=== PATIENT | male | born 1955 | race Caucasian/White ===

== ENCOUNTER 2019-04-16 09:44 | Observation (INO) | payer OTHER ==
[~2019-04-16] VITALS: Ht 177.8 cm; Wt 84.0 kg
[~2019-04-16 09:44] MED LIST: ACET325 PO; ALPR.25 PO; ALPR.5 PO; ALUMAG30SU PO; AMIT10 PO; AMIT75 PO; ASCO500 PO; ASPI325 PO; DULO60 PO; GLIP5ER PO; INSUASPI; INSULANI SUBQ; INSULANPEN SC; LITH300C PO; LORA1 PO; METF500 PO; MULVITMIND PO; PERP4 PO; TAMS.4ER PO; ZINC220 PO; [UNRECOGNIZED DRUG - REMARK]
[2019-04-16 10:18] LABS: BASOPHILS ABSOLUTE AUTO 0.03 K/mm3 (0.00-0.23); BASOPHILS PERCENT AUTO 0 % (0-2); EOSINOPHILS ABSOLUTE AUTO 0.07 K/mm3 (0.00-0.68); EOSINOPHILS PERCENT AUTO 1 % (0-6); Hematocrit 25.5 % (37.0-53.0); Hemoglobin 8.1 g/dL (13.5-17.5); IMMATURE GRAN PERCENT AUTO 1 % (0-1); LYMPHOCYTES ABSOLUTE AUTO 1.14 K/mm3 (0.84-5.20); LYMPHOCYTES PERCENT AUTO 9 % (21-46); MONOCYTES ABSOLUTE AUTO 0.83 K/mm3 (0.16-1.47); MONOCYTES PERCENT AUTO 6 % (4-13); Mean Corpuscular HGB 30.1 pg (26.0-34.0); Mean Corpuscular HGB Conc 31.8 g/dL (31.5-36.5); Mean Corpuscular Volume 95 fL (80-100); Mean Platelet Volume 10.9 fL (9.1-12.4); NEUTROPHILS PERCENT AUTO 84 % (41-73); Platelet Count 264 K/mm3 (150-400); RDW Coefficient Variation 12.8 % (11.7-14.2); RDW Standard Deviation 44.3 fL (35.1-46.3); Red Blood Cell Count 2.69 M/mm3 (4.30-5.90); White Blood Cell Count 13.27 K/mm3 (4.00-11.30)
[2019-04-16 10:32] LABS: Albumin, Blood 2.3 g/dL (3.4-5.0); Albumin/Globulin Ratio 0.4 (0.8-1.8); Bilirubin, Total 1.8 mg/dL (0.1-1.0); Bun/Creatinine Ratio 34.9 (12.0-20.0); Calcium, Blood 9.6 mg/dL (8.5-10.1); Creatinine, Blood 3.58 mg/dL (0.60-1.20); Globulin, Blood 5.4 g/dL (2.2-4.0); Potassium, Blood 5.1 mmol/L (3.5-5.5); Total Protein, Blood 7.7 g/dL (6.4-8.2)
[2019-04-16 13:01] LABS: Percent Saturation 16.4 % (20.0-50.0)
--- NOTE | 2019-04-16 13:25 | NUR ---
RECEIEVED REPORT FROM WARREN SHEARER IN THE ER AT 1310. PATIENT TO BE TRANSFERED INTO ROOM 305 SHORTLY.
--- NOTE | 2019-04-16 15:53 | NUR ---
PATIENT ARRIVED TO ROOM 305 AT 1330. ASSESSMENT COMPLETED WITH THE ASSISTANCE OF THE PATIENT. PATIENT BROUGHT 3 BOXES OF LANTUS PENS WITH HIM TO THE HOSPITAL FROM HOME. ATTEMPTED TO SEND TO PHARMACY TO HOLD AND THE LADY I SPOKE WITH REFUSED TO TAKE THEM STATING SHE HAD NO ROOM TO STORE THEM. SHE INFORMED ME THEY COULD SAFELY BE STORED IN HIS MED BOX FOR UP TO 24 HOURS AT ROOM AIR AND TO SEND THEM HOME WHEN POSSIBLE. I EXPLAINED THAT THE PATIENT WAS ALONE AND DID NOT SEEM TO HAVE FAMILY OR ASSISTANCE TO DO SO; SHE CONTINUE TO REFUSE TO STORE INSULIN. PLACED IN PATIENT MED BOX OUTSIDE ROOM PER PHARMACY.
[2019-04-16 16:35] LABS: Hematocrit 24.3 % (37.0-53.0); Hemoglobin 7.9 g/dL (13.5-17.5)
--- NOTE | 2019-04-16 17:38 | NUR ---
SHIFT SUMMARY PATIENT HAS BEEN SLEEPING THE ENTIRE TIME SINCE THE COMPLETION OF HIS ASSESSMENT. AWAKES WHEN SPOKEN TO HOWEVER GOES BACK TO SLEEP. IV FLUIDS ARE BEING ADMINISTERED PER EMAR. WILL CONTINUE TO MONITOR AND PROVIDE CARE NEEDED.
--- NOTE | 2019-04-16 18:31 | NUR ---
PATIENT AWAKE NOW. BECOMING A BIT MORE AGGITATED AND DIFFICULT TO WORK WITH. INFORMED MONICA, PATTERN DUPLICATOR, THAT THE SCU MIGHT BE A GOOD OPTION FOR THE PATIENT. PATIENT ATTEMPTING TO URINATE IN URINAL STANDING NOW LAYING IN BED. HE IS STRUGGLING AND STATES HE SOMETIMES HAS TOUBLE VOIDING. WILL PASS ON INFORMATION TO ONCOMING RN.
--- NOTE | 2019-04-16 19:53 | NUR ---
TRANSFER TO SCU REPORT GIVEN TO LEAH MERIDA RN SHORTLY AFTER SHIFT CHANGE TO ASSUME CARE OF PT AT THIS TIME. PT TRANSFFERED FROM 305 [address].
--- NOTE | 2019-04-16 20:27 | NUR ---
SPOKE TO HOSPITALIST TAYLA ABOUT THE DIET ORDER FOR THIS PT AND WAS TOLD THAT IF GI STATES THAT A PROCEDURE IS NOT HAPPENING TONIGHT, THE PT CAN HAVE CLEAR LIQUIDS UNTIL MIDNIGHT. WILL CONITNUE TO MONITOR PT.
[2019-04-17 01:35] LABS: Hematocrit 21.7 % (37.0-53.0); Hemoglobin 7.1 g/dL (13.5-17.5); Mean Corpuscular HGB 31.1 pg (26.0-34.0); Mean Corpuscular HGB Conc 32.7 g/dL (31.5-36.5); Mean Corpuscular Volume 95 fL (80-100); Platelet Count 242 K/mm3 (150-400); RDW Coefficient Variation 12.8 % (11.7-14.2); RDW Standard Deviation 44.1 fL (35.1-46.3); Red Blood Cell Count 2.28 M/mm3 (4.30-5.90); White Blood Cell Count 11.26 K/mm3 (4.00-11.30)
[2019-04-17 01:50] LABS: Bun/Creatinine Ratio 31.5 (12.0-20.0); Calcium, Blood 9.5 mg/dL (8.5-10.1); Creatinine, Blood 3.4 mg/dL (0.60-1.20); Potassium, Blood 4.9 mmol/L (3.5-5.5)
[2019-04-17 02:04] LABS: Alpha Feto Protein, Tumor Mkr 2.3 ng/mL (0.0-8.0); Cancer Antigen 19-9 461.3 U/mL (2.0-37.0)
--- NOTE | 2019-04-17 03:48 | NUR ---
SHIFT SUMMARY PT ARRIVED AROUND 1999 FROM ROOM 305 WITHOUT INCIDENT. PT DIDN'T COMPLAIN OF SOB, DIZZINESS, OR CP. DR. PEREZ CAME TO SEE THE PT AND THE PT REFUSED ANY PROCEDURE TOMORROW. DR. PEREZ CHANGED PT'S DIET TO ADA. PT IS NONCOMPLIANT WITH DIET DESPITE RN EDUCATION STATING, "YOU WERE HERE WHEN THE DOCTOR SAID I COULD HAVE WHATEVER I WANT". THE PT RECIEVED ONE LAST GLASS OF ORANGE JUICE AFTER THAT RESPONSE. LATER IN THE SHIFT, THE PT'S H/H CAME BACK AT 7.1. THE HOSPITALIST WAS MADE AWARE AND 1 UNIT OF PRBC WAS ORDERED AND STARTED. SO FAR, PT STATES HE FEELS BETTER. PT IS ALERT AND ORIENTED, 2 ASSIST WITH THE WALKER. PT HAS THE BED ALARM ON AND HAS NO OTHER COMPLAINTS AT THIS TIME. WILL CONTINUE TO MONITOR.
[2019-04-17 06:01] LABS: Hematocrit 22.7 % (37.0-53.0); Hemoglobin 7.5 g/dL (13.5-17.5)
--- NOTE | 2019-04-17 17:50 | NUR ---
PT HAS BEEN RESTING IN BED THROUGHOUT THIS SHIFT. PT WITHDRAWN AND REFUSES PARTS OF CARE. PT USES URINAL AND CALLS APPROPRIATELY. 1 UNIT OF PRBC'S ADMINISTERED AROUND NOON, PT TOLERATED WELL. PT ORIENTED, BUT SLEPT MOST OF THIS SHIFT. PT WAKES TO EAT AND DRINK, NEEDING NO ASSISTANCE. PT STATES NO ADDITIONAL NEEDS AT THIS TIME.
--- NOTE | 2019-04-18 03:46 | NUR ---
SHIFT SUMMARY AOX3. DENIES SOB, PAIN, AND NAUSEA. LR @ 150 IN L WRIST 22G. TELE SHOWS SINUS TACH. WOUND ON BIG TOES AND UPPER BACK OPEN TO AIR. TYLENOL GIVEN @ 2100. REFUSED EGD AND COLONOSCOPY. PLAN IS TO DC TODAY.
[2019-04-18 05:09] LABS: Hematocrit 27.3 % (37.0-53.0); Mean Corpuscular HGB 30.1 pg (26.0-34.0); Mean Platelet Volume 10.3 fL (9.1-12.4); Platelet Count 259 K/mm3 (150-400); RDW Coefficient Variation 13.6 % (11.7-14.2); RDW Standard Deviation 45.5 fL (35.1-46.3); Red Blood Cell Count 2.99 M/mm3 (4.30-5.90); White Blood Cell Count 12.46 K/mm3 (4.00-11.30)
[2019-04-18 05:11] LABS: Mean Corpuscular Volume 91 fL (80-100)
[2019-04-18 05:26] LABS: Bun/Creatinine Ratio 26.3 (12.0-20.0); Calcium, Blood 9.9 mg/dL (8.5-10.1); Creatinine, Blood 2.97 mg/dL (0.60-1.20); Potassium, Blood 4.4 mmol/L (3.5-5.5)
[2019-04-18 08:43] LABS: Stool Occult Blood Guaiac 1 Neg (Neg)
[2019-04-18] MEDS ORDERED: AMIT75 PO (10:42)
[2019-04-18] MEDS ORDERED: TAMS.4ER PO (10:42)
--- NOTE | 2019-04-18 13:15 | NUR ---
DISCHARGE DISCHARGE INSTRUCTIONS, MEDICATION LIST AND FOLLOW UP APPOINTMENT REVIEWED WITH PT. QUESTIONS/CONCERNS ANSWERED. THREE BOXES LANTUS PENS RETRIEVED FROM PHARMACY AND RETURNED TO PT. NEW SCRIP FOR FLOMAX SENT TO [facility] PER PT PREFERENCE. PT IS ATTEMPTING TO CONTACT HIS FRIEND ALISHA FOR A RIDE HOME. WILL CONTINUE TO MONITOR.
--- NOTE | 2019-04-18 16:20 | NUR ---
PT UNABLE TO GET A HOLD OF HIS FRIEND FOR A RIDE HOME. KYLER CALLED BY PT FOR RIDE
== END 2019-04-18 15:50 | disposition home or self-care (01) ==
LOC: ER 09:44 → MEDS 09:45 → ENPENDDIS 04-18 11:30 → MEDS 04-18 15:50
PROVIDERS: Emergency Medicine; Internal Medicine; Internal Medicine Gastroenterology; ADMIT Internal Medicine
DX: D64.9 Anemia, unspecified (principal); N17.9 Acute kidney failure, unspecified; E11.22 Type 2 diabetes mellitus with diabetic chronic kidney disease; N18.3 Chronic kidney disease, stage 3 (moderate); K59.00 Constipation, unspecified; E87.1 Hypo-osmolality and hyponatremia; D72.829 Elevated white blood cell count, unspecified; R79.89 Other specified abnormal findings of blood chemistry; K80.20 Calculus of gallbladder without cholecystitis without obstruction; F20.9 Schizophrenia, unspecified; F31.9 Bipolar disorder, unspecified; Z87.891 Personal history of nicotine dependence; Z88.8 Allergy status to other drugs, medicaments and biological substances; Z79.4 Long term (current) use of insulin
CPT/HCPCS: 36415; 36430; 76770; 80048; 80053; 82105; 82272; 82728; 82947; 83540; 83550; 85014; 85018; 85025; 85027; 86301; 86850; 86900; 86901; 86923; 93005; 93010; 96361; 96374; 96376; 99285-25; A9270; C9113; G0378; J7030; J7120; P9016

== ENCOUNTER 2019-05-16 11:11 | Emergency (ER) | payer OTHER ==
[~2019-05-16] VITALS: Ht 177.8 cm; Wt 90.7 kg
[2019-05-16] MEDS ORDERED: LEVO750 PO (12:09)
== END 2019-05-16 12:34 | disposition home or self-care (01) ==
LOC: ER 11:11
DX: J18.9 Pneumonia, unspecified organism (principal); F17.290 Nicotine dependence, other tobacco product, uncomplicated; R60.0 Localized edema; E11.40 Type 2 diabetes mellitus with diabetic neuropathy, unspecified; E11.22 Type 2 diabetes mellitus with diabetic chronic kidney disease; I12.9 Hypertensive chronic kidney disease with stage 1 through stage 4 chronic kidney disease, or unspecified chronic kidney disease; N18.9 Chronic kidney disease, unspecified; Z88.8 Allergy status to other drugs, medicaments and biological substances; Z79.899 Other long term (current) drug therapy; Z79.4 Long term (current) use of insulin
CPT/HCPCS: 71046; 99283-25

== ENCOUNTER 2019-10-16 18:50 | Inpatient (IN) | payer OTHER ==
[~2019-10-16] VITALS: Ht 177.8 cm; Wt 78.2 kg
[~2019-10-16 18:50] MED LIST changes: +LEVO750 PO
[2019-10-16 20:14] LABS: BASOPHILS ABSOLUTE AUTO 0.02 K/mm3 (0.00-0.23); BASOPHILS PERCENT AUTO 0 % (0-2); EOSINOPHILS PERCENT AUTO 1 % (0-6); Hematocrit 25.2 % (37.0-53.0); Hemoglobin 7.7 g/dL (13.5-17.5); IMMATURE GRAN ABSOLUTE AUTO 0.05 K/mm3 (0.00-0.10); IMMATURE GRAN PERCENT AUTO 1 % (0-1); LYMPHOCYTES ABSOLUTE AUTO 0.98 K/mm3 (0.84-5.20); LYMPHOCYTES PERCENT AUTO 10 % (21-46); MONOCYTES ABSOLUTE AUTO 0.49 K/mm3 (0.16-1.47); MONOCYTES PERCENT AUTO 5 % (4-13); Mean Corpuscular HGB 28.8 pg (26.0-34.0); Mean Corpuscular HGB Conc 30.6 g/dL (31.5-36.5); Mean Corpuscular Volume 94 fL (80-100); NEUTROPHILS ABSOLUTE AUTO 7.91 K/mm3 (1.96-9.15); NEUTROPHILS PERCENT AUTO 83 % (41-73); Platelet Count 270 K/mm3 (150-400); RDW Coefficient Variation 15.7 % (11.7-14.2); RDW Standard Deviation 54.4 fL (35.1-46.3); Red Blood Cell Count 2.67 M/mm3 (4.30-5.90); White Blood Cell Count 9.55 K/mm3 (4.00-11.30)
[2019-10-16 20:30] LABS: Albumin, Blood 2.4 g/dL (3.4-5.0); Albumin/Globulin Ratio 0.4 (0.8-1.8); Bilirubin, Total 0.3 mg/dL (0.1-1.0); Bun/Creatinine Ratio 23.4 (12.0-20.0); Calcium, Blood 9.4 mg/dL (8.5-10.1); Creatinine, Blood 4.35 mg/dL (0.60-1.20); Globulin, Blood 5.8 g/dL (2.2-4.0); Potassium, Blood 5.5 mmol/L (3.5-5.5); Total Protein, Blood 8.2 g/dL (6.4-8.2); Troponin I 0.022 ng/mL (0.000-0.040)
[2019-10-16 23:05] LABS: IMMATURE RETIC FRACTION 23.1 % (2.3-16.0); RETIC HGB EQUIVALENT 27.2 pg (28.20-36.60); RETICULOCYTE ABSOLUTE 0.0801 M/mm3 (0.0200-0.1100)
[2019-10-16 23:12] LABS: Percent Saturation 15.5 % (20.0-50.0)
[2019-10-17 03:27] LABS: Source, Urine Clean Catch
[2019-10-17 03:34] LABS: Bilirubin, Urine Neg (Neg); Blood, Urine 1+ (Neg); Glucose Qualitative, Urine 3+ (Neg); Ketones, Urine Neg (Neg); Leukocyte Esterase, Urine Neg (Neg); Nitrite, Urine Neg (Neg); Protein, Urine 4+ (Neg); Specific Gravity, Urine 1.015 (1.003-1.022); Urobilinogen, Urine NORM (Normal)
[2019-10-17 03:49] LABS: Appearance, Urine Clear (Clear); Bacteria Not Seen /hpf; Color, Urine Yellow (P-Yellow); Red Blood Cells, Urine 0-2 /hpf (0-2); Squamous Epithelial Cells Rare /hpf (Few); White Blood Cells, Urine 0-2 /hpf (0-5)
[2019-10-17 04:31] LABS: Adenovirus Not Detected (NOT DETECT); Bordetella pertussis Not Detected (NOT DETECT); Chlamydophila pneumoniae Not Detected (NOT DETECT); Coronavirus 229E Not Detected (NOT DETECT); Coronavirus HKU1 Not Detected (NOT DETECT); Coronavirus NL63 Not Detected (NOT DETECT); Coronavirus OC43 Not Detected (NOT DETECT); Human Metapneumovirus Not Detected (NOT DETECT); Human Rhinovirus/Enterovirus Not Detected (NOT DETECT); Influenza A/2009-H1 Not Detected (NOT DETECT); Influenza A/H1 Not Detected (NOT DETECT); Influenza A/H3 Not Detected (NOT DETECT); Influenza B Not Detected (NOT DETECT); Mycoplasma pneumoniae Not Detected (NOT DETECT); Parainfluenza Virus 1 Not Detected (NOT DETECT); Parainfluenza Virus 2 Not Detected (NOT DETECT); Parainfluenza Virus 3 Not Detected (NOT DETECT); Parainfluenza Virus 4 Not Detected (NOT DETECT); Respiratory Syncytial Virus Not Detected (NOT DETECT)
--- NOTE | 2019-10-17 07:28 | NUR ---
END OF SHIFT PT TO UNIT FROM ED, AXO, COOPERATIVE BUT NOTABLY GRUMPY AT TIMES. PT IN AFLUTTER UPON ARRIVAL LOW 100'S HR, VSS STABLE OTHERWISE. ARRIVES ON CARDIZEM GTT 5, THIS HAS CONTINUED. HR NOW 70'S BP STABLE. PT ORIENTED TO ROOM/CARE. COVID SAMPLE AND PCR SAMPLE SENT TO LAB FOR TESTING. PT VERY DIFFICULT IV STICK, WHICH REQUIRED MULTIPLE SONOSITE UIDED ATTEMPTS, SHORTLY AFTERWARDS PT ACCIDENTALLY PULLED PREVIOUS IV, CARDIZEM SWITCHED TO THIS IV AND OTHER MEDICATIONS/FLUIDS STOPPED UNTIL DAY SHIFT ABLE TO PLACE NEW IV. PT ARRIVES WITH MULTIPLE ULCERS ON HIS FEET, PICS IN CHART. OTHERWISE, PT HAS SLEPT T/O THE NIGHT AND HAS BEEN COOPERATIVE AND AGREABLE TO CARE.
[2019-10-17 09:28] LABS: Hematocrit 23.7 % (37.0-53.0); Mean Corpuscular HGB 28.2 pg (26.0-34.0); Mean Corpuscular HGB Conc 29.5 g/dL (31.5-36.5); Mean Corpuscular Volume 96 fL (80-100); Mean Platelet Volume 9.9 fL (9.1-12.4); Platelet Count 235 K/mm3 (150-400); RDW Coefficient Variation 15.8 % (11.7-14.2); RDW Standard Deviation 54.4 fL (35.1-46.3); Red Blood Cell Count 2.48 M/mm3 (4.30-5.90); White Blood Cell Count 8.48 K/mm3 (4.00-11.30)
[2019-10-17 09:47] LABS: Albumin, Blood 2.1 g/dL (3.4-5.0); Albumin/Globulin Ratio 0.4 (0.8-1.8); Bilirubin, Total 0.2 mg/dL (0.1-1.0); Bun/Creatinine Ratio 22.4 (12.0-20.0); Calcium, Blood 8.9 mg/dL (8.5-10.1); Creatinine, Blood 4.37 mg/dL (0.60-1.20); Globulin, Blood 5.6 g/dL (2.2-4.0); Potassium, Blood 5.9 mmol/L (3.5-5.5); Total Protein, Blood 7.7 g/dL (6.4-8.2)
--- NOTE | 2019-10-17 10:35 | NUR ---
ATTEMPTED ECHOCARDIOGRAM 10/17/19 APTIENT REFUSED TEST
--- NOTE | 2019-10-17 12:00 | NUR ---
CARDIZEM DRIP IS STOPPED PT HAS CONSISTANT HR IN 70s. VSS. PT RESTING WELL INBED
--- NOTE | 2019-10-17 15:06 | NUR ---
PT WITH PROGRESSIVE UPWARD TITRATION OF O2 TO 6L NC TOFDAY. PT THEN AROUND 1400 WITH A SUDDEN INCREASE IN SOB, SPO2 DROPPED TO LOW TO MID 80s PT PLACED ON OXYMIZER AT 10L LITERS WHICH INITIALLY HELPED WITH LABOR OF BREATHING, PT DR DAVISON CALLED ORDER PLACED FOR BIPAP RT WAS CALLED TO NOTIFIY ORDER WAS BEINGPLACED FOR BIPAP. PT WAS TITRATED TO 12L O2 VIA OXYMIZER TO EVENTUALLY MAINTAIN SPO2 AT 92%. PT'S LAC IV INFILTRATED DURING PROCESS, IV WAS DC PRESSURE DFRESSINGH AND WARM COMPRESS APPLIED TO LAC. NEW IV WAS PLACED TO RFA, PT STS THAT HE FEELS THAT HIS BREATHING IS "BETTER" PT NOW WITH AFLUTTER IN 130s SHROUDMAN CALLING FOR NEW BAG OF CARDIZEM TO RESTART CARDIZEM. AWATING AZYHTROMYCIN FROM PHARMACY. PT RESTING WELL ON BED AT THIS TIME STS CONTINUED IMPROVEMENT FOR BREAHTING. LS ARE DIMENISHED T/O ALL LOBES. PT ALERT, AWAKES TO VERBAL COMMAND. RT IS ARRIVING TO PLACVE BIPAP
--- NOTE | 2019-10-17 18:38 | NUR ---
SHIFT NOTE SEE PREVIOUS NOTES. PT WAS TITRATED ON O2 FROM NASAL CANNULA TO OXYMIZER THEN FINALLY BIPAP. PT IS RESTING WELL ON BIPAP, NADN. PT STS THAT HIS BREATHING HAS GREATLY IMPROVIED WITH BIPAP IN PLACE, PT DOES APPEAR QUITE CALM WITH BIPAP IN PLAFCE. PT IS EDUCATED NUMEROUS TIMES WHICH HE DOES EXPRESS A GOOD UNDERSTANDING OF TEACHING R/T BIPAP. PT'S CODE STATUS WAS CALRIFIED WITH HIM AND HE STS THAT HE CONTINUES TO WISH TO BE A FULL CODE. PT REMAINS ON CARDIZEM DRIP AT 5MG/HR WITH A FLUTTER NOTED AT 90BPM.
--- NOTE | 2019-10-17 21:50 | NUR ---
UPDATE PATIENT WORE BIPAP FOR APPROX 15-20 MINUTES AT THE BEGINNING OF THE SHIFT. THEN CALLED RN INTO THE ROOM AND STATED THAT HE WILL NOT WEAR THE BIPAP ANY MORE. PATIENT ON 12-14L O2 VIA OXYMIZER. PATIENT USING ACCESSORY MUSCLES TO BREATH BUT DENIES FEELING SHORT OF BREATH. PATIENT CONTINUE TO REFUSES BIPAP AT THIS TIME.
--- NOTE | 2019-10-17 22:14 | NUR ---
UPDATE NURSE PRACTIONER ALFRED JONES NOTIFIED OF PATIENT'S ELEVATED HEART RATE AND BLOOD PRESSURE. WELL PATIENT'S INCREASED WORK OF BREATHING AND REFUSAL OF THE BIPAP EVEN IF MEDS WERE GIVEN TO HELP HIM RELAX. ALFRED ASSESSED PATIENT'S CHANGES, CHART, AND THE PATIENT. NO ORDERS GIVEN AT THIS TIME. WILL CONTINUE TO MONITOR. CHARGE NURSE AWARE AND SPOKE WITH ALFRED WELL.
[2019-10-17 22:27] LABS: Bun/Creatinine Ratio 22.6 (12.0-20.0); Calcium, Blood 9.4 mg/dL (8.5-10.1); Creatinine, Blood 4.42 mg/dL (0.60-1.20); Potassium, Blood 5.6 mmol/L (3.5-5.5)
--- NOTE | 2019-10-17 22:30 | NUR ---
UPDATE NURSE PRACTIONER ALFRED JONES IN ROOM TO SPEAK WITH PATIENT. PATIENT REQUESTING ADVIL FOR FOOT PAIN. ALFRED EXPLAINED TO PATIENT WHY SHE WAS UNABLE TO PERSCRIBE ADVIL. PATIENT REFUSING TYLENOL AT THIS TIME. PATIENT ALSO TOLD ALFRED THAT HE WANTS TO BE INTUBATED IF NEEDED BUT HE IS CONTINUING TO REFUSE BIPAP, EVEN AFTER ALFRED SPOKE WITH PATIENT.
--- NOTE | 2019-10-17 23:43 | NUR ---
UPDATE PATIENT'S CONTINUOUS BIOX ALARMING DUE TO O2 SATURATION IN THE 80'S. PATIENT CONTINUES TO REFUSE THE BIPAP. IT WAS EXPLAINED TO PATIENT THAT THE ALARMING NOISE INDICATED THAT HE WAS NOT GETTING ENOUGH OXYGEN, PATIENT STATED, "I'M GETTING ENOUGH OXYGEN FOR ME." AND CONTINUED TO REFUSE GOING ON THE BIPAP.
--- NOTE | 2019-10-18 04:34 | NUR ---
UPDATE PATIENT'S OXYGEN SATURATION NOTED TO BE 85-87% ON 15L VIA OXYMIZER. PATIENT STILL REFUSING BIPAP. RESPIRTORY THERAPY CALLED TO ASSESS PATIENT. DR STARKS NOTIFIED OF SITUATION, ORDERS RECEIVED. PATIENT NOW ON AIRVO AND OXYGEN SATURATIONS RANGING FROM 90-94% AT THIS TIME. WILL CONTINUE TO MONITOR.
[2019-10-18 06:20] LABS: BASOPHILS PERCENT AUTO 0 % (0-2); EOSINOPHILS PERCENT AUTO 0 % (0-6); Hemoglobin 7.4 g/dL (13.5-17.5); IMMATURE GRAN ABSOLUTE AUTO 0.03 K/mm3 (0.00-0.10); IMMATURE GRAN PERCENT AUTO 1 % (0-1); LYMPHOCYTES ABSOLUTE AUTO 0.22 K/mm3 (0.84-5.20); LYMPHOCYTES PERCENT AUTO 4 % (21-46); MONOCYTES ABSOLUTE AUTO 0.05 K/mm3 (0.16-1.47); MONOCYTES PERCENT AUTO 1 % (4-13); Mean Corpuscular HGB 28.1 pg (26.0-34.0); Mean Corpuscular HGB Conc 29.6 g/dL (31.5-36.5); Mean Corpuscular Volume 95 fL (80-100); Mean Platelet Volume 9.8 fL (9.1-12.4); NEUTROPHILS ABSOLUTE AUTO 5.93 K/mm3 (1.96-9.15); NEUTROPHILS PERCENT AUTO 95 % (41-73); Platelet Count 230 K/mm3 (150-400); RDW Coefficient Variation 15.6 % (11.7-14.2); RDW Standard Deviation 54.3 fL (35.1-46.3); Red Blood Cell Count 2.63 M/mm3 (4.30-5.90); White Blood Cell Count 6.23 K/mm3 (4.00-11.30)
[2019-10-18 06:37] LABS: Bun/Creatinine Ratio 22.9 (12.0-20.0); Calcium, Blood 9.7 mg/dL (8.5-10.1); Creatinine, Blood 4.32 mg/dL (0.60-1.20); Potassium, Blood 5.8 mmol/L (3.5-5.5)
--- NOTE | 2019-10-18 07:29 | NUR ---
SHIFT SUMMARY PATIENT HAS REMAINED ON THE AIRVO THROUGHOUT THE REST OF THE NIGHT. WITH 02 SATURATIONS MAINTAINING BETWEEN 90-94%. PATIENT CONTINUES TO BE IRRITABLE. PATIENT HAS APPEARED TO NAP ON AND OFF THROUGHOUT THE NIGHT. REPORT GIVEN TO ONCOMING RN.
--- NOTE | 2019-10-18 10:11 | NUR ---
LEFT UE DURING MORNING ASSESSMENT NOTED THAT PT LEFT FA AND UPPER ARM WERE LARGER THAN RIGHT. PT DENIED PAIN OR DISCOMFORT. HE RELATED THAT IT WAS FROM AN IV. 2+ LEFT RADIAL PULSE. BRISK CAP REFILL TO LEFT FINGERS. PT ABLE TO US ARM WITHOUT DISCOMFORT. NO REDNESS OR POINT SWELLING NOTED. PT REFUSED ELEVATION ON A PILLOW. HE SLEEPS ON HIS SIDE. CONTINUE POT.
--- NOTE | 2019-10-18 12:38 | NUR ---
[facility] CALLED TO ENQUIRE ABOUT PT STATUS. THEY HAVE 1 OTHER RESIDENT BEING SCREENED FOR COVID. CONTINUE POT.
[2019-10-18 13:49] LABS: Bun/Creatinine Ratio 23.6 (12.0-20.0); Calcium, Blood 9.6 mg/dL (8.5-10.1); Creatinine, Blood 4.28 mg/dL (0.60-1.20); Potassium, Blood 5.4 mmol/L (3.5-5.5)
--- NOTE | 2019-10-18 16:03 | NUR ---
ECHO PT REFUSED BEDSIDE ECHO TODAY. CONTINUE POT.
--- NOTE | 2019-10-18 17:58 | NUR ---
EVENING NOTE PT SITTING ON BEDSIDE EATING DINNER. TOLERATING AIRVO WELL. SPO2 90-97%. HE CAN LAY FLAT AND SLEEP WITHOUT DESATURATIONS. BP STAABLE. CARDIZEM GTT 5MG/HR. BP STABLE. HE HAD ABOUT AN HOUR WHERE HIS HR INCREASED. SELF LIMITED. PT COOPERATIVE WITH CARE. AGREEABLE TO LEE PLACMENT. 24 HOUR URINE JUG AND LEE BAG ON ICE. CORVID R/O PRECAUTIONS. DOOR IS BEING KEPT CLOSED. HE IS CALLING FOR ASSISTANCE. REALLY LIKES MILK. DRINKS 3-4 A MEAL. DENIED PAIN OR DISCOMFORT. BICARB GTT INFUSING IN SEPERATE IV SITE FROM CARDIZEM GTT. LEFT ARM 2+ EDEMA. DR DAVISON WAS SHOWN WHEN SHE WAS AT BEDSIDE DURING ROUNDING. CALL LIGHT WITH IN REACH. PT REFUSES TRACTION SOCKS. BED IN LOW POSITION. CONTINUE POT.
--- NOTE | 2019-10-19 03:32 | NUR ---
UPDATE DR PEREZ NOTIFIED OF PAITNET'S BLOOD PRESSURE WELL PATIENT'S HEART RATE SUSTAINING IN THE 130'S WITH CARDIZEM GTT AT 15 MG/HR. ORDERS RECEIVED.
[2019-10-19 04:30] LABS: BASOPHILS PERCENT AUTO 0 % (0-2); EOSINOPHILS PERCENT AUTO 0 % (0-6); IMMATURE GRAN ABSOLUTE AUTO 0.04 K/mm3 (0.00-0.10); IMMATURE GRAN PERCENT AUTO 0 % (0-1); LYMPHOCYTES ABSOLUTE AUTO 0.24 K/mm3 (0.84-5.20); LYMPHOCYTES PERCENT AUTO 3 % (21-46); MONOCYTES ABSOLUTE AUTO 0.07 K/mm3 (0.16-1.47); MONOCYTES PERCENT AUTO 1 % (4-13); Mean Corpuscular HGB 28.6 pg (26.0-34.0); Mean Corpuscular HGB Conc 30.4 g/dL (31.5-36.5); Mean Corpuscular Volume 94 fL (80-100); Mean Platelet Volume 9.5 fL (9.1-12.4); NEUTROPHILS ABSOLUTE AUTO 9.32 K/mm3 (1.96-9.15); NEUTROPHILS PERCENT AUTO 96 % (41-73); Platelet Count 257 K/mm3 (150-400); RDW Coefficient Variation 15.8 % (11.7-14.2); RDW Standard Deviation 53.8 fL (35.1-46.3); Red Blood Cell Count 2.45 M/mm3 (4.30-5.90); White Blood Cell Count 9.67 K/mm3 (4.00-11.30)
[2019-10-19 04:53] LABS: Albumin, Blood 2.2 g/dL (3.4-5.0); Anion Gap 14 mmol/L (6-16); Blood Urea Nitrogen 107 mg/dL (8-24); CO2, Blood 15 mmol/L (21-32); Calcium, Blood 8.9 mg/dL (8.5-10.1); Chloride, Blood 106 mmol/L (98-108); Creatinine, Blood 4.12 mg/dL (0.60-1.20); Glomerular Filtration Rate 15 (60-); Glucose, Blood 370 mg/dL (70-99); Potassium, Blood 5.3 mmol/L (3.5-5.5); Sodium, Blood 135 mmol/L (136-145); Uric Acid, Blood 5.8 mg/dL (3.5-7.2)
[2019-10-19 05:03] LABS: Phosphorus, Blood 8.2 mg/dL (2.5-4.9)
--- NOTE | 2019-10-19 05:42 | NUR ---
UPDATE DR PEREZ CALLED AND NOTIFIED OF PATIENT'S HGB LEVEL'S THIS AM, PATIENT HAS SIGNED THE BLOOD REFUSAL PAPER. DR PEREZ ALSO NOTIFIED OF PATIENT'S BLOOD SUGAR WITH AM LABS. AN ORDER FOR HUMALOG TO BE CHANGED TO MEDIEM SLIDING SCALE STARTING NOW AND THEN AC TODAY. DR PEREZ ALSO NOTIFIED OF PATIENT'S PHOSPHORUS LEVELS THIS AM.
--- NOTE | 2019-10-19 07:21 | NUR ---
SHIFT SUMMARY PATIENT SLIGHTLY IRRITABLE THROUGHOUT THE NIGHT. PATIENT APPEARED TO NAP ON AND OFF LAST NIGHT. PATIENT ALSO REQUESTED SNACKS FREQUENTLY EVEN AFTER EDUCATION ON FOOD AND BLOOD SUGAR WAS PROVIDED. PATIENT REMAINED ON THE AIRVO, CONTINUOUS BIOX IN PLACE. IV FLUIDS AND CARDIZEM GTT RUNNING PER ORDERS. 24 HOUR URINE IN PROGRESS. REPORT GIVEN TO ONCOMING RN.
--- NOTE | 2019-10-19 09:14 | NUR ---
Echocardiogram completed.
--- NOTE | 2019-10-19 14:35 | NUR ---
Echocardiogram completed.
--- NOTE | 2019-10-19 19:24 | NUR ---
PCU NOC SHIFT SUMMARY PATIENT ALERT AND ORIENTED TO SELF, LOCATIONS AND NEEDS. PATIENT BECOMES IRRATABLE WITH QUESTIONS. PATIENT ALLOWED THIS RN TO TAKE VSS AND ADMINISTER MEDICATIONS. PATIENT WEAK WITH STAND BUT ABLE TO TOLERATE FOR A FEW MINUTES AT A TIME. PATIENT REMAINED ON AIRVO T/O DAY - MANAGED PER RESPIRTORY THERAPY. PATIENT REMAINED IN AFIB T/O SHIFT. CARDIEZEM GTT TITRATED TO OFF THIS SHIFT - SEE EMAR. PATIENT LIVES AT [facility] - NO FAMILY NOTED PER CHART - NOR HAS PATIENT COMMUNICATED. PATIENT CONTINUES TO REFUSE DIALYSIS AND BLOOD PRODUCTS BUT WOULD LIKE TO REMAIN A FULL CODE - PATIENT EDUCATED. NO ACUTE CHANGES NOTED THIS SHIFT. BED ALARM ON AND CALL LIGHT W/I REACH. REPORT TO NOC SHIFT RN RENE.
--- NOTE | 2019-10-19 20:50 | NUR ---
Initial shift assessment: Pt resting in bed with Airvo in place. VSS. Pt HR elevated. Attempted new IV start in order to restart cardezem gtt while bicarb running. Pt very irritable and stated "I want a pill form, let me talk with the doctor." Assured pt I would speak with physicain about sarting PO instead of IV cardizem. At this time pt was switched to IV cardizem for HR control and bicarb drip was put on standby. Will switch back after HR better controlled. Pt continues to ask for snacks and NS was called to get sugar free snacks from kitchen. Downing cath draining clear, yellow urine. 24 hour urine restarted. Pt aware that sputum sample needs sent and speciman container at bedside. Call light in reach. Will continue to monitor and treat throughout the night.
--- NOTE | 2019-10-20 02:31 | NUR ---
Pt sitting up at edge of bed at this time. States that he is feeling ok. HR has decreased into the 90's after PO cardizem, cardizem push and IV cardizem gtt were given. Gtt turned off at this time and Bicarb restarted per orders. Pt denies other needs. Will continue to monitor tele. Airvo still in on and Biox in low 90's. RT to titrate, at this time airvo is at 55L and 70%fio2. Call light in reach and Pt calls appropriatly.
[2019-10-20 04:11] LABS: BASOPHILS PERCENT AUTO 0 % (0-2); EOSINOPHILS PERCENT AUTO 0 % (0-6); Hematocrit 22.8 % (37.0-53.0); Hemoglobin 6.9 g/dL (13.5-17.5); IMMATURE GRAN ABSOLUTE AUTO 0.04 K/mm3 (0.00-0.10); IMMATURE GRAN PERCENT AUTO 1 % (0-1); LYMPHOCYTES ABSOLUTE AUTO 0.16 K/mm3 (0.84-5.20); LYMPHOCYTES PERCENT AUTO 2 % (21-46); MONOCYTES ABSOLUTE AUTO 0.07 K/mm3 (0.16-1.47); MONOCYTES PERCENT AUTO 1 % (4-13); Mean Corpuscular HGB 28.4 pg (26.0-34.0); Mean Corpuscular HGB Conc 30.3 g/dL (31.5-36.5); Mean Corpuscular Volume 94 fL (80-100); Mean Platelet Volume 9.5 fL (9.1-12.4); NEUTROPHILS ABSOLUTE AUTO 7.88 K/mm3 (1.96-9.15); NEUTROPHILS PERCENT AUTO 97 % (41-73); Platelet Count 245 K/mm3 (150-400); RDW Coefficient Variation 15.9 % (11.7-14.2); RDW Standard Deviation 54.7 fL (35.1-46.3); Red Blood Cell Count 2.43 M/mm3 (4.30-5.90); White Blood Cell Count 8.15 K/mm3 (4.00-11.30)
--- NOTE | 2019-10-20 04:14 | NUR ---
PT UP TO BSC WITH 1 PERSON ASSIST, HAD MEDIUM FORMED BROWN STOOL.
[2019-10-20 04:35] LABS: Albumin, Blood 2.3 g/dL (3.4-5.0); Anion Gap 14 mmol/L (6-16); Blood Urea Nitrogen 124 mg/dL (8-24); Bun/Creatinine Ratio 29.8 (12.0-20.0); CO2, Blood 16 mmol/L (21-32); Chloride, Blood 105 mmol/L (98-108); Creatinine, Blood 4.16 mg/dL (0.60-1.20); Glomerular Filtration Rate 15 (60-); Glucose, Blood 249 mg/dL (70-99); Magnesium, Blood 2.5 mg/dL (1.6-2.4); Potassium, Blood 5.7 mmol/L (3.5-5.5); Sodium, Blood 135 mmol/L (136-145)
--- NOTE | 2019-10-20 05:09 | NUR ---
SHIFT SUMMARY: Pt dozing in bed at this time. He was awake for a good part of the night. Pt HR A-flutter in the 70-80's at this time. Rate has been controlled since about 0200. Pt was able to have a med brown stool tonight. Downing cath has been draining well. He has remained on airvo with biox 88-96. Tolerating well. No other needs this shift. Will report to day RN.
[2019-10-20 07:24] LABS: Percent Saturation 14.8 % (20.0-50.0)
--- NOTE | 2019-10-20 08:00 | NUR ---
ASSUMED CARE PATIENT ALERT AND ORIENTED TO SELF, LOCATION AND DATE OF . PATIENT DENIES ANY ACUTE PAIN. ABD SOFT AND NONTENDER. LEE CATH IN PLACE DRAINING CLEAR YELLOW URINE TO GRAVITY. RESP LABORED WITH ACCESSORY AND ABDOMINAL BREATHING NOTED - PATIENT ON AIRVO WITH 55LPM AND FIO2 AT 55%. HEART RATE IN THE 140'S AFLUTTER. PATIENT HYPERTENSIVE. CALLED MD COPPOLA TO NOTIFY OF RVR AND WOB WITH FIO2 RATE AND PT HYPERTENSION - TREATED PER MD ORDERS - SEE EMAR. DISCUSSED PLAN OF CARE WITH RT AND MD COPPOLA. CALL LIGHT W/I REACH.
--- NOTE | 2019-10-20 09:00 | NUR ---
ASSUMED CARE PATIENT ALERT AND ORIENTED TO SELF, LOCATION AND PARTIAL SITUATION. PATIENT REMAINS IN AFLUTTER W/ RVR RATE 140'S - HYPERTENSIVE 188-203 SBP; MD COPPOLA NOTIFIED - ORAL CARDIEZEM AND LOPRESSOR PUSH GIVEN PER EMAR. PATIENT PRESSURES DOWN AND AFLUTTER NOW 70-80'S. PATIENT REMAINS ON AIRVO. PATIENT UP IN TRIPOD POSITION; INCREASE WOB NOTED. PATIENT PLACE IN RECLINER. NOTIFIED PROVIDER ANAT OF CONCERNS. CALL LIGHT W/I REACH.
--- NOTE | 2019-10-20 10:09 | NUR ---
OXYGEN REQUIREMENTS INCREASE PATIENT TITRATED UP TO 55 LPM ON AIRVO WITH FIO2 AT 80% PER RESPIRATORY THERAPY.
--- NOTE | 2019-10-20 10:25 | NUR ---
CONSENT TO BLOOD AND DIALYSIS SEE PATIENT LABS - PATIENT CONSENT TO BLOOD AND DIALYSIS ADMINSTRATION AND INSERTION OF DIALYSIS PORT WITH MD CHAN ON SPEAKER PHONE. PATIENT REMAINS SOB WITH INCREASED WORK OF BREATHING. AIRVO IN PLACE WITH 55LPM AND FIO2 TITRATED UP TO 80%. DUSTIN GAVE ORDERS FOR EMERGENT DIALYSIS WITH TRANSFUSION OF 2 UNITS PRBC AND TRANSFER TO ICU WITH DAIRY CATTLE FARM WORKER TO PLACE DIALYSIS PORT. AT APPROX 1240 PATIENT TRANSFERED TO ICU 13 - REPORT TO SURFACE SUPPLY BREATHING APPARATUSJANKI PERKINS.
--- NOTE | 2019-10-20 13:00 | NUR ---
TRANSFER FROM PCU DUE TO FLUID OVERLOAD AND NEEDING A DIALYSIS CATHETER PLACED PER DR CHAN. DR SALCIDO AND DR SPEARS CONSULTED FOR MANAGEMENT. PT ARRIVES VIA BED BUT ABLE TO DANGLE AND TRANSFER TO ICU BED WITH TWO PERSON SBA. INCREASE SOB NOTED ON EXERTION AND VERY ANXIOUS, CONCENTRATING ON BREATHING. RESPIRATORY THERAPY AT BEDSIDE TO PLACE AIRVO TO KEEP SATS >90%. PT DENIES PAIN. LUNGS CLEAR WITH FINE CRACKLES TO BASES. TRACHYPNEIC, HEART RHYTHM A-FLUTTER 3:1 WITH CONTROL RATE IN 90'S. CARDIZEM GTT DC'D IN PCU. ABD DISTENDED WITH HYPO BT'S. LEE IN PLACE AND PATENT WITH CLEAR YELLOW URINE, 24 URINE BEING COLLECTED. BUMEX GTT AND SODIUM BICARB GTT INFUSING AT THIS TIME. BILTERAL LE'S TAUGHT AND MINIMAL PITTING EDEMA. BITALERAL FEET WITH DRY CONTACT DERMATITIS WITH THREADY PEDAL PULES. POWER GLIDE TO ELIAN. BP STABLE. CONTINUE TO MONITOR AND TX PER ORDERS.
--- NOTE | 2019-10-20 13:15 | NUR ---
DR SPEARS HERE TO CONSULT. DISCUSSED WITH PATIENT ABOUT PLACING A DIALYSIS CATHETER, PATIENT AGREES TO PROCEED WITH IT. DR SALCIDO HERE TO PLACE DIALYSIS CATHETER, CONSENT OBTAINED. 4420 DR SALCIDO PLACING DIALYSIS CATHETER; PATIENT TOLERATING WELL.
--- NOTE | 2019-10-20 13:24 | NUR ---
URGENT DIALYSIS ORDERED BY DR CHAN. TREATMENT WILL COMMENCE PAULINE FOLLOWIING CVC PLACEMENT AND XRAY POSITION CONFIRMATION.
--- NOTE | 2019-10-20 14:15 | NUR ---
DIALYSIS CATHETER PLACED WITH XRAY CONFIRMATION PER DR SALCIDO. SERVICE PROMOTER SALESPERSON, ELLIS HERE AT BEDSIDE SETTING UP. 1425 DIALYSIS STARTED AND WILL TRANSFUSE 2UNITS PRBC'S PER ORDERS.
[2019-10-20 14:26] LABS: PCO2 Arterial 42.2 mmHg (35-45)
[2019-10-20 14:27] LABS: pH Blood Arterial 7.25 (7.35-7.45)
--- NOTE | 2019-10-20 16:15 | NUR ---
HEART RHYTHM INCREASE TO 140'S WITH DIALYSIS. WILL HAVE CHIEF LIFESTYLE OFFICERELLIS GIVE METOPROLOL 5MG IVP PER ORDERS TO TX FOR RVR. CONTINUE TO MONITOR AND TX PRN.
--- NOTE | 2019-10-20 16:50 | NUR ---
NO CHANGES ON HR WITH METOPROLOL IVP. DR SPEARS HERE AT BEDSIDE WITH NEW ORDERS. CHANGE TO BIPAP INSTEAD OF AIRVO; PATIENT AGREES. EXTRA LARGE SOFT BOWEL MOVEMENT ON BEDPAN, TOLERATED WELL. CONTINUING RECEIVING DIALYSIS.
--- NOTE | 2019-10-20 17:09 | NUR ---
COMPLETE WITH DIALYSIS, TOLERATED WELL. BIPAP IN PLACE, HR DECREASED TO 100'S-TEENS. SLEEPING, RESTING COMFORTABLE. CONTINUE TO TX PRN.
--- NOTE | 2019-10-20 18:09 | NUR ---
SHIFT SUMMARY PT RECEIVED DIALYSIS TODAY AND TOLERATED WELL. BP REMAIN STABLE BUT HR INCREASE TO A-FULTTER WITH RVR 140'S. PT WAS RECEIVING AIRVO WITH 85% FIO2 BUT NEW ORDERS TO START BIPAP TO CONTROL HR. HR CONTROL IN THE 90-100'S, BP STABLE. PT SLEEPING/RESTING COMFORTABLE. WILL KEEP NPO STATUS FOR DINNER AND RESUME DIET WHEN HUNGRY. 24HR URINE BEING COLLECTED AND COMPLETE AT 1945. WILL REPORT OFF TO NOC SHIFT.
--- NOTE | 2019-10-20 19:28 | NUR ---
Met with staff today to review pt needs. Dr Bajwa had extensive conversation with patient regarding plan of care. Pt consented to dialysis plan. Review of chart and past psyciatric history and and previous admissions. REview of patient with morning caregiver to strategize care. Pt does not have next of kin noted. Called Ian Scott he has a friend listed. Called his friend and he was an old roomate who has not talked to him in a few months but stays in touch. He is supportive of pt but not appopriate to make decisons and does not want to. He stated that he does have sons and a family he has notseen in years. He called around to some of their old friends and accuintances and tried to find out more. He confirmed that he has long lost contact with any family. Review of Doctor Jarrett notes pt has been institutinalized and homelss and in fpc houses. He has had bouts of being very ill. At his time we are unable to find a decision maker if he is uanble to speak for himself. Ethic consult put in suggest in pt should decline surogate support given within the [facility] guideline of directive three. Suggest we offer physician support of two phsyician and and the ethic care team assistant plan of care if pt cannot speak or decines.
--- NOTE | 2019-10-20 19:30 | NUR ---
ASSUMED CARE REPORT RECIEVED. PT IS SITTING UP IN BED ON BIPAP INITIALLY. PT REQUESTING TO EAT. PT PLACED ON AIRVO AT 55L, FIO2 82%. PT TOLERATING AIRVO WELL. PT IS ALERT AND ORIENTED. PT NEEDS FREQUENT REASSURANCE OF PLAN OF CARE. PT DENIES SOB AT THIS TIME. PT WITH HR 140'S AT THIS TIME, BP STABLE. POWERGLIDE TO ELIAN IS C/D/I, SALINE LOCKED. DIALYSIS CATHETER TO [facility] C/D/I, CAPS IN PLACE. LEE IN PLACE WITH CLEAR YELLOW OUTPUT NOTED, ON ICE. 24HR URINE COLLECTION IN PROGRESS. WILL CONTINUE TO MONITOR.
[2019-10-20 21:19] LABS: Protein, Urine Quantitative 174.8 mg/dL (0.0-11.9)
[2019-10-21 03:23] LABS: Hematocrit 27.2 % (37.0-53.0); Hemoglobin 8.8 g/dL (13.5-17.5)
[2019-10-21 03:37] LABS: Magnesium, Blood 2.2 mg/dL (1.6-2.4)
[2019-10-21 03:38] LABS: Albumin, Blood 2.2 g/dL (3.4-5.0); Anion Gap 9 mmol/L (6-16); Blood Urea Nitrogen 93 mg/dL (8-24); Bun/Creatinine Ratio 29.6 (12.0-20.0); CO2, Blood 27 mmol/L (21-32); Calcium, Blood 8.5 mg/dL (8.5-10.1); Chloride, Blood 102 mmol/L (98-108); Creatinine, Blood 3.14 mg/dL (0.60-1.20); Glomerular Filtration Rate 21 (60-); Glucose, Blood 271 mg/dL (70-99); Phosphorus, Blood 7.2 mg/dL (2.5-4.9); Potassium, Blood 4.3 mmol/L (3.5-5.5); Sodium, Blood 138 mmol/L (136-145)
--- NOTE | 2019-10-21 05:46 | NUR ---
SHIFT SUMMARY PT HAS REMAINED AWAKE FOR MOST OF THE SHIFT. PT IS ALERT AND ORIENTED AND FOLLOWS SOME COMMANDS APPROPRIATELY. PT MOOD HAS BEEN LABILE AND PT IS IRRITABLE WITH CARE. PT DENIES PAIN OR DISCOMFORT AND DENIES SOB. PT DESATURATES QUICKLY WITH EXERTION. PT REMAINS ON AIRVO AT 55L, 82% FIO2. HR HAS VARIED BETWEEN AFLUTTER 100'S AND 140'S. BP STABLE. PG TO ELIAN IS C/D/I. LEE IN PLACE WITH GOOD CLEAR YELLOW OUTPUT NOTED. PT WITH GREAT APPETITE AND REQUESTING SNACKS FREQUENTLY THROUHGHOUT THE SHIFT. WILL CONTINUE TO MONITOR AND REPORT OFF TO ONCOMING RN.
[2019-10-21 08:09] LABS: ANTIGLOMERULAR BM AB 5 units (0-20)
--- NOTE | 2019-10-21 08:23 | NUR ---
0700- ASSUMED CARE OF PATIENT. PT IS SLEEPING AT THIS TIME WILL ALLOW PT TO REST A LITTLE LONGER. PER REPORT FROM NIGHT RN, PT WENT TO SLEEP AROUND 3 AM THIS MORNING. 07-PT WOKE UP CALLED THIS RN, STATING "WHERE'S MY BREAKFAST" INFORMED PT BREAKFAST WILL ARRIVE SOON. 08-PT UST FINISHED BREAKFAST. TOLERATED IT WELL. PT IS ALERT AND ORIENTED. PT IS EATING HASTILY. ENCOURAGED PT TO TAKE TIME TO EAT SO HE WILL NOT CHOKE AND ASPIRATE. PT SEEMED TO LISTEN SINCE HE TOOK HIS TIME TO EAT.
--- NOTE | 2019-10-21 09:26 | NUR ---
DR. COPPOLA CAME BY TO SEE PT. UPDATED HER OF PT'S STATUS.
--- NOTE | 2019-10-21 10:00 | NUR ---
DIALYSIS WAS STARTED AT THIS TIME PER ROE WORKFORCE ADVISOR.
--- NOTE | 2019-10-21 10:53 | NUR ---
DR. SPEARS WAS NOTIFIED RGARDING PT'S HR IN HE 150s. PT RECEIVED LOPRESSOR 5 MG IV @ 0833. SHE ORDERD TO GIVE ANOTHER DOSE OF LOPRESSOR 5MG IV ONE TIME DOSE ON OP OF THE PRN DOSES.
--- NOTE | 2019-10-21 12:37 | NUR ---
1145-PT SEEN BY DR. SPEARS. UPDATED HER OF PT'S STATUS.
[2019-10-21 13:09] LABS: ANA DIRECT Negative (Negative); ANTIMYELOPEROXIDASE (MPO) ABS <9.0 U/mL (0.0-9.0); ANTIPROTEINASE 3 (PR-3) ABS <3.5 U/mL (0.0-3.5); ATYPICAL PANCA <1:20 titer (Neg:<1:20); CYTOPLASMIC (C-ANCA) <1:20 titer (Neg:<1:20); PERINUCLEAR (P-ANCA) <1:20 titer (Neg:<1:20)
--- NOTE | 2019-10-21 13:16 | NUR ---
1250-DIALYSIS IS DONE AT THIS TIME. PLACED PT ON BIPAP SETTINGS 12/6 AT THIS TIME WITH FiO2 65%. 1316-DR. SPEARS IS TALKING TO DR. FREY REGARDING CARDIOLOGY CONSULT AT THIS TIME. CURRENT BIPAP SETTINGS 14/6 STILLL 65% FiO2. PT TOLERATING BIPAP
[2019-10-21 14:30] LABS: International Normalized Ratio 1.21; Prothrombin Time Results 12.8 Sec (9.7-11.5)
[2019-10-21 15:09] LABS: A/G RATIO 0.7 (0.7-1.7); ALBUMIN 2.7 g/dL (2.9-4.4); ALPHA-1-GLOBULIN 0.4 g/dL (0.0-0.4); ALPHA-2-GLOBULIN 0.9 g/dL (0.4-1.0); GAMMA GLOBULIN 1.9 g/dL (0.4-1.8); GLOBULIN, TOTAL 4.2 g/dL (2.2-3.9); IMMUNOFIXATION RESULT, SERUM Comment: (.); IMMUNOGLOBULIN A, QN, SERUM 564 mg/dL (61-437); IMMUNOGLOBULIN G, QN, SERUM 1865 mg/dL (700-1600); IMMUNOGLOBULIN M, QN, SERUM 47 mg/dL (20-172); M-SPIKE Not Observed g/dL (Not Observed); PROTEIN, TOTAL, SERUM 6.9 g/dL (6.0-8.5)
--- NOTE | 2019-10-21 15:12 | NUR ---
Initial spiritual care note: Mr. Murrieta was quite sleepy. He seemed irritable, but wanted prayer. He did not engage in conversation and fell back to sleep as I prayed for him. I will remain available.
--- NOTE | 2019-10-21 15:24 | NUR ---
PT'S O2 SATURATION HAS BEEN MAINTAINED ABOVE 90% MOST OF THE TIME WHILE ON AIRVO AND BIPAP. DESATS WITH ACTIVITY. WORK OF BREATHING MORE LABORED. PT WAS ABLE TO USE BIPAP FOR AN HOUR TODAY.
--- NOTE | 2019-10-21 18:42 | NUR ---
SHIFT SUMMARY: PT IS ALERT AND ORIENTED. PT HAS BEEN TOLERATING THE AIRVO BETTER THAN THE BIPAP. PT IS WAS ABLE TO USE BIPAP FOR AN HOUR. 02 SATURATION HAS BEEN MOSTLY ABOVE 90%. PT DESATS AT TIMES WITH ACTIVITY. DENIES PAIN. PT IS ON HEPARIN DRIP @ 13U/KG/HR AND AMIODARONE DRIP @ 1MG/MIN X 6 HOURS. PT'S HR NOW IN THE LOW 100s. AFEBRILE. PT HAD DIALYSIS TODAY- 2 L OF FLUID WAS REMOVED. 1 UNIT PRBC WAS GIVEN DURING DIALYSIS.
--- NOTE | 2019-10-21 19:05 | NUR ---
ASSUME CARE: REPORT RECIEVED FROM [facility] GOING RN. MONITOR INTACT SHOWING A FIB/A FLUTTER. HEART RATE 100'-110'S. LUNG SOUNDS CLEAR UPPER LOBES WITH DECREASED SOUNDS IN THE BASES AIRVO INTACT AT 55L AND 83% SPO2 89-95% RATE 18-36 MIN. ABDOMEN SOFT WITH BOWEL SOUNDS FOUR QUADS. LEE PATENT DRAINING RIDDHI URINE. REQUESTS LOTION FOR R FOOT. SORE NOTED BETWEEN AND ON THE OUTER ASPECT OF R GREAT TOE AND ALSO ON L GREAT TOE AND SIDE OF FOOT. STATES HAS HAD THEM "FOR A LONG TIME" REQUEST THAT DR BE INFORMED SO "THEY CAN SEE THEM TOMMORROW. " INFORMED THAT THIS RN WOULD LEAVE A NOTE IN AND ON THE CHART. GILLIAM IN BED AND REPOSITIONS SELF. ATTENDS IN PLACE PASSING FLATUS ATTEMPT UNSUCCESSFUL ON BEDPAN. CONTINUE TO MONITOR AND REPORT CHANGE IN PATIENT CONDITION.
[2019-10-21 23:09] LABS: HBSAG SCREEN Negative (Negative); HEP A AB, IGM Negative (Negative); HEP B CORE AB, IGM Negative (Negative); HEP C VIRUS AB <0.1 (0.0-0.9)
--- NOTE | 2019-10-22 02:54 | NUR ---
SHIFT SUMMARY: REPORT GIVEN TO TERRANCE SHEARER STARTED ON PERCEDEX FOR ANXIETY PLACED ON BIPAP SECONDARY TO INCREASED WORK OF BREATHING . DESATURATES WITH ANY ACTIVITY USING ACCESSORY MUSCLES RATE 20-36 SPO2 ON BIPAP 94% PREVIOUSLY ON AIRVO SPO2 90-95% WITH RATE 20-40. AND HEART RATE UP TO THE 140'S. ABODMEN SOFT WITH BOWEL SOUND FOUR QUADS. LEE PATENT DRAINING RIDDHI URINE. REPOSITIONS SELF IN BED. GILLIAM WELL, IN BED. CONTINUE TO MONITOR AND REPORT CHANGE IN PATIENT CONDITION. DR SPEARS ORDERS NOTED CALL PLACED AT 0230.
[2019-10-22 03:44] LABS: Base Excess Venous 3.8 mmol/L; Bicarbonate Venous 26.9 mmol/L (24.0-30.0); PCO2 Venous 54 mmHg (38-42); PO2 Venous 55.2 mmHg (38-42); pH Blood Venous 7.35 (7.34-7.37)
[2019-10-22 03:58] LABS: BASOPHILS ABSOLUTE AUTO 0.01 K/mm3 (0.00-0.23); BASOPHILS PERCENT AUTO 0 % (0-2); EOSINOPHILS ABSOLUTE AUTO 0.02 K/mm3 (0.00-0.68); EOSINOPHILS PERCENT AUTO 0 % (0-6); Hematocrit 31.5 % (37.0-53.0); Hemoglobin 9.8 g/dL (13.5-17.5); IMMATURE GRAN ABSOLUTE AUTO 0.07 K/mm3 (0.00-0.10); IMMATURE GRAN PERCENT AUTO 1 % (0-1); LYMPHOCYTES PERCENT AUTO 8 % (21-46); MONOCYTES ABSOLUTE AUTO 0.63 K/mm3 (0.16-1.47); MONOCYTES PERCENT AUTO 6 % (4-13); Mean Corpuscular HGB 28.4 pg (26.0-34.0); Mean Corpuscular HGB Conc 31.1 g/dL (31.5-36.5); Mean Corpuscular Volume 91 fL (80-100); Mean Platelet Volume 9.4 fL (9.1-12.4); NEUTROPHILS ABSOLUTE AUTO 8.67 K/mm3 (1.96-9.15); NEUTROPHILS PERCENT AUTO 85 % (41-73); Platelet Count 244 K/mm3 (150-400); RDW Coefficient Variation 16.2 % (11.7-14.2); RDW Standard Deviation 53.9 fL (35.1-46.3); Red Blood Cell Count 3.45 M/mm3 (4.30-5.90)
[2019-10-22 04:15] LABS: Albumin, Blood 2.2 g/dL (3.4-5.0); Anion Gap 7 mmol/L (6-16); Blood Urea Nitrogen 69 mg/dL (8-24); Bun/Creatinine Ratio 25.7 (12.0-20.0); CO2, Blood 29 mmol/L (21-32); Calcium, Blood 8.4 mg/dL (8.5-10.1); Chloride, Blood 99 mmol/L (98-108); Creatinine, Blood 2.68 mg/dL (0.60-1.20); Glomerular Filtration Rate 25 (60-); Glucose, Blood 249 mg/dL (70-99); Potassium, Blood 4.5 mmol/L (3.5-5.5); Sodium, Blood 135 mmol/L (136-145)
--- NOTE | 2019-10-22 04:40 | NUR ---
PT TOLERATING PRECEDEX WELL. PT AWAKENS EASILY TO RN AT BEDSIDE. VSS. PT TOLERATING BIPAP. PT FALLS ASLEEP EASILY WHEN NO ONE AT BEDSIDE.
--- NOTE | 2019-10-22 07:30 | NUR ---
PT A&O X3. PRECEDEX DRIP @ 0.4 MCG/KG/MIN. PT COOPERATIVE WITH CARE. GENERALIZED WEAKNESS NOTED. PT PLACED ON AIRVO FOR ORAL CARE. PT ABLE TO POSITION HIMSELF IN BED. ALLOWED FOR ORAL CARE. NOTED PT SOB WITH REMOVAL OF BIPAP AND INCREASED SOB WITH EXERTION. SATS DOWN TO 87% WITH EXERTION. PT PURSED LIP BREATHING TO RECOVER AND SATS>90%. SPEAKS IN BROKEN SENTENCES. USING ACCESSORY MUSCLES TO BREATH. LUNGS TIGHT THROUGH OUT AND DIMINISHED IN THE BASES. OCCASIONAL LOOSE, NON-PRODUCTIVE COUGH. BT'S HYPOACTIVE. APPETITE GOOD. PT ATE 100% OF BREAKFAST TRAY. HR 140'S WHEN BIPAP OFF AND WITH INCREASED WOB. AMIODARONE DRIP @ 0.5 MCG/MIN. MED WITH LOPRESSOR 5 MG IVP X1. GENERALIZED EDEMA NOTED-PARTICULARLY TO UPPER AND LOWER EXTREMITIES. LEE WITH SMALL AMOUNT OF CLEAR, YELLOW URINE TO BSD. PLAN FOR DIALYSIS TODAY.
--- NOTE | 2019-10-22 08:45 | NUR ---
PT REQUEST TO RETURN TO BIPAP. PT STATES THAT HE FEELS "ANXIOUS." PRECEDEX DRIP TITRATED UP TO 0.5 MCG/KG/MIN. PT TOLERATING BIPAP / WITH FIO2 @ 70% WELL. HR RETURNED TO 60-70'S WITH BIPAP IN PLACE FOR APROXIMATLEY 3 MINUTES. PT REFUSES TO BE POSITIONED ONTO HIS SIDE AND ALSO REFUSING BATH AND LINEN CHANGE UNTIL AFTER "DIALYSIS."
--- NOTE | 2019-10-22 10:44 | NUR ---
PT REQUESTED IBUPROFEN FOR HEADACHE. DR. SPEARS EXPLAINED THAT IBUPROFEN WAS "TOO HARD ON THE KIDNEY." PT OFFERED TYLENOL-PT REFUSES TYLENOL HE STATES " THAT IS WORSE ON THE KIDNEYS THAN IBUPROFEN." PT UNDERGOING HEMODIALYSIS-JANKI AU EXPLAINED TO PT THAT TYLENOL IS ACTUALLY PREFERED-PT STILL REFUSING TYLENOL.
--- NOTE | 2019-10-22 11:58 | NUR ---
HEMODIALYSIS CONTINUES. PRECEDEX DECREASED TO 0.2 MCG/KG/MIN AND PT PLACED ON AIRVO FOR LUNCH. DISCUSSED NEXT OF KIN WITH PT. HE REPORTS THAT HE DOESN'T HAVE ANY FAMILY THAT HE WISHES TO CONTACT. PT AWARE THAT HIS BREATHING MAY CONTINUE TO GET WORSE WITHOUT THORACENTESIS. HE STATES THAT IN THE EVENT THAT HE CAN'T MAKE DECISIONS FOR HIMSELF, HIS FRIEND SOULEYMANE IS HIS HEALTH CARE PROXY. THERE IS NOT A FORMAL ADVANCED DIRECTIVE AT THIS TIME, BUT PT DID SIGN RELEASE FOR MEDICAL INFO TO BE GIVEN TO SOULEYMANE. PT SEEMS TO BE TOLERATING BEING OFF BIPAP SOMEWHAT BETTER THAN HE DID AT BREAKFAST THIS AM. SATS>90% AT THIS TIME.
--- NOTE | 2019-10-22 12:45 | NUR ---
PT ATE ONLY 10% OF LUNCH TRAY. PT THRASHING HIS HEAD AROUND AND GRABBING AT THE BIPAP MASK WHEN RN ATTEMPTING TO REPLACE IT. PT SHOUTING "JUST DO IT ALREADY! GOD DAMN IT!" PRECEDEX DRIP TITRATED UP TO 0.6 MCG/KG/MIN.
--- NOTE | 2019-10-22 14:49 | NUR ---
Case Conference with Bedside RN Anca and Bib Muro. Anca reports Pt currently on BIPAP and is refusing thoracentesis. Anca reports Pt has been agitated but was able to appoint a healthcare decision maker in the event Pt is not able to make decisions for himself. Anca reports Pt's designated his friend Rubio to make decisions. Spoke with Bib Muro and discussed case. Jina provides this RN with Rubio's contact information. Rubio's number [phone]. Called and spoke with Rubio and Rubio is willing to make decisions for Pt in the event Pt can not make decisions for himself. Rubio would like to call Pt in his room to get an idea of what Pt's wishes are. Instructed Rubio that Pt is currently sleeping and is on BIPAP. Instaructed Rubio to call ICU nurses station periodically to determine when he should call the Pt. Palliative Care will remain available.
--- NOTE | 2019-10-22 16:55 | NUR ---
PT WAS GIVEN PO AMIODARONE AND ELIQUIS-SEE EMAR. SATS TO 80'S WITH BRIEF BREAK FROM BIPAP. HEPARIN AND AMIODARONE DRIP DISCONTINUED-SEE EMAR. COMPLETE BEDBATH AND LINEN CHANGE COMPLETED. POLYMEM DRESSING TO COCCYX PT REFUSES TO TURN FROM SIDE TO SIDE EVERY 2 HOURS.
--- NOTE | 2019-10-22 17:34 | NUR ---
PT OFF BIPAP X 5 MIN. HE SUMMONED RN TO ROOM. HE APPEARED VERY ANXIOUS. STATES "I CAN'T BREATH." PT ONLY TOOK A FEW BITS OF DINNER. BIPAP 07/03 PLACED-TITRATED FIO2 UP TO 100% BRIEFLY TO KEEP SATS>90% THEN RETURNED TO FIO2 70%
--- NOTE | 2019-10-22 18:32 | NUR ---
PT RESTING QUIETLY ON BIPAP 07/03-SATS>90% WITH FIO2 60%. PRECEDEX DRIP @ 0.6 MCG/KG/MIN. HR 70'S AFIB. AMIODARONE AND HEPARIN DRIP DISCONTINUED 2 HOURS AFTER PO AMIODARONE AND ELIQUIS GIVEN-SEE EMAR. INTAKE 1175 VS [id number] OUT 3500 CC FROM DIALYSIS TODAY.
--- NOTE | 2019-10-22 21:01 | NUR ---
ASSUMED CARE NOTE: ASUMED CARE OF PT @ 1900, RECEVIED REPORT FROM CRYSTAL SHEARER. PT IS ALERT AND ORIENTEDX3. PT IS ON BIPAP WITH SETTING @ 12/6, FiO2 ABOVE 90%. PT IS ANXIOUS AND IS YELLING " I NEED MY MEDS NOW" PT WAS ADVISED TO LOWER VOICE AND REMINDED THAT AGRESSIVE AND ABUSIVE BEHAVIOR IS NOT TOLERATED IN THIS HOSPITAL. PT AGREED AND APOLOGIZED. PT IS CURRENTLY ON 0.7MCG/KG/HR OF PRECEDEX. PT IN A-FIB WITH HR BETWEEN 90-110, PT DENIES CP AT THIS TIME. PT PLACED ON AIRVO FOR MEDICATION ADMINISTRATION WITH SETTINGS @ 60L/MIN AND FiO2 OF 60%, PT WAS ABLE TO MAINTAIN STATURATION ABOVE 90%. PT ALSO TOOK 2 GLUCERNA SUPPLEMENTS. LEE DRAINING CLEAR/URINE. WILL CONTINUE TO MONITOR PT T/O SHIFT.
--- NOTE | 2019-10-23 04:43 | NUR ---
UPDATE: PT TAKING A BREAK FROM BIPAP, PT CURRENTLY ON AIRVO 60L/MIN, 60% FIO2. PT IS ANXIOUS AND BELIEVES THAT HE WILL NOT GET ENOUGH OXYGEN WITH AIRVO. HOWEVER PT WAS EDUCATED ON AIRVO USE. PT IS STATING 94-95% WITH AIRVO.
[2019-10-23 04:50] LABS: BASOPHILS ABSOLUTE AUTO 0.01 K/mm3 (0.00-0.23); BASOPHILS PERCENT AUTO 0 % (0-2); EOSINOPHILS ABSOLUTE AUTO 0.08 K/mm3 (0.00-0.68); EOSINOPHILS PERCENT AUTO 1 % (0-6); Hematocrit 31.2 % (37.0-53.0); Hemoglobin 9.8 g/dL (13.5-17.5); IMMATURE GRAN ABSOLUTE AUTO 0.06 K/mm3 (0.00-0.10); IMMATURE GRAN PERCENT AUTO 1 % (0-1); LYMPHOCYTES ABSOLUTE AUTO 1.18 K/mm3 (0.84-5.20); LYMPHOCYTES PERCENT AUTO 11 % (21-46); MONOCYTES ABSOLUTE AUTO 0.53 K/mm3 (0.16-1.47); MONOCYTES PERCENT AUTO 5 % (4-13); Mean Corpuscular HGB 28.6 pg (26.0-34.0); Mean Corpuscular HGB Conc 31.4 g/dL (31.5-36.5); Mean Corpuscular Volume 91 fL (80-100); Mean Platelet Volume 9.5 fL (9.1-12.4); NEUTROPHILS ABSOLUTE AUTO 8.97 K/mm3 (1.96-9.15); NEUTROPHILS PERCENT AUTO 83 % (41-73); Platelet Count 245 K/mm3 (150-400); RDW Coefficient Variation 15.7 % (11.7-14.2); RDW Standard Deviation 51.7 fL (35.1-46.3); Red Blood Cell Count 3.43 M/mm3 (4.30-5.90); White Blood Cell Count 10.83 K/mm3 (4.00-11.30)
[2019-10-23 05:07] LABS: Bun/Creatinine Ratio 22.9 (12.0-20.0); Calcium, Blood 8.6 mg/dL (8.5-10.1); Creatinine, Blood 2.84 mg/dL (0.60-1.20); Magnesium, Blood 2.1 mg/dL (1.6-2.4); Phosphorus, Blood 6.3 mg/dL (2.5-4.9); Potassium, Blood 4.7 mmol/L (3.5-5.5)
--- NOTE | 2019-10-23 06:35 | NUR ---
PT BACK ON BIPAP, AFTER BEING ON AIRVO FOR 15 MINUTES. ORAL CARE PROVIDED. PT HAS BEEN DRINKING GLUCERNA T/O SHIFT.
--- NOTE | 2019-10-23 06:38 | NUR ---
SHIFT SUMMARY: NO SIGNIFICANT CHANGES SINCE LAST SHIFT. PT HAS BEEN ON BIPAP FOR THE MAJORITY OF THE SHIFT SETTINGS @ 10/, WITH Fi02 OF 60%. PT CONTINUES TO BE ON 0.7MCG/KG/HR OF PRECEDEX. PT HAS REQUESTED TO HAVE A GLUCERNA EVERY TWO HOURS WITH BIPAP BREAKS. PT HAS BEEN ABLE TO TOLERATE BIPAP BREAKS WITH AIRVO FOR 15 MINTUES, ORAL CARE IS PROVIDED AT THIS TIME. PT HAS BEEN REFUSING TO BE MOVED FROM SIDE TO SIDE, BED SET TO SELF ROTATE EVERY HOUR. NO BM THIS SHIFT. BED AT LOWEST LEVEL, CALL LIGHT WITHIN REACH.
--- NOTE | 2019-10-23 08:00 | NUR ---
PT REMAINS ON PRECEDEX DRIP @ 0.7 MCG/KG/MIN. HE IS ANXIOUS AND WITHDRAWN-DENIES PAIN. PT INSISTS ON BEING OFF OF BIPAP FOR BREAKFAST-DESPITE THE FACT THAT HE IS VERY SOB WHEN OFF OF BIPAP. HE SPEAKS IN BROKEN SENTENCES. HE TAKES A SINGLE BITE OF FOOD AND THEN IS MORE DYSPNEIC AND TACHYPNEIC. IT TAKES SEVERAL MINUTES BEFORE HE RECOVERS. HE IS UTILIZING ACCESSORY MUSCLES TO BREATH.ECG CONTINUES AFIB. HR 130-140'S OFF OF BIPAP AND WITH ASSOCIATED DYSPNEA.MED WITH METOPROLOL 5 MG IVP X 1.LUNGS DIMINISHED LEFT>RIGHT. SATS>90% WHEN ON BIPAP 12/6 WITH FIO2 60%. ABDOMEN DISTENDED WITH HYPOACTIVE BT'S. GENERALIZED EDEMA CONTINUES. DIALYSIS PLANNED FOR TODAY. LEE WITH SMALL AMOUNT OF CLEAR, YELLOW URINE TO BSD.
--- NOTE | 2019-10-23 10:21 | NUR ---
PT UNDERGOING HEMODIALYSIS AT THIS TIME-RESTING QUIETLY ON BIPAP AT THIS TIME.
--- NOTE | 2019-10-23 14:05 | NUR ---
Review of case with physician and nurse. suggest ethic consult to review prognosis and code status. Pt only contact to ep with decision is and old roomate and friend.
--- NOTE | 2019-10-23 14:49 | NUR ---
PT CALLED RN TO ROOM-REQUESTED A BREAK FROM BIPAP. REQUEST GRANTED. PT GIVEN A BREAK FOR APROX 10 MINUTES. HE TOLERATED THIS BREAK BETTER THAN HIS PREVIOUS BREAKS THIS SHIFT. PT CONTINUES TO REPORT ANXIETY DESPITE THE PRECEDEX DRIP @0.7 MCG. MED WITH XANAX PO-SEE EMAR. PT ATE 100% OF PEARS AND DRANK GLUCERNA WITHOUT DIFFICUTLY. HR REMAINED IN THE 60-70'S AFIB/FLUTTER AND MAINTAINED SATS>90%. PT REFUSED ORAL CARE AND POSITION CHANGE.
--- NOTE | 2019-10-23 17:45 | NUR ---
PT SUMMONED RN INTO ROOM REQUESTING MIRALAX AND WATER-REQUEST GRANTED. PT PLACED ON AIRVO X APROX. 5 MINUTES-TOLERATED WELL. HE DID HAVE ONE SMALL BOWEL MOVEMENT 1630- VERY HARD PELLETS. FOAM DRESSING INTACT TO COCCYX-PLACED ON 10/22/19. PT ALLOWED RN AND FRONT OFFICE SUPERVISOR TO CHANGE LINEN AND PROVIDE SAJI CARE, BUT REFUSES COMPLETE BED BATH AND ORAL CARE. PT REQUESTED TO BE SHAVED-DONE BY [employer] [place].
--- NOTE | 2019-10-23 18:17 | NUR ---
INTAKE [phone] VS. [phone] OUT THIS [phone]).
--- NOTE | 2019-10-23 19:30 | NUR ---
ASSUMED CARE OF PT, REPORT RECEIVED. PT IS RESTING QUIETLY RECLINING IN BED WITH BIPAP IN PLACE, SETTINGS /6, FIO2 65%, CURRENT RESP RATE HIGH TEENS LOW 20S, SATS MAINTAINING. PRESSURE MAINTAINING, RHYTHM CONTINUES A-FIB/FLUTTER, RATE CONTROLLED TO THE 70S AT THIS TIME. PT DENIES NEEDS AT THIS TIME. PRECEDEX INFUSING AT 0.7 MCG/KG/HR, PT TOLERATING WELL.
--- NOTE | 2019-10-23 21:00 | NUR ---
ASSESSMENT PT DENIES N/V, DENIES CP/PRESSURE, DENIES NUMBNESS/TINGLING, STATES THAT HIS BREATHING FEELS "OK RIGHT NOW" HE IS NOTED TO SPEAK IN FULL SENTENCES, SATS CONTINUE TO MAINTAIN WITH BIPAP, TOLERATES BREAK TO AIRVO AT 60 L/MIN WITH FIO2 86% AND MAINTAINS SATS MID TO UPPER 90S, INCREASED WORK OF BREATHING IS NOTED WITH INCREASES IN ACTIVITY, PT TOLERATES PO MEDS ADMIN 2 PILLS AT A TIME WITH MILD INCREASED WORK OF BREATHING NOTED, HE REQUESTS CHOCOLATE GLUCERNA AND STATES THAT HE WAS UNABLE TO EAT DINNER AND "I NEED THOSE" LUNGS ARE CLEAR BILAT UPPER LOBES, DIM BILAT MID TO BASES. AFIB/FLUTTER NOTED ON MONITOR, RATE CONTINUES CONTROLLED, DOES INCREASE TO 80S WITH BREAK FROM BIPAP, PRESSURE IS MAINTAINING, SKIN PWD, CAP REFILL BRISK, EDEMA NOTED, PT STATES THAT "THEY GOT 3600 CCS WITH DIALYSIS" PT DOES AGAIN EXPRESS RELUCTANCE REGARDING THORACENTESIS AND "I DON'T WANT TO TALK ABOUT IT" THIS RN INQUIRED REGARDING THE PT'S RESERVATIONS SURROUNDING PROCEDURE AND HE STATES "PAIN, IT'S A NEEDLE IN MY LUNGS FOR 20 MINUTES, IT'S GOING TO HURT." DID DISCUSS PAIN CONTROL MEASURES TYPICALLY INVOLVED IN PROCEDURES OF THIS NATURE AND PT IS ENCOURAGED TO DISCUSS WITH MD, HE STATES THAT HE WILL THINK ABOUT IT.
[2019-10-24 04:59] LABS: BASOPHILS ABSOLUTE AUTO 0.01 K/mm3 (0.00-0.23); BASOPHILS PERCENT AUTO 0 % (0-2); EOSINOPHILS ABSOLUTE AUTO 0.18 K/mm3 (0.00-0.68); EOSINOPHILS PERCENT AUTO 2 % (0-6); Hematocrit 33.6 % (37.0-53.0); Hemoglobin 10.1 g/dL (13.5-17.5); IMMATURE GRAN ABSOLUTE AUTO 0.06 K/mm3 (0.00-0.10); IMMATURE GRAN PERCENT AUTO 1 % (0-1); LYMPHOCYTES ABSOLUTE AUTO 1.16 K/mm3 (0.84-5.20); LYMPHOCYTES PERCENT AUTO 9 % (21-46); MONOCYTES ABSOLUTE AUTO 0.58 K/mm3 (0.16-1.47); MONOCYTES PERCENT AUTO 5 % (4-13); Mean Corpuscular HGB 28.4 pg (26.0-34.0); Mean Corpuscular HGB Conc 30.1 g/dL (31.5-36.5); Mean Platelet Volume 9.9 fL (9.1-12.4); NEUTROPHILS ABSOLUTE AUTO 10.35 K/mm3 (1.96-9.15); NEUTROPHILS PERCENT AUTO 84 % (41-73); Platelet Count 245 K/mm3 (150-400); RDW Coefficient Variation 15.6 % (11.7-14.2); RDW Standard Deviation 53.1 fL (35.1-46.3); Red Blood Cell Count 3.56 M/mm3 (4.30-5.90); White Blood Cell Count 12.34 K/mm3 (4.00-11.30)
[2019-10-24 05:00] LABS: Mean Corpuscular Volume 94 fL (80-100)
[2019-10-24 05:19] LABS: Albumin, Blood 2.2 g/dL (3.4-5.0); Anion Gap 8 mmol/L (6-16); Blood Urea Nitrogen 60 mg/dL (8-24); Bun/Creatinine Ratio 20.6 (12.0-20.0); CO2, Blood 30 mmol/L (21-32); Calcium, Blood 8.8 mg/dL (8.5-10.1); Chloride, Blood 96 mmol/L (98-108); Creatinine, Blood 2.91 mg/dL (0.60-1.20); Glomerular Filtration Rate 23 (60-); Glucose, Blood 281 mg/dL (70-99); Magnesium, Blood 2.5 mg/dL (1.6-2.4); Phosphorus, Blood 6.8 mg/dL (2.5-4.9); Potassium, Blood 5.1 mmol/L (3.5-5.5); Sodium, Blood 134 mmol/L (136-145)
--- NOTE | 2019-10-24 07:17 | NUR ---
PT TOLERATES BIPAP WELL THROUGHOUT SHIFT WITH SHORT BREAKS FOR CHOCOLATE GLUCERNA NEAR EVERY 2 HOURS THIS SHIFT, HE TOLERATES PO INTAKE DURING THESE BREAKS FROM BIPAP HOWEVER REPORTS THAT HE DOES NOT FEEL LIKE HE IS GETTING ENOUGH AIR AND REQUESTS BIPAP REPLACED WITHIN 5-10 MINUTES, WITH BIPAP IN PLACE, PT STATES THAT HIS BREATHING FEELS OK, LUNG REMAIN CLEAR WITH DIM BASES BILAT THROUGHOUT SHIFT. AFIB/FLUTTER CONTINUES THROUGHOUT SHIFT, RATE REMAINS CONTROLLED, PRESSURES CONTINUE TO MAINTAIN. PT DOES ACCEPT SOME INFORMATION REGARDING THORACENTESIS PROCEDURE THIS SHIFT AND DOES ASK QUESTIONS, SEE PREVIOUS NOTES, PT HAS BEEN ENCOURAGED TO DISCUSS HIS CONCERNS WITH PHYSICIAN ON ROUNDS TODAY.
--- NOTE | 2019-10-24 09:01 | NUR ---
CARE ASSUMED REPORT RECEIVED, CARE ASSUMED AT 0700 FROM JANKI SESAY. PT INITIALLY ON BIPAP, RESTING QUIETLY, VITALS STABLE. PT TAKEN OFF OF BIPAP FOR BREAKFAST AND PLACED ON AIRVO, PT REPORTING FEELING SHORT OF BREATH BUT 02 SAT'S MAINTAINING IN THE 90'S AND PT ABLE TO EAT BREAKFAST WITHOUT DESATURATIONS. HEART RATE DOES INCREASE WITH THIS ACTIVITY. CONTINUES IN AFIB/AFLUTTER. BLOOD PRESSURE STABLE. PT AFEBRILE. PT ORIENTED, BUT SOMEWHAT DROWSY. PRECEDEX TITRATED FROM 0.7 MCG/KG/MIN TO 0.4 MCG/KG/MIN FOR SAFETY DURING BREAKFAST. PT REPORTS ANXIETY IS PRETTY MUCH RESOLVED, BUT THAT HE IS STILL FEELING SHORT OF BREATH WHICH WORRIES HIM. REQUESTING INFORMATION ABOUT, "A NEEDLE IN HIS LUNG." ENCOURAGED HIM TO DISCUSS CONCERNS WITH CASTING AGENT ON ROUNDS. PT AGREEABLE. PT GIVEN MEDICATIONS, ABLE TO TOLERATE TWO AT A TIME. TOLERATING BREAKFAST WELL, TAKING SUFFICIENT BREAKS BETWEEN BITES TO BREATH. PT WITHDRAWN AND SOMEWHAT AGITATED WHEN ASKED MULTIPLE QUESTIONS, BUT COOPERATIVE. AGREEABLE FOR MIRALAX FOR BOWEL CARE. LEE SECURED AND DRAINING CLEAR, YELLOW URINE. PT DECLINES MORNING ADL'S, BUT AGREEABLE FOR A BEDBATH. ALSO USING BED CONTROLS TO CHANGE POSITION IN BED. PT PLACED BACK ON BIPAP AT THIS TIME, AND REQUESTING TO TAKE A NAP. WHEN ASKED ABOUT ANXIETY, PT STATES, "I'M GOOD." PRECEDEX LEFT AT 0.4 MCG/KG/MIN. PLAN MADE WITH PATIENT TO BUNDLE CARES INCLUDING BATH AND MEDICATION ADMINISTRATION AT 1100. PT DECLINES FURTHER NEEDS AT THIS TIME. PT LEFT WITH CALL LIGHT IN REACH.
--- NOTE | 2019-10-24 14:00 | NUR ---
UPDATE PT HAS DONE WELL ON AND OFF BIPAP THIS MORNING. WORE BIPAP FOR A FEW HOURS AFTER BREAKFAST, THEN AROUND 1030 REQUESTED IT TO BE TAKEN OFF. BEDBATH PROVIDED, LUNCH GIVEN AND PT TOLERATING WELL. PT VERY CALM, COOPERATIVE AND REPORTS, "I FEEL GOOD, BUT I MIGHT NEED ONE OF THOSE ANXIETY PILLS JUST IN CASE." THIS WAS GIVEN. SINCE THEN, PRECEDEX HAS BEEN TITRATED DOWN AND IS TURNED OFF AT THIS TIME. PT HAD BOWEL MOVEMENT, REPORTS "I FEEL MUCH BETTER."
--- NOTE | 2019-10-24 15:28 | NUR ---
ANXIETY - UPDATE PT PULLS BIPAP OFF, SAYS, "YOU GOT IT OFF JUST IN TIME IT WAS GOING TO KILL ME." 02 SAT 90'S. HR/BP STABLE. PT PLACED ON AIRVO, 02 SATURATIONS DROPPED TO MID 80'S. REFUSES BIPAP AGAIN "IT WILL KILL ME." PT YELLING, TEARFUL "YOU'RE NOT LISTENING TO ME." PT PROVIDED WITH SUPPORT, KEPT ON AIRVO. PRECEDEX RESTARTED AT 0.2 MCG/KG/HR.
--- NOTE | 2019-10-24 19:09 | NUR ---
REPORT TO JANKI SESAY TO ASSUME CARE
--- NOTE | 2019-10-24 19:10 | NUR ---
SUMMARY SINCE PREVIOUS NOTE, PT HAS ABSOLUTELY REFUSED TO WEAR BIPAP REGARDLESS OF INCREASED RR AND WORK OF BREATHING, AND DESATURATIONS INTO THE MID 80'S. HE SAYS, "DO YOU WANT TO KILL ME? THAT MASK WILL KILL ME!" ATTEMPTED TO EDUCATE REPEATEDLY. EVERY TIME THIS RN ATTEMPTS TO TALK ABOUT BIPAP PT BEGINS YELLING AND IS INCONSOLABLE UNLESS THE SUBJECT IS CHANGED. PT NOT ABLE TO EAT MUCH OF DINNER DUE TO INCREASED RESPIRATIONS, BUT DID DRINK HIS GLUCERNAS. TITRATED PRECEDEX BACK UP, BUT CONSERVATIVELY PT'S HEART RATE THIS AFTERNOON IN THE 60'S AFTER BEING 100'S+ ALL MORNING. BP REMAINS STABLE. PT AFEBRILE. GOOD OUTPUT FROM LEE CATHETER. PT CALLING APPROPRIATELY FOR NEEDS.
--- NOTE | 2019-10-24 19:15 | NUR ---
ASSUMED CARE PT RESTING QUIETLY DENIES NEEDS AT THIS TIME, DENIES N/V, DENIES CP/PRESSURE, DENIES NUMBNESS/TINGLING, DENIES PAIN, STATES THAT HIS BREATHING FEELS "OK" RESP RATE IS NOTED NEAR 30/MIN AT REST, SATS ARE LOW 90S HIGH 80S, LUNGS ARE CLEAR WITH DIM BASES BILAT, INCREASED DYSPNEA WITH ACCESSORY USAGE IS NOTED WITH INCREASED ACTIVITY, PT CONT TO REFUSE BIPAP AT THIS TIME AND STATES THAT HE WILL CALL IF HE CHANGES HIS MIND, CALL LIGHT WITHIN REACH. AFIB/AFLUTTER CONTINUES, RATE 70S AT THIS TIME, PRESSURES ARE MAINTAINING, EDEMA TO BILAT UPPER AND LOWER EXTREMITIES CONTINUES TRACE TO +1. HYPOACTIVE BOWEL TONES ARE NOTED, ABD SOFT, PT REPORTS DISTENTION IS NORMAL FOR HIM. LEE REMAINS IN PLACE DRAINING SMALL AMOUNTS OF CLEAR YELLOW URINE TO GRAVITY. PRECEDEX INFUSING AT 0.4 MCG/KG/HR WILL MONITOR.
--- NOTE | 2019-10-24 22:08 | NUR ---
BIPAP PT CALLED TO REQUEST BIPAP "BUT I DON'T WANT ANY HOT AIR BLOWING ON MY FACE" BIPAP HEATER TURNED TO OFF, RT NOTIFIED, WILL MONITOR PT FOR INCREASING ANXIETY RELATED TO BIPAP USE.
--- NOTE | 2019-10-24 22:31 | NUR ---
PT C/O HIGH ANXIETY, "TAKE IT OFF! I CAN'T STAND IT!" BIPAP TO STANDBY, AIRVO REPLACED AT 60 L FIO2 87%, PRECEDEX TITRATED UP TO 0.7 MCG/KG/MIN
--- NOTE | 2019-10-25 03:45 | NUR ---
PT REQUESTS BIPAP, ASSISTED WITH MASK APPLICATION, 05/03, FIO2 65%, WILL MONITOR
[2019-10-25 04:32] LABS: BASOPHILS ABSOLUTE AUTO 0.02 K/mm3 (0.00-0.23); BASOPHILS PERCENT AUTO 0 % (0-2); EOSINOPHILS PERCENT AUTO 1 % (0-6); Hematocrit 33.4 % (37.0-53.0); Hemoglobin 10.1 g/dL (13.5-17.5); IMMATURE GRAN ABSOLUTE AUTO 0.08 K/mm3 (0.00-0.10); IMMATURE GRAN PERCENT AUTO 1 % (0-1); LYMPHOCYTES ABSOLUTE AUTO 0.75 K/mm3 (0.84-5.20); LYMPHOCYTES PERCENT AUTO 5 % (21-46); MONOCYTES ABSOLUTE AUTO 0.69 K/mm3 (0.16-1.47); MONOCYTES PERCENT AUTO 5 % (4-13); Mean Corpuscular HGB 28.9 pg (26.0-34.0); Mean Corpuscular HGB Conc 30.2 g/dL (31.5-36.5); Mean Corpuscular Volume 95 fL (80-100); Mean Platelet Volume 10.1 fL (9.1-12.4); NEUTROPHILS ABSOLUTE AUTO 12.86 K/mm3 (1.96-9.15); NEUTROPHILS PERCENT AUTO 89 % (41-73); Platelet Count 240 K/mm3 (150-400); RDW Coefficient Variation 15.1 % (11.7-14.2)
[2019-10-25 04:51] LABS: Albumin, Blood 2.3 g/dL (3.4-5.0); Anion Gap 6 mmol/L (6-16); Blood Urea Nitrogen 76 mg/dL (8-24); Bun/Creatinine Ratio 21.9 (12.0-20.0); CO2, Blood 30 mmol/L (21-32); Calcium, Blood 9.2 mg/dL (8.5-10.1); Chloride, Blood 99 mmol/L (98-108); Creatinine, Blood 3.47 mg/dL (0.60-1.20); Glomerular Filtration Rate 19 (60-); Glucose, Blood 202 mg/dL (70-99); Magnesium, Blood 2.7 mg/dL (1.6-2.4); Phosphorus, Blood 7.3 mg/dL (2.5-4.9); Potassium, Blood 5.5 mmol/L (3.5-5.5); Sodium, Blood 135 mmol/L (136-145)
--- NOTE | 2019-10-25 06:06 | NUR ---
PT RESTS QUIETLY THROUGHOUT SHIFT, INITIALLY WAS REFUSING TO WEAR BIPAP IN FAVOR OF USING THE AIRVO EVEN WITH HIS SATS HIGH 80S AND INCREASED WORK OF BREATHING. HE STATED THAT "THAT WILL KILL ME" DISCUSSED THE PURPOSE OF THE BIPAP AND PT STATED THAT IT WOULD FEEL LIKE HE WAS SUFFOCATING. PRECEDEX WAS GRADUALLY TITRATED UP TO 0.7 MCG/KG/HR AND PT CONTINUED UNABLE TO TOLERATE BIPAP MASK, PRECEDEX WAS TITRATED DOWN TO 0.6 MCG/KG/HR FOLLOWING WHICH TIME PT USED CALL LIGHT TO REQUEST BIPAP ATTEMPT AGAIN AT 0345, HE HAS BEEN ABLE TO TOLERATE BIPAP SINCE THAT TIME, PRESSURES ARE 10/6, FIO2 65%, RESPIRATIONS ARE NEAR 20/MIN WITH BIPAP USE AND SATS HAVE IMPROVED TO LOW TO MID 90S. AFIB/FLUTTER CONTINUES THROUGHOUT SHIFT, RATE REMAINS CONTROLLED TO 70-80S, PRESSURES HAVE MAINTAINED. LOW PO INTAKE SECONDARY TO INCREASED WORK OF BREATHING, URINE OUTPUT OF 500 ML. WILL CONTINUE TO MONITOR AND REPORT TO ONCOMING RN.
--- NOTE | 2019-10-25 08:00 | NUR ---
DR. CHAN COMMUNICATION DR. CHAN TO BEDSIDE FOR ASSESSMENT. PLAN FOR DIALYSIS TODAY.
--- NOTE | 2019-10-25 09:10 | NUR ---
DR. BELL COMMUNICATION DR. BELL TO BEDSIDE FOR ASSESSMENT. REQUESTING THAT ELIQUIS BE HELD PT'S URINE IS BLOOD TINGED. ELIQUIS HELD. ALSO DISCUSSED WITH DR. BELL PT'S REQUIREMENT FOR PRECEDEX TO TOLERATE BIPAP AND THE EVENTS OF THE NIGHT PER MANAGER IMPLEMENTATION RN. POSSIBLE PSYCH CONSULT TOMORROW, DEPENDING ON HOW PATIENT DOES OVERNIGHT. SEE MD PROGRESS NOTE.
--- NOTE | 2019-10-25 10:00 | NUR ---
CARE ASSUMED REPORT RECEIVED, CARE ASSUMED AT 0700 FROM JANKI SESAY. PT RESTING QUIETLY ON BIPAP AT CHANGE OF SHIFT. PT GIVEN TIME TO REST DUE TO BEING AWAKE, REFUSING BIPAP MOST OF THE NIGHT PER PLUGGER RN. PT EVENTUALLY CALLS, REQUESTING BREAKFAST. PT PLACED ON AIRVO, TAKES PILLS AND DRINKS SOME OF THE FLUIDS ON HIS BREAKFAST TRAY, AND THEN REQUESTS TO GO BACK ON BIPAP BECAUSE HE FEELS LIKE HE CAN'T BREATH. SPO2 MID-UPPER 80'S ON AIRVO. PT ALLOWS STAFF TO PROVIDE CHAP STICK BUT REFUSES TO BRUSH TEETH OR TURN. WHEN ASKED, PT ABRUPTLY YELLS "NO" AND IS UNINTERESTED IN EDUCATION. PT PLACED BACK ON BIPAP. BP/HR STABLE. PT AFEBRILE. CALL LIGHT IN REACH.
--- NOTE | 2019-10-25 14:00 | NUR ---
UPDATE PT HAS WORN BIPAP MAJORY OF MORNING/AFTERNOON, AND REFUSED LUNCH. PT CALLED REQUESTED GLUCERNA AND MILK OFF OF TRAY, BUT OTHER THAN BREAKS FOR THAT HAS WANTED TO BE ON THE BIPAP. EDUCATED REPEATEDLY ON THE IMPORTANCE OF ADL'S AND TURNS. PT REFUSES TO DO ORAL CARE OTHER THAN CHAP STICK, AND LIPS EXTREMELY DRY AND CRUSTED. REFUSES ALL TURNS. DID ALLOW STAFF TO COMPLETE BEDBATH. WHEN APPROACHED, PT YELLS "NO" AND ESCALATES ON ATTEMPTS TO EDUCATE.
--- NOTE | 2019-10-25 19:00 | NUR ---
ASSUMED CARE OF PT, REPORT RECEIVED. PT IS RESTING QUIETLY RECLINING IN BED WITH BIPAP IN PLACE, 10/6 FIO2 65%, CURRENT RESP RATE NEAR 20, SATS MID 90S, LUNGS ARE CLEAR WITH DIM BASES BILAT, LEFT DIM MORE THAN RIGHT, INTERMITTENT COARSE COUGH PT DENIES BEING PRODUCTIVE AT THIS TIME, INCREASED DYSPNEA IS NOTED WITH INCREASE IN ACTIVITY, PT STATES THAT HIS BREATHING "FEELS PRETTY GOOD" AT REST WITH THE BIPAP IN PLACE. AFIB/FLUTTER CONTINUES, RATE CONTROLLED TO 90-100S, PRESSURES MAINTAINING, PULSES FULL X 4 EXTREMITIES, SKIN PWD. PT DENIES PAIN, DENIES NUMBNESS/TINGLING, DENIES CP/PRESSURE, STATES THAT HE FEELS TIRED AND WANTS TO SLEEP. ABD SOFT, HYPOACTIVE BOWEL TONES ARE NOTED, NO TENDERNESS REPORTED WITH LIGHT PALPATION, ABD SOFT. LEE REMAINS IN PLACE DRAINING BLOOD TINGED RIDDHI URINE AT THIS TIME. WILL MONITOR.
--- NOTE | 2019-10-25 19:34 | NUR ---
SUMMARY SINCE PREVIOUS NOTE, PT TAKES BREAKS FROM BIPAP ONLY FOR SMALL PERIODS FOR LIQUIDS. PT DID NOT WANT ANY OF HIS SOLID FOODS ON HIS DINNER TRAY. PT CONTINUES TO BE EXTREMELY TACHYPNEIC OFF OF BIPAP. DIALYSIS COMPLETED. PT CALLING APPROPRIATELY FOR NEEDS. CONTINUES ON PRECEDEX AT 0.6 MCG/KG/HR TO MANAGE ANXIETY. BP STABLE THROUGHOUT SHIFT. HR ELEVATED INTO 130'S-140'S DURING DIALYSIS BUT IS BACK DOWN TO 90'S-100'S ONCE COMPLETE. AFEBRILE. REPORT GIVEN TO JANKI SESAY TO ASSUME CARE.
[2019-10-26 05:04] LABS: BASOPHILS ABSOLUTE AUTO 0.01 K/mm3 (0.00-0.23); BASOPHILS PERCENT AUTO 0 % (0-2); EOSINOPHILS ABSOLUTE AUTO 0.09 K/mm3 (0.00-0.68); EOSINOPHILS PERCENT AUTO 1 % (0-6); Hematocrit 32.8 % (37.0-53.0); Hemoglobin 9.8 g/dL (13.5-17.5); IMMATURE GRAN ABSOLUTE AUTO 0.08 K/mm3 (0.00-0.10); IMMATURE GRAN PERCENT AUTO 1 % (0-1); LYMPHOCYTES ABSOLUTE AUTO 0.86 K/mm3 (0.84-5.20); LYMPHOCYTES PERCENT AUTO 5 % (21-46); MONOCYTES ABSOLUTE AUTO 1.09 K/mm3 (0.16-1.47); MONOCYTES PERCENT AUTO 7 % (4-13); Mean Corpuscular HGB 28.4 pg (26.0-34.0); Mean Corpuscular HGB Conc 29.9 g/dL (31.5-36.5); Mean Corpuscular Volume 95 fL (80-100); Mean Platelet Volume 10.7 fL (9.1-12.4); NEUTROPHILS PERCENT AUTO 87 % (41-73); Platelet Count 224 K/mm3 (150-400); RDW Coefficient Variation 15.7 % (11.7-14.2); RDW Standard Deviation 54.3 fL (35.1-46.3); Red Blood Cell Count 3.45 M/mm3 (4.30-5.90); White Blood Cell Count 15.93 K/mm3 (4.00-11.30)
[2019-10-26 05:21] LABS: PCO2 Arterial 50.6 mmHg (35-45); PO2 Arterial 51.8 mmHg (80-100); pH Blood Arterial 7.42 (7.35-7.45)
[2019-10-26 05:22] LABS: Albumin, Blood 2.2 g/dL (3.4-5.0); Anion Gap 4 mmol/L (6-16); Blood Urea Nitrogen 61 mg/dL (8-24); CO2, Blood 34 mmol/L (21-32); Calcium, Blood 9.1 mg/dL (8.5-10.1); Chloride, Blood 98 mmol/L (98-108); Glomerular Filtration Rate 23 (60-); Glucose, Blood 137 mg/dL (70-99); Magnesium, Blood 2.6 mg/dL (1.6-2.4); Phosphorus, Blood 5.2 mg/dL (2.5-4.9); Potassium, Blood 5.3 mmol/L (3.5-5.5); Sodium, Blood 136 mmol/L (136-145)
--- NOTE | 2019-10-26 07:32 | NUR ---
PT AWAKE MOST OF THIS SHIFT, USES CALL LIGHT TO MAKE NEEDS KNOWN, HAS TOLERATED BIPAP THROUGHOUT NOC WITH VERY SHORT BREAKS FOR PO INTAKE USING AIRVO AT 60 L/MIN BETWEEN 87 AND 93% FIO2, HIS LUNGS REMAIN CLEAR HOWEVER HIS COUGH HAS BECOME PRODUCTIVE THIS SHIFT, SPUTUM SENT TO LAB PER ORDERS, SATS CONTINUE LOW TO MID 90S WITH BIPAP AT 10/6 FIO2 65%, RESP RATE HIGH TEENS TO 30S, HE DOES HAVE MARKED INCREASE IN WORK OF BREATHING WITH INCREASE IN ACTIVITY HOWEVER HE REQUESTS TO GET UP TO BSC FOR BM, HE IS AGREEABLE TO REMAINING IN BED AFTER DISCUSSION REGARDING CONCERN FOR INCREASED WORK OF BREATHING WITH POSITION CHANGES IN BED VS INCREASED OXYGEN REQUIREMENTS WITH GETTING UP OOB, PT WAS AGREEABLE TO REMAINING IN BED AND ATTEMPTING TO USE BEDPAN, ONE SMALL HARD PELLET BM THIS SHIFT. SLIGHT BLOOD TINGE TO URINE DOES CONTINUE THIS AM, JUAQUIN WAS HELD YESTERDAY FOR HEMATURIA, REPORTED TO DAY SHIFT REGARDING THIS AM'S DOSE.
--- NOTE | 2019-10-26 11:29 | NUR ---
pt refusing tap at this time. will get update from [facility] on prognosis and review with ethics team.
--- NOTE | 2019-10-26 12:56 | NUR ---
CARE ASSUMED 0830: BIPAP AT 10/6, FIO2 60%, SPO2 MID 90'S, RR 19. PT WOKEN FOR ASSESSMENT, DENIES PAIN OR SOB, LS COARSE AT THIS TIME. HR 90-100 AFLUTTER, PT DENIES CHEST DISCOMFORT. ABD SOFT, DISTENDED, BT PRESENT, PT DENIES ABD PAIN. CATH CARE COMPLETED, NYSTATIN POWDER TO GROIN. WOUNDS TO BILAT FEET SCABBED, DRY, NO FOUL ODOR NOTED. PT ALERT AND ORIENTED X4, IRRITABLE AT TIMES, COOPERATIVE WITH CARE. PT ASSISTED TO REPOSITION IN BED, AIRVO APPLIED AT 60L, SPO2 UNCHANGED. PT EATING BREAKFAST AT THIS TIME.
--- NOTE | 2019-10-26 13:03 | NUR ---
UPDATE PT BACK ON BIPAP AFTER BREAKFAST PER HIS REQUEST, SETTINGS UNCHANGED. PT NAPPED UNTIL LUNCH, SPO2 >95% T/O, VSS. PT WOKEN FOR NOON ASSESSMENT AND LUNCH, AIRVO BACK ON AT 60L, PT SITTING UP IN BED EATING, DENIES NEEDS OR C/O. LS CLEAR BUT DIM AT THIS TIME.
--- NOTE | 2019-10-26 18:37 | NUR ---
END OF SHIFT PT REMAINED ON BIPAP T/O MOST OF SHIFT PER HIS REQUEST, SPO2 REMAINED MID TO HIGH 90'S ON BIPAP WITH SETTINGS UNCHANGED, WELL AIRVO 60L DURING MEALS. PT CALM AND COOPERATIVE THIS SHIFT, HAD ONE INAPPROPRIATE/BIZZARE CONVERSATION WITH THIS RN THIS EVENING, REQUESTED THAT THIS RN WRITE AND SEND A LETTER TO THE PRESIDENT REGARDING CURING PEOPLE FROM CORONAVIRUS USING A FICTITOUS MACHINE. PER REPORT, PT REQUESTED THIS OF LAST NOC RN WELL. PT OTHEWISE APPROPRIATE T/O SHIFT. WAS DIALYZED, 1.5L REMOVED, TOLERATED WELL. PT'S HR AFTER DIALYSIS 100-120, ADDITIONAL CARDIZEM ER ADMINISTERED PER ORDERS. HR AT THIS TIME 110, OTHER VSS. PT SLEEPING, SLEPT MOST OF DAY WITH NO C/O SOB OR PAIN. DR. LEDESMA IN TO SEE PT THIS EVENING, NO NEW ORDERS AT THIS TIME, NO PLAN FOR PARACENTESIS UNTIL COVID RULED OUT/RESOLVED, PT STILL STATES HE DOES NOT WANT PARACENTESIS D/T PAIN, DESPITE BEING EDUCATED RE: PAIN MEDICATIONS. REPORT TO ONCOMING SHIFT.
--- NOTE | 2019-10-26 19:00 | NUR ---
ASSUMED CARE OF PT, REPORT RECEIVED. PT IS RESTING QUIETLY RECLINING IN BED WITH BIPAP IN PLACE SETTINGS 10/6 FIO2 55%, SATS ARE NOTED LOW TO MID 90S, RESP RATE 20S, NO VISIBLE INCREASED WORK OF BREATHING WHILE AT REST, MODERATE ACCESSORY USAGE AND INCREASED WORK OF BREATHING WITH POSITION CHANGES AND INCREASES IN ACTIVITY ARE NOTED. PT CONTINUES IN AFIB/AFLUTTER, RATE 110-120 AT THIS TIME, PER OFFGOING RN, PO MEDS RECENTLY ADMINISTERED FOR RATE CONTROL, WILL MONITOR, PRESSURES CONTINUE TO MAINTAIN. PRECEDEX GTT CONTINUES AT 0.6 MCG/KG/HR AT THIS TIME. PT DENIES NEEDS.
--- NOTE | 2019-10-26 20:11 | NUR ---
Review of pt with nursing and intesivist. Pt refusing some care per staff. will need further ethical review of pt abilities to make decisions.
--- NOTE | 2019-10-26 20:15 | NUR ---
HS ASSESSMENT PT IS ALERT AND ORIENTED X4, DENIES N/V, DENIES CP/PRESSURE, DENIES NUMBNESS/TINGLING, DENIES PAIN, STATES THAT HE DOES FEEL SHORT OF BREATH AND HAS BEEN TOLERATING BIPAP WELL, STATES THAT HE IS FEELING TIRED AND HOPES TO CONTINUE TO SLEEP TONIGHT. TEMP IS NOTED ELEVATED, SEVERAL BLANKETS ARE REMOVED AND ROOM THERMOSTAT SETTING DECREASED FROM 80 DEGREES TO 65, PT STATES "I HAVE PNUEMONIA, I NEED MORE BLANKETS" DISCUSSED ELEVATED TEMP AND PLAN FOR TYLENOL FOR TEMP CONTROL, PT IS AGREEABLE AT THIS TIME. HE TOLERATES BREAK FROM THE BIPAP FOR MED ADMINISTRATION WITH AIRVO AT 60 L/MIN AND FIO2 OF 93% AT THIS TIME, LUNGS ARE COARSE UPPER AND MID RIGHT DIM BILAT BASES, LEFT UPPER IS CLEAR AT THIS TIME, SENTENCES ARE NOTED SHORT. PT DECLINES ORAL CARE AT THIS TIME, CONTINUES TO REFUSE TO BE TURNED, HE DOES MANAGE SLIGHT POSITION CHANGES WITHOUT ASSIST AND STATES THAT HE IS COMFORTABLE AT THIS TIME. AFIB/FLUTTER CONTINUES, HEART SOUNDS ARE DISTANT, IRREGULAR, PULSES ARE FULL, EDEMA TO LOWER EXTREMITIES IS IMPROVED, CAP REFILL BRISK. ABD DISTENDED, HYPOACTIVE BOWEL TONES ARE NOTED, DENIES TENDERNESS WITH PALPATION, ABD SOFT. LEE REMAINS IN PLACE, DRAINING DARK YELLOW URINE, SMALL AMOUNT OF BLOOD CONTINUES TO BE VISIBLE IN DRAINAGE TUBING, IMPROVED FROM THIS AM, WILL CONT TO MONITOR.
[2019-10-27 05:40] LABS: Hematocrit 32.5 % (37.0-53.0); Hemoglobin 9.8 g/dL (13.5-17.5)
--- NOTE | 2019-10-27 05:52 | NUR ---
PT AWAKE MOST OF THIS SHIFT, TOLERATES BIPAP MOST OF THE NOC, DID USE AIRVO FOR BREAKS WITH OXYGEN AT 60 L/MIN AND FIO2 BETWEEN 87 AND 93%, DID HAVE DIFFICULTY RECOVERING SATS FOLLOWING BIPAP BREAK AT 2350, FIO2 OF BIPAP WAS TITRATED UP TO 75% OVER 10 MINUTES AND PT SATS INCREASED FROM 87% TO 90-91%, RESP RATE WAS NEAR 30, RIGHT LUNG CONTINUES COARSE WITH DIM BASE, LEFT WITH DIM BASE, SATS 87-95% THROUGHOUT NOC. INCREASED TEMP NOTED WITH HS ASSESSMENT AND TYLENOL ADMIN, TEMP DECREASED TO 99.2. AFIB/FLUTTER CONTINUES, RATE IMPROVED TO 70-80S THIS AM, PRESSURES MAINTAIN THROUGHOUT NOC. ABD DISTENTION CONTINUES, PT CONTINUES TO DENY PAIN AND NAUSEA AND IS TOLERATING PO LIQUIDS WELL, NO BOWEL MOVEMENT THIS SHIFT. LEE REMAINS IN PLACE DRAINING CLEAR DARK RIDDHI URINE, SMALL AMOUNT OF PINK IN DRAINAGE TUBING REMAINED THROUGHOUT NOC, URINE OUTPUT 225 ML. HE CONTINUES TO REFUSE REPOSITIONING.
[2019-10-27 06:13] LABS: Albumin, Blood 2.1 g/dL (3.4-5.0); Anion Gap 7 mmol/L (6-16); Blood Urea Nitrogen 61 mg/dL (8-24); CO2, Blood 31 mmol/L (21-32); Calcium, Blood 9.1 mg/dL (8.5-10.1); Chloride, Blood 95 mmol/L (98-108); Creatinine, Blood 2.91 mg/dL (0.60-1.20); Glomerular Filtration Rate 23 (60-); Glucose, Blood 176 mg/dL (70-99); Magnesium, Blood 2.4 mg/dL (1.6-2.4); Phosphorus, Blood 5.5 mg/dL (2.5-4.9); Potassium, Blood 5.1 mmol/L (3.5-5.5); Sodium, Blood 133 mmol/L (136-145); Vancomycin, Random 13.8 ug/mL
--- NOTE | 2019-10-27 07:51 | NUR ---
ASSUMED CARE RECIEVED REPORT FROM JANKI SESAY. PT IS ASLEEP ON BIPAP 10/6, WITH 75% FIO2. PT HAS A LEE PATENT, AND DRAINING RIDDHI URINE. PT IS IN AFLUTTR, RATE 70'S, LAST BP 111/61, 62 AND SAT'ING 93%. BED LOW AND LOCKED. CALL LIGHT WITHIN REACHG.
--- NOTE | 2019-10-27 17:01 | NUR ---
RSI/UPDATE/SHIFT SUMMARY PT HAD BEEN SAT'ING MID 80'S ON 75% FIO2 ON BIPAP AND HAD TO BE TURNED UP TO 100%. DISCUSSED WITH DR. LEDESMA POTENTIAL FOR INTUBATION. CALLIE AND I TALKED TO PT AND HE TOLD US HE WANTS TO BE A FULL CODE, AND IS WILLING TO BE INTUBATED AND GIVEN A THOROCENTESIS. PROCEDURE BEGAN AT 1434 WITH VERSED (5MG) AND PROPOFOL BOLUS (70MG). INTUBATION WAS VERY EFFICIENT, 8.0 ETT IN AT 1435, 25 @ LIP. PT WAS FIGHTING VENT AND MOVING, @ 1436 ANOTHER 5MG OF VERSED AND 30MG OF PROPOFOL WAS GIVEN (NOTE: DR LEDESMA PUSHED THE PROPOFOL). AT 1440 I STARTED A LITER OF NS BOLUS (999ML/HR) AND STARTED LEVO AT 5MCG/MIN (PER DR LEDESMA ORDERS, D/T TO SIGNIFICANT LOW BP). AT 1446 A BOLUS OF 10MG ROWDY WAS GIVEN IN AN EFFORT TO HAVE SYNCHRONY WITH THE PATIENT AND THE VENT. HE WAS STARTED ON A NIMBEX GTTP AT 1605 AT 2MCG/KG/MIN. VENT SETTINGS ARE CURRENTLY AC 16/450/12/90%. PEEP IS 12 D/T PT REMAINING IN THE MID 80'S (SATS) EVEN AT 100% FIO2. PT LEFT FOR CT ONCE STABLE ONCE HE HAD BEEN STABLE FOR ABOUT AN HOUR AND A HALF, LEFT AROUND 1715 AND WAS BACK AROUND 1740 - AND HE TOLERATED IT WELL, WITH NO COMPLICATIONS. CURRENT GTTPS: NIMBEX 3.0MCG/KG/MIN, PROPOFOL 35MCG/KG/MIN AND LEVO 6MCG/MIN BIS IS CURRENTLY 42 (GOAL IS 40) AND ToF IS 4/4 OF 1755 (SO I TITRATED FROM 2.5 TO 3.0MCG/KG/MIN ON NIMBEX) WE ARE HOLDING ELIQUIS FOR THE TIME BEING. NOT JUST BECAUSE SOME BLOOD BEEN SEEN IN THE LEE, BUT ALSO BECAUSE OF THE PLAN TO DO A THOROCENTESIS TOMORROW IN THE AM. PER DR. LEDESMA. HE TOLD ME IF HE DECOMPENSATED OVERNIGHT THAT HE WOULD COME IN, BUT IF HE IS STABLE WE WILL WAIT. BED IS LOW AND LOCKED.
[2019-10-27 17:03] LABS: PCO2 Arterial 59.1 mmHg (35-45); PO2 Arterial 66.6 mmHg (80-100); pH Blood Arterial 7.32 (7.35-7.45)
--- NOTE | 2019-10-27 19:30 | NUR ---
ASSUMED CARE OF PT, REPORT RECEIVED AT ROOM DOORWAY FOR PRESERVATION OF PPE. PT IS NOTED TO NOW BE SEDATED AND INTUBATED, SATS ARE HIGH 90S WITH VENT SETTINGS AC 18, TV 430, FIO2 90, AND PEEP 12, ETT 8.0, 25 CM AT LIP, LUNGS ARE CLEAR TO BILATERAL UPPER LOBES, DIM MID RIGHT, DIM BILAT BASES, ETT SUCTIONED FOR MODERATE AMOUNT OF THICK WHITE/YELLOW SECRETIONS. AFLUTTER CONTINUES, RATE CONTROLLED TO 70-80S AT THIS TIME, LEVOPHED IS NOW NOTED TO BE INFUSING AT 6 MCG/MIN AT THIS TIME, MAP IS GREATER THAN 80 AND LEVOPHED IS TITRATED DOWN THROUGHOUT ASSESSMENT AND HS CARE TO 4 MCG/MIN, WILL CONT TO MONITOR PRESSURES AND TITRATE LEVOPHED DOWN ABLE, EDEMA TO UPPER EXTREMITIES IS MILD AND DEPENDENT, BILAT LOWER EXTREMITIES HAVE 2+ BILAT, SKIN HAS SLIGHT JAUNDICED APPEARANCE THIS EVENING, SCLERA ARE ALSO NOTED SLIGHTLY JAUNDICED. ABD REMAINS DISTENDED, OG IS NOW IN PLACE TO LOW INTERMITTENT SUCTION, PRODUCTIVE OF SMALL AMOUNTS OF BROWN FLUID, PT REPORTED TO HAVE CONSUMED CHOCOLATE GLUCERNA ON DAY SHIFT, BOWEL TONES REMAIN HYPOACTIVE, ABD SOFT, DISTENDED. LEE REMAINS IN PLACE DRAINING SMALL AMOUNTS OF DARK RIDDHI/BROWN URINE, NO EVIDENCE OF BLEEDING IN DRAINAGE TUBING AT THIS TIME. RIGHT IJ DIALYSIS ACCESS DRESSING IS CDI, SITE WNL. EXTENDED DWELL ACCESS TO LEFT UPPER ARM CONTINUES, SITE WNL, DRESSING CDI, DRAWS AND FLUSHES WELL. PERIPHERAL ACCESS IS NOW NOTED TO RIGHT AC, SITE WNL, DRESSING CDI, INFUSING PROPOFOL AT 35 MCG/KG/MIN.
[2019-10-28 04:00] LABS: BASOPHILS ABSOLUTE AUTO 0.01 K/mm3 (0.00-0.23); BASOPHILS PERCENT AUTO 0 % (0-2); EOSINOPHILS ABSOLUTE AUTO 0.04 K/mm3 (0.00-0.68); EOSINOPHILS PERCENT AUTO 0 % (0-6); Hematocrit 32.1 % (37.0-53.0); Hemoglobin 9.5 g/dL (13.5-17.5); IMMATURE GRAN ABSOLUTE AUTO 0.08 K/mm3 (0.00-0.10); IMMATURE GRAN PERCENT AUTO 1 % (0-1); LYMPHOCYTES ABSOLUTE AUTO 0.58 K/mm3 (0.84-5.20); LYMPHOCYTES PERCENT AUTO 4 % (21-46); MONOCYTES ABSOLUTE AUTO 0.77 K/mm3 (0.16-1.47); MONOCYTES PERCENT AUTO 5 % (4-13); Mean Corpuscular HGB 28.4 pg (26.0-34.0); Mean Corpuscular HGB Conc 29.6 g/dL (31.5-36.5); Mean Corpuscular Volume 96 fL (80-100); NEUTROPHILS ABSOLUTE AUTO 13.57 K/mm3 (1.96-9.15); NEUTROPHILS PERCENT AUTO 90 % (41-73); Platelet Count 188 K/mm3 (150-400); RDW Coefficient Variation 15.2 % (11.7-14.2); RDW Standard Deviation 53.4 fL (35.1-46.3); Red Blood Cell Count 3.34 M/mm3 (4.30-5.90); White Blood Cell Count 15.05 K/mm3 (4.00-11.30)
[2019-10-28 04:21] LABS: Magnesium, Blood 2.5 mg/dL (1.6-2.4)
[2019-10-28 05:02] LABS: Albumin, Blood 1.9 g/dL (3.4-5.0); Anion Gap 8 mmol/L (6-16); Blood Urea Nitrogen 72 mg/dL (8-24); Bun/Creatinine Ratio 19.8 (12.0-20.0); CO2, Blood 29 mmol/L (21-32); Chloride, Blood 96 mmol/L (98-108); Creatinine, Blood 3.64 mg/dL (0.60-1.20); Glomerular Filtration Rate 18 (60-); Potassium, Blood 5.6 mmol/L (3.5-5.5); Sodium, Blood 133 mmol/L (136-145)
[2019-10-28 05:18] LABS: Glucose, Blood 130 mg/dL (70-99)
--- NOTE | 2019-10-28 06:11 | NUR ---
PT REMAINS INTUBATED AND SEDATED, NIMBEX GTT TITRATED DOWN TO 2.5 MCG/KG/MIN, PROPOFOL REMAINS AT 35 MCG/KG/MIN, BIS MONITOR CURRENTLY MID 40S, TRAIN OF 4 GIVES 4 TWITCHES FOR 4 IMPULSES HOWEVER PT IS TOLERATING VENT WELL, VENT SETTINGS ARE CURRENTLY AC 18, TV 430, FIO2 80%, PEEP 12, SATS ARE 96-97%, LUNGS ARE CLEAR WITH DIM MID TO BASES BILAT, ETT SUCTIONS FOR MODERATE AMOUNTS OF THICK WHITE SPUTUM. AFLUTTER CONTINUES THROUGHOUT NOC, LEVOPHED WAS TITRATED DOWN TO 2 MCG/MIN, SKIN REMAINS WARM AND DRY, EDEMA CONTINUES. ABD CONTINUES DISTENDED, SOFT, OG OUTPUT TO LOW INTERMITTENT SUCTION HAS CHANGED IN COLOR FROM BROWN TO YELLOW/GREEN. ROSA IN PLACE, DR CHAN IN TO ROUND ON PT THIS AM, STATES PLAN FOR DIALYSIS TODAY, DISCUSSED URINE OUTPUT THIS SHIFT.
--- NOTE | 2019-10-28 09:25 | NUR ---
[place] of Care: Care assumed at 0700hr. Patient intubated, sedated, and on Nimbex gtt. Vent to AC 18/450/12/75%, spO2-100%, FiO2 then decreased to 70%. T/F 4/, BIS monitor in the 50's, and patient tolerating vent without difficulty. Propofol gtt at 35mcg/kg/min, Nimbex gtt at 2.5 mcg/kg/min, then decreased to 2mcg/kg/min. Levophed gtt at 4mcg/min, BP stable. Power-glide to ELIAN patent and intact, infusing without difficulty. Dialysis cath to rt IJ patent and intact, central line port to catheter infusing without difficulty. Downing cath patent and intact, draining minimal amount of dark yellow urine. Plan for dialysis today at 1200hr. Spoke with Dr. Brandon this morning, he stated plan for thoracentesis this morning. Bilateral soft wrist restraints in place to protect line, tubes, cords. Will continue to monitor.
[2019-10-28 15:30] LABS: Albumin, Body Fluid 1.2 g/dL; Glucose, Body Fluid 148 mg/dL; Lactate Dehydrogenase, Body Fl 77 U/L; Protein, Body Fluid 2.7 g/dL
[2019-10-28 15:52] LABS: Automated BF RBC Count 0.003 M/mm3 (0-0); Body Fluid WBC Count 380 /mm3 (0-999); RBC Count, Body Fluid 3000 /mm3 (0-0)
[2019-10-28 16:48] LABS: Appearance, Body Fluid Hazy (Clear); Color, Body Fluid Yellow (None-Yellow); Total Cell Count, Body Fluid 100
[2019-10-28 18:03] LABS: Vancomycin, Random 17.2 ug/mL
--- NOTE | 2019-10-28 18:46 | NUR ---
Shift Summary: Patient remained intubated/sedated throughout shift. Nimbex gtt titrated down from 2.5 mcg/kg/hr, then placed on stand-by at approx 1700hr. Patient able to open eyes to verbal cues, and follow simple commands. No s/s of pain or discomfort, only facial grimace with oral care. Levophed gtt titrated between 2-5mcg/min throughout shift, only increased to 5mcg/min during dialysis as BP decreased to systolic 70's, MAP's 50's. BP now back to WNL, with MAP's in te 70's. Vent settings now to AC-18/430/10/55%, spO2-96-97%, tolerating vent without difficulty. Dialysis cath to rt IJ with central line port remains C/D/I, and patent. Downing cath patent and intact, 250ml output this shift. Dr. Brandon to room at approx 1400hr, performed thoracentesis to rt lateral chest wall, effective to drain 800ml of cloudy yellow fluid, sent to lab for analysis. technical internship to room at approx 1600hr, able to run for 2hr, and remove 1L of fluid.
--- NOTE | 2019-10-28 22:00 | NUR ---
[place] OF CARE ASSUMED CARE OF PT @ 1900, PT INTUBATED AND SEDATED, VENT SET TO AC 18/430/10/55%, PT WITH GROSS MOVEMENT OF ALL EXTREMETIES, NOT FOLLOWING DIRECTIONS. MONITOR SHOWS AFIB/AFLUTTER WITH HR 100-120'S, BP MAPS>65 WITH LEVO @ 4. EXTREMETIES COOL, UREMIC CRYSTALS NOTED TO BUE AND HEAD. OGT IN PLACE INF TF @ 25ml/hr. LEE IN PLACE DRAINING YELLOW URINE. PROPOFOL INF @ 50, NIMBEX ON SB.
[2019-10-29 04:32] LABS: BASOPHILS ABSOLUTE AUTO 0.01 K/mm3 (0.00-0.23); BASOPHILS PERCENT AUTO 0 % (0-2); EOSINOPHILS ABSOLUTE AUTO 0.09 K/mm3 (0.00-0.68); EOSINOPHILS PERCENT AUTO 1 % (0-6); Hemoglobin 8.8 g/dL (13.5-17.5); IMMATURE GRAN ABSOLUTE AUTO 0.06 K/mm3 (0.00-0.10); IMMATURE GRAN PERCENT AUTO 1 % (0-1); LYMPHOCYTES ABSOLUTE AUTO 0.63 K/mm3 (0.84-5.20); LYMPHOCYTES PERCENT AUTO 6 % (21-46); MONOCYTES ABSOLUTE AUTO 0.75 K/mm3 (0.16-1.47); MONOCYTES PERCENT AUTO 7 % (4-13); Mean Corpuscular HGB 28.3 pg (26.0-34.0); Mean Corpuscular HGB Conc 30.3 g/dL (31.5-36.5); Mean Platelet Volume 11.1 fL (9.1-12.4); NEUTROPHILS ABSOLUTE AUTO 9.69 K/mm3 (1.96-9.15); NEUTROPHILS PERCENT AUTO 86 % (41-73); Platelet Count 174 K/mm3 (150-400); RDW Coefficient Variation 15.3 % (11.7-14.2); RDW Standard Deviation 51.9 fL (35.1-46.3); Red Blood Cell Count 3.11 M/mm3 (4.30-5.90); White Blood Cell Count 11.23 K/mm3 (4.00-11.30)
[2019-10-29 04:35] LABS: Mean Corpuscular Volume 93 fL (80-100)
[2019-10-29 04:52] LABS: Albumin, Blood 2.4 g/dL (3.4-5.0); Anion Gap 8 mmol/L (6-16); Blood Urea Nitrogen 60 mg/dL (8-24); Bun/Creatinine Ratio 18.2 (12.0-20.0); CO2, Blood 30 mmol/L (21-32); Chloride, Blood 95 mmol/L (98-108); Creatinine, Blood 3.29 mg/dL (0.60-1.20); Glomerular Filtration Rate 20 (60-); Glucose, Blood 118 mg/dL (70-99); Magnesium, Blood 2.5 mg/dL (1.6-2.4); Phosphorus, Blood 7.2 mg/dL (2.5-4.9); Potassium, Blood 4.2 mmol/L (3.5-5.5); Sodium, Blood 133 mmol/L (136-145)
--- NOTE | 2019-10-29 07:21 | NUR ---
SHIFT SUMMARY NO ACUTE CHANGES THIS SHIFT, PT REMAINS INTUBATED AND SEDATED, VENT SET TO AC 18/430/10/55%, SEDATION VACATION THIS SHIFT, PT AROUSABLE ANSWERING YES/NO QUESTIONS AND FOLLOWING DIRECTIONS, COMMUNICATES DESIRE TO BE EXTUBATED, EXPLAINED CURRENT NEED FOR VENTILATOR AND THAT AGRICULTURE MECHANIC WOULD EVALUATE DAILY FOR CONTINUED NEED. PT WITH INCREASED SECRETIONS FROM ETT T/O SHIFT, REQUIRING MORE FREQUENT SUCTIONING. MONITOR SHOWS AFIB/AFLUTTER T/O SHIFT, HR 120'S, LEVO PLACED ON SB FOR BREIF PERIOD CURRENTLY INFUSING AT 2 (SEE FLOWSHEET). NO BM THIS SHIFT, TF INF @ 30ml/hr, LOW RESIDUALS. LEE IN PLACE WITH GOOD URINE OUTPUT. REPORT GIVEN TO CRYSTAL SHEARER.
--- NOTE | 2019-10-29 08:00 | NUR ---
PT REMAINS INTUBATED, SEDATED, AND RESTRAINED. PT EYES ARE OPEN. HE APPEARS ANXIOUS-PULLING ON WRIST RESTRAINTS. PROPOFOL DRIP TITRATED UP TO 40 MCG/KG/MIN AND PT MED WITH VERSED 2 MG IVP X 1-SEE EMAR. ECG SHOWS AFLUTTER WITH HR 120'S. MAP>60-65 WITH LEVOPHED DRIP @ 2MCG/MIN. LUNGS DIMINISHED IN THE BASES. SUCTION PRODUCTIVE OF MODERATED AMOUNT OF THIN, CLEAR SECRETIONS. ETT TO VENT: AC 18, TV 430, FIO2 60%, AND PEEP 10. MAINTAINS SATS>90%. OGTF @ GOAL-50 CC RESIDUAL REFED. LEE WITH 100 CC CLEAR, YELLOW URINE TO UROMETER. ANTICIPATE HEMODIALYSIS LATER THIS AM. LEFT ARM SWOLLEN AND SLIGHTLY WARM TO TOUCH. EXTENDED DWELL CATHETER SITE RED. IVF SWITCHED OVER TO #20 PIV TO RIGHT WRIST. WILL DC EXTENDED DWELL CATHETER AND CONTINUE TO MONITOR LEFT ARM.
--- NOTE | 2019-10-29 10:16 | NUR ---
SPOKE WITH ELLIS FROM DIALYSIS-NO DIALYSIS TODAY PER DR. LEDESMA.
--- NOTE | 2019-10-29 12:14 | NUR ---
PT AGITATED, PULLING ON WRIST RESTRAINTS. PROPOFOLD DRIP TITRATED UP TO 50 MCG/KG/MIN. PT MED WITH VERSED 2 MG IVP X 1. HR 130'S A FLUTTER-DR. LEDESMA AWARE. ORDER GIVEN FOR CARDIZEM DRIP-NO BOLUS. TITRATE CARDIZEM TO HR<120. CONTINUE TO TITRATE LEVOPHED TO KEEP MAP 60-65. LUNGS COARSE THROUGH OUT. SUCTION PRODUCTIVE OF LARGE AMOUNT OF THICK, YELLOW SECRETIONS. SATS>90% ON FIO2 55%.
[2019-10-29 15:34] LABS: Vancomycin, Random 31.7 ug/mL
[2019-10-29 17:36] LABS: Automated BF RBC Count 0.003 M/mm3 (0-0); Automated BF WBC Count 3.306 K/mm3 (0-999); Body Fluid WBC Count 3306 /mm3 (0-999); RBC Count, Body Fluid 3000 /mm3 (0-0)
[2019-10-29 17:50] LABS: Albumin, Body Fluid 1.3 g/dL; Glucose, Body Fluid 143 mg/dL; Lactate Dehydrogenase, Body Fl 101 U/L; Protein, Body Fluid 3.3 g/dL
--- NOTE | 2019-10-29 18:08 | NUR ---
PT REMAINS INTUBATED, SEDATED, AND RESTRAINED. RESTING QUIETLY ON VENT WITH PROPOFOL AT 55 MCG/KG/MIN. ECG SHOWS AFLUTTER WITH RATE 90-110'S WITH CARDIZEM @ 15 MG/HR. MAP>60-65 WITH LEVOPHED @ 5 MCG/MIN. THORACENTESIS DONE BY -1600 CC REMOVED AND SPECIMENS HAND DELIVERED TO LAB. SATS>90% WITH FIO2@ 55% TOLERATING OGTF WELL AT GOAL RATE OF 55. INTAKE 1238 VS 2250 (-1012) THIS SHIFT.
[2019-10-29 18:34] LABS: Total Cell Count, Body Fluid 100
[2019-10-29 18:35] LABS: Appearance, Body Fluid Cloudy (Clear); Color, Body Fluid Yellow (None-Yellow)
--- NOTE | 2019-10-29 21:00 | NUR ---
ASSUMPTION OF CARE ASSUMED CARE OF PT @ 1900, PT INTUBATED AND SEDATED, WITHDRAWS FROM PAINFUL STIMULI. VENT SET TO AC 18/430/10/55%. MONITOR SHOWS AFIB/AFLUTTER, HR 80'S-90'S, CARDIZEM AND LEVOPHED INF FOR HR AND BP CONTROL. OGT IN PLACE INF TF @ 55ml/hr, LEE IN PLACE DRAINING YELLOW URINE. SEE FLOWSHEET FOR PROPOFOL, CARDIZEM, LEVOPHED, AND FIO2 TITRATIONS.
[2019-10-30 04:46] LABS: BASOPHILS ABSOLUTE AUTO 0.01 K/mm3 (0.00-0.23); BASOPHILS PERCENT AUTO 0 % (0-2); EOSINOPHILS ABSOLUTE AUTO 0.08 K/mm3 (0.00-0.68); EOSINOPHILS PERCENT AUTO 1 % (0-6); Hematocrit 27.4 % (37.0-53.0); Hemoglobin 8.7 g/dL (13.5-17.5); IMMATURE GRAN ABSOLUTE AUTO 0.04 K/mm3 (0.00-0.10); IMMATURE GRAN PERCENT AUTO 0 % (0-1); LYMPHOCYTES ABSOLUTE AUTO 0.59 K/mm3 (0.84-5.20); LYMPHOCYTES PERCENT AUTO 6 % (21-46); MONOCYTES ABSOLUTE AUTO 0.58 K/mm3 (0.16-1.47); MONOCYTES PERCENT AUTO 6 % (4-13); Mean Corpuscular HGB 29.2 pg (26.0-34.0); Mean Corpuscular HGB Conc 31.8 g/dL (31.5-36.5); Mean Corpuscular Volume 92 fL (80-100); Mean Platelet Volume 10.9 fL (9.1-12.4); NEUTROPHILS ABSOLUTE AUTO 8.62 K/mm3 (1.96-9.15); NEUTROPHILS PERCENT AUTO 87 % (41-73); Platelet Count 154 K/mm3 (150-400); RDW Coefficient Variation 15.3 % (11.7-14.2); RDW Standard Deviation 52.1 fL (35.1-46.3); Red Blood Cell Count 2.98 M/mm3 (4.30-5.90); White Blood Cell Count 9.92 K/mm3 (4.00-11.30)
[2019-10-30 05:02] LABS: Anion Gap 9 mmol/L (6-16); Blood Urea Nitrogen 69 mg/dL (8-24); Bun/Creatinine Ratio 18.1 (12.0-20.0); CO2, Blood 29 mmol/L (21-32); Calcium, Blood 8.8 mg/dL (8.5-10.1); Chloride, Blood 94 mmol/L (98-108); Creatinine, Blood 3.82 mg/dL (0.60-1.20); Glomerular Filtration Rate 17 (60-); Glucose, Blood 199 mg/dL (70-99); Magnesium, Blood 2.5 mg/dL (1.6-2.4); Phosphorus, Blood 7.4 mg/dL (2.5-4.9); Potassium, Blood 4.1 mmol/L (3.5-5.5); Sodium, Blood 132 mmol/L (136-145)
--- NOTE | 2019-10-30 07:43 | NUR ---
SHIFT SUMMARY NO ACUTE CHANGES THIS SHIFT, PT REMAINS INTUBATED AND SEDATED, FIO2 TITRATED TO 40% THIS SHIFT (SEE FLOWSHEET), SEDATION VACATION FOR APPROX 1 HR THIS MORNING, PT AROUSES TO VERBAL STIMULI, FOLLOWS DIRECTIONS, MOVES ALL EXTREMETIES, CALM AND COOPERATIVE. PT COMMUNICATES THROAT DISCOMFORT AND REPORTS DIFF BREATHING. CARDIZEM AND LEVOPHED GTT INF FOR HR AND BP CONTROL, SEE FLOWSHEET FOR TITRATIONS. OGT IN PLACE, HIGH RESIDUALS NOTED, NO BM THIS SHIFT. LEE IN PLACE DRAINING YELLOW URINE. DR CHAN IN TO SEE PT THIS MORNING, PLAN FOR DIALYSIS TODAY. REPORT GIVEN TO SHAMA SHEARER.
--- NOTE | 2019-10-30 08:30 | NUR ---
ASSESSMENT- PT SEDATED WITH PROPOFOL AT 40 MCG/KG/MIN. OPENS EYES TO VERBAL STIMULUS. ABLE TO FOLLOW SOME DIRECTIONS TO MOVE. DENIES PAIN. TOLERATING VENT SETTINGS, SUCTIONED SCANT SECRETIONS. ORAL CARE DONE-BLOODY SECRETIONS. POOR DENTITION. LUNGS CLEAR. ATRIAL FLUTTER, SBP STABLE, LEVOPHED DECREASED TO OFF. RIJ DIALYSIS CATH WITH INFUSION PORT INTACT, PIV X 2 INTACT. ABDOMEN ROUND WITH HYPOACTIVE BOWEL SOUNDS. TUBE FEED RESIDUALS 250-REPLACED. UO VIA LEE. BILATERAL WRIST RESTRAINTS TO PREVENT SELF EXTUBATION. REPOSITIONED. CARDIZEM GTT AT 10 MG/HR, NS TKO.
--- NOTE | 2019-10-30 09:10 | NUR ---
HYPOTENSIVE-LEVOPHED RESTARTED. AFLUTTER RATE 60-70'S
--- NOTE | 2019-10-30 13:14 | NUR ---
NOTE- DR. SPEARS HERE-PTS FIO2 INCREASED TO 50% TO IMPROVE SATURATIONS, PEEP AT 8. LEVOPHED OFF, SBP 90. CARDIZEM DECREASED TO 5 MG/HR, HEARTRATE 60'S.
--- NOTE | 2019-10-30 16:00 | NUR ---
TOLERATED DIALYSIS. MORE AWAKE, REPOSITIONED, REACHES FOR ETT, EXPLAINED PLAN OF CARE, ABLE TO REASSURE PT. SEE ASSESSMENT. SATURATIONS STABLE WITH PEEP 8 AND 50%
[2019-10-30 16:26] LABS: Vancomycin, Random 18.1 ug/mL
--- NOTE | 2019-10-30 18:22 | NUR ---
HYPOTENSIVE, NEED TO INCREASE LEVOPHED TO 4 MCG/MIN FOR BP SUPPORT, ATRIAL FLUTTER 90-100'S. CARDIZEM GTT OFF, PO GIVEN PER TUBE EARLIER. GILLIAM SPONTANEOUSLY. CONTINUE TO MONITOR.
--- NOTE | 2019-10-30 20:02 | NUR ---
following from afar pt tolerated dislysis review ith staff and charge nurse prognsosi and plan of care.
--- NOTE | 2019-10-30 21:47 | NUR ---
10/29 @ 21:[address] SPEARS ABOUT TURNING CARDIZEM GTT. BACK ON, HR WAS MAINTAINING 135, NOW ~ 120-130. OK TO LEAVE ON CARDIZEM GTT TONIGHT, NO NEED TO GIVE LOPRESSOR IVP IF HAVING TO INCREASE LEVOPHED GTT. CURRENTLY, CARDIZEM @ 10 MG/HR, LEVOPHED @ 6 MCG/MIN, PROPOFOL @ 50 MCG/KG/MIN. VSS. WILL CONTINUE TO MONITOR.
[2019-10-31 03:57] LABS: Base Excess Venous 7.8 mmol/L; Bicarbonate Venous 30.8 mmol/L (24.0-30.0); PCO2 Venous 49.1 mmHg (38-42); PO2 Venous 93.1 mmHg (38-42); pH Blood Venous 7.43 (7.34-7.37)
[2019-10-31 03:58] LABS: BASOPHILS ABSOLUTE AUTO 0.01 K/mm3 (0.00-0.23); BASOPHILS PERCENT AUTO 0 % (0-2); EOSINOPHILS ABSOLUTE AUTO 0.09 K/mm3 (0.00-0.68); EOSINOPHILS PERCENT AUTO 1 % (0-6); Hematocrit 27.8 % (37.0-53.0); Hemoglobin 8.7 g/dL (13.5-17.5); IMMATURE GRAN ABSOLUTE AUTO 0.05 K/mm3 (0.00-0.10); IMMATURE GRAN PERCENT AUTO 1 % (0-1); LYMPHOCYTES ABSOLUTE AUTO 0.74 K/mm3 (0.84-5.20); LYMPHOCYTES PERCENT AUTO 7 % (21-46); MONOCYTES PERCENT AUTO 6 % (4-13); Mean Corpuscular HGB 28.7 pg (26.0-34.0); Mean Corpuscular HGB Conc 31.3 g/dL (31.5-36.5); Mean Corpuscular Volume 92 fL (80-100); NEUTROPHILS ABSOLUTE AUTO 9.37 K/mm3 (1.96-9.15); NEUTROPHILS PERCENT AUTO 86 % (41-73); Platelet Count 178 K/mm3 (150-400); RDW Coefficient Variation 15.6 % (11.7-14.2); RDW Standard Deviation 51.3 fL (35.1-46.3); Red Blood Cell Count 3.03 M/mm3 (4.30-5.90); White Blood Cell Count 10.86 K/mm3 (4.00-11.30)
[2019-10-31 04:19] LABS: Albumin, Blood 1.9 g/dL (3.4-5.0); Albumin/Globulin Ratio 0.4 (0.8-1.8); Bilirubin, Total 0.5 mg/dL (0.1-1.0); Bun/Creatinine Ratio 16.8 (12.0-20.0); Calcium, Blood 9.1 mg/dL (8.5-10.1); Creatinine, Blood 2.86 mg/dL (0.60-1.20); Globulin, Blood 4.7 g/dL (2.2-4.0); Magnesium, Blood 2.5 mg/dL (1.6-2.4); Phosphorus, Blood 4.8 mg/dL (2.5-4.9); Potassium, Blood 3.9 mmol/L (3.5-5.5); Total Protein, Blood 6.6 g/dL (6.4-8.2)
--- NOTE | 2019-10-31 06:19 | NUR ---
SHIFT SUMMARY PATIENT SLEPT OFF AND ON THROUGH NIGHT. WOULD OCCASIONALLY AWAKEN, COUGH, WOULD SUCTION COPIOUS AMOUNTS OF THICH RAY SPUTUM, WENT BACK TO REST PRETTY SOON AFTER. TURNED CARDIZEM GTT. BACK ON EARLIER, UP TO 15 MG/HR CURRENTLY. PROPOFOL UP TO 60 MCG/KG/MIN NOW FOR SEDATION. DECIDED WITH RT SINCE WE HAD TO INCREASE FIO2, SPUTUM PRODUCTION, WOULD NOT PERFORM BREATHING TRIAL THIS AM. OTHERWISE ASSESSMENT IS CHARTED, GROSSLY UNCHANGED. VSS. WILL CONTINUE TO MONITOR.
--- NOTE | 2019-10-31 08:11 | NUR ---
ASSESSMENT- PT SEDATED WITH PROPOFOL AT 60 MCG/KG/MIN, DECREASE TO 55 MCG/KG/MIN. EYES CLOSED, NO RESPONSE TO COMMANDS. AFLUTTER, CARDIZEM GTT AT 15 MG/HR. LEVOPHED FOR BP SUPPORT AT 6 MCG/MIN-DECREASE TO 5 MCG/MIN. RIJ DIALYSIS CATH WITH INFUSION PORT. LUNGS COARSE T/O DECREASED LEFT BASE. TOLERATING VENT SETTINGS. ABDOMEN LARGE, SOFT WITH HYPOACTIVE BOWEL SOUNDS. TF VITAL HIGH PROTEIN AT GOAL 55CC/HR. RESIDUAL 150 CC REPLACED. UO VIA LEE ADEQUATE. BILATERAL WRIST RESTRAINTS FOR SAFETY. MOVES EXTREMITIES SPONTANEOUSLY.
--- NOTE | 2019-10-31 12:58 | NUR ---
DR. SPEARS HERE. PT CHANGED TO SPOTANEOUS SETTINGS. PROPOFOL DECREASED TO 30 AND THEN 20 MCG/KG/MIN. PT OPENS EYES, FOLLOWS SOME COMMANDS. TOLERATING VENT SETTINGS WITHOUT DISTRESS. OXYGEN SATURATIONS STABLE. CONTINUE TO MONITOR. DR. SPEARS CANCELLED BLOOD TRANSFUSION ORDER
[2019-10-31 14:39] LABS: Vancomycin, Random 20.5 ug/mL
--- NOTE | 2019-10-31 16:12 | NUR ---
TOLERATING CPAP TRIAL WITH TIDAL VOLUMES 400'S. AWAKENS EASILY, COOPERATIVE, CALM. EXPLAINED PLAN OF CARE. DOES REACH FOR TUBE, EXTUBATION RISK. RESIDUALS IMPROVING. STILL NO BM. DR. SPEARS HERE-UPDATED.
--- NOTE | 2019-10-31 17:50 | NUR ---
PT ANXIOUS, RESTLESS, C/O SOB. BACK TO VENT SETTINGS AND PROPOFOL INCREASED FOR VENT TOLERANCE WITH RELIEF. VSS. LEVOPHED TITRATED OFF. AFLUTTER RAT 60'S. ABDOMEN REMAINS SOFT, LARGE. LINEN CHANGE, ABLE TO FOLLOW BRIEF DIRECTIONS. CONTINUE TO MONITOR
[2019-11-01 03:50] LABS: BASOPHILS ABSOLUTE AUTO 0.02 K/mm3 (0.00-0.23); BASOPHILS PERCENT AUTO 0 % (0-2); EOSINOPHILS ABSOLUTE AUTO 0.16 K/mm3 (0.00-0.68); EOSINOPHILS PERCENT AUTO 1 % (0-6); Hematocrit 27.6 % (37.0-53.0); Hemoglobin 8.5 g/dL (13.5-17.5); IMMATURE GRAN ABSOLUTE AUTO 0.05 K/mm3 (0.00-0.10); IMMATURE GRAN PERCENT AUTO 0 % (0-1); LYMPHOCYTES ABSOLUTE AUTO 0.73 K/mm3 (0.84-5.20); LYMPHOCYTES PERCENT AUTO 6 % (21-46); MONOCYTES ABSOLUTE AUTO 0.52 K/mm3 (0.16-1.47); MONOCYTES PERCENT AUTO 4 % (4-13); Mean Corpuscular HGB 28.4 pg (26.0-34.0); Mean Corpuscular HGB Conc 30.8 g/dL (31.5-36.5); Mean Corpuscular Volume 92 fL (80-100); Mean Platelet Volume 10.4 fL (9.1-12.4); NEUTROPHILS ABSOLUTE AUTO 11.88 K/mm3 (1.96-9.15); NEUTROPHILS PERCENT AUTO 89 % (41-73); Platelet Count 184 K/mm3 (150-400); RDW Coefficient Variation 15.7 % (11.7-14.2); RDW Standard Deviation 52.6 fL (35.1-46.3); Red Blood Cell Count 2.99 M/mm3 (4.30-5.90); White Blood Cell Count 13.36 K/mm3 (4.00-11.30)
[2019-11-01 04:10] LABS: Albumin, Blood 1.8 g/dL (3.4-5.0); Anion Gap 8 mmol/L (6-16); Blood Urea Nitrogen 63 mg/dL (8-24); Bun/Creatinine Ratio 18.3 (12.0-20.0); CO2, Blood 30 mmol/L (21-32); Calcium, Blood 9.3 mg/dL (8.5-10.1); Chloride, Blood 97 mmol/L (98-108); Creatinine, Blood 3.45 mg/dL (0.60-1.20); Glomerular Filtration Rate 19 (60-); Glucose, Blood 145 mg/dL (70-99); Magnesium, Blood 2.5 mg/dL (1.6-2.4); Potassium, Blood 4.4 mmol/L (3.5-5.5); Sodium, Blood 135 mmol/L (136-145)
--- NOTE | 2019-11-01 05:53 | NUR ---
SHIFT SUMMARY PATIENT SLEPT WELL THROUGH NIGHT. PERFORMED 2 SHORTER (~30 MINUTE) SEDATION VACATIONS, PATIENT ALERT, ORIENTED, FOLLOWS COMMANDS, NO C/O PAIN, GILLIAM. HAD TO TURN SEDATION BACK UP BOTH TIMES DUE TO AGGITATION, FIGHTING VENTIALTOR. FIO2 WAS DECREASED TO 55%, SPO2 HANGING AROUND 92%. DID RESTART CARDIZEM GTT., NOW DOWN TO 10 MG/HR. LEVOPHED NOW ON STANDBY. PROPOFOL AT 50 MCG/KG/MIN. HR IMPROVED TO MID-70S. VSS. ASSESSMENT IS CHARTED. WILL CONTINUE TO MONITOR.
--- NOTE | 2019-11-01 08:30 | NUR ---
ASSUMED CARE OF PT AT 0700. REPORT FROM DEMIAN SHEARER. PT INTUBATED AND SEDATED. VENT SETTINGS AC 18/430/7/55%. PROPOFOL INFUSING AT 50 MCG/KG/MIN. PT OPENS EYES TO VERBAL STIMULI. DOES NOT FOLLOW DIRECTIONS. WILL REASSESS DURING SEDATION VACATION. LUNGS DIMINISHED IN BASES. PT P/W/D. TUBE FEEDINGS INFUSING AT GOAL OF 55 ML/HR c 30 ML q4 HR FLUSHES. RESIDUALS 70 ML THIS AM. ABD ROUND, SOFT, NON TENDER. BT X 4. MERHERKER TO RIJ, INFUSING PROPOFOL. LEE PATENT AND DRAINING TO GRAVITY. EVENT DECORATOR AND DESIGNER AT BEDSIDE. LEVOPHED STARTED TO MAINTAIN MAP > 65 DURING DIALYSIS. PRBCS HELD PER DR SPEARS. WILL CONTINUE TO MONITOR.
--- NOTE | 2019-11-01 11:19 | NUR ---
DIALYSIS CONTINUES. PROPOFOL DECREASED TO 30 MCG/KG/MIN, CARDIZEM PLACED ON STANDBY. SPONT BREATHING TRIAL.
[2019-11-01 11:58] LABS: Vancomycin, Random 11.3 ug/mL
--- NOTE | 2019-11-01 12:29 | NUR ---
PT CONTINUES ON SPONTANEOUS PEEP 5/PS 5/40%. PT FOLLOWS COMMANDS. NODS HEAD TO YES/NO QUESTIONS. PLAN FOR POSSIBLE EXTUBATION AT APPROX 1300.
--- NOTE | 2019-11-01 13:35 | NUR ---
pt tolerating dialysis plan is to attempt extubation. will follow up with [facility] plan of care. will review with chronic care nurse pt may need placement in [facility] care facility.
--- NOTE | 2019-11-01 13:42 | NUR ---
DR SPEARS AND RT AT BEDSIDE AT 1300. PROPOFOL PLACED ON STANDBY. PT FOLLOWING COMMANDS, STRONG COUGH. THICK WHITE/YELLOW SECRETIONS. ETT SUCTIONED. PT REMAINS CALM AND COOPERATIVE. HR 130'S, AFIB, DILTIZEM RATE INCREASED TO 15 MG/HR. PT EXTUBATED AT 1320. RESTRAINTS REMOVED. PLACED PT ON 4L VIA OXYMIZER. FOLLOWS DIRECTIONS. WEAK VOICE, TACHYPNIEC. ENCOURAGED SLOW RESP. PT MOUTH BREATHING, PLACED NC IN MOUTH AT 4L. CARDIZEM BOLUS OF 5 MG IVP GIVEN, HEART RATE CONTINUES IN 130'S, CONVERTS TO ST. PT C/O SOB, INCREASED WOB. PLACED ON BIPAP. PT TOLERATING WELL.
--- NOTE | 2019-11-01 17:47 | NUR ---
SHIFT SUMMARY PT EXTUBATED THIS SHIFT. PT c INCREASED WOB AND C/O SOB WHEN PLACED ON 4L NC. PLACED ON BIPAP 10/5 50%. PT TOLERATING BIPAP FOR SHORT PERIODS OF TIME, REQUESTS BREAKS. DURING BREAKS PLACE PT ON 4L VIA NC. O2 SATS >92% BUT HAS INCREASED WOB. STARTED PRECEDEX ORDERED FOR AGITATION. PT c WET COUGH, THICK MODERATE SECRETIONS, PT SWALLOWS MOST, OCCASIONALLY ALLOWS RN TO SUCTION. HOARSE VOICE. PT A&OX 2. FOLLOWS COMMANDS. LUNGS COARSE, WORSE ON RIGHT. DOBHOFF PLACED TO RIGHT NARE, AWAITING XRAY CONFIRMATION. CARDIZEM GTT INFUSING AT 15 MG/HR, REMAINS IN AFLUTTER, RATE 100-120'S. DR SPEARS AWARE. DIALYSIS COMPLETED TODAY. LEE REMAINS IN PLACE, PATENT, DRAINING TO GRAVITY. WILL CONTINUE TO MONITOR UNTIL REPORT TO ONCOMING NURSE.
--- NOTE | 2019-11-01 18:47 | NUR ---
review of pt with nursing pt aggitated needing bipap. will review prognosis with structural draftsman.
[2019-11-02 04:47] LABS: BASOPHILS ABSOLUTE AUTO 0.02 K/mm3 (0.00-0.23); BASOPHILS PERCENT AUTO 0 % (0-2); EOSINOPHILS ABSOLUTE AUTO 0.14 K/mm3 (0.00-0.68); EOSINOPHILS PERCENT AUTO 2 % (0-6); Hematocrit 28.8 % (37.0-53.0); Hemoglobin 8.7 g/dL (13.5-17.5); IMMATURE GRAN ABSOLUTE AUTO 0.06 K/mm3 (0.00-0.10); IMMATURE GRAN PERCENT AUTO 1 % (0-1); LYMPHOCYTES ABSOLUTE AUTO 0.99 K/mm3 (0.84-5.20); LYMPHOCYTES PERCENT AUTO 10 % (21-46); MONOCYTES ABSOLUTE AUTO 0.46 K/mm3 (0.16-1.47); MONOCYTES PERCENT AUTO 5 % (4-13); Mean Corpuscular HGB 28.2 pg (26.0-34.0); Mean Corpuscular HGB Conc 30.2 g/dL (31.5-36.5); Mean Corpuscular Volume 93 fL (80-100); Mean Platelet Volume 10.3 fL (9.1-12.4); NEUTROPHILS ABSOLUTE AUTO 7.86 K/mm3 (1.96-9.15); NEUTROPHILS PERCENT AUTO 83 % (41-73); Platelet Count 180 K/mm3 (150-400); RDW Coefficient Variation 15.9 % (11.7-14.2); RDW Standard Deviation 53.3 fL (35.1-46.3); Red Blood Cell Count 3.09 M/mm3 (4.30-5.90); White Blood Cell Count 9.53 K/mm3 (4.00-11.30)
[2019-11-02 05:04] LABS: Albumin, Blood 1.8 g/dL (3.4-5.0); Anion Gap 7 mmol/L (6-16); Blood Urea Nitrogen 48 mg/dL (8-24); Bun/Creatinine Ratio 16.8 (12.0-20.0); CO2, Blood 31 mmol/L (21-32); Calcium, Blood 9.6 mg/dL (8.5-10.1); Chloride, Blood 100 mmol/L (98-108); Creatinine, Blood 2.85 mg/dL (0.60-1.20); Glomerular Filtration Rate 24 (60-); Glucose, Blood 120 mg/dL (70-99); Magnesium, Blood 2.5 mg/dL (1.6-2.4); Phosphorus, Blood 6.1 mg/dL (2.5-4.9); Potassium, Blood 4.4 mmol/L (3.5-5.5); Sodium, Blood 138 mmol/L (136-145)
--- NOTE | 2019-11-02 07:36 | NUR ---
[place] of Care: Patient alert and oriented to self, place, reason for admission, and year. Sitting upright in bed with high-flow NC at 15L at shift change. Patient then asked for BiPAP mask as he felt SOB. BiPAP mask placed at 10/5/70%, spO2-92-93%, patient states SOB is improving, appears comfortable. Heart rate/rhythm shows A-flutter in the 120's-130's, BP stable. Cardizem gtt at 15mg/hr, and precedex gtt at 0.7mcg/kg/hr. Downing cath patent and intact, draining clear yellow urine. Peripheral IV's x2 to rt arm patent and intact. Dialysis cath to rt IJ with central line port patent and intact. Patient's medications were being administered through Dobhoff tube, which patient pulled out last NOC shift. NOC shift RN informed that patient did pass bed-side swallow eval. Will consult with Dr. Arellano about placing another Dobhoff tube or attempting to advance patients diet and allow PO medication administration.
--- NOTE | 2019-11-02 07:44 | NUR ---
SHIFT SUMMARY PATIENT SLEPT OFF AND ON THROUGH NIGHT. CHIEF COMPLAINT OF NOT TOLERATING BIPAP, COULD NOT CONVINCE PATIENT TO LEAVE BIPAP AT TOP OF NOSE, WOULD PULL IT DOWN TO THE MIDDLE, WOULD GET UNCOMFORTABLE AFTER A COUPLE OF HOURS. ATTEMPTED AIRVO FOR A BRIEF PERIOD, COULD NOT MAINTAIN SPO2, C/O DYSPNEA, SWITCHED BACK TO BIPAP. PATIENT REMOVED DOBHOFF IN HIS SLEEP, DID NOT REPLACE PER COMFORT. ATTEMPTED BEDSIDE SWALLOW EVAL, PATIENT ABLE TO SWALLOW WATER FINE, COUGH ON DEMAND. HAD TO TITRATE CARDIZEM UP, WOULD GET TACHYCARDIC WITH ANY S.O.B. DECENT URINE OUTPUT, NO BOWEL MOVEMENT NOTED. ASSESSMENT IS CHARTED. VSS. WILL CONTINUE TO MONITOR.
--- NOTE | 2019-11-02 10:48 | NUR ---
Dobhoff Insertion: Repeat bedside swallow eval performed by this RN at approx 0800hr. Patient failed swallow eval, coughing with PO water intake. Spoke with Dr. Arellano upon her arrival to the unit at apporx 0900hr. Received orders to place Dobhoff tube per NG. Dobhoff placed to rt nare at 62cm inserted, patient tolerated without difficulty. Chest x-ray obtained and placement confirmed by Dr. Arellano. Routine scheduled medications then administered without difficulty. Also spoke with Dr. Arellano r/t patient continued increased HR (120's-130's). Received orders for IV Digoxin x2 doses. Will continue to monitor.
[2019-11-02 15:56] LABS: Vancomycin, Random 13.1 ug/mL
--- NOTE | 2019-11-02 18:40 | NUR ---
Shift Summary: Patient slept on/off throughout shift. On BiPAP at 10/5/65% throughout most of shift, but able to tolerate several breaks from mask (30min). On high-flow NC at 15L when off mask, [id number]% on NC, [id number]% on BiPAP. Cardizem gtt titrated down to 10mg/hr throughout shift, HR decreased to 80's-90's, following Digoxin dose ordered by Dr. Arellano. BP remains stable, slight hypotension during dialysis, but able to tolerate full length of dialysis, 2.2L removed. Peripheral IV's x2 and dialysis cath to rt IJ remains patent and intact. Downing cath remains patent and intact, draining dark yellow/green urine. TF started today via Dobhoff tube. Nepro 1.8cal started at 25ml/hr, goal of 45ml/hr, with 30ml H2O flush q4hr. Precedex gtt decreased to 0.2mcg/kg/hr throughout shift, patient remains slightly anxious at times, but no change r/t start of shift. Cooperative with staff. Appears calm and comfortable at this time. Will continue to monitor until report to NOC shift RN.
[2019-11-03 04:39] LABS: BASOPHILS ABSOLUTE AUTO 0.02 K/mm3 (0.00-0.23); BASOPHILS PERCENT AUTO 0 % (0-2); EOSINOPHILS PERCENT AUTO 1 % (0-6); Hematocrit 29.1 % (37.0-53.0); Hemoglobin 8.8 g/dL (13.5-17.5); IMMATURE GRAN ABSOLUTE AUTO 0.07 K/mm3 (0.00-0.10); IMMATURE GRAN PERCENT AUTO 1 % (0-1); LYMPHOCYTES ABSOLUTE AUTO 0.79 K/mm3 (0.84-5.20); LYMPHOCYTES PERCENT AUTO 7 % (21-46); MONOCYTES ABSOLUTE AUTO 0.49 K/mm3 (0.16-1.47); MONOCYTES PERCENT AUTO 5 % (4-13); Mean Corpuscular HGB 28.4 pg (26.0-34.0); Mean Corpuscular HGB Conc 30.2 g/dL (31.5-36.5); Mean Corpuscular Volume 94 fL (80-100); Mean Platelet Volume 10.2 fL (9.1-12.4); NEUTROPHILS ABSOLUTE AUTO 9.29 K/mm3 (1.96-9.15); NEUTROPHILS PERCENT AUTO 86 % (41-73); Platelet Count 200 K/mm3 (150-400); RDW Coefficient Variation 15.4 % (11.7-14.2); RDW Standard Deviation 52.7 fL (35.1-46.3); White Blood Cell Count 10.76 K/mm3 (4.00-11.30)
[2019-11-03 05:01] LABS: Albumin, Blood 1.7 g/dL (3.4-5.0); Anion Gap 6 mmol/L (6-16); Blood Urea Nitrogen 45 mg/dL (8-24); Bun/Creatinine Ratio 16.1 (12.0-20.0); CO2, Blood 32 mmol/L (21-32); Calcium, Blood 9.3 mg/dL (8.5-10.1); Chloride, Blood 99 mmol/L (98-108); Creatinine, Blood 2.79 mg/dL (0.60-1.20); Glomerular Filtration Rate 24 (60-); Glucose, Blood 184 mg/dL (70-99); Magnesium, Blood 2.4 mg/dL (1.6-2.4); Phosphorus, Blood 5.5 mg/dL (2.5-4.9); Sodium, Blood 137 mmol/L (136-145)
[2019-11-03 05:08] LABS: Digoxin (Lanoxin) 0.91 ug/mL (0.80-2.00)
--- NOTE | 2019-11-03 06:33 | NUR ---
SHIFT SUMMARY PATIENT SLEPT WELL THROUGH NIGHT. WAS ABLE TO TURN OFF CARDIZEM AROUND 05:30. DID HAVE TO INCREASE PRECEDEX TO 0.5 MCG/KG/MIN FOR BIPAP TOLERANCE, PULLED MASK APART, ALMOST PULLED OUT DOBHOFF. FIO2 DECREASED TO 50%, MAINTAINING SPO2 AROUND 93%. ASSESSMENT IS CHARTED. VSS. NO C/O PAIN. WILL CONTINUE TO MONITOR.
--- NOTE | 2019-11-03 08:00 | NUR ---
AWAKE, A&O x LAYING IN BED WITH BIPAP IN PLACE WITH SETTINGS 10/5, FIO2 50% WITH SATS >90%. DENIES NO PAIN OR SOB. BIPAP REMOVED FOR A BREAK, PLACED 11L DEMETRIO FLOW NC. TUBE FEEDING INFUSING, MEDS TO BE GIVEN VIA DOBHOFF. SCANT AMOUNT OF INCONTINENCE OF STOOL. GENERALIZED WEAKNESS NOTED. RAC IV SITE DRESSING COMING OFF, DC'D IV SITE. PRECEDEX GTT INFUSING AND NS TKO INFUSING. CONTINUE TO MONITOR AND TX PER NEW ORDERS.
--- NOTE | 2019-11-03 09:15 | NUR ---
UP TO CHAIR WITH LIFT, TOLERATED WELL. DECREASE SATS NOTED WITH 02 NC, REPLACED BIPAP BACK ON, ADJUSTING FIO2 TO KEEP SATS >88%. CONTINUE TO MONITOR AND TX PRN.
--- NOTE | 2019-11-03 14:28 | NUR ---
TOLERATED BEING OFF BIPAP WITH SATS >90%, BUT HR INCREASE AND INCREASE RESPIRATORY RATE 28. PUT BIPAP BACK ON WITH SETTINGS 10/5, FIO2 45%. CONTINUE TO MONITOR AND TX PRN.
--- NOTE | 2019-11-03 14:41 | NUR ---
HR 120-144'S. RESTARTED CARDIZEM GTT AT 10MG/HR. CONTINUE TO MONITOR AND TITRATE TO EFFECT.
--- NOTE | 2019-11-03 15:03 | NUR ---
STOPPED CARDIZEM GTT PER ORDERS. METOPROLOL 5MG IVP GIVEN TO CONTROL HR >120. GOOD RESULTS WITH MED. HR 70-80'S, BP STABLE.
--- NOTE | 2019-11-03 18:30 | NUR ---
SHIFT SUMMARY PT A&O X4 WITH OCCASIONAL IRRITABILITY NOTED WITH STAFF. UP TO CHAIR WITH LIFT AND TOLERATED WELL. HAD A FEW BREAKS WITH BIPAP OFF AND O2 13L HIGH FLOW NC IN PLACE; TOLERATED WELL. FREQUENT ORAL CARE DONE, VERY DRY MOUTH/LIPS NOTED. CONTINUE WITH TUBE FEEDING, AT GOAL RATE 45ML/HR. INCONTINENT OF STOOL X2 WITH ONE SMALL FORM SOFT BROWN. LEE CATH PATENT BUT NOTED INCREASE OF COLORING CHANGING TO CRANBERRY RED. X2 PERIPHERAL IV SITES DC'D AND NEW FLOYD POWER GLIDE PLACED. INCREASE HR 140'S THIS AFTERNOON, METOPROLOL 5MG IV X1 GIVEN FOR RATE CONTROL. HR 90'S AND BP STABLE. NO OTHER CHANGES NOTED, WILL REPORT OFF TO NOC SHIFT.
[2019-11-04 03:38] LABS: Base Excess Venous 6.2 mmol/L; Bicarbonate Venous 28.9 mmol/L (24.0-30.0); PCO2 Venous 48.8 mmHg (38-42); PO2 Venous 40.9 mmHg (38-42); pH Blood Venous 7.41 (7.34-7.37)
[2019-11-04 03:39] LABS: BASOPHILS ABSOLUTE AUTO 0.05 K/mm3 (0.00-0.23); BASOPHILS PERCENT AUTO 1 % (0-2); EOSINOPHILS ABSOLUTE AUTO 0.14 K/mm3 (0.00-0.68); EOSINOPHILS PERCENT AUTO 1 % (0-6); Hematocrit 30.4 % (37.0-53.0); Hemoglobin 9.2 g/dL (13.5-17.5); IMMATURE GRAN ABSOLUTE AUTO 0.07 K/mm3 (0.00-0.10); IMMATURE GRAN PERCENT AUTO 1 % (0-1); LYMPHOCYTES PERCENT AUTO 10 % (21-46); MONOCYTES ABSOLUTE AUTO 0.49 K/mm3 (0.16-1.47); MONOCYTES PERCENT AUTO 4 % (4-13); Mean Corpuscular HGB 28.1 pg (26.0-34.0); Mean Corpuscular HGB Conc 30.3 g/dL (31.5-36.5); Mean Corpuscular Volume 93 fL (80-100); Mean Platelet Volume 10.1 fL (9.1-12.4); NEUTROPHILS ABSOLUTE AUTO 9.23 K/mm3 (1.96-9.15); NEUTROPHILS PERCENT AUTO 83 % (41-73); Platelet Count 207 K/mm3 (150-400); RDW Coefficient Variation 15.1 % (11.7-14.2); RDW Standard Deviation 51.3 fL (35.1-46.3); Red Blood Cell Count 3.27 M/mm3 (4.30-5.90); White Blood Cell Count 11.08 K/mm3 (4.00-11.30)
[2019-11-04 03:56] LABS: Albumin, Blood 1.7 g/dL (3.4-5.0); Anion Gap 6 mmol/L (6-16); Blood Urea Nitrogen 63 mg/dL (8-24); Bun/Creatinine Ratio 17.4 (12.0-20.0); CO2, Blood 30 mmol/L (21-32); Calcium, Blood 9.4 mg/dL (8.5-10.1); Chloride, Blood 102 mmol/L (98-108); Creatinine, Blood 3.62 mg/dL (0.60-1.20); Glomerular Filtration Rate 18 (60-); Glucose, Blood 119 mg/dL (70-99); Magnesium, Blood 2.6 mg/dL (1.6-2.4); Phosphorus, Blood 5.8 mg/dL (2.5-4.9); Potassium, Blood 3.8 mmol/L (3.5-5.5); Sodium, Blood 138 mmol/L (136-145)
--- NOTE | 2019-11-04 04:58 | NUR ---
SHIFT SUMMARY PATIENT SLEPT OFF AND ON THROUGH NIGHT. PATIENT MOOD VERY DIVERSE. AT ONE POINT PATIENT WAS YELLING AT ME, ANGRY OVER HOW LONG IT TOOK ME TO GET INTO ROOM WHEN HE HAD CALLED (PATIENT IS IN COVID RULE-OUT ISOLATION, SO REQUIRES FULL GEAR,) LATER ON WAS VERY PLEASANT, ASKING HOW MY NIGHT WAS GOING. HAD A COUPLE OF BREAKS FROM BIPAP, DID NOT DESATURATE, BUT STATED HE FELT SHORT OF BREATH AFTER ABOUT 30 MINUTES. HEART RATE MUCH BETTER THIS NIGHT THAN LAST SEVERAL NIGHTS, ONLY HAD ONE EPISODE DURING A BREAK FROM THE BIPAP WHERE HEART RATE GOT INTO THE 130s, NEAR MIDNIGHT, WAS ABLE TO GIVE SCHEDULED CARDIZEM AND HR CAME DOWN INTO 90s. TOLERATING TUBE FEED. URINE HAD GOTTEN PROGRESSIVELY MORE RED NIGHT HAS GONE ON, DR. BELL WAS UNCONCERNED. ASSESSMENT IS CHARTED. VSS. WILL CONTINUE TO MONITOR.
[2019-11-04 06:01] LABS: Prostate Specific Antigen 0.915 ng/mL (0.000-4.000)
[2019-11-04 07:00] LABS: Source, Urine Catheter
[2019-11-04 07:20] LABS: Bilirubin, Urine Neg (Neg); Blood, Urine 5+ (Neg); Glucose Qualitative, Urine 1+ (Neg); Ketones, Urine Neg (Neg); Leukocyte Esterase, Urine 1+ (Neg); Nitrite, Urine Neg (Neg); Protein, Urine 4+ (Neg); Urobilinogen, Urine NORM (Normal)
[2019-11-04 07:27] LABS: Appearance, Urine Bloody (Clear); Color, Urine Red (P-Yellow); Red Blood Cells, Urine TNTC /hpf (0-2); White Blood Cells, Urine 25-50 /hpf (0-5)
[2019-11-04 07:28] LABS: Bacteria Mod /hpf; Squamous Epithelial Cells Not Seen /hpf (Few)
--- NOTE | 2019-11-04 07:51 | NUR ---
ASSUMED CARE RECEIVED REPORT FROM JANKI ARCINIEGA. PT IS SITTING IN CHAIR ON BIPAP 10/5, 55%. HE IS ON PRECEDEX AT 0.7 MCG/KG/HOUR. HE IS IN AFLUTTER RATE IN THE 140'S, DENIES CHEST PAIN. HE IS SATING 95%, LAST BP IS 135/60, 75. PT HAS A PATENT LEE DRAINING DARK RED URINE. CALL LIGHT WITHIN REACH.
[2019-11-04 13:04] LABS: Vancomycin, Random 14.3 ug/mL
--- NOTE | 2019-11-04 14:59 | NUR ---
UPDATE/DOBHOF PATIENT ACCIDENTALLY (?) PULLED OUT DOBHOF @ 1150. TUBE FEEDING ON PAUSE FOR THE TIME BEING. WE ARE ON A SHORTAGE OF DOBHOFS. PT WORKED WELL WITH PT, HAD A FORMED/SOFT BM, AND WAS TRANSPORTED BACK TO BED VIA LIFT.
--- NOTE | 2019-11-04 17:52 | NUR ---
DOBHOF PLACEMENT DOBHOF PLACED, CHEST XRAY CONFIRMATION FROM DR. BELL. TUBE FEEDING (NEPRO) RESUMES AT 45ML/HR. CARDIZEM GIVEN PT.
--- NOTE | 2019-11-04 18:41 | NUR ---
SHIFT SUMMARY PT SPENT MOST OF THE FIRST HALF OF THE DAY ON BIPAP 10/5, 50-55% FIO2. HE ALTERNATED THAT WITH A HIGH FLOW NASAL CANULA AT 15LPM W/ HUMIDITY AND DID WELL, UNTIL HE GOT TOO ANXIOUS AND DEMANDED HIS MASK BACK ON. FOR THE SECOND HALF OF THE DAY HE WAS MAINLY ON THE HFNC AND GOT LOW 8LPM WHILE MAINTAINING SATS AT 94%+. HE ENDS THE SHIFT BACK ON BIPAP 10/5, 50% DUE TO ANXIETY. HE HAD HIS DOBHOF PULLED OUT, BUT HE GOT THE UNIT'S LAST ONE SO HE COULD GET HIS CARDIZEM. TUBE FEEDING IS GOING AT 45ML/HR OF NEPRO, W/ Q4H 30ML WATER FLUSHES. HE HAS PRECEDEX INFUSING AT 0.7MCG/KG/HR. HE HAD A BM TODAY AND HAD DARK RED URINE FROM LEE. JUAQUIN WAS DC'D TODAY FOR THE TIME BEING. HE IS VERY IRRITABLE, LABILE AND IMPATIENT WITH CARE. HE IS VERY VERBAL ABOUT HIS DISSATISFACTION. HE GETS FIXATED ON CERTAIN THINGS TOO. SEE MY NEURO NOTE IN MY SHIFT ASSESSMENT FOR DETAILS REGARDING THAT. HE WENT OFF ON ME AND USED WORDS LIKE "SATANIC, GARGOYLE, NAURUAN, HOMOSEXUAL, PUSSY" BED LOW AND LOCKED. CALL LIGHT WITHIN REACH.
--- NOTE | 2019-11-04 20:10 | NUR ---
ASSUMED PT CARE FROM JANKI LOZANO AT 1915 PT RESTING IN BED WITH IV PUMP ALARMING. UPON ENTERING ROOM WITH SUPPLIES AND HANGING NEW IV MEDICATIONS I ATTEMPTED TO MAKE SMALL CONVERSATION WITH PT IT WAS REPORTED OFF THAT PT WASN'T VERY PLEASANT TO DAY SHIFT RN. I NOTICED PT WAS WATCHING TELEVISION WITH THE VOLUME OFF. I ASKED PT IF HE LIKED TO WATCH T.V. WITH THE VOLUME OFF WITH THE INTENT TO SEE IF PT WOULD PREFER THE VOLUME ON AND IF HE NEEDED ASSIST WITH THAT. PT TOOK OFFENSE AND ASKED IF I THOUGHT HE WAS WEIRD OR DIFFERENT BECAUSE HE PREFERRED TO WATCH THE T.V. WITH THE VOLUME OFF. I APOLOGIZED IF THAT WAS HOW HE INTERPRETED THE QUESTION, BUT THAT WAS NOT THE INTENT BEHIND THE QUESTION. PT THEN STARTED TO TALK ABOUT THE FIRING PITS AND THAT THE RED EYED FIRE WOULD TAKE ME WITH IT. PT CONTINUED TO SAY INAPPROPRIATE COMMENTS IN REGARDS TO ME BEING AN AIRHEAD AN DUMB. I FIRMLY TOLD THE PT I WOULD NOT TOLERATE BEING TREATED OR TALKED TO IN THIS MANNER. HE THEN STATED, "WHAT ARE YOU GOING TO DO ABOUT IT?" ASKED IF HE TREATED ALL WOMEN IN THIS MANNER AND HE STATED, "WOMEN AND HOMOSEXUALS." AT THAT MOMENT I CALLED MY CHARGE NURSE, MARY, AND INFORMED HER I WOULD NO LONGER BE CARING FOR THIS PATIENT. REPORT GIVEN TO JANKI ROBLERO.
--- NOTE | 2019-11-04 21:00 | NUR ---
ASSUMED CARE OF PT. REPORT RECEIVED. PT PRESNTS IN BED ON 11 LITERS HI-FLOW OXYGEN. PT DEMONSTRATES A STRONG COUGH WITH SOME ABILITY TO EXPECTORATE SMALL AMOUNTS OF SPUTUM. PROVIDED PT WITH YAUNKEUR TO SELF SUCTION. PT VERBALIZES MANY COMPLAINTS. PT HAS AGREED TO WEAR BIPAP SOME THIS NIGHT. PT STATES THAT MASKS HAVE NOT BEEN FITTING TO HIS LIKING, AND THAT THEY ARE LEAKING. DISCUSSED THAT PT HAS FACIAL HAIR THAT MAKES BREAKS IN THE SEAL. PT REQUESTS TO HAVE HIS LIGHT DILLON SHAVED. PT SOON BECOMES ANGRY STATING THAT HE HAS BEEN ASKING FOR SOMEONE TO SHAVE HIM FOR "FIVE HOURS" REMINDED PT THAT THIS CONVERSATION HAD JUST TAKEN PLACE. PT'S CONVERSATIONAL PATTERNS HAVE NOT MAINTAINED CONSISTENCY. PT HAS TANGENCIES TO TOPIC. WILL REVIEW CHART AND PLAN OF CARE FOR THIS PT.
--- NOTE | 2019-11-05 01:00 | NUR ---
PT CONTINUES TO WEAR HIS BIPAP MASK. MAINTAINS SATURATIONS > 90 PERCENT. DID HAVE AT ONE TIME HE PULLED OFF HIS BIPAP MASK. DURING THIS TIME, PT WAS FOUND TO BE PULLING AT HIS DOBHOFF. STOPPED PT FROM PULLING DOBHOFF. RESECURED TUBE. PT CONTINUES ON TUBE FEEDING AT GOAL. WILL CONTINUE TO MONITOR PT.
[2019-11-05 04:00] LABS: BASOPHILS ABSOLUTE AUTO 0.06 K/mm3 (0.00-0.23); BASOPHILS PERCENT AUTO 1 % (0-2); EOSINOPHILS ABSOLUTE AUTO 0.14 K/mm3 (0.00-0.68); EOSINOPHILS PERCENT AUTO 2 % (0-6); Hematocrit 31.5 % (37.0-53.0); Hemoglobin 9.5 g/dL (13.5-17.5); IMMATURE GRAN ABSOLUTE AUTO 0.07 K/mm3 (0.00-0.10); IMMATURE GRAN PERCENT AUTO 1 % (0-1); LYMPHOCYTES PERCENT AUTO 15 % (21-46); MONOCYTES PERCENT AUTO 4 % (4-13); Mean Corpuscular HGB Conc 30.2 g/dL (31.5-36.5); Mean Corpuscular Volume 93 fL (80-100); Mean Platelet Volume 10.2 fL (9.1-12.4); NEUTROPHILS ABSOLUTE AUTO 7.24 K/mm3 (1.96-9.15); NEUTROPHILS PERCENT AUTO 78 % (41-73); Platelet Count 237 K/mm3 (150-400); RDW Coefficient Variation 15.1 % (11.7-14.2); RDW Standard Deviation 50.6 fL (35.1-46.3); Red Blood Cell Count 3.39 M/mm3 (4.30-5.90); White Blood Cell Count 9.31 K/mm3 (4.00-11.30)
[2019-11-05 04:26] LABS: Albumin, Blood 1.8 g/dL (3.4-5.0); Anion Gap 6 mmol/L (6-16); Blood Urea Nitrogen 48 mg/dL (8-24); Bun/Creatinine Ratio 14.9 (12.0-20.0); CO2, Blood 30 mmol/L (21-32); Calcium, Blood 9.1 mg/dL (8.5-10.1); Chloride, Blood 98 mmol/L (98-108); Creatinine, Blood 3.22 mg/dL (0.60-1.20); Glomerular Filtration Rate 21 (60-); Glucose, Blood 143 mg/dL (70-99); Magnesium, Blood 2.4 mg/dL (1.6-2.4); Phosphorus, Blood 5.1 mg/dL (2.5-4.9); Sodium, Blood 134 mmol/L (136-145)
[2019-11-05 04:35] LABS: Digoxin (Lanoxin) 1.07 ug/mL (0.80-2.00)
--- NOTE | 2019-11-05 06:30 | NUR ---
PT AWAKENS THIS AM AFTER DR CHAN VISITED PT. PT ASKS IF HE CAN HAVE HIS BIPAP MASK REMOVED, AND THE HIGH FLOW NASAL CANNULA PLACE. DID THIS FOR PT. HE BEGINS TO RETAIL THE SAME STORY HE TOLD TWICE BEFORE DURING THE NIGHT. WHEN REMINDED PT THAT THIS RN AND HIM HAD THIS CONVERSATION HE BEGAN TO YELL LOUDLY AND INSULT THIS RN. INSTRUCTED PT THAT THIS WAS UNACCEPTABLE TO YELL. PT ESCALATED. PT CURRENTLY IN ROOM MOVING HIS ARMS ABOUT AND TALKING TO HIMSELF. HE WAS OVERHEARD SPEAKING TO HIMSELF SAYING, "JUAN AMWEG, YOU ARE AN ASSHOLE".WILL CONTINUE TO MONITOR PT, AND WILL REPORT OFF TO ONCOMING RN.
--- NOTE | 2019-11-05 08:00 | NUR ---
PT A&0 TO PERSON AND PLACE. MOOD IS LABILE. PT IS PARANOID, BUT CURRENTLY COOPERATING WITH CARE. PRECEDEX CONTINUES @ 0.7 MCG/MIN. REQUESTS SUPPLIES TO "BRUSH MY TEETH." REQUEST GRANTED. ECG SHOWS AFIB WITH RATE 140'S. MED WITH METOPROLOL 5 MG IVP X 1 AND GIVEN ROUTINE AM ANTI-ARRHYTHMIA MEDS-SEE EMAR. BP WNL. EDEMA TO UPPER EXTREMITIES IMPROVING-ELEVATED ON PILLOWS. LUNGS DIMINISHED IN THE BASES. SATS>90% ON 13 LITERS HIGH FLOW O2. TOLERATING DOBHOFF TF WELL. ANTICIPATE SWALLOW EVAL THIS AM. INCONTINENT OF SMALL, SOFT, BROWN STOOL. SAJI AREA AND GROIN WITH YEAST LIKE RASH. SAJI CARE DONE AND NYSTATIN APPLIED. NO DIALYSIS TODAY. LEE WITH SMALL AMOUNT OF RED TINGED URINE.
--- NOTE | 2019-11-05 10:30 | NUR ---
PT RESTING INTERMITTENTLY WHEN NOT DISTURBED.
--- NOTE | 2019-11-05 12:54 | NUR ---
PT SAT UP IN THE CHAIR FOR LUNCH. RN ASSISTED WITH FEEDING HIM PUREE DIET-TOLERATED DIET WELL. NO DIFFICULTY SWALLOWING. PT APPEARS VERY IRRITABLE. HE IS QUITE ARGUMENTATIVE AND ATTEMPTS TO INSULT STAFF IN ORDER FOR THEM TO ENGAGE IN AN ARGUMENT. THIS RN STATED THAT I AM JUST HERE TO HELP HIM AND THAT I REFUSE TO ARGUE WITH HIM. PT DEMANDED TO GET BACK TO BED RIGHT AFTER LUNCH AND IS REFUSING HIS BATH AT THIS TIME. PT STATES "NO, THE STAFF IS GOING TO SERVE ME, NOT THE OTHER WAY AROUND." PT IS A TWO PERSON ASSIST WITH THE WALKER, HE IS VERY IMPULSIVE AND DOES NOT FOLLOW DIRECTIONS WITH TRANSFER. HE THREW HIM SELF ONTO THE BED IN A PRONE POSITION AND WAS VERY HARD TO GET REPOSITIONED AND CENTERED IN THE BED.
--- NOTE | 2019-11-05 14:00 | NUR ---
PRECEDEX DRIP OFF. DR. RODRIGUEZ TO SEE PT.
--- NOTE | 2019-11-05 14:20 | NUR ---
DR. RODRIGUEZ IN TO SEE PT. ORDER PLACED IN PK.
--- NOTE | 2019-11-05 15:21 | NUR ---
IN TO ASSIST PT WITH TUCK'S APPLICATION D/T RECTAL PAIN AND LINEN CHANGE. CLEANED UP HARD BALL OF STOOL AND DURING ATTEMPT TO CHANGE LINENS, PT BECOMES ANGRY AND STATES "JUST DO IT LATER AND TAKE CARE OF MY EXCRUTIATING PAIN". INFORMED PT OF IMPORTANCE OF CLEANING STOOL FROM SKIN AND CHANGING SOILED LINENS. PT CONTINUES TO BE UPSET AND STATES "JUST DO IT LATER". TUCKS APPLIED TO RECTAL AREA. LINENS CHANGED AND PT REPOSITIONED, STATES RELIEF FROM RECTAL PAIN AT THIS TIME. THIS RN ABOUT TO LEAVE ROOM, PT STATES "HAD IT BEEN UP TO YOU MA'AM, YOU WOULD HAVE WORRIED ABOUT THE DIRTY LINENS AND IGNORED THE EXCRUTIATING PAIN, JUST LIKE THE [facility] [address]".
--- NOTE | 2019-11-05 17:30 | NUR ---
ATTEMPTED TO ASSIST PT WITH DINNER TRAY. PT STATES, "I DON'T LIKE YOU STARING AT ME!" PT REQUESTS TO FEED HIMSELF. REQUEST GRANTED. PT AWARE OF THE RISKS.
--- NOTE | 2019-11-05 17:30 | NUR ---
PT REQUESTS IBUPROFEN FOR GENERALIZED PAIN. PT HAS TYLENOL ON HIS MEDICATION PROFILE, BUT HE STATES THAT HE WOULD RATHER HAVE IBUPROFEN. ALSO, PT REPORTS PAIN IN HIS "RECTUM." REQUESTS THAT TOPICAL LIDOCAINE BE APPLIED "AFTER DINNER." DR. DUMONT CONTACTED REQUESTING IBUPROFEN FOR PAIN. ALSO, NOTIFIED THAT PT HAS BEEN OFF OF PRECEDEX SINCE 1400-REQUESTED STATUS CHANGE.
--- NOTE | 2019-11-05 19:22 | NUR ---
HR 110-120'S AFIB-AMIODARONE DRIP CONTINUES @ 1MG/MIN. MAP >60 WITH LEVOPHED DRIP @ 15 MCG/MIN AND VASOPRESSIN @ 0.04 UNITS/MIN. REPORT GIVEN TO JANKI BENAVIDEZ.
--- NOTE | 2019-11-05 19:30 | NUR ---
PT APPEARS TO BE RESTING QUIETLY AT THIS TIME. CALL LIGHT WITHIN PT REACH. REPORT GIVEN TO JAKNI ROBLERO.
--- NOTE | 2019-11-05 20:00 | NUR ---
ASSUMED CARE OF PT AT 1915. REPORT RECEIVED. PT PRESENTS IN BED WATCHING TELEVISION. SPOKE PT DOES NOT SPEAK TO THIS RN DURING ASSESSMENT EXCEPT FOR ANSWER MEDICAL BASED QUESTIONS. MINIMIZING CONVERSATION TENDED TO KEEP PT FROM BECOMING AGITATED. WILL CONTINUE THIS APPROACH OF MINIMAL CONVERSATION WITH PT. WILL REVIEW CHART AND PLAN OF CARE FOR THIS PT.
--- NOTE | 2019-11-05 23:00 | NUR ---
PT WEARING BIPAP AT THIS TIME. MAINTAINS > 90 PERCENT SATURATIONS. HAS BEEN ABLE TO TURN HIMSELF IN BED. WILL CONTINUE TO MONITOR.
--- NOTE | 2019-11-06 01:00 | NUR ---
PT HAS ASKED TO HAVE BIPAP OFF FOR AWHILE. PT PLACED TO 12 LITERS OXYGEN PER HIGH FLOW CANNULA. MAINTAINING SATURATIONS IN MID 90 %. PT HAS RECEIVED A DOSE OF ZYPREXA FOR AGITATION. PT HAS BEEN RESTING SOME.
--- NOTE | 2019-11-06 02:30 | NUR ---
PT HAS REMOVED HIS OXYGEN, AND THEN PULLED OUT HIS DOBHOFF. WHILE BEING ADDRESSED, PT PULLS OFF HIS SENIOR OFFICE ASSISTANT LEADS. WILL NOT ATTEMPT REINCERTION OF FEEDING TUBE AT THIS TIME. WILL HAVE MD ADDRESS IN AM. OXYGEN PLACED BACK ON PT. ADVISED NOT TO PULL AT LINES OR TUBES.
[2019-11-06 03:38] LABS: Base Excess Venous 5.2 mmol/L; Bicarbonate Venous 28.4 mmol/L (24.0-30.0); PCO2 Venous 46.8 mmHg (38-42); PO2 Venous 69.2 mmHg (38-42); pH Blood Venous 7.41 (7.34-7.37)
[2019-11-06 04:12] LABS: BASOPHILS ABSOLUTE AUTO 0.03 K/mm3 (0.00-0.23); BASOPHILS PERCENT AUTO 0 % (0-2); EOSINOPHILS PERCENT AUTO 1 % (0-6); Hematocrit 32.4 % (37.0-53.0); Hemoglobin 9.8 g/dL (13.5-17.5); IMMATURE GRAN ABSOLUTE AUTO 0.08 K/mm3 (0.00-0.10); IMMATURE GRAN PERCENT AUTO 1 % (0-1); LYMPHOCYTES ABSOLUTE AUTO 1.34 K/mm3 (0.84-5.20); LYMPHOCYTES PERCENT AUTO 12 % (21-46); MONOCYTES ABSOLUTE AUTO 0.46 K/mm3 (0.16-1.47); MONOCYTES PERCENT AUTO 4 % (4-13); Mean Corpuscular HGB 27.8 pg (26.0-34.0); Mean Corpuscular HGB Conc 30.2 g/dL (31.5-36.5); Mean Corpuscular Volume 92 fL (80-100); Mean Platelet Volume 9.9 fL (9.1-12.4); NEUTROPHILS ABSOLUTE AUTO 9.31 K/mm3 (1.96-9.15); NEUTROPHILS PERCENT AUTO 82 % (41-73); Platelet Count 302 K/mm3 (150-400); RDW Standard Deviation 50.3 fL (35.1-46.3); Red Blood Cell Count 3.52 M/mm3 (4.30-5.90); White Blood Cell Count 11.32 K/mm3 (4.00-11.30)
[2019-11-06 04:35] LABS: Albumin, Blood 1.9 g/dL (3.4-5.0); Anion Gap 7 mmol/L (6-16); Blood Urea Nitrogen 73 mg/dL (8-24); Bun/Creatinine Ratio 19.4 (12.0-20.0); CO2, Blood 30 mmol/L (21-32); Calcium, Blood 9.3 mg/dL (8.5-10.1); Chloride, Blood 97 mmol/L (98-108); Creatinine, Blood 3.76 mg/dL (0.60-1.20); Glomerular Filtration Rate 17 (60-); Glucose, Blood 154 mg/dL (70-99); Phosphorus, Blood 5.5 mg/dL (2.5-4.9); Potassium, Blood 4.1 mmol/L (3.5-5.5); Sodium, Blood 134 mmol/L (136-145)
[2019-11-06 04:45] LABS: Digoxin (Lanoxin) 1.09 ug/mL (0.80-2.00); Magnesium, Blood 2.6 mg/dL (1.6-2.4)
--- NOTE | 2019-11-06 05:22 | NUR ---
PT PULLS OFF HIS OXYGEN AGAIN THIS AM. DESATURATIONS TO 73 PERCENT NOTED. PT AGREES TO HAVE HIS BIPAP BACK ON. PT'S SATURATIONS IMPROVE TO > 90 %. SHIFT SUMMARY SHOWS THAT PT HAS PULLED OFF HIS OXYGEN SEVRAL TIMES THIS NIGHT, AND ALSO PULLED OUT HIS DOBHOFF FEEDING TUBE. PT HAS NOT MADE ANY ATTEMPTS TO PULL POWERGLIDE OR HIS DIALYSIS CATHETER. PT HAS RECEIVED DOSE OF DIFLUCAN WITHOUT S/S ADVERSE REACTIONS. WILL CONTINUE TO MONITOR PT, AND WILL REPORT OFF TO ONCOMING RN.
--- NOTE | 2019-11-06 08:53 | NUR ---
[place] of Care: Care assumed at 0700hr. Patient alert and oriented x4, sitting upright in bed watching TV. Patient appears withdrawn and irritable, inpatient with staff r/t simple task, but remains cooperative with cares, medications at this time. Only refused oral care this morning. Denies pain except for pain/irritation to rectum r/t fungal rash. Denies dyspnea/SOB, spO2-96-97% on 12L per high-flow NC. VSS, but HR/rhythm shows A-flutter in the 140's. Routine Cardizem PO given this morning, will continue to monitor and give prn Lopressor as indicated, or consult with Dr. Brandon. Patient tolerated PO pills this morning without difficulty. Pills given whole, one at time, with thin liquids. Power glide to FLOYD patent and intact. Downing cath patent and intact, draining clear yellow urine. Call light in reach, makes needs known. Will continue to monitor.
--- NOTE | 2019-11-06 18:12 | NUR ---
Shift Summary/Transfer to PCU: Patient awake throughout shift. Continues to be irritable and angry at times, but remains mostly calm and cooperative with staff. Worked with PT and OT today but refused to get out of bed. Accepted bed-bath by this RN and OT with patient's assistance. VSS throughout shift, DR. Man added PO Lopressor to routine medications, this appeared effective as patient's HR decreased to 70's-80's, BP remains stable. Continues to deny dyspnea/SOB, SpO2-92-97% on 12L/high-flow NC. Room assignment received (PCU-4). Call placed to [facility] and report given. emission technician Isaac transferred patient via bed to PCU 4 at 1800hr without difficulty. Belongings and medications sent with patient.
--- NOTE | 2019-11-06 18:47 | NUR ---
SHIFT SUMMARY. 1752 PT TRANSFERED FROM ICU TO PCU. PT TRANSFERED TO BED VIA SLIDER SHEET AND FOUR STAFF. PT ON 12L O2 HIGH FLOW NC. PT INCONTINENT OF STOOL, INCONTINENCE CARE COMPLETED. LUNGS CLEAR. TELE AFLUTTER 77 BPM. PT MOSTLY PLEASANT AND COOPERATIVE WITH CARE.
[2019-11-07 04:07] LABS: Anion Gap 4 mmol/L (6-16); Blood Urea Nitrogen 54 mg/dL (8-24); Bun/Creatinine Ratio 16.8 (12.0-20.0); CO2, Blood 34 mmol/L (21-32); Calcium, Blood 9.5 mg/dL (8.5-10.1); Chloride, Blood 99 mmol/L (98-108); Creatinine, Blood 3.22 mg/dL (0.60-1.20); Glomerular Filtration Rate 21 (60-); Glucose, Blood 135 mg/dL (70-99); Magnesium, Blood 2.5 mg/dL (1.6-2.4); Phosphorus, Blood 4.9 mg/dL (2.5-4.9); Potassium, Blood 4.2 mmol/L (3.5-5.5); Sodium, Blood 137 mmol/L (136-145)
--- NOTE | 2019-11-07 06:00 | NUR ---
SHIFT SUMMARY PT REMAINS ALERT & COOPERATIVE WITH CARE. PT WAS PLACED ON BIPAP @ HS DUE TO DECREASED O2 SATS & INCREASED WORK OF BREATHING ON 12 L VIA HIGH FLOW NC. BIPAP FIO2 65%. PT WILL ATTEMPT TO PULL MASK OFF OCCASIONALLY, HIGH FLOW WAS ATTEMPTED, PT ENC TO LEAVE MASK ON WHILE SLEEPING. BED ALARM IS ON FOR SAFETY. PT WAS ABLE TO TRANSFER TO THE BS FOR A LG BM, 650 ML RIDDHI URINE NOTED IN LEE CATHETER. CALL LIGHT IN REACH, WCFAZAL AND REPORT TO DAY RN.
--- NOTE | 2019-11-07 17:46 | NUR ---
SHIFT SUMMARY NO ACUTE CHANGES THROUGHOUT SHIFT. VSS. PT REMAINED ALERT & ORIENTED, SOMEWHAT IRRITABLE/DEMANDING AT TIMES, BUT OVERALL COOPERATIVE W/ CARE. PT REMAINS ON HI FLOW NC @ 12 LPM, PULSE OX >90% AT REST. HOWEVER, PT DOES DESAT VERY QUICKLY W/ MINIMAL EXERTION & WHEN EATING. ENCOURAGED PT TO TAKE FREQ REST PERIODS DURING MEALS, SUPERVISION W/ ALL MEALS REQUIRED PER ST. PT WORKED W/ PHYSICAL THERAPY TODAY, ABLE TO GET OOB TO CHAIR W/ 2 PERSON ASSIST & GAIT BELT; TOLERATED FAIRLY. PT DENIED ANY C/O CHEST PAIN/PRESSURE. LEE CATHETER REMAINS IN PLACE, DRAINING W/ OUT DIFFICULTY. FLOYD POWERGLIDE IN PLACE, DRESSING C/D/I. ISOLATION PRECAUTIONS IN PLACE FOR MRSA SPUTUM. PT CURRENTLY RESTING COMFORTABLY IN BED IN NO DISTRESS. BED LOCKED & IN LOWEST POSITION, BED ALARM ON FOR PT SAFETY. CALL NICHOLS W/ IN REACH, PT ABLE TO MAKE NEEDS KNOWN. WILL CONTINUE TO MONITOR UNTIL END OF SHIFT.
[2019-11-08 04:11] LABS: Hematocrit 28.8 % (37.0-53.0); Hemoglobin 8.6 g/dL (13.5-17.5)
[2019-11-08 04:36] LABS: Anion Gap 6 mmol/L (6-16); Blood Urea Nitrogen 69 mg/dL (8-24); Bun/Creatinine Ratio 17.6 (12.0-20.0); CO2, Blood 32 mmol/L (21-32); Calcium, Blood 9.5 mg/dL (8.5-10.1); Chloride, Blood 100 mmol/L (98-108); Creatinine, Blood 3.91 mg/dL (0.60-1.20); Glomerular Filtration Rate 16 (60-); Glucose, Blood 113 mg/dL (70-99); Magnesium, Blood 2.6 mg/dL (1.6-2.4); Phosphorus, Blood 4.7 mg/dL (2.5-4.9); Potassium, Blood 4.4 mmol/L (3.5-5.5); Sodium, Blood 138 mmol/L (136-145)
--- NOTE | 2019-11-08 06:07 | NUR ---
SHIFT SUMMARY NO ACUTE CHANGES NOTED THROUGH THE NIGHT. PT CONTINUES TO ALTERNATE BETWEEN HIGH FLOW NASAL CANNULA & BIPAP. O2 SATS WILL DROP WHEN PT GETS TIRED OR WITH EXERTION, FREQUENT REMINDERS TO BREATHE THROUGH HIS NOSE TO RECOVER, PT IS A MOUTH BREATHER. HE RECOGNIZES WHEN HE IS TIRED AND WILL ASK TO BE PLACED ON BIPAP. PT HAS BEEN COOPERATIVE WITH CARE AFTER SETTING BOUNDARIES WITH EXPECTED BEHAVIOUR AT THE START OF THE SHIFT, HE WILL USE HIS CALL LIGHT AND VOICE NEEDS APPROPRIATLY. PT DENIES PAIN, TOLERATING PO INTAKE. BED ALARM FOR SAFETY, CALL LIGHT IN REACH, WCTM.
--- NOTE | 2019-11-08 18:14 | NUR ---
SHIFT SUMMARY NO ACUTE CHANGES THROUGHOUT SHIFT. PT REMAINS ALERT & ORIENTED; DID BECOME SOMEWHAT AGITATED/IRRITABLE AT TIMES, MEDICATED FOR AGITATION PER EMAR. PT ALTERNATED BETWEEN HIGH FLOW NC @ 12 LPM & BIPAP ON/OFF DURING THE DAY. DID ATTEMPT TO TITRATE HIGH FLOW DOWN, BUT PT DESATURED TO MID 80'S; PT STILL DOES DESAT W/ EXERTION. HR WAS CONTROLLED FOR MOST OF SHIFT, BUT DID SUSTAIN IN THE 130-140'S FOR A FEW MINUTES; 5MG IV LOPRESSOR WAS ADMINISTERED X1 DOSE W/ POSITIVE IMPROVEMENT, HR AVERAGING 70-90'S NOW. PT RECEIVED DIALYSIS TREATMENT TODAY IN ROOM, 1 UNIT PRBCS ADMINISTERED DURING THIS TIME FOR HGB DROP. PLAN IS FOR PT TO HAVE PERMACATH INSERTED; DR. SALCIDO CONSULTED BY DR. CHAN, CONSULT TO BE CALLED IN TOMORROW. PT CURRENTLY RESTING IN BED IN NO DISTRESS. BED ALARM ON FOR PT SAFETY. CALL NICHOLS W/ IN REACH, PT ABLE TO MAKE NEEDS KNOWN. WILL CONTINUE TO MONITOR UNTIL END OF SHIFT.
[2019-11-09 03:43] LABS: Hematocrit 32.2 % (37.0-53.0); Hemoglobin 9.6 g/dL (13.5-17.5)
[2019-11-09 04:03] LABS: Albumin, Blood 2.2 g/dL (3.4-5.0); Anion Gap 4 mmol/L (6-16); Blood Urea Nitrogen 48 mg/dL (8-24); Bun/Creatinine Ratio 15.1 (12.0-20.0); CO2, Blood 34 mmol/L (21-32); Calcium, Blood 9.4 mg/dL (8.5-10.1); Chloride, Blood 103 mmol/L (98-108); Creatinine, Blood 3.17 mg/dL (0.60-1.20); Glomerular Filtration Rate 21 (60-); Glucose, Blood 56 mg/dL (70-99); Magnesium, Blood 2.6 mg/dL (1.6-2.4); Phosphorus, Blood 3.9 mg/dL (2.5-4.9); Sodium, Blood 141 mmol/L (136-145)
--- NOTE | 2019-11-09 05:40 | NUR ---
Shift Summary Pt is alert and oriented, expressing needs with call light. Pt has been pleasant this shift, cooperative. pt turning self and does not require assistance with turns in bed, pt requires assistance with boosts. Up with 2 and gaitbelt to bsc or bedpan depending on pt oxygen toleratance. BIPAP with sleep, 12L HiFlow NC for when awake, oxygen saturation 90% or above. pt denies SOB, endorses [place]. Downing Cath in place, patent and draining pink tinged urine. Pt has been S/L this shift to Powerglide in FLOYD. JUSTINE ruby wnl. See shift assessment for detailed systems assessment. At approx 0400, pt states "my blood sugar is low." CBG shows 62. Apple sauce, jello, pudding given to pt. Pt states "I feel better." Dr. Atkinson in to see pt this AM. Plan for [facility] to place permicath today with consult pending. Per Dr. Atkinson; pt will have dialysis today after Will continue to monitor and update as needed with changes. permicath placement.
--- NOTE | 2019-11-09 18:06 | NUR ---
SHIFT SUMMARY PT ALERT AND ORIENTED TO SELF, PLACE, AND FOLLOWING DIRECTIONS. VS STABLE. O2 SATS HAVE REMAINED ABOVE 90% ON 11L HIGH FLOW CANNULA OR BIPAP WITH 10L BLEED IN. PT HAD PERMACATH PLACED THIS AFTERNOOON AND SITE REMAINS WNL. PT DENIES ANY PAIN. PT UPSET THIS AFTERNOON ABOUT SWALLOW PRECAUTIONS AND DEMANDING THIN LIQUIDS. PT ENCOURAGED TO FOLLOW ST RECOMMENDATIONS. PT REPOSITIONING HIMSELF IN BED INDEPENDENTLY. PT 2 ASSIST TO COMMODE. PLAN FOR DIALYSIS TOMORROW IN AM. WILL CONTINUE TO MONITOR AND REPORT TO ONCOMING RN. CALL LIGHT IN REACH.
[2019-11-10 03:58] LABS: Hematocrit 31.2 % (37.0-53.0); Hemoglobin 9.4 g/dL (13.5-17.5)
--- NOTE | 2019-11-10 04:08 | NUR ---
SHIFT SUMMARY PT A/O WITH VSS. PERM CATH DRESSING C/D/I WITH NO DRAINAGE NOTED. BIPAP USED FOR MAJORITY OF SHIFT WITH SPO2 ABOVE 90%, OFTEN REQUIRES ENCOURAGEMENT FOR HOB ELEVATION. IVF D5 D/C PER ORDERS R/T CBG OF 242. PT ABLE TO REPOSITION SELF, 2 PERSON ASSIST WITH BOOSTING IN BED. LEE CATH PATENT AND IN PLACE, DRAINING PINK TINGED URINE. PT IS IMPULSIVE AT TIMES, BUT GENERALLY COOPERATIVE. IS ABLE TO EXPRESS NEEDS AND USES CALL LIGHT APPROPRIATELY. PLAN FOR DIALYSIS TODAY. PT CURRENTLY RESTING IN BED WITH CALL LIGHT IN REACH AND BED ALARM ON FOR SAFETY. WILL CONT TO MONITOR AND GIVE REPORT TO ONCOMING RN.
[2019-11-10 04:14] LABS: Albumin, Blood 2.1 g/dL (3.4-5.0); Anion Gap 4 mmol/L (6-16); Blood Urea Nitrogen 55 mg/dL (8-24); Bun/Creatinine Ratio 14.4 (12.0-20.0); CO2, Blood 32 mmol/L (21-32); Calcium, Blood 9.6 mg/dL (8.5-10.1); Chloride, Blood 104 mmol/L (98-108); Creatinine, Blood 3.83 mg/dL (0.60-1.20); Glomerular Filtration Rate 17 (60-); Glucose, Blood 90 mg/dL (70-99); Magnesium, Blood 2.7 mg/dL (1.6-2.4); Phosphorus, Blood 4.5 mg/dL (2.5-4.9); Potassium, Blood 4.3 mmol/L (3.5-5.5); Sodium, Blood 140 mmol/L (136-145)
--- NOTE | 2019-11-10 06:00 | NUR ---
DR. CHAN ROUNDING ON PATIENT AT THIS TIME.
--- NOTE | 2019-11-10 07:05 | NUR ---
CBG/SHIFT CHANGE DR CHAN NOTIFIED CBG IS 53. NEW ORDERS FOR D5O AND TO RESTART D5NS IVF OBTAINED A THIS TIME. ONCOMING NURSE, DADA NOTIFIED OF THIS CHANGE ALONG WITH HAND-OFF REPORTING AT THIS TIME.
--- NOTE | 2019-11-10 14:31 | NUR ---
Spiritual care visit attempted. Upon being asked if patient would like a visit from spiritual care, patient declined. I will continue to remain available to patient and family.
--- NOTE | 2019-11-10 18:16 | NUR ---
PCU DAYSHIFT SUMMARY PATIENT ALERT AND ORIENTED TO SELF, LOCATION AND PARTIAL SITUATION T/O SHIFT. RESP LABORED AND UNEVEN T/O SHIFT - CONTINUOUS BIOX IN PLACE T/O SHIFT. PATIENT REMAINS ON 10 LPM HIGH FLOW CANNULA OR BIPAP AT BEDSIDE. PATIENT REMOVES OXYGEN AT TIMES AND FOUND TO DESATURATE WITH SPO2 IN THE 70'S - RECOVERED WHEN OXYGEN PLACE BACK OR BIPAP - NOTIFIED RESPIRATORY THERAPY AND PROVIDERS. PATIENT MAX ASSIST TO COMMODE - PATIENT ENCOURAGED TO PROVIDE SELF CARE. PATIENT REMAINS IN AFLUTTER WITH RATE 80-110'S. VSS. NO ACUTE CHANGES. PATIENT TO DISCHARGE BACK TO [facility] ONCE OXYGEN REQUIREMENTS OF BELOW 8 LPM AND PT/OT HAS CLEARED PER BRIGHT CUTTER. WILL CONTINUE TO MONITOR AND GIVE REPORT TO NOC SHIFT RN. BED ALARM ON.
--- NOTE | 2019-11-11 02:43 | NUR ---
UPDATE PROVIDER NOTIFIED OF SOFT BP; BP 83/38; NEW ORDER FOR MIDODRINE GIVEN AND NEW PARAMETERS FOR ANTIHYPERTENSIVES NOT TO BE GIVEN IF SYSTOLIC BP IS <100 MMHG
[2019-11-11 04:09] LABS: Hemoglobin 8.7 g/dL (13.5-17.5)
[2019-11-11 04:34] LABS: Albumin, Blood 2.1 g/dL (3.4-5.0); Anion Gap 4 mmol/L (6-16); Blood Urea Nitrogen 39 mg/dL (8-24); Bun/Creatinine Ratio 13.3 (12.0-20.0); CO2, Blood 33 mmol/L (21-32); Calcium, Blood 9.3 mg/dL (8.5-10.1); Chloride, Blood 101 mmol/L (98-108); Creatinine, Blood 2.94 mg/dL (0.60-1.20); Glomerular Filtration Rate 23 (60-); Glucose, Blood 94 mg/dL (70-99); Magnesium, Blood 2.5 mg/dL (1.6-2.4); Phosphorus, Blood 4.5 mg/dL (2.5-4.9); Potassium, Blood 4.2 mmol/L (3.5-5.5); Sodium, Blood 138 mmol/L (136-145)
--- NOTE | 2019-11-11 05:39 | NUR ---
SHIFT SUMMARY PT A&O; USES CALL LIGHT APPROPRIATELY; PT ADJUSTED TO VISION BIPAP PER RT; 1610 75% FIO2; O2 SATS >95; BP IMPROVED W/ PO MIDODRINE; DENIES CHEST PAIN; AFLUTTER NOTED ON TELE; HR 69; PT CURRENTLY SLEEPING; CALL LIGHT IN REACH; BED IN LOWEST POSITION; WILL CONTINUE TO MONITOR CLOSELY UNTIL HAND OFF TO DAY SHIFT RN.
--- NOTE | 2019-11-11 16:55 | NUR ---
PT SUMMARY: PT ALERT ABLE TO STATE NAME AND DATE OF , ABLE TO MAKE NEEDS KNOWN, COOPERATIVE WITH CARES. PT HRR AFLUTTER ON THE 80'S-90'S DENIES CHEST PAIN. PT ALTERNATELY USING BIPAP AND O2 HIGH FLOW AT 10L, SATS HAS BEEN ABOVE 90%, DYSPNEA ON EXERTION. LUNGS CLEAR AND DIMINISHED ON THE BASES. PT UPGRADED TO MECH SOFT WITH ASPIRATION PRECAUTION STILL NECTAR THICK FOR FLUID WHICH PT ABLE TO TOLERATE. PT PARTICIPATED WITH PT/OT AND ST IN BED, PT RECEIVED A BED BATH FROM OT. PT ABLE TO MOVE AND TURN IN BED WITH ASSISTS. PT BLOOD PRESSURE SYSTOLIC HAS BEEN RANGING ON THE 100'S-120'S, PT WITH NO C/O DIZZINESS/NVM. PT CURRENTLY IN BED RESTING WITH BIPAP ON, CALL LIGHTS WITHIN REACH, WILL GIVE REPORT TO ONCOMING SHIFT.
--- NOTE | 2019-11-11 23:38 | NUR ---
ASSUMED CARE OF PATIENT AT [facility] FROM CHRISTOS Quiroga RN. PATIENT ORIENTED TO SELF AND ; USES CALL LIGHT. PATIENT DENIES PAIN, NUMBNESS, TINGLING, DIZZINESS OR NAUSEA. AFLUTTER ON TELE; OXYGEN SATURATION ABOVE 90% ON BIPAP 16/10 65% FIO2 OR 10LPM VIA HF NC. PATIENT PULLS OXYGEN TUBING OFF AND BIPAP AT TIMES. IN DROPLET ISOLATION; MAX ASSIST OUT OF BED WITH GAIT BELT; URINARY CATH DRAINING CLEAR YELLOW URINE. ST PRECAUTIONS IN PLACE. PG TO ELIAN. PATIENT CURRENTLY RESTING IN BED; CALL LIGHT IN REACH; BED IN LOWEST POSISTION; BED ALARM ON; WILL CONTINUE TO MONITOR AND ASSESS UNTIL END OF SHIFT.
[2019-11-12 03:45] LABS: Hematocrit 29.2 % (37.0-53.0); Hemoglobin 8.6 g/dL (13.5-17.5)
[2019-11-12 04:02] LABS: Magnesium, Blood 2.7 mg/dL (1.6-2.4)
[2019-11-12 04:03] LABS: Albumin, Blood 2.1 g/dL (3.4-5.0); Anion Gap 5 mmol/L (6-16); Blood Urea Nitrogen 57 mg/dL (8-24); Bun/Creatinine Ratio 14.4 (12.0-20.0); CO2, Blood 33 mmol/L (21-32); Calcium, Blood 9.7 mg/dL (8.5-10.1); Chloride, Blood 97 mmol/L (98-108); Creatinine, Blood 3.97 mg/dL (0.60-1.20); Glomerular Filtration Rate 16 (60-); Glucose, Blood 182 mg/dL (70-99); Phosphorus, Blood 4.3 mg/dL (2.5-4.9); Potassium, Blood 4.5 mmol/L (3.5-5.5); Sodium, Blood 135 mmol/L (136-145)
--- NOTE | 2019-11-12 06:06 | NUR ---
DR. CHAN BEDSIDE; DIALYSIS TO BE DONE EVERY OTHER DAY; NO NEW ORDERS. PATIENT SLEPT ABOUT SEVEN HOURS. PATIENT WOULD PULL BIPAP OFF EVERY FEW MINUTES. VSS. WILL CONTINUE TO MONITOR AND ASSESS UNTIL END OF SHIFT.
--- NOTE | 2019-11-12 14:00 | NUR ---
DIALYSIS IN PROGRESS
--- NOTE | 2019-11-12 16:42 | NUR ---
PT CONTINUES TO REFUSE FOR LEE TO BE D/C SAMAN PCT AT BEDSIDE PT REFUSED AT THIS TIME
--- NOTE | 2019-11-12 17:48 | NUR ---
SHIFT NOTE PT ASKED TO BE REMOVED FROM BIPAP THIS AM AND PLACED ON NASAL CANNULA, PT HAD SPO2 OF 93%. PT PLACED ON 10L O2 VIA NASAL CANNULA WHICH HIS SPO2 REMAINED AT 93% ON NC. ATTEMPTED TO TITRATE O2 DOWN WITHOUT SUCCESS. PT TOLERATED 10L WELL. PT WAS UP TO BEDSIDE COMMODE THIS EVENING W/O DIFF, 1 PERSON ASSIST WITH GAIT BELT AND FWW. PT DENIES CP AND SOB. VSS. PT SLIGHTLY IRRITABLE IN THE MORNING WHICH FADED BY THE END OF THE SHIFT. LS CLEAR IN UPPER LOBES AND DIMENSIHED IN THE BASES.
--- NOTE | 2019-11-12 20:48 | NUR ---
ASSUMED CARE OF PATIENT AT [facility] 1900 FROM LISA Joya RN. PATIENT ORIENTED TO SELF AND ; CONFUSED AT TIMES. USES CALL LIGHT. PATIENT KATHRYN PAIN, NUMBNESS, TINGLING, DIZZINESS OR NAUSEA. AFLUTTER ON TELE; OXYGEN SATURATION ABOVE 90% ON BIPAP 16/10 65% FIO2 OR 10LPM VIA HF NC. PATIENT PULLS OXYGEN TUBING OFF AND BIPAP AT TIMES; SOMETIMES EVERY FEW MINUTES. IN DROPLET ISOLATION; MAX ASSIST OUT OF BED WITH GAIT BELT; URINARY CATH DRAINING CLEAR YELLOW URINE. ST PRECAUTIONS IN PLACE. PG TO FLOYD S/L. PATIENT CURRENTLY RESTING IN BED; CALL LIGHT IN REACH; BED IN LOWEST POSISTION; BED ALARM ON; WILL CONTINUE TO MONITOR AND ASSESS UNTIL END OF SHIFT.
[2019-11-13 04:14] LABS: Hematocrit 28.5 % (37.0-53.0); Hemoglobin 8.7 g/dL (13.5-17.5)
[2019-11-13 04:32] LABS: Anion Gap 5 mmol/L (6-16); Blood Urea Nitrogen 42 mg/dL (8-24); Bun/Creatinine Ratio 13.2 (12.0-20.0); CO2, Blood 33 mmol/L (21-32); Calcium, Blood 9.3 mg/dL (8.5-10.1); Chloride, Blood 101 mmol/L (98-108); Creatinine, Blood 3.17 mg/dL (0.60-1.20); Glomerular Filtration Rate 21 (60-); Glucose, Blood 185 mg/dL (70-99); Magnesium, Blood 2.6 mg/dL (1.6-2.4); Phosphorus, Blood 3.8 mg/dL (2.5-4.9); Potassium, Blood 4.1 mmol/L (3.5-5.5); Sodium, Blood 139 mmol/L (136-145)
--- NOTE | 2019-11-13 06:12 | NUR ---
PATIENT SLEPT ABOUT SEVEN HOURS. VSS. PULLED OFF BIPAP MULTIPLES TIMES. ATTEMPTED TO CLIMB OUT OF BED A FEW TIMES. TITRATED DOWN TO 8LPM VIA HF NC. WILL CONTINUE TO MONITOR AND ASSESS UNTIL OF SHIFT. DR. CHAN WAS BEDSDIE.
--- NOTE | 2019-11-13 17:22 | NUR ---
SHIFT NOTE PT HAS BEEN INTERMITTENTLY ON BIPAP AND HIGH FLOW NASAL CANNULA T/O THE DAY. SPEECH THERAPY DID CHANGE PT TO MECHANICAL SOFT WITH THIN LIQUIDS WITH SUPERVISION WHILE DRINKING FLUIDS. PT IS IRRITABLE T/O THE DAY, BUT IS COOPERATIVE AND FOLLOWS DIRECTIONS. PT DOES NEED CONSTANT COACHING WHILE EATING AND DRINKING TO SLOW DOWN. VSS. PT WITH NO ACUTE CHANGES TODAY. HAVE BEEN UNABLE TO TITIRATE O2 DOWN TODAY
[2019-11-14 05:22] LABS: Hematocrit 30.2 % (37.0-53.0); Hemoglobin 9.2 g/dL (13.5-17.5)
[2019-11-14 05:36] LABS: Albumin, Blood 2.1 g/dL (3.4-5.0); Anion Gap 5 mmol/L (6-16); Blood Urea Nitrogen 61 mg/dL (8-24); Bun/Creatinine Ratio 14.8 (12.0-20.0); CO2, Blood 32 mmol/L (21-32); Calcium, Blood 9.6 mg/dL (8.5-10.1); Chloride, Blood 98 mmol/L (98-108); Creatinine, Blood 4.11 mg/dL (0.60-1.20); Glomerular Filtration Rate 16 (60-); Glucose, Blood 149 mg/dL (70-99); Magnesium, Blood 2.8 mg/dL (1.6-2.4); Phosphorus, Blood 4.7 mg/dL (2.5-4.9); Potassium, Blood 4.6 mmol/L (3.5-5.5); Sodium, Blood 135 mmol/L (136-145)
--- NOTE | 2019-11-14 05:37 | NUR ---
SHIFT SUMMARY PT SLEEPING IN ROOM COMFORTABLY AT THIS TIME. NO ACUTE CHANGES IN STATUS T/O NIGHT. PT DID NOT SLEEP WELL. WOKE MULTIPLE TIMES T/O PULLING OFF BIPAP MASK, PT DESATED SEVERAL TIMES INTO 80'S WHEN MASK WAS PULLED OFF. PT TOOK SEVERAL BREAKS OFF BIPAP MASK, W/ HIFLO NC AT 15L. SATS 88-93%. DENIED CP. DENIED OTHER NEEDS. CALL LIGHT IN REACH. PT DOES NOT CALL APPROPRIATELY, OCCASIONALLY CALLS OUT IN ROOM.
--- NOTE | 2019-11-14 13:03 | NUR ---
PT CONTINUES TO REFUSE REMOVAL OF LEE CATHETER. PT WAS AGREEABLE TO GET P TO BEDSIDE CHAIR, WHERE HE REMAINED FOR ABOUT 2 HOURS BEFORE RETURNING TO BED. PT IS NOW RESTING WELL IN BED ON BIPAP.
--- NOTE | 2019-11-14 14:03 | NUR ---
DIALYSIS IN PROGRESS
--- NOTE | 2019-11-14 17:04 | NUR ---
SHIFT NOTE PT HAS BEEN TITRATED TO 12L O2 VIA NASAL CANNULA AND 55% O2 VIA BIPAP TODAY, HIS SPO2 REMAINS AROUND 93%. PT HAS BEEN UP TO BEDSIDE CHAIR TODAY WHERE HE REMAINED FOR APPROX 2 HOURS. HE TOLERATED AMBULATION FROM BED TO TIM AND CHAIR TO BED WELL. PT DID PARTICIPATE IN PHYSCIAL THERAPY TODAY AFTER ENCOURAGEMENT. PT IS MORE ALERT TODAY, REMAINS IRRITABLE BUT REDIRECTABLE AND COOPERATIVE. VSS. PT TAKES MEDS WELL IN APPLESAUCE. PT DOES NEED CONSTANT REMINDING WHEN DRINKING TO SLOW DOWN AND BREATHE HE WILL DRINK CONTINUOUSLY WITHOUT A BREAK. PT TOLEARATES EATING WELL
--- NOTE | 2019-11-15 02:15 | NUR ---
PT DESAT PT WAS SLEEPING W/ NC IN PLACE ON 14L HI FLOW. SPO2 ALARM GOING OFF, THIS RN TO ROOM, SATS NOTED TO BE 70% PT IN SOME DISTRESS. PT PLACEDD IMMEDICATELY ON BIPAP AND Fi02 TURNED UP TO 85%. PT SATS SLOWLY STARTING TO RISE. RT CALLED TO ROOM. PT SATS BACK UP TO 90% ON 85% Fi02. AFTER SEVERAL MORE MINUTES Fi02 LOWERED TO 75% PT NOW SLEEPING RR 30. RT NOTED NEW Fi02 SETTINGS. WILL MONITOR AND REDUCE Fi02 PT SATS IMPROVE.
[2019-11-15 05:08] LABS: Hemoglobin 8.6 g/dL (13.5-17.5)
[2019-11-15 05:25] LABS: Anion Gap 5 mmol/L (6-16); Blood Urea Nitrogen 46 mg/dL (8-24); Bun/Creatinine Ratio 13.6 (12.0-20.0); CO2, Blood 33 mmol/L (21-32); Calcium, Blood 9.1 mg/dL (8.5-10.1); Chloride, Blood 98 mmol/L (98-108); Creatinine, Blood 3.38 mg/dL (0.60-1.20); Glomerular Filtration Rate 19 (60-); Glucose, Blood 211 mg/dL (70-99); Magnesium, Blood 2.7 mg/dL (1.6-2.4); Phosphorus, Blood 4.1 mg/dL (2.5-4.9); Potassium, Blood 4.4 mmol/L (3.5-5.5); Sodium, Blood 136 mmol/L (136-145)
--- NOTE | 2019-11-15 05:25 | NUR ---
SHIFT SUMMARY PT SLEEPING IN ROOM COMFORTABLY AT THIS TIME. PT HAD ONE EPISDOE OF DESATTING DURING NIGHT, SEE PREVIOUS NOTE. OTHERWISE NO ACUTE CHANGES IN STATUS. PT SLEPT VERY WELL T/O NIGHT. WORE BIPAP FOR SEVERAL HOURS W/O WAKING AND ASKING FOR BREAK. RESP EVEN UNLABORED ON BIPAP W/ SATS >92%. LEE CATH IN PLACE DRAINING RIDDHI URINE. PT DENIED ANY CP OR SOB. CALL LIGHT IN REACH BED ALARM ON.
--- NOTE | 2019-11-15 17:11 | NUR ---
SHIFT SUMMARY PT LERT FOR MAJORITY OF DAY AND ORIENTED TO SELF AND SURROUNDING. PT UP TO RECLINER THIS AFTERNOON WTIH 2 PERSON ASSIST WITH WALKER; 2ND PERSON FOR CORD CONTROL. PT CALM AND COOPERATIVE WITH CARE. PT DENIES PAIN; CHEST PAIN/PRESSURE; NAUSEA AND DIZZINESS. PT SOB AT REST WHILE ON 15L OXYMIZER FOR BREAKS FOR MEALS AND DRINKING APPROX 10-15 MINUTES AT A TIMES; OTHERWISE BIPAP IN PLACE; MOST RECENT SETTING 16/8 AT 65% AND RR SET AT 14. RECEIVED DIALYSIS THIS AFTERNOON WITH 1 UNIT PRBC. VSS. NO OTHER ACUTE CHANGES NOTED DURING SHIFT. WILL CONTINUE TO MONITOR UNITL REPORT GIVEN TO ONCOMING RN.
[2019-11-16 03:45] LABS: Hematocrit 32.2 % (37.0-53.0); Hemoglobin 9.9 g/dL (13.5-17.5)
[2019-11-16 04:01] LABS: Anion Gap 7 mmol/L (6-16); Blood Urea Nitrogen 49 mg/dL (8-24); CO2, Blood 32 mmol/L (21-32); Calcium, Blood 9.3 mg/dL (8.5-10.1); Chloride, Blood 96 mmol/L (98-108); Creatinine, Blood 3.27 mg/dL (0.60-1.20); Glomerular Filtration Rate 20 (60-); Glucose, Blood 265 mg/dL (70-99); Magnesium, Blood 2.6 mg/dL (1.6-2.4); Phosphorus, Blood 3.9 mg/dL (2.5-4.9); Potassium, Blood 4.8 mmol/L (3.5-5.5); Sodium, Blood 135 mmol/L (136-145)
--- NOTE | 2019-11-16 05:57 | NUR ---
SHIFT SUMMARY NO ACUTE CHANGES NOTED. PT CONTINUES TO USE THE BIPAP. CURRENT SETTINGS ARE 18/10, FIO2 OF 40%. O2 SATS REMAIN >93%. VSS. PT DENIES SOB AND CALLS FOR OCCASIONAL BREAKS AND FLUID INTAKE. PT HAS BEEN REQUESTING MILK. HE HAS BEEN SUPERVISED AND ENC TO TAKE SMALL SIPS TO AVOID ASPIRATION/CHOKING. BED ALARM ON FOR SAFETY, CALL LIGHT IN REACH, [facility].
--- NOTE | 2019-11-16 17:29 | NUR ---
SHIFT SUMMARY PT ALERT AND ORIENTED. VS STABLE. PT HAS REMAINED ON BIPAP MOST OF SHIFT WITH O2 SATS ABOVE 90%. PT TAKES SHORT BREAKS ON 15L OXYMIZER, BUT GETS SOB AND DESATURATED AFTER APPROXIMATELY 30 MIN AND REQUIRES BIPAP. HR HAS BEEN AFIB WITH A CONTROLLED RATE. BP STABLE. PT UP TO CHAIR FOR ALL MEALS WITH A 2 PERSON ASSIST. LEE CATHETER REMOVED THIS SHIFT AND ATTENDS IN PLACE. PT ABLE TO REPOSITION HIMSELF IN BED. WILL CONTINUE TO MONITOR AND REPORT TO ONCOMING RN. CALL LIGHT IN REACH.
[2019-11-17 05:12] LABS: Hemoglobin 10.2 g/dL (13.5-17.5)
[2019-11-17 05:42] LABS: Albumin, Blood 2.3 g/dL (3.4-5.0); Anion Gap 5 mmol/L (6-16); Blood Urea Nitrogen 68 mg/dL (8-24); Bun/Creatinine Ratio 16.2 (12.0-20.0); CO2, Blood 32 mmol/L (21-32); Calcium, Blood 9.8 mg/dL (8.5-10.1); Chloride, Blood 97 mmol/L (98-108); Creatinine, Blood 4.19 mg/dL (0.60-1.20); Glomerular Filtration Rate 15 (60-); Glucose, Blood 196 mg/dL (70-99); Magnesium, Blood 2.8 mg/dL (1.6-2.4); Phosphorus, Blood 4.8 mg/dL (2.5-4.9); Potassium, Blood 4.7 mmol/L (3.5-5.5); Sodium, Blood 134 mmol/L (136-145)
--- NOTE | 2019-11-17 06:52 | NUR ---
SHIFT SUMMARY PT HAS BEEN STABLE THROUGH THE NIGHT. NO ACUTE CHANGES OTHER THAN URINE RETENTION, STRAIGHT CATH WAS DONE, 800 ML'S OF URINE WAS OBTAINED. PT WAS GIVEN PO ATIVAN X1 FOR AGITATION. BM X2. TOLERATING PO INTAKE. VSS. CONTINUES TO ALTERNATE BETWEEN BIPAP & OXYMIZER. PT CONTINUES TO TAKE BIPAP MASK OFF BEFORE CALLING FOR HELP THEN YELLS INTO THE HALLS & O2 SATS WILL DROP. PT WAS ENC & EDUCATED ON THE RISKS OF DOING THIS. HE STATES UNDERSTANDING BUT CONTINUED THROUGH THE NIGHT. CALL LIGHT IN REACH, BED ALARM FOR SAFETY.
--- NOTE | 2019-11-17 17:43 | NUR ---
PT SUMMARY: PT ALERT TO SELF GETS CHEEK AT TIMES. PT STILL ON BIPAP FIO2 AT 40% ALTERNATING WITH 15L OF OXYMIZER. PT PARTICIPATED WITH THERAPY WITH BIPAP ON TRANSFERRED TO CHAIR FROM BED AND FROM CHAIR BACK TO BED. PT STILL GETS SHORT OF BREATH WHEN USING OXYMIZER NOTICE THAT PATIENTS GETS ANXIOUS WITHOUT THE BIPAP ON, PT WAS INSTRUCTED TO BREATHE ON HIS NOSE WITH THE OXYMIZER ON, PT HAS SATS BEEN ABOVE 95% WITH BOTH BIPAP AND OXYMIZER. PT WAS ALSO BLADDER SCANNED SINCE PT HASN'T HAD ANY URINE OUT FOR THE SHIFT, BLADDER SCAN OBTAINED 564 URINE RETAINED PT WAS STRAIGHT CATH GOT 400 MLS OUT. PT HAD DIALYSIS TODAY GOT 1400L OUT PER DIALYSIS NURSE. PT CURRENTLY RESTING IN BED, XANAX GIVEN FOR ANXIETY, CALL LIGHTS WITHIN REACH, ABLE TO MAKE NEEDS KNOWN. TO REPORT TO ONCOMING SHIFT
[2019-11-18 03:39] LABS: Hematocrit 33.2 % (37.0-53.0); Hemoglobin 9.8 g/dL (13.5-17.5)
[2019-11-18 04:08] LABS: Magnesium, Blood 2.9 mg/dL (1.6-2.4)
[2019-11-18 04:09] LABS: Albumin, Blood 2.2 g/dL (3.4-5.0); Anion Gap 3 mmol/L (6-16); Blood Urea Nitrogen 50 mg/dL (8-24); Bun/Creatinine Ratio 14.3 (12.0-20.0); CO2, Blood 34 mmol/L (21-32); Calcium, Blood 9.7 mg/dL (8.5-10.1); Chloride, Blood 99 mmol/L (98-108); Creatinine, Blood 3.49 mg/dL (0.60-1.20); Glomerular Filtration Rate 19 (60-); Glucose, Blood 202 mg/dL (70-99); Phosphorus, Blood 4.5 mg/dL (2.5-4.9); Potassium, Blood 5.1 mmol/L (3.5-5.5); Sodium, Blood 136 mmol/L (136-145)
--- NOTE | 2019-11-18 06:40 | NUR ---
SHIFT SUMMARY PT IS CURRENTLY ON THE BIPAP @ 15/10 & 50% FIO2. HE HAS FLUCTUATED ON HIS SETTINGS THROUGH THE NIGHT AND HAS CONTINUED TO TRY SELF ADJUST HIS MASK OR REMOVE IT WHEN HIS CALL LIGHT IS NOT ANSWERED IMMEDIATLEY. EDUCATION AND REASSURANCE PROVIDED, PT IS NOT RECEPTIVE. HE HAS AKED FOR SNACKS THROUGH THE NIGHT. ENSURE AND SOUP WERE GIVEN ALTERNATES TO ONLY MILK AND HE COMPLIED. PT IS STILL UNABLE TO VOID ON HIS OWN, HOSPITALIST WAS NOTIFIED, STRAIGHT CATH WAS DONE, 225 ML'S OF TEA COLORED URINE WAS NOTED. IN TO ASSESS PT THIS AM. [facility], CALL LIGHT IN REACH.
--- NOTE | 2019-11-18 17:00 | NUR ---
Spiritual care note: Mr. Murrieta appeared frail and suspicious. He was irritable and emotionally withdrawn. I was tasked by palliative care RN to ask Mr. Murrieta about family. He admitted he has a son, Jag, who he thinks lives in [place]. He also has a dtr, Ilsa, but does not know where she lives. He has not had contact with his children for many years and knows next to nothing about them. Soon after I gained this information, he dismissed me from room. I will remain available.
--- NOTE | 2019-11-18 18:35 | NUR ---
SHIFT SUMMARY: PT ALERT STILL IRRITABLE AT TIMES, CONTINUES ON BIPAP SETTINGS AT 50%FIO2 ALTERNATING OXYMIZER ON 15L, PT STILL SHORT OF BREATH WITH EXERTION BUT SATS REMAINED ABOVE 90%, PT WORKED WITH THERAPY GOT UP IN THE CHAIR FOR LUNCH WITH OXYMIZER ON. ZYPREXA NOW ORDERED SCHEDULED TID FOR MOOD/ANXIETY, PT MORE COOPERATIVE TODAY. PT STILL RETAINING URINE BLADDER SCAN SHOWS 468MLS OF URINE RETAINED GOT 420MLS VIA STRAIGHT CATH, NEW ORDER TO STRAIGHT CATH IF URINE VIA BLADDER SCAN IS ABOVE 400MLS, NEW ORDER FOR FLOMAX FOR BLADDER RETENTION. NO OTHER ISSUES ENCOUNTERED FOR THE SHIFT. TO REPORT TO ONCOMING SHIFT.
--- NOTE | 2019-11-18 20:00 | NUR ---
ASSUMED CARE OF PT AT 1915. REPORT RECEIVED AT BEDSIDE. PT PRESENTS IN BED. WEARING HIS BIPAP. COOPERATIVE AT THIS TIME. IN NO APPARENT DISTRESS. WILL REVIEW CHART AND PLAN OF CARE FOR THIS PT.
--- NOTE | 2019-11-19 00:28 | NUR ---
BLADDER SCAN OF PT AFTER HE COMPLAINS THAT HE IS UNABLE TO VOID. SCAN REVEALS >580 ML. STRAIGHT CATH DONE WITH 14 SOMALI COUDE WHICH PT TOLERATES WELL. RETURN OF 600 ML YELLOW URINE. PT ACKNOWLEDGES HE FEELS IF HE HAS EMPTIED. HAS STARTED FLOMAX MED WHICH TEACHING DONE. WILL CONTINUE TO MONITOR.
--- NOTE | 2019-11-19 03:42 | NUR ---
PT HAS DEMONSTRATED THAT HE HAS BEEN QUITE ANXIOUS THIS SHIFT. HAS BECOME INCREASINGLY RESTLESS AND HAS BEEN VERBALLY AGGRESSIVE TO BOTH FEMALE STORE MERCHANDISER'S. HAVE SET LIMITS WITH PT AND HAVE REDIRECTED PT. HE HAS ALSO BEEN REMOVING HIS BIPAP MASK FREQUENTLY AND PUTTING OXIMIZER ON. THEN CALLING FOR HIS BIPAP TO BE PLACED BACK ON. ADDRESSED PT TO INQUIRE IF HE WAS FEELING OVERLY ANXIOUS AND WOULD ACCEPT A PRN XANAX TO HELP HIM REST. PT AGGREES TO THIS. PT MEDICATED. AND IS CURRENTLY RESTING WITH HIS BIPAP ON. WILL CONTINUE TO MONITOR.
[2019-11-19 07:14] LABS: Hematocrit 31.9 % (37.0-53.0); Hemoglobin 9.6 g/dL (13.5-17.5)
[2019-11-19 07:22] LABS: Albumin, Blood 2.3 g/dL (3.4-5.0); Anion Gap 6 mmol/L (6-16); Blood Urea Nitrogen 71 mg/dL (8-24); Bun/Creatinine Ratio 16.7 (12.0-20.0); CO2, Blood 31 mmol/L (21-32); Calcium, Blood 9.8 mg/dL (8.5-10.1); Chloride, Blood 98 mmol/L (98-108); Creatinine, Blood 4.24 mg/dL (0.60-1.20); Glomerular Filtration Rate 15 (60-); Glucose, Blood 222 mg/dL (70-99); Magnesium, Blood 2.9 mg/dL (1.6-2.4); Phosphorus, Blood 4.5 mg/dL (2.5-4.9); Potassium, Blood 5.5 mmol/L (3.5-5.5); Sodium, Blood 135 mmol/L (136-145)
--- NOTE | 2019-11-19 18:25 | NUR ---
SHIFT SUMMARY- PT ON BIPAP WITH THE EXCEPTION OF WHEN HE IS EATING THEN HE IS SWITCHED TO 15L VIA OXIMIZER. PT CURRENTLY ON OXIMIZER SITTING UP IN BED WITH THE CALL LIGHT IN REACH. PT REQUESTED A "COUPLE OF IBUPROFEN" PT JUST COMPLETED DIALYSIS MEDICATED WITH TYLENOL PER EMAR. WHEN PT WAS ASKED WHERE HIS PAIN WAS HE STATED 10/10 IN MY "HEAD AND IN MY SOUL". PT DID NOT WISH TO ELABORATE FURTHER. SBP WAS IN THE 80'S DURING DIALYSIS AND HR STABLE 58-68. PT CARDIZEM HELD, AFTER SPEAKING WITH KENNEL WORKERJANKI ELLIS IT APPEARS ON PREVIOUS SHIFTS CARDIZEM WAS HELD DURING DIALYSIS. NEXT DOSE IS DUE IN 6 HOURS. PT REQUIRES SUPERVIOSION WITH ALL MEALS. PER REPORT HE WAS NON-COMPLIANT WITH THESE SAFETY MEASURES. PT HAS BEEN WILLING TO HAVE STAFF IN THE ROOM WHILE HE EATS HOWEVER THEY HAVE TO BE BUSY. HE DOES NOT LIKE TO HAVE PEOPLE WATCH HIM WHILE HE IS EATING.
--- NOTE | 2019-11-19 19:53 | NUR ---
CARE ASSUMPTION PT A&O X4. VSS. MONITOR SHOWS AFLUTTER, HR 70's. LUNG SOUNDS COARSE, DIM IN BASES. SPO2 > 92% ON BIPAP: 15/10, FIO2 45% UPON CARE ASSUMPTION. PT REQUESTING BREAK FROM BIPAP, PLACED ON 15L OXYMIZER W/ SPO2 > 92%. PT REPORTS RA AT BASELINE, STATES "I'M HERE BECAUSE I SMOKED FOR 40 SOMETHING YEARS, BUT I QUIT A MONTH AND A HALF AGO." PT REPORTS BREATHING IS IMPROVED THIS EVENING. PT ABD DISTENDED, SOFT AND NONTENDER. PT DENIES BM TODAY, MEDICATION PER EMAR. WILL CONTINUE TO MONITOR AND PROVIDE CARE.
--- NOTE | 2019-11-20 01:20 | NUR ---
BLADDER SCAN DONE SHOWING 98 MLS. NO STRAIGHT CATH NEEDED AT THIS TIME.
[2019-11-20 05:54] LABS: Hematocrit 32.4 % (37.0-53.0); Hemoglobin 9.8 g/dL (13.5-17.5)
[2019-11-20 06:10] LABS: Albumin, Blood 2.3 g/dL (3.4-5.0); Anion Gap 4 mmol/L (6-16); Blood Urea Nitrogen 51 mg/dL (8-24); Bun/Creatinine Ratio 15.1 (12.0-20.0); CO2, Blood 33 mmol/L (21-32); Calcium, Blood 9.6 mg/dL (8.5-10.1); Chloride, Blood 98 mmol/L (98-108); Creatinine, Blood 3.38 mg/dL (0.60-1.20); Glomerular Filtration Rate 19 (60-); Glucose, Blood 176 mg/dL (70-99); Magnesium, Blood 2.4 mg/dL (1.6-2.4); Phosphorus, Blood 4.7 mg/dL (2.5-4.9); Potassium, Blood 5.2 mmol/L (3.5-5.5); Sodium, Blood 135 mmol/L (136-145)
--- NOTE | 2019-11-20 06:22 | NUR ---
SHIFT SUMMARY PT CONINUES TO BE A&O X4. VSS. MONITOR SHOWS AFLUTTER, HR 50's-80's. LUNG SOUNDS COARSE, DIM IN BASES. SPO2 > 92% ON BIPAP: 15/10, FIO2 45% OR 13L OXYMIZER. PT WEARING BIPAP MAJORITY OF SHIFT PER PT PREFERENCE. NO EVENTS OVERNIGHT. WILL CONTINUE TO MONITOR AND PROVIDE CARE UNTIL REPORT OFF TO DAY SHIFT RN.
--- NOTE | 2019-11-20 07:05 | NUR ---
ASSUMED CARE REPORT FROM JANKI PHILLIPS. PATIENT SLEEPING WITH BIPAP IN PLACE. 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
--- NOTE | 2019-11-20 07:46 | NUR ---
PATIENT USED CALL LIGHT APPROPRIATELY TO ASK FOR BSC. WAITED FOR PCT TO ASSIST BEFORE GETTING UP, HE KNEW HE WAS A 2 PERSON ASSIST. HE REQUESTED BIPAP BE LEFT ON FOR TRANSFER AND WHILE USING BSC. BIPAP 15/10 FIO2 45. BACK UP RR 14. AUSCULTATED WHEEZES ON RIGHT. NO URINE PRODUCED. 2 HARD LUMPS OF STOOL
--- NOTE | 2019-11-20 12:34 | NUR ---
BLADDER SCAN SHOWED 808 CC. STRAIGHT CATH PER ORDER WITH 14 FR COUDE. PATIENT ASKED THAT IT REMAIN IN D/T CONTINUED RETENTION. BAG PLACED. PATIENT WANTS PHONE # OF [facility] BECAUSE HE TALKED TO HIS HOME IN [place] AND HE SAYS THEY WILL ACCEPT HIM BACK. 500 CC URINE DRAINED FROM CATHETER
--- NOTE | 2019-11-20 13:23 | NUR ---
AM MIDODRINE GIVEN BECAUSE OF HR MEDS GIVEN.
--- NOTE | 2019-11-20 13:34 | NUR ---
REPORT TO JANKI BLANKENSHIP
--- NOTE | 2019-11-20 13:50 | NUR ---
ASSUMED CARE... ASSUMED CARE OF PT AT THIS TIME, REPORT WAS OBTAINED FROM AZALEA SHEARER. PT IS GETTING SET UP FOR DIALYSIS IN THE ROOM AT THIS TIME, VSS. WILL CONTINUE TO MONITOR.
--- NOTE | 2019-11-20 17:20 | NUR ---
DIALYSIS-PD WENT TO PT'S ROOM TO DC TX THIS AM. SHE WAS ALREADY DC'ED FROM [place]. HER UF WAS 1602ML, HER ID WAS 1. PT HAD BEEN DRAINED AND CAPPED DURING HEMODIALYSIS YESTERDAY. FLUID CLEAR.
--- NOTE | 2019-11-20 17:27 | NUR ---
SHIFT SUMMARY.... NO ACUTE NEGATIVE CHANGES NOTED SINCE ASSUMING CARE AT APROX 1400. PT HAD DIALYSIS, 1800 CARDIZEM WAS HELD D/T LOW BPS FROM DIALYSIS. PT'S BP IS STABLE AT THIS TIME, OTHER VS STABLE. PT DENIES CHEST PAIN/PRESSURE N/V OR INCREASED SOB. PT IS USING BIPAP AT 45% FIO2 AND OXYMIZER AT 15L WHEN NOT ON THE BIPAP. CALL LIGHT IN REACH WILL CONTINUE TO MONITOR UNTIL REPORT IS GIVEN TO ONCOMING RN.
--- NOTE | 2019-11-21 04:15 | NUR ---
SHIFT SUMMARY: 64 Y/O MALE RESTED COMFORTABLY ALL SHIFT; DENIES PAIN OR NAUSEA; LEE DRAINING CLEAR YELLOW FLUID; TELEMETRY REFLECTS NSR PER ELIU--HOT DOG VENDOR; PT WORE BIPAP ALL SHIFT WITH PATIENT BECOMING INCREASED SOB WITH SLIGHT ACTIVITY (OXIMIZER PLACED WHEN TAKING ORAL MEDS VIA APPLESAUCE) NOTED; BED LOW POSITION WITH CALL LIGHT AT SIDE.
[2019-11-21 04:21] LABS: Hematocrit 31.7 % (37.0-53.0); Hemoglobin 9.7 g/dL (13.5-17.5)
[2019-11-21 04:41] LABS: Albumin, Blood 2.3 g/dL (3.4-5.0); Anion Gap 6 mmol/L (6-16); Blood Urea Nitrogen 45 mg/dL (8-24); Bun/Creatinine Ratio 15.4 (12.0-20.0); CO2, Blood 33 mmol/L (21-32); Calcium, Blood 9.5 mg/dL (8.5-10.1); Chloride, Blood 98 mmol/L (98-108); Creatinine, Blood 2.92 mg/dL (0.60-1.20); Glomerular Filtration Rate 23 (60-); Glucose, Blood 187 mg/dL (70-99); Magnesium, Blood 2.6 mg/dL (1.6-2.4); Phosphorus, Blood 4.5 mg/dL (2.5-4.9); Sodium, Blood 137 mmol/L (136-145)
--- NOTE | 2019-11-21 16:28 | NUR ---
SHIFT SUMMARY NO ACUTE CHANGES THIS SHIFT. PT REMAINS ALERT AND ORIENTED, BUT IRRITABLE WITH CARE. DIALYSIS SCHEDULED FOR TOMORROW. PT UNABLE TO VOID SINCE LEE CATH REMOVAL THIS AM. BLADDER SCAN OF 359 AND ORDER STATES TO STRAIGHT CATH IF GREATER THAN 400. PT REFUSES TO ATTEMPT TO VOID IN URINAL. PT DID GET UP TO CHAIR X1 WITH PHYSICAL THERAPY TODAY. 1-2 MOD ASSIST WITH TRANSFERS. TELE IN AFLUTTER. PT HAS BEEN USING BIPAP MOST OF SHIFT AND OXYMIZER 15L IN PLACE ONLY DURING MEALS AND WHILE TAKING PO. LUNGS DIMINISHED T/O. USES CALL LIGHT APPROPRIATELY. PLAN IS FOR REPEAT CHEST XRAY + LABS TOMORROW.
--- NOTE | 2019-11-21 21:50 | NUR ---
ASSUMED CARE OF PATIENT AT [facility] 191 FROM ESTEPHANIA Joya RN. PATIENT ORIENTED TO SELF AND ; CONFUSED AT TIMES; IRRITABLE; YELLING AND POINTING AT STAFF. USES CALL LIGHT. PATIENT DENIES PAIN, NUMBNESS, TINGLING, DIZZINESS OR NAUSEA. AFLUTTER ON TELE; OXYGEN SATURATION ABOVE 90% ON BIPAP 45% FIO2 OR 15LPM VIA OXYMIZER. PATIENT PULLS OXYGEN TUBING OFF AND BIPAP AT TIMES; SOMETIMES EVERY FEW MINUTES. IN DROPLET ISOLATION; MAX ASSIST OUT OF BED WITH GAIT BELT. ST PRECAUTIONS IN PLACE. PG TO FLOYD S/L. PATIENT CURRENTLY RESTING IN BED; CALL LIGHT IN REACH; BED IN LOWEST POSISTION; BED ALARM ON; WILL CONTINUE TO MONITOR AND ASSESS UNTIL END OF SHIFT.
[2019-11-22 03:53] LABS: Hematocrit 29.9 % (37.0-53.0); Hemoglobin 9.3 g/dL (13.5-17.5)
[2019-11-22 04:09] LABS: Albumin, Blood 2.3 g/dL (3.4-5.0); Anion Gap 4 mmol/L (6-16); Blood Urea Nitrogen 61 mg/dL (8-24); Bun/Creatinine Ratio 15.6 (12.0-20.0); CO2, Blood 31 mmol/L (21-32); Calcium, Blood 9.6 mg/dL (8.5-10.1); Chloride, Blood 99 mmol/L (98-108); Creatinine, Blood 3.92 mg/dL (0.60-1.20); Glomerular Filtration Rate 16 (60-); Glucose, Blood 205 mg/dL (70-99); Magnesium, Blood 2.8 mg/dL (1.6-2.4); Phosphorus, Blood 5.2 mg/dL (2.5-4.9); Potassium, Blood 5.2 mmol/L (3.5-5.5); Sodium, Blood 134 mmol/L (136-145)
[2019-11-22 05:26] LABS: PCO2 Arterial 41.6 mmHg (35-45); PO2 Arterial 58.5 mmHg (80-100); pH Blood Arterial 7.46 (7.35-7.45)
--- NOTE | 2019-11-22 06:26 | NUR ---
PATIENT SLEPT ABOUT SEVEN HOURS LAST NIGHT. VSS. NO ACUTE CHANGES TO REPORT. WILL CONTINUE TO MONITOR AND ASSESS UNTIL END OF SHIFT.
--- NOTE | 2019-11-22 07:18 | NUR ---
ASSUMED PATIENT CARE. PATIENT RESTING COMFORTABLY IN BED, BIPAP APPLIED. NO SIGNS OF ACUTE DISTRESS, WCTM.
--- NOTE | 2019-11-22 17:59 | NUR ---
NO ACUTE EVENTS THIS SHIFT. PATIENT HAD DIALYSIS TODAY, UNEVENTFUL. PATIENT RETURNED AND COMPLAINED OF FATIGUE. PATIENT'S O2 REMAINED IN MID TO LOW 90S THROUGHOUT SHIFT. PATIENT ON HIGH-FLOW 15 L NASAL CANNULA THROUGH MOST OF SHIFT, SWITCHED BACK TO BIPAP THIS AFTERNOON. PATIENT WORKED WITH PT/OT THIS SHIFT.
--- NOTE | 2019-11-22 20:46 | NUR ---
ASSUMED CARE OF PATIENT AT [facility] 190 FROM SUMAN Bruce RN. PATIENT ORIENTED TO SELF AND ; CONFUSED AT TIMES; IRRITABLE AT TIMES. USES CALL LIGHT. PATIENT DENIES PAIN, NUMBNESS, TINGLING, DIZZINESS OR NAUSEA. AFLUTTER ON TELE; OXYGEN SATURATION ABOVE 90% ON BIPAP 45% FIO2 OR 15LPM VIA OXYMIZER. PATIENT PULLS OXYGEN TUBING OFF AND BIPAP AT TIMES; SOMETIMES EVERY FEW MINUTES. IN DROPLET ISOLATION; MAX ASSIST OUT OF BED WITH GAIT BELT. ST PRECAUTIONS IN PLACE. PG TO FLOYD S/L. HAD DIALYSIS TODAY AND PER DAYSHIFT RN SLEEPY AFTWARDS. PATIENT CURRENTLY RESTING IN BED; CALL LIGHT IN REACH; BED IN LOWEST POSISTION; BED ALARM ON; WILL CONTINUE TO MONITOR AND ASSESS UNTIL END OF SHIFT.
[2019-11-23 05:02] LABS: Hematocrit 29.1 % (37.0-53.0); Hemoglobin 8.9 g/dL (13.5-17.5)
[2019-11-23 05:24] LABS: Albumin, Blood 2.2 g/dL (3.4-5.0); Anion Gap 6 mmol/L (6-16); Blood Urea Nitrogen 48 mg/dL (8-24); Bun/Creatinine Ratio 14.7 (12.0-20.0); CO2, Blood 31 mmol/L (21-32); Calcium, Blood 9.5 mg/dL (8.5-10.1); Chloride, Blood 101 mmol/L (98-108); Creatinine, Blood 3.26 mg/dL (0.60-1.20); Glomerular Filtration Rate 20 (60-); Glucose, Blood 164 mg/dL (70-99); Magnesium, Blood 2.7 mg/dL (1.6-2.4); Phosphorus, Blood 5.3 mg/dL (2.5-4.9); Potassium, Blood 5.1 mmol/L (3.5-5.5); Sodium, Blood 138 mmol/L (136-145)
--- NOTE | 2019-11-23 06:00 | NUR ---
STRAIGHT CATH DUE TO BLADDER SCAN OF OVER 400. VSS. PATIENT SLEPT ABOUT EIGHT HOURS. PATIENT HAS BEEN PULLING BIPAP OFF OR PULSE OXIMETRY ALMOST EVERY HOUR. NO OTHER ACUTE CHANGES TO REPORT. WILL CONTINUE TO MONITOR AND ASSESS UNTIL END OF SHIFT.
--- NOTE | 2019-11-23 07:20 | NUR ---
ASSUMED PATIENT CARE. PATIENT SLEEPING COMFORTABLY IN BED, BIPAP APPLIED. NO SIGNS OF ACUTE DISTRESS, WCTM.
--- NOTE | 2019-11-23 18:25 | NUR ---
PATIENT WORKED WITH PT/OT. RT WORKED WITH PATIENT TODAY AND CHANGED FROM THE HIGH FLOW NASAL CANNULA AT 15L TO A HIGH FLOW HEATED WITH HUMIDIFICATION. CASE MANAGEMENT MET WITH PATIENT AND DISCUSSED DISCHARGE OPTIONS WITH PATIENT. PATIENT RECEIVED ZYPREXA FOR AGITATION THIS AFTERNOON. PATIENT RECEIVED 1 UNIT RBCS THIS SHIFT. WILL CONTINUE TO MONITOR H&H.
--- NOTE | 2019-11-23 19:11 | NUR ---
RELINQUISHED PATIENT CARE.
--- NOTE | 2019-11-23 20:17 | NUR ---
LOW CBG. PT ALERT ABLE TO TOLERATE PO INTAKE. MILK AND PUDDING PROVIDED.
--- NOTE | 2019-11-24 | NUR ---
BLADDER SCAN >900. STRAIGHT CATH DONE PER ORDERS. 900ML URINE OUT.
--- NOTE | 2019-11-24 03:32 | NUR ---
This RN covering primary RN for lunch break. Pt taking BIPAP mask of multiple times and yelling at LINOLEUM LAYER HELPER and this RN. Pt using call light multiple times for non essential needs such at "take off my blankets, now!" and then within moments of leaving room after fulfilling pt's request, yelling "get the blankets back on me, now!". Pt capable of taking off and on blankets as desired and encouraged to do so. Pt educated extensively on proper patient to nurse relationship and etiquette. VSS at this time.
--- NOTE | 2019-11-24 05:27 | NUR ---
SHIFT SUMMARY PT SLEEPING IN ROOM AT THIS TIME. NO ACUTE CHANGES IN STATUS T/O NIGHT. PT HAD EPISODES OF AGGITATION AND IRRITABILITY W/ STAFF. PT YELLED AT SPOKE INNAPROPRIATELY TO STAFF SEVERAL TIMES, AND WAS REMINDED ABOUT EXPECTATIONS OF NURSE PATIENT RELATIONSHIP AND RESPECT. PT WORE BIPAP T/O NIGHT. AND TOOK AURELIO OFF MULTIPLE TIMES W/O CALLING SETTING O2 ALARMS OFF AND DESATTING. PT WAS REMINDED MULTIPLE TIMES ABOUT THE NEED TO CALL STAFF TO REMOVE MASK D/T PT REQUIRING NEW MASK AFTER BREAKING OLD ONE. RESP EVEN AND TACHY ON BIPAP W/ SATS >92%. PT WAS STRAIGHT CATHED PER ORDERS FOR URINE RETENTION ONCE DURING NIGHT, >900 ML RETURN. NO OTHER NEEDS. CALL LIGHT IN REACH.
[2019-11-24 05:49] LABS: Hematocrit 30.3 % (37.0-53.0); Hemoglobin 9.3 g/dL (13.5-17.5)
[2019-11-24 06:02] LABS: Albumin, Blood 2.3 g/dL (3.4-5.0); Anion Gap 7 mmol/L (6-16); Blood Urea Nitrogen 68 mg/dL (8-24); Bun/Creatinine Ratio 16.8 (12.0-20.0); CO2, Blood 29 mmol/L (21-32); Calcium, Blood 9.6 mg/dL (8.5-10.1); Chloride, Blood 99 mmol/L (98-108); Creatinine, Blood 4.04 mg/dL (0.60-1.20); Glomerular Filtration Rate 16 (60-); Glucose, Blood 239 mg/dL (70-99); Magnesium, Blood 2.8 mg/dL (1.6-2.4); Phosphorus, Blood 6.1 mg/dL (2.5-4.9); Potassium, Blood 5.7 mmol/L (3.5-5.5); Sodium, Blood 135 mmol/L (136-145)
--- NOTE | 2019-11-24 17:50 | NUR ---
SHFIT SUMMARY PT A&Ox3; FORGETFUL; CONFUSED AT TIMES. PT RESTING IN BED DURING SHIFT. 2 PERSON ASSIST TO CHAIR WITH GAITBELT AND WALKER. PT SOB AT REST AT TIMES; PT ON BIPAP WITH CURRENT SETTING AT 16/8 AT 45% FIO2 AND ON AIRVO AT 55L WITH FIO2 67%. THIS AM PT FOUND ON AIRVO AT 79-83 %, PLACED ON BIPAP AND RECEOVERED QUICKYLY; SPO2 >90% FOR MAJORITY OF SHIFT. PT HEART RATE 120'S AFTER DIALYSIS, MEDICATED WITH AM MEDICATIONS; PT HR CONTINUED IN 120-130'S NOTIFEID DR DAVISON NEW ORDERS FOR LOPRESSOR 25 MG PO ONCE; BP DECREASED; MEDICATED WITH MIDODRINE. OTHER VSS. NO OTHER ACUTE CHANGES NOTED DURING SHIFT. WILL CONTINUE TO MONITOR UNTIL REPORT GIVEN TO ONCOMING RN.
[2019-11-25 03:51] LABS: Hematocrit 32.6 % (37.0-53.0); Hemoglobin 10.1 g/dL (13.5-17.5)
[2019-11-25 04:12] LABS: Albumin, Blood 2.4 g/dL (3.4-5.0); Anion Gap 5 mmol/L (6-16); Blood Urea Nitrogen 56 mg/dL (8-24); CO2, Blood 29 mmol/L (21-32); Calcium, Blood 9.5 mg/dL (8.5-10.1); Chloride, Blood 102 mmol/L (98-108); Glomerular Filtration Rate 19 (60-); Glucose, Blood 126 mg/dL (70-99); Magnesium, Blood 2.6 mg/dL (1.6-2.4); Phosphorus, Blood 5.6 mg/dL (2.5-4.9); Potassium, Blood 5.1 mmol/L (3.5-5.5); Sodium, Blood 136 mmol/L (136-145)
--- NOTE | 2019-11-25 05:36 | NUR ---
SHIFT SUMMARY PT A&O X3; PT AGITATED AND YELLS AT STAFF AT TIMES; CALLS OUT; PT EDUCATED TO USE CALL LIGHT AND NOT TO DISRUPT OTHER PATIENTS OR BE RUDE TO STAFF; VSS; DENIES CHEST PAIN; AFLUTTER NOTED ON TELE; PT PULLS OFF BIPAP FREQUENTLY, PULLS IT APART AND THROWS IT ON THE FLOOR; PT USES AIRVO OR BIPAP; BIPAP NEEDED FOR RECOVERY WHEN DESATS; RT CALLED A FEW TIMES THIS SHIFT FOR ASSISTANCE AND TO ENCOURAGE PT TO KEEP BIPAP ON; BEDBATH GIVEN BY AID THIS SHIFT; PT DANGLE AND REPOSITIONED FREQUENTLY; CALL LIGHT IN PLACE; BED IN LOWEST POSITION; BED ALARM ON; WILL CONTINUE TO MONITOR CLOSELY UNTIL HAND OFF TO DAY SHIFT RN.
--- NOTE | 2019-11-25 07:00 | NUR ---
ASSUMED CARE AT 0700. RESTING IN HIGH FOWLERS WITH BIPAP IN PLACE. A/A/OX4. COOPERATIVE AT THIS TIME.
--- NOTE | 2019-11-25 11:37 | NUR ---
[facility] CALLED AND SET UP A PHONE INTERVIEW WITH PT ON 11/27/19 AT 10:30, THEY WILL CALL.
--- NOTE | 2019-11-25 14:03 | NUR ---
SITTING IN BED IN HIGH FOWLERS WEARING BIPAP. REFUSES BLADDER SCAN AT THIS TIME. WILL CONTINUE TO MONITOR. A/A/OX4. ARGUMENTATIVE AND DEMANDING.
--- NOTE | 2019-11-25 17:03 | NUR ---
SHIFT SUMMARY; BIPAP WORN DURING SHIFT WITH SHORT BREAKS ON 15L HIGH FLOW. SATS DOWN TO 88% WITH HIGH FLOOR. DEMANDING INTERMITANTLY DURING SHIFT. BLADDER SCAN IN AM PER ORDERS WITH 650 URINE OUT WITH STRAIGHT CATH. REFUSED AFTERNOON BLADDER SCAN MULTIPLE TIMES. A/A/O4. REPORT TO KALIA SHEARER TO ASSUME CARE.
--- NOTE | 2019-11-25 17:41 | NUR ---
CONTINUES TO REFUSE BLADDER SCANS. "THERES NOT POINT". STATES DOES NOT HAVE TO URINATE.
--- NOTE | 2019-11-25 17:42 | NUR ---
REFUSED DINNER TRAY, JADEALOG HELD.
--- NOTE | 2019-11-25 19:42 | NUR ---
ASSUMED CARE OF PT AT 1745; PT TOOK OFF BIPAP AND PLACE AIRVO ON SELF; PT DESATURATED TO 84-86% AND AIRVO ALARMING MAX O2; PLACED PT BACK ON BIPAP AND 100% FIO2 TO RECOVER PT WITH RT AT BEDSIDE; TITRATED FIO2 TO 80%. PT REMAINED ON BIPAP FOR APPROX AN HOUR; PLACED BACK ON AIRVO AND REQUESTING DINNER TRAY; SPO2 90-95%. NO OTHER CHANGES NOTED; REPORT GIVEN TO ONCOMING RN.
[2019-11-26 03:25] LABS: Hematocrit 31.3 % (37.0-53.0); Hemoglobin 9.4 g/dL (13.5-17.5)
[2019-11-26 03:46] LABS: Albumin, Blood 2.3 g/dL (3.4-5.0); Anion Gap 6 mmol/L (6-16); Blood Urea Nitrogen 75 mg/dL (8-24); Bun/Creatinine Ratio 17.4 (12.0-20.0); CO2, Blood 29 mmol/L (21-32); Calcium, Blood 9.4 mg/dL (8.5-10.1); Chloride, Blood 100 mmol/L (98-108); Glomerular Filtration Rate 15 (60-); Glucose, Blood 126 mg/dL (70-99); Magnesium, Blood 2.8 mg/dL (1.6-2.4); Phosphorus, Blood 6.6 mg/dL (2.5-4.9); Potassium, Blood 5.6 mmol/L (3.5-5.5); Sodium, Blood 135 mmol/L (136-145)
--- NOTE | 2019-11-26 04:54 | NUR ---
SHIFT SUMMARY NO ACUTE CHANGES NOTED THROUGH THE NIGHT. PT HAS SLEPT THROUGH MOST OF THE NIGHT WITH NO PROBLEMS. PT WAS STRAIGHT CATHED DUE TO RETENTION, A TOTAL OF 800 ML'S OF URINE OBTAINED. PT IS CURRENTLY ON BIPAP @ 16/8, FIO2 80%. CHEST XRAY WAS COMPLETED THIS AM. PT REPOSITIONED PRN. TOLERATING PO INTAKE. BED ALARM FOR SAFETY. CALL LIGHT IN [place], [facility]
--- NOTE | 2019-11-26 10:40 | NUR ---
BLADDER SCAN NOTED 400ML URINE IN BLADDER, STRIAGHT CATH PERFORMED WITH 450ML URINE RETURNED
--- NOTE | 2019-11-26 17:59 | NUR ---
SHIFT NOTE PT WITH NO ACUTE CHANGES DURING THIS SHIFT. PT HAS REMAINED ALERT, ARGUMNETIVE T/O THE SHIFT. AT 1300 PT ASKED TO BE PLACED ON BIPAP FROM AIRVO. PT REFUSED EVENING BLADDER SCAN STS "THERE'S NOTHING IN THERE" REFUSED STRAIGHT CATH. PT DID AGREE TO MORNING BLADDER SCAN THIS AM WITH 400 ML URINE, STRAIGHT CATH PERFORMED WITH 450ML URINE OUT
--- NOTE | 2019-11-26 20:00 | NUR ---
INITAL ASSESSMENT PT IS ALERT IN ROOM WITH BIPAP IN PLACE. HIS VITALS ARE STABLE. OXYGEN SATS ARE WNL WITH NO SOB NOTED AT REST. THIS RN WAS ABLE TO ASSESS HIM WITHOUT CAUSING ANY IRRITATION. HE TOOK NIGHT MEDS WITH APPLESAUCE AND WATER WITH NO ISSUES. HE ALSO RECIEVED HIS INSULIN SC WITH NO COMPLAINTS. OVERALL COOPERTIVE WITH CARE AT THIS TIME. HE HAS AN IV TO RIGHT ARM SO S/S OF INFECTION. DRESSING CDI. THIS RN HELPED PT REPLACE HIS BIPAP MASK UPON LEAVING ROOM. PT STATES HE WILL NOT BE BLADDER SCANNED UNTIL HE WANTS TO BE. HE STATES HE WILL TELL THIS RN WHEN HE IS READY. WILL APPROACH HIM WITH BEING BLADDER SCANNED AGAIN LATER THIS EVENING. PT HAS CALL LIGHT IN [place]. HE INFORMED THIS RN THAT HE WOULD BE ABLE TO CALL WITH ANY REQUESTS AND WILL NOT GET OOB WITH OUT CALLING FIRST. WILL CON'T TO MONITOR AND KEEP PT SAFE T/O REMAINDER OF SHIFT.
--- NOTE | 2019-11-26 22:02 | NUR ---
BLADDER SCAN PT WAS BLADDER SCANNED AT THIS TIME SHOWING OVER 500CC OF URINE IN BLADDER. STRAIGHT CATH DONE WITH 425CC OF RETURN. PT TOLERATED THIS WELL.
--- NOTE | 2019-11-26 23:00 | NUR ---
SHIFT UPDATE PT CON'T TO BE FAIRLY PARTICULAR ABOUT HIS CARE. HE IS CUSSED AT THIS RN AT TIMES. HE IS USING HIS CALL LIGHT FOR ALL ASSISTANCE. VITALS CON'T TO BE STABLE. PT IS USING HIS BIPAP MOSTLY AND WILL HELP RE-POSISTION. VITALS ARE STABLE AT THIS TIME.
--- NOTE | 2019-11-26 23:58 | NUR ---
PT TRANSFERED TO U REPORT GIVEN TO STANTON SHEARER. PT TRANSFERED ON BIPAP TO U WITH RT PARRA. PT STABLE UPON LEAVING.
--- NOTE | 2019-11-27 00:50 | NUR ---
ASSUMED CARE PT TRANSFERRED INTO PCU 8. PT IS RESTING QUIETLY AT THIS TIME ON BIPAP. CURRENT SETTINGS ARE 16/8, FIO2 80%, RESP 26, O2 SATS 93%, CONT BIOX IN PLACE. BED IN LOWEST POSITION, BED ALARM IS ON, CALL LIGHT IN REACH.
[2019-11-27 04:07] LABS: Hematocrit 30.1 % (37.0-53.0); Hemoglobin 9.2 g/dL (13.5-17.5)
[2019-11-27 04:34] LABS: Magnesium, Blood 2.7 mg/dL (1.6-2.4)
[2019-11-27 04:35] LABS: Albumin, Blood 2.3 g/dL (3.4-5.0); Anion Gap 6 mmol/L (6-16); Blood Urea Nitrogen 64 mg/dL (8-24); Bun/Creatinine Ratio 16.8 (12.0-20.0); CO2, Blood 28 mmol/L (21-32); Calcium, Blood 9.2 mg/dL (8.5-10.1); Chloride, Blood 102 mmol/L (98-108); Glomerular Filtration Rate 17 (60-); Glucose, Blood 138 mg/dL (70-99); Phosphorus, Blood 5.4 mg/dL (2.5-4.9); Potassium, Blood 5.5 mmol/L (3.5-5.5); Sodium, Blood 136 mmol/L (136-145)
--- NOTE | 2019-11-27 05:06 | NUR ---
SHIFT SUMMARY NO ACUTE CHANGES NOTED. PT HAS SLEPT THROUGH THE MOST OF THE NIGHT. HE HAS REFUSED TO HAVE A BALADDER SCAN AND STRAIGHT CATH DONE THIS AM. HE DENIES ANY PAIN OR PRESSURE IN HIS BLADDER. PT REMAINS ON BIPAP. BED ALARM IS ON FOR SAFETY. WCTM. CALL LIGHT IN REACH
--- NOTE | 2019-11-27 08:32 | NUR ---
pt laying in bed on bipap, wakes easily, states he is doing ok, no coplaints, or needs, breathing is ok, lungs are clear in upper robert, course in mid robert and bases, a bit dim in bases, resp even and unlabored, is currently on bipap, reports occ nonproductive cough, sats 97%, hrirr, tele in place running aflutter per monitor, see strip, no edema noted, ppp+1, cap refill <3sec, vs stable, afebrile, no iv as he pulled out his power glide this am, btx4, dialysis port to rcw, bladder scanned and in and out cath prn, skin c/w/d, with some rash to rita area, katya, 1 - 2 person to bsc, is pretty bipap dependent, anshul, call light in reach.
--- NOTE | 2019-11-27 15:00 | NUR ---
pt allowed the bladder scan to be done, found him with 800mls, did an in and out, very slowly drained 600mls, spoke with Dr. Bajwa, she ok for placement of wynn as he is refusing scan and cath at times. call light in reach.
--- NOTE | 2019-11-27 17:42 | NUR ---
pt was put on bsc by PT, he did have a bm. he yells as soon as he thinks things arent going how he wants. has been asked multiple times to not yell at staff. no further changes, has been on bipap most of the day. call light in reach.
--- NOTE | 2019-11-27 18:36 | NUR ---
pt kps score is 20% need to revisit code status and ethic sof his care and ability to particiapte in plan of care.
[2019-11-28 04:09] LABS: Hematocrit 29.9 % (37.0-53.0); Hemoglobin 9.2 g/dL (13.5-17.5)
[2019-11-28 04:30] LABS: Albumin, Blood 2.3 g/dL (3.4-5.0); Anion Gap 8 mmol/L (6-16); Blood Urea Nitrogen 81 mg/dL (8-24); Bun/Creatinine Ratio 18.1 (12.0-20.0); CO2, Blood 27 mmol/L (21-32); Calcium, Blood 9.5 mg/dL (8.5-10.1); Chloride, Blood 97 mmol/L (98-108); Creatinine, Blood 4.47 mg/dL (0.60-1.20); Glomerular Filtration Rate 14 (60-); Glucose, Blood 194 mg/dL (70-99); Magnesium, Blood 2.8 mg/dL (1.6-2.4); Phosphorus, Blood 6.4 mg/dL (2.5-4.9); Potassium, Blood 5.8 mmol/L (3.5-5.5); Sodium, Blood 132 mmol/L (136-145)
--- NOTE | 2019-11-28 05:56 | NUR ---
SHIFT SUMMARY PT A&O X3; VSS; DENIES CHEST PAIN; ALTERNATES BETWEEN AIRVO AND BIPAP; DID NOT TOLERATE BREAK FROM BIPAP FOR ANY LENGTH OF TIME; DISGRUNTLED W/ STAFF; REMINDED NOT TO YELL AT THIS RN; LEE CATHETER STARTED; DRAINING DK RIDDHI URINE; FOWL ODOR NOTED; PT TOLERATED WELL AFTER SIGNIFICANT EDUCATION; RT AT BEDSIDE SEVERAL TIMES T/O SHIFT; PT PULLED BIPAP APART AND DEMANDED ADJUSTMENT; NEW MASK WAS BROUGHT TO PT THIS SHIFT; PULLS TELE OFF AT WILL; CALL LIGHT IN REACH; BED IN LOWEST POSITION; WILL CONTINUE TO MONITOR UNTIL HAND OFF TO DAY SHIFT RN.
--- NOTE | 2019-11-28 18:35 | NUR ---
PCU DAYSHIFT SUMMARY PATIENT REMAINS ALERT AND ORIENTED TO SELF, LOCATION AND EVENTS. PATIENT DENIES ANY PAIN T/O SHIFT. PATIENT SLEPT T/O SHIFT - LETHARGIC AND EASILY TIRES WITH ANY EXCERTION. PATIENTS OXYGEN REQUIREMENTS REMAIN HIGH WITH BIPAP 80% FIO2 AND AIRVO 83% FIO2. PATIENT REMAINED ON BIPAP T/O SHIFT WITH MINIMAL TO LITTLE BREAKS - DESATURATING WITH ANY BREAKS. DISCUSSED FINDINGS WITH MD COPPOLA. PATIENT REMAINS IN AFLUTTER T/O SHIFT WITH RATE 80-100. NO ACUTE CHANGES. DIALYSIS TODAY. WILL CONTINUE TO MONITOR AND REPORT TO NOC SHIFT RN.
[2019-11-29 04:10] LABS: Hematocrit 29.1 % (37.0-53.0)
[2019-11-29 04:26] LABS: Albumin, Blood 2.2 g/dL (3.4-5.0); Anion Gap 6 mmol/L (6-16); Blood Urea Nitrogen 51 mg/dL (8-24); Bun/Creatinine Ratio 15.6 (12.0-20.0); CO2, Blood 31 mmol/L (21-32); Calcium, Blood 9.5 mg/dL (8.5-10.1); Chloride, Blood 99 mmol/L (98-108); Creatinine, Blood 3.26 mg/dL (0.60-1.20); Glomerular Filtration Rate 20 (60-); Glucose, Blood 180 mg/dL (70-99); Magnesium, Blood 2.7 mg/dL (1.6-2.4); Phosphorus, Blood 5.2 mg/dL (2.5-4.9); Potassium, Blood 4.5 mmol/L (3.5-5.5); Sodium, Blood 136 mmol/L (136-145)
--- NOTE | 2019-11-29 06:14 | NUR ---
SHIFT SUMMARY PT ALERT; VSS; DENIES CHEST PAIN; AFLUTTER NOTED ON TELE W/ HR 98-130; PULLED ON BIPAP AND CONTINUED BREAKING BIOX PROBES AND MASK STRAPS T/O SHIFT; PT WAS EDUCATED ON NOT BREAKING EQUIPMENT; RT AT BEDSIDE SEVERAL TIMES T/O SHIFT; NO ACUTE CHANGES; CALL LIGHT IN REACH; BED IN LOWEST POSITION; WILL CONTINUE TO MONITOR CLOSELY UNTIL HAND OFF TO DAY SHIFT RN.
--- NOTE | 2019-11-29 09:55 | NUR ---
ASSUMED CARE OF PT AT 0700. REPORT FROM TERRANCE SHEARER. PT UP TO CHAIR c STAFF ASSIST. EATING BREAKFAST GOOD APPETITE. PT ON AIRVO FOR MEALS, 85% 60L, CHANGES TO BIPAP WHILE IN BED, 07/03 70%. LUNGS c CLEAR IN UPPER LOBES, EXPIRATORY WHEEZES IN BASES. PT P/W/D. A&OX 3. ANSWERS QUESTIONS APPROPRIATELY, COOPERATIVE c CARE AT THIS TIME. ABD ROUND, SOFT, NON TENDER. BT X4. PT REQUESTING THORACENTESIS. DR COPPOLA AT BEDSIDE. STATES SHE WILL ORDER. AFLUTTER ON MONITOR, RATE 100-120'S. BP STABLE. AFEBRILE. LEE PATENT AND DRAINING RIDDHI URINE TO GRAVITY. PT REPORTS POOR SLEEP LAST NOC. WILL CONTINUE TO MONITOR.
[2019-11-29 10:29] LABS: Mean Platelet Volume 10.1 fL (9.1-12.4); Platelet Count 189 K/mm3 (150-400)
[2019-11-29 10:46] LABS: International Normalized Ratio 1.16; Prothrombin Time Results 12.3 Sec (9.7-11.5)
--- NOTE | 2019-11-29 17:33 | NUR ---
SHIFT SUMMARY NO ACUTE CHANGES THIS SHIFT. PT ALTERNATED BETWEEN AIRVO AT 60L 85% AND BIPAP /6 80-90%. LUNGS COARSE THROUGHOUT. NON PRODUCTIVE COUGH. PT COOPERATIVE c CARE THIS SHIFT. NO VERBAL OUTBURSTS. PT UP TO CHAIR FOR ALL MEALS. ENCOURAGED PT TO STAY IN CHAIR DURING DAY TO IMPROVE SLEEP AT NIGHT. POWERGLIDE TO RUE. LEE PATENT AND DRAINING RIDDHI URINE. VSS. WILL CONTINUE TO MONITOR UNTIL REPORT TO ONCOMING NURSE.
--- NOTE | 2019-11-30 02:18 | NUR ---
WANTED TO TAKE A BREAK FROM BIPAP. PLACED ON AIRVO BUT WAS UNABLE TO MAINTAIN SAT. PLACED BACK ON BIPAP. SAFETY MEASURES IN PLACE. WILL CONTINUE TO MONITOR.
--- NOTE | 2019-11-30 06:13 | NUR ---
SHIFT SUMMARY LYING IN SEMI FOWLERS WITH EYES CLOSED. ISSUES WITH CONFUSION AND PULLING OFF LEADS/BIPAP/LEE, REORIENTED EACH TIME AND REPLACED. DESATTING ON BIPAP, NO LEAKS DETECTED, 100% FIO2. PT REPOSITIONED SELF IN BED WITH ASSISTANCE, SAT ABLE TO COME BACK UP TO 90%. UNABLE TO TOLERATE BEING OFF BIPAP FOR ANY TIME. DENEIS FURTHER NEEDS OR WANTS AT THIS TIME. SFETY MEASURES IN PLACE. WILL GIVE HAND OFF TO ONCOMING SHIFT USING SBAR DURING BEDSIDE REPORT.
[2019-11-30 11:00] LABS: Automated BF WBC Count 0.397 K/mm3 (0-999); Body Fluid WBC Count 397 /mm3 (0-999)
[2019-11-30 11:09] LABS: Glucose, Body Fluid 180 mg/dL; Lactate Dehydrogenase, Body Fl 87 U/L; Protein, Body Fluid 4.6 g/dL
--- NOTE | 2019-11-30 11:35 | NUR ---
ASSUMED CARE AT 0700. SITTING IN BED IN HIGH FOWLERS WEARING BIPAP. CURRENT SETTINGS 07/03 100% FIO2. A/A/OX3. LEE IN PLACE DRAINING CLEAR YELLOW URINE. POWER PICC TO RIGHT UPPER ARM SALINE LOCKED. VSS, WILL CONTINUE TO MONITOR.
[2019-11-30 11:45] LABS: Color, Body Fluid L Yellow (None-Yellow); Total Cell Count, Body Fluid 100
[2019-11-30 11:46] LABS: Appearance, Body Fluid Hazy (Clear)
[2019-11-30 11:54] LABS: RBC Count, Body Fluid 697 /mm3 (0-0)
--- NOTE | 2019-11-30 17:27 | NUR ---
INSULIN DOSE VERIFIED BY ELLIS BERGER DURING DIAYLISIS.
--- NOTE | 2019-11-30 17:43 | NUR ---
SHIFT SUMMARY; STARTED SHIFT ON BIPAP 100% FIO2 07/03. A/A/OX4. THORENCENTESIS ON RIGHT WITH 1500ML DRAINED. DIAYLISIS COMPLETED THIS AFTERNOON. PLACED ON AIRVO AT 60L 85% FOR AFTERNOON MEALS, TOLERATED WELL. 02 SATS REMAINED AT 94%, WORK OF BREATHING DECREASED. LEE REMAINS IN PLACED DRAINING CLEAR YELLOW URINE. WILL CONTINUE TO MONITOR UNTIL SHIFT CHANGE.
--- NOTE | 2019-12-01 03:25 | NUR ---
SHIFT SUMMARY: PATIENT EDUCATED SEVERAL TIMES ON THE NECESSITY OF LEAVING HIS O2 ON. PATIENT STATES UNDERSTANDING BUT DOES NOT COMPLY. VSS THIS SHIFT, PATIENT TURNS SELF IN BED FREQUENTLY, HE HAS EATEN SEVERAL SNACKS. PATIENT BIPAP SETTINGS STILL AT 12/6 100%FIO2 WITH 02 SATURATION AT 94%. MONITORING CLOSELY.
[2019-12-01 03:54] LABS: Hematocrit 28.1 % (37.0-53.0); Hemoglobin 8.6 g/dL (13.5-17.5)
[2019-12-01 04:09] LABS: Albumin, Blood 2.1 g/dL (3.4-5.0); Anion Gap 7 mmol/L (6-16); Blood Urea Nitrogen 48 mg/dL (8-24); Bun/Creatinine Ratio 15.3 (12.0-20.0); CO2, Blood 30 mmol/L (21-32); Calcium, Blood 8.9 mg/dL (8.5-10.1); Chloride, Blood 99 mmol/L (98-108); Creatinine, Blood 3.13 mg/dL (0.60-1.20); Glomerular Filtration Rate 21 (60-); Glucose, Blood 273 mg/dL (70-99); Magnesium, Blood 2.3 mg/dL (1.6-2.4); Phosphorus, Blood 4.5 mg/dL (2.5-4.9); Sodium, Blood 136 mmol/L (136-145)
--- NOTE | 2019-12-01 18:17 | NUR ---
PCU DAYSHIFT SUMMARY PATIENT ALERT AND ORIENTED TO SELF LOCATION AND SITUATION. PATIENT RESTFUL T/O SHIFT. AWAKES FOR MEALS. ON BIPAP T/O SHIFT EXCEPT FOR MEALS ON AIRVO. PATIENTS RESPIRTORY STATUS REMAINS UNIMPROVED - BUT PATIENT TOLERATED PT/OT WELL TODAY AND WAS ABLE TO WALK AROUND IN ROOM WITH PT. DENIES PAIN. AFLUTTER 60'S T/O SHIFT. NO ACUTE CHANGES NOTED. WILL CONTINUE TO MONITOR AND GIVE REPORT TO NOC SHIFT RN.
[2019-12-02 03:55] LABS: Hematocrit 28.6 % (37.0-53.0); Hemoglobin 8.6 g/dL (13.5-17.5)
[2019-12-02 04:11] LABS: Anion Gap 7 mmol/L (6-16); Blood Urea Nitrogen 69 mg/dL (8-24); Bun/Creatinine Ratio 17.7 (12.0-20.0); CO2, Blood 29 mmol/L (21-32); Calcium, Blood 9.5 mg/dL (8.5-10.1); Chloride, Blood 100 mmol/L (98-108); Creatinine, Blood 3.89 mg/dL (0.60-1.20); Glomerular Filtration Rate 17 (60-); Glucose, Blood 164 mg/dL (70-99); Magnesium, Blood 2.6 mg/dL (1.6-2.4); Phosphorus, Blood 5.7 mg/dL (2.5-4.9); Potassium, Blood 5.1 mmol/L (3.5-5.5); Sodium, Blood 136 mmol/L (136-145)
--- NOTE | 2019-12-02 05:40 | NUR ---
SHIFT SUMMARY: PATIENT SLEPT ALL SHIFT ON BIPAP, DID NOT REMOVE IT. POATIENBT TURNING SELF IN BED AND HAD NO ANGRY OUTBURSTS THIS SHIFT. VSS, CALL LIGHT WITHIN REACH, BED LOW AND LOCKED.
--- NOTE | 2019-12-02 07:20 | NUR ---
ASSUMED CARE: PT RESTING QUIETLY IN BED. BIPAP IN PLACE AT 16/8 WITH 100% FIO2. NO ACUTE NEEDS OR CONCERNS AT THIS TIME.
--- NOTE | 2019-12-02 08:10 | NUR ---
PT TAKEN TO DIALYSIS VIA BED BY RN. 25L NONREBREATHER IN PLACE. RT AWARE AND TAKING AIRVO TO DIALYSIS FOR PT AT THIS TIME.
--- NOTE | 2019-12-02 10:50 | NUR ---
PT BACK TO ROOM FROM DIALYSIS. DIRECTOR OF SERVICES AT BEDSIDE.
--- NOTE | 2019-12-02 11:58 | NUR ---
Spiritual care visit conducted. Patient is lying in bed and alert. Patient immediately tells me his frustration about "little girls running ICU" and about the "chaos and insanity" happening in the hospital. As I got patient talking about himself, his family history and his liz, he began to change his mood and attitude. He became softer and speaking with more gratitude. Patient shares personal stories and his mental illness. I listen empathically, establish therapeutic alliance reinforce helpful attitudes and practices, and provide companionship and prayer. Patient responds well and shows signs of reduced stress and improved peace. I will continue to remain available to patient and family.
--- NOTE | 2019-12-02 20:01 | NUR ---
SHIFT SUMMARY: PT HAS BEEN ON BIPAP ABOUT 50% OF SHIFT, 100% FIO2, SATTING LOW 90S. AIRVO WHEN EATING. HAS BEEN RESISTANT TO INSTRUCTION OR ENCOURAGEMENT TO STAY ON AIRVO AND ATTEMPT TO WEAN OFF BIPAP. DIALYSIS RECIEVED TODAY. PLAN IS FOR [facility] TRANSFER WHEN PT WITHIN ACCEPTING PARAMETERS. NO FURTHER NEEDS OR CONCERNS AT THIS TIME.
[2019-12-03 04:46] LABS: Hematocrit 29.6 % (37.0-53.0); Hemoglobin 9.4 g/dL (13.5-17.5)
[2019-12-03 05:01] LABS: Albumin, Blood 1.9 g/dL (3.4-5.0); Anion Gap 9 mmol/L (6-16); Blood Urea Nitrogen 68 mg/dL (8-24); Bun/Creatinine Ratio 17.4 (12.0-20.0); CO2, Blood 29 mmol/L (21-32); Calcium, Blood 9.2 mg/dL (8.5-10.1); Chloride, Blood 97 mmol/L (98-108); Creatinine, Blood 3.91 mg/dL (0.60-1.20); Glomerular Filtration Rate 16 (60-); Glucose, Blood 122 mg/dL (70-99); Magnesium, Blood 2.3 mg/dL (1.6-2.4); Phosphorus, Blood 5.6 mg/dL (2.5-4.9); Potassium, Blood 4.9 mmol/L (3.5-5.5); Sodium, Blood 135 mmol/L (136-145)
--- NOTE | 2019-12-03 07:40 | NUR ---
SHIFT SUMMARY PATIENT APPEARED TO SLEEP WELL THROUGHOUT MOST OF THE NIGHT. PATIENT WAS AWAKE ON AND OFF LAST NIGHT. PATIENT TOOK SEVERAL VERY SHORT BREAKS FROM THE BIPAP ON THE AIRVO THAT WERE APPROX 5 MINUTES OR LESS. PATIENT O2 DROPS QUICKY INTO THE 80'S WHEN OFF BIPAP AND ON AIRVO AND DOES NOT TOLERATE BEING OFF BIPAP FOR LONG. PATIENT WOULD OFTEN PULL APART HIS BIPAP OR TAKE IT OFF CAUSING HIS O2 TO DROP. MASK REPLACED EACH TIME. CONTINUOUS BIOX IN PLACE. REPORT GIVEN TO ONCENRIQUE SHEARER.
--- NOTE | 2019-12-03 07:50 | NUR ---
Rl was on the AirVo at max settings per RT Davion, this morning. UPon my entry to the room, Rl requested back on the Bipap. spo2 noted to be 84-85% and RR 28/minute. He did not appear distressed, and was communicating verbally with me. Bipap settings were 16/8 with 100 FiO2. Rl was assisted to sit upright in the bed and take his oral tablet before he was then placed on the bipap at the above mentioned settings. Spo2 on the bipap increased right away to 97% and the bipap settings were titrated down, in cooperation with RT Everett, to 60%fio2. Currently Rl is resting, appears comfortable, and RR is 17-20/minute, Spo2 ranging 90-92%.
--- NOTE | 2019-12-03 10:40 | NUR ---
Thoracentesis completed in the room with the radiologist and certified appliance service technician Haim. Rl is appearing to be sleeping at this time, on bipap, spo2 96%, heart rate 126, RR 14 and setting on bipap 16/8 and fio2 60%.
--- NOTE | 2019-12-03 11:49 | NUR ---
Rl is off of the bipap, for an hour now, following the thoracentesis of the left side. He is wearing the AirVo, and spo2 holding well into the mid to high 90s range. Vital signs are stable. He appeared sleepy after the thoracentesis, but was able to awaken to take oral medications and drink some Nepro while sitting up right in bed. He tends to drink a little too quickly and some coughing was observed following the oral Nepro, but not following the administration of oral medications with applesauce before that.
--- NOTE | 2019-12-03 13:35 | NUR ---
Spoke with Sky De Los Santos regarding pt's dialysis, which could possibly take place today or tomorrow.
--- NOTE | 2019-12-03 13:40 | NUR ---
Rl refused to take his midodrine at this time. He says he doesn't want to take it because "my blood pressure is fine. I don't want it to go too low." I explained that midodrine is taken to bring the blood pressure up, not down, and informed him of the results of his vital signs at this time. He is agreeable to recheck the blood pressure in a couple of hours, but doesn't want to take the midodrine at this time.
--- NOTE | 2019-12-03 17:43 | NUR ---
Rl was able to be off of the bipap continuously after the thoracentesis was completed this morning around 1030. He had dialysis this afternoon. In between procedures, he has been lying in bed, without much interest in activity. He did not eat much of his meals, but did drink some milk and Nepro, with supervision by the ALLEY CLEANER to ensure safety while eating/drinking. He has had no complaints today, and only declined treatment/medication/intervention once with his early afternoon midodrine. The evening dose was accepted as he had low blood pressure during and following dialysis.
[2019-12-04 05:52] LABS: Hematocrit 32.2 % (37.0-53.0); Hemoglobin 10.3 g/dL (13.5-17.5)
[2019-12-04 06:11] LABS: Anion Gap 8 mmol/L (6-16); Blood Urea Nitrogen 62 mg/dL (8-24); Bun/Creatinine Ratio 17.9 (12.0-20.0); CO2, Blood 30 mmol/L (21-32); Calcium, Blood 9.6 mg/dL (8.5-10.1); Chloride, Blood 96 mmol/L (98-108); Creatinine, Blood 3.46 mg/dL (0.60-1.20); Glomerular Filtration Rate 19 (60-); Glucose, Blood 214 mg/dL (70-99); Magnesium, Blood 2.6 mg/dL (1.6-2.4); Phosphorus, Blood 5.3 mg/dL (2.5-4.9); Potassium, Blood 4.3 mmol/L (3.5-5.5); Sodium, Blood 134 mmol/L (136-145)
[2019-12-04 06:22] LABS: Digoxin (Lanoxin) 0.97 ug/mL (0.80-2.00)
--- NOTE | 2019-12-04 07:26 | NUR ---
SHIFT SUMMARY PATIENT PLEASENT THROUGHOUT THE NIGHT. PATIENT REMAINED ON THE BIPAP THROUGHOUT MOST OF THE NIGHT BUT DID TAKE SEVERAL BREAKS ON THE AIRVO LAST NIGHT FOR APPROX 5-15 MINUTES EACH. CONTINUOUS BIOX IN PLACE. VITAL SIGNS CHARTED. PATIENT APPEARED TO SLEEP WELL LAST NIGHT. REPORT GIVEN TO ONCOMING RN.
--- NOTE | 2019-12-04 08:26 | NUR ---
Rl has been on the AirVo since about 0600 am, per report. AT this time, he is wearing AiRVo during breakfast, which he tolerated well, and also while lying/sitting up in bed. He refuses to get OOB to the chair today, but also tells me that he would like to eventually be better enough to go home. Asked for Ibuprofen for his left jaw pain this morning; he was given Tylenol. No dialysis today, per Dr. Atkinson, the pt states.
--- NOTE | 2019-12-04 10:17 | NUR ---
Pt was on bipap when I enter the room; he was put back on the Airvo, and is working with Barbra Sanford at this time.
--- NOTE | 2019-12-04 11:52 | NUR ---
Taken off the bipap at this time, assisted to high fowlers position for eating lunch. Wearing the AirVo at prior adjusted settings No changes made to AirVo settings at this time.
--- NOTE | 2019-12-04 12:32 | NUR ---
the pt remains on the AirVo after eating lunch; he requested the bipap, but given the fact that his respirations were even, unlabored and spo2 within normal limits, he was encouraged to stay on the AirVo, to which he agreed. He is encouraged to use the AirVo as much as possible when the bipap is not needed, in order to move towards a safe, efficient disharge.
--- NOTE | 2019-12-04 16:31 | NUR ---
Rl is on the AirVo, respirations even and unlabored, with excellent spo2 at rest. He is requesting the "mask" and points to the bipap; states it is because he doesn't have much change in his life and just wants the mask for a change. Explained that the goal is to wean him off of the bipap, to increase his capacity for breathing on his own, and for help when he is having difficulty breathing. He states that his breathing is fine. Agrees with me to find other ways to change his current activity besides recreational use of the bipap.
--- NOTE | 2019-12-04 17:19 | NUR ---
SUMMARY Rl has been off of the bipap for nearly all of the day, and tolerating the AirVo very well. Appetite has improved, and he worked with therapy today. He has c/o pain in his left jaw, points this evening to an area just inferior to the earlobe, which is slightly pink and a little swollen and very tender to the touch. He has been given Tylenol for this today, twice.
--- NOTE | 2019-12-05 03:44 | NUR ---
AIRVO REMOVAL PT CRIED OUT "HELP! EMERGENCY!" THIS RN IN TO PT RM TO FIND PT W/ AIRVO CANNULA ON HIS FOREHEAD & SPO2 ALARMING 84%. AIRVO REAPPLIED & PT COACHED THROUGH DEEP BREATHING. SPO2 RETURN TO 88-90%. PT ANXIOUS, STATING "I COULD HAVE ." PT ASSURED OF STAFF PRESENCE, ALARM NOTIFICATIONS, AND OXYGEN USAGE. PT NOW CALM IN ROOM, RESPIRATIONS EVEN AND UNLABORED. PT NOW ASKING FOR ICE CREAM.
[2019-12-05 04:14] LABS: Hematocrit 31.6 % (37.0-53.0); Hemoglobin 9.9 g/dL (13.5-17.5)
[2019-12-05 04:35] LABS: Albumin, Blood 1.9 g/dL (3.4-5.0); Anion Gap 10 mmol/L (6-16); Blood Urea Nitrogen 85 mg/dL (8-24); Bun/Creatinine Ratio 20.7 (12.0-20.0); CO2, Blood 27 mmol/L (21-32); Calcium, Blood 9.9 mg/dL (8.5-10.1); Chloride, Blood 96 mmol/L (98-108); Glomerular Filtration Rate 16 (60-); Glucose, Blood 173 mg/dL (70-99); Magnesium, Blood 2.8 mg/dL (1.6-2.4); Phosphorus, Blood 6.3 mg/dL (2.5-4.9); Potassium, Blood 4.6 mmol/L (3.5-5.5); Sodium, Blood 133 mmol/L (136-145)
--- NOTE | 2019-12-05 05:22 | NUR ---
SHIFT SUMMARY PT A&O X4. VSS. MONITOR SHOWS AFIB, AFLUTTER, HR 50's-100. LUNG SOUNDS DIM T/O. PT WEARING AIRVO MAJORITY OF SHIFT W/ SPO2 > 90% ON AIRVO @ 60L, FIO2 65%. PT WEARING BIPAP X2 THIS SHIFT, FOR ONLY A FEW MINUTES EACH TIME W/ PT QUICKLY REQUESTING BIPAP REMOVAL AFTER APPLICATION. DIALYSIS CATH TO R UPPER CHEST. LEE CATH PATENT AND DRAINING YELLOW URINE. WILL CONTINUE TO MONITOR AND PROVIDE CARE UNTIL REPORT OFF TO DAY SHIFT RN.
--- NOTE | 2019-12-05 07:30 | NUR ---
AM ASSESSMENT: Pt resting in bed, on airvo at 64% fio2. Biox 88%. Pt denies pain. Plan for dialysis today around 12. Pt seems drowsy at this time. Denies other needs. Call light in reach. Will monitor.
--- NOTE | 2019-12-05 14:42 | NUR ---
Report given to brian Phelps and care transfered.
--- NOTE | 2019-12-05 15:12 | NUR ---
ASSUMED CARE AT THIS TIME, REPORT FROM RENE. DIALYSIS CURRENTLY IN ROOM. RESTING IN BED SLEEPING WITH AIRVO ON. NO ACUTE DISTRESS. WILL CONTINUE TO MONITOR.
--- NOTE | 2019-12-05 17:34 | NUR ---
SHIFT SUMMARY: REMAINED ON AIRVO THROUGHOUT AFTER NOON WITH 60L AND 63%. ALERT AND ORIENTED. DIAYLISIS TODAY. VSS, NO ACUTE CHANGES. WILL CONTINUE TO MONITOR UNTIL SHIFT CHANGE.
--- NOTE | 2019-12-05 20:37 | NUR ---
ASSUMED CARE OF PATIENT AT APPROXIMATELY 1905 FROM KEON Quiroga RN. PATIENT ALERT AND ORIENTED TO SELF, AND LOCATION. PATIENT FLAT; SPEAKS SOFTELY. PATIENT DENIES PAIN, NUMBNESS, TINGLING, DIZZINESS AND NAUSEA. PATIENT REPORTS THE HOSPITAL NEEDS SOME FRESH AIR COMING THROUGH FROM OUTSIDE. BEDREST; TURNS SELF IN BED. MEDS 1 AT A TIME IN [facility]; ST PRECAUTIONS. AFLUTTER ON TELE; OXYGEN SATURATION ABOVE 90% ON 60LPM VIA AIRVO 68% FIO2. PIV S/L. PATIENT CURRENTLY RESTING IN BED; CALL LIGHT IN REACH; BED IN LOWEST POSISTION; BED ALARM ON; WILL CONTINUE TO MONITOR AND ASSESS UNTIL END OF SHIFT.
--- NOTE | 2019-12-06 05:17 | NUR ---
DR. CHAN BEDSIDE; STAT POTASSIUM AND H/H ORDERED.
[2019-12-06 05:38] LABS: Hematocrit 35.1 % (37.0-53.0); Hemoglobin 10.7 g/dL (13.5-17.5)
--- NOTE | 2019-12-06 06:01 | NUR ---
NO ACUTE CHANGES TO REPORT. PATIENT DID NOT WEAR BIPAP ALL NIGHT; WORE AIRVO; NEEDED TO BE ENCOURAGED TO BREATH THROUGH MOUTH AT TIMES. VSS. WILL CONTINUE TO MONITOR AND ASESS UNTIL END OF SHIFT.
--- NOTE | 2019-12-06 07:48 | NUR ---
[facility], REPORT FROM JANKI HERNANDEZ. RESTING SUPINE IN BED AT 30 DEGREE INCLINE. AIRVO IN PLACE AT 60L 68% FIO2. AWAKE AND ALERT. DENIES NEEDS AT THIS TIME.
--- NOTE | 2019-12-06 14:49 | NUR ---
O2 SATS DECREASING. PT STATES FEELS LIKE CANNOT CATCH BREATH. RT NOTIFIED. RT TO ROOM AND RESTARTED ON BIPAP. 50% O2, 13/03, RATE OF 10.
--- NOTE | 2019-12-06 15:26 | NUR ---
REQUESTS TO REMOVE BIPAP. PLACED ON AIRVO AT 60L 81% FIO2.
--- NOTE | 2019-12-06 17:40 | NUR ---
SHIFT SUMMARY: REMAINS ON AIRVO THROUGHOUT DAY. FIO2 INCREASED TO 81% BY RT. REMAINS ON 60L. AWAKE AND COOPERATIVE MOST OF DAY. EPISODE OF SOB IN MID AFTERNOON WITH SAT OF 85%, REQUESTED BIPAP. PLACED ON BIPAP FOR APPROX 30MINS. SAT INCREASED TO 96% WITH WORK OF BREATHING DECREASED. DR. PIEDRA EVALUATED AND CHEST XRAY ORDERED. WILL CONTINUE TO MONITOR. DECLINES BED BATH TODAY OR LINEN CHANGE. MEALS SUPERVISED WITH NO SWALLOWING PROBLEMS.
--- NOTE | 2019-12-06 20:47 | NUR ---
ASSUMED CARE OF PATIENT AT APPROXIMATELY 1905 FROM KEON Quiroga RN. PATIENT ALERT AND ORIENTED TO SELF, AND LOCATION. PATIENT FLAT; SPEAKS SOFTELY; ABLE TO RECALL EVENTS FROM TODAY. PATIENT DENIES PAIN, NUMBNESS, TINGLING, DIZZINESS AND NAUSEA. BEDREST; TURNS SELF IN BED. MEDS 1 AT A TIME IN [facility]; ST PRECAUTIONS. AFLUTTER ON TELE; OXYGEN SATURATION ABOVE 90% ON 55LPM VIA AIRVO 70% FIO2. PIV S/L. PATIENT CURRENTLY RESTING IN BED; CALL LIGHT IN REACH; BED IN LOWEST POSISTION; BED ALARM ON; WILL CONTINUE TO MONITOR AND ASSESS UNTIL END OF SHIFT.
--- NOTE | 2019-12-06 21:37 | NUR ---
UPDATED PHOTOGRAPHER PORTRAIT ALFRED ABOUT HR BEING 120'S AFLUTTER SINCE 8 AM; NO NEW ORDERS
--- NOTE | 2019-12-06 21:40 | NUR ---
NO INTERVENTIONS; PATIENT HEART RATE AVERAGING AFLUTTER IN THE 70'S.
[2019-12-07 04:07] LABS: Hematocrit 35.3 % (37.0-53.0); Hemoglobin 10.8 g/dL (13.5-17.5)
[2019-12-07 04:24] LABS: Anion Gap 10 mmol/L (6-16); Blood Urea Nitrogen 72 mg/dL (8-24); Bun/Creatinine Ratio 19.5 (12.0-20.0); CO2, Blood 27 mmol/L (21-32); Calcium, Blood 9.5 mg/dL (8.5-10.1); Chloride, Blood 97 mmol/L (98-108); Creatinine, Blood 3.69 mg/dL (0.60-1.20); Glomerular Filtration Rate 18 (60-); Glucose, Blood 217 mg/dL (70-99); Magnesium, Blood 2.4 mg/dL (1.6-2.4); Phosphorus, Blood 5.8 mg/dL (2.5-4.9); Potassium, Blood 5.5 mmol/L (3.5-5.5); Sodium, Blood 134 mmol/L (136-145)
--- NOTE | 2019-12-07 05:50 | NUR ---
PATIENT SLEPT ABOUT EIGHT HOURS LAST NIGHT. PATIENT WORE AIRVO FOR THE ENTIRE NIGHT; TITRATED DOWN TO 50LPM W/ 65% FIO2; DID NOT USE BIPAP LAST NIGHT. WILL CONTINUE TO MONITOR AND ASSESS UNTIL END OF SHIFT.
--- NOTE | 2019-12-07 07:19 | NUR ---
ASSUMED PATIENT CARE. PATIENT RESTING COMFORTABLY IN BED, NO SIGNS OF ACUTE DISTRESS. WCTM.
--- NOTE | 2019-12-07 09:10 | NUR ---
PATIENT TRANSFERRED TO DIALYSIS.
--- NOTE | 2019-12-07 18:18 | NUR ---
NO ACUTE EVENTS THIS SHIFT. PATIENT SPENT MINIMAL TIME ON BIPAP TODAY, ABOUT 1 HOUR AND WAS ABLE TO TOLERATE THIS WELL. HIGH FLOW HUMIDIFIED NASAL CANNULA ON REST OF SHIFT. VSS. PATIENT HAD DIALYSIS TODAY. CONTINUE TO ENCOURAGE TIME OFF BIPAP, CONTINUE TO MEET GOAL OF <10 HRS ON BIPAP AND AT 50% O2.
--- NOTE | 2019-12-07 19:16 | NUR ---
RELINQUISHED PATIENT CARE.
[2019-12-08 04:07] LABS: Hematocrit 34.4 % (37.0-53.0); Hemoglobin 10.6 g/dL (13.5-17.5)
[2019-12-08 04:31] LABS: Anion Gap 10 mmol/L (6-16); Blood Urea Nitrogen 56 mg/dL (8-24); Bun/Creatinine Ratio 18.4 (12.0-20.0); CO2, Blood 27 mmol/L (21-32); Calcium, Blood 9.4 mg/dL (8.5-10.1); Chloride, Blood 98 mmol/L (98-108); Creatinine, Blood 3.05 mg/dL (0.60-1.20); Glomerular Filtration Rate 22 (60-); Glucose, Blood 201 mg/dL (70-99); Magnesium, Blood 2.4 mg/dL (1.6-2.4); Phosphorus, Blood 6.2 mg/dL (2.5-4.9); Potassium, Blood 4.9 mmol/L (3.5-5.5); Sodium, Blood 135 mmol/L (136-145)
--- NOTE | 2019-12-08 05:28 | NUR ---
SHIFT SUMMARY PATIENT PLEASENT AND COOPERATIVE THROUGHOUT THE SHIFT. PATIENT HAS BEEN ON THE AIRVO THROUGHOUT THE WHOLE NIGHT AND HAS NOT REQUESTED THE BIPAP AT ALL TONIGHT. AIRVO SETTINGS AT 50 LPM AND 65% FIO2. CONTINUOUS BIOX IN PLACE. PATIENT HAS BEEN AWAKE MOST OF THE NIGHT BUT HAS APPEARED TO NAP ON AND OFF OCCATIONALLY. PATIENT CURRENTLY RESTING IN BED ATTEMPTING TO SLEEP. PATIENT DENIES ANY NEEDS AT THIS TIME. WILL CONTINUE TO MONITOR PATIENT AND REPORT TO LIZ SHEARER.
--- NOTE | 2019-12-08 18:57 | NUR ---
SHIFT SUMMARY PT A&Ox3; ANXIOUS BUT COOPERATIVE WITH CARE. PT RESTING IN BED DURING SHIFT. SPO2 DIPPING INTO 84-88 WHEN HIGH FLOW CANULA OUT OF NOSE; OTHERWISE >90% ON AIRVO 50L 62-65% FIO2 DURING SHIFT. PT LS DIMINISHED. PT REUSING TO COMPLETE ORAL CARE DURING SHIFT. PT REPORTS LEFT JAW PAIN; MEDICATED WITH TYLENOL x1 WITH POSITIBVE RESULTS. VSS. NO OTHER ACUTE CHANGES NOTED DURING SHIFT. REPORT GIVEN TO ONCOMING RN.
[2019-12-09 03:50] LABS: Hematocrit 34.2 % (37.0-53.0); Hemoglobin 10.6 g/dL (13.5-17.5)
[2019-12-09 04:05] LABS: Albumin, Blood 2.2 g/dL (3.4-5.0); Anion Gap 9 mmol/L (6-16); Blood Urea Nitrogen 81 mg/dL (8-24); Bun/Creatinine Ratio 22.3 (12.0-20.0); CO2, Blood 27 mmol/L (21-32); Calcium, Blood 9.8 mg/dL (8.5-10.1); Chloride, Blood 96 mmol/L (98-108); Creatinine, Blood 3.64 mg/dL (0.60-1.20); Glomerular Filtration Rate 18 (60-); Glucose, Blood 241 mg/dL (70-99); Magnesium, Blood 2.4 mg/dL (1.6-2.4); Phosphorus, Blood 6.2 mg/dL (2.5-4.9); Potassium, Blood 5.6 mmol/L (3.5-5.5); Sodium, Blood 132 mmol/L (136-145)
--- NOTE | 2019-12-09 04:57 | NUR ---
SHIFT SUMMARY NO ACUTE CHANGES NOTED THROUGH THE NIGHT. PT CONTINUES TO C/O LEFT JAW PAIN & STATES THAT IT "GET'S WORSE WHILE SWALLOWING". LEFT SIDE OF THE FACE APPEARS TO BE SWOLLEN, ICE PACK & NORCO GIVEN FOR PAIN. PT HAS BEEN ON HIGHFLO O2 @ 65% FIO2 MAJORITY OF THE NIGHT. PO INTAKE SUPERVISED. NO OTHER CHANGES NOTED. CALL LIGHT IN REACH.
--- NOTE | 2019-12-09 11:37 | NUR ---
PT CURRENTLY RECEIVING DIALYSIS TREATMENT
--- NOTE | 2019-12-09 14:42 | NUR ---
PT C/O PAIN ON LEFT LOWER JAW FACE SCALE 8/10, PT OFFERED NORCO AND TYLENOL AND WAS REFUSED PT STATED "I DONT WANT NORCO AND TYLENOL DOESN'T DO ANYTHING!" PT REQUESTED TO SEE THE DR, DR. DUMONT CALLED AND MADE AWARE, PROVIDER TO SEE PT SOON. PT HAS BEEN USING THE ICE PACK ON THE BEDSIDE TABLE, CURRENTLY RESTING IN BED CALL LIGHTS WITHIN REACH WILL MONITOR
[2019-12-09 15:32] LABS: BASOPHILS ABSOLUTE AUTO 0.05 K/mm3 (0.00-0.23); BASOPHILS PERCENT AUTO 0 % (0-2); EOSINOPHILS ABSOLUTE AUTO 0.23 K/mm3 (0.00-0.68); EOSINOPHILS PERCENT AUTO 2 % (0-6); Hematocrit 36.1 % (37.0-53.0); Hemoglobin 11.4 g/dL (13.5-17.5); IMMATURE GRAN ABSOLUTE AUTO 0.06 K/mm3 (0.00-0.10); IMMATURE GRAN PERCENT AUTO 1 % (0-1); LYMPHOCYTES ABSOLUTE AUTO 1.14 K/mm3 (0.84-5.20); LYMPHOCYTES PERCENT AUTO 10 % (21-46); MONOCYTES ABSOLUTE AUTO 0.56 K/mm3 (0.16-1.47); MONOCYTES PERCENT AUTO 5 % (4-13); Mean Corpuscular HGB 28.8 pg (26.0-34.0); Mean Corpuscular HGB Conc 31.6 g/dL (31.5-36.5); Mean Corpuscular Volume 91 fL (80-100); Mean Platelet Volume 9.5 fL (9.1-12.4); NEUTROPHILS ABSOLUTE AUTO 9.11 K/mm3 (1.96-9.15); NEUTROPHILS PERCENT AUTO 82 % (41-73); Platelet Count 291 K/mm3 (150-400); RDW Coefficient Variation 14.5 % (11.7-14.2); RDW Standard Deviation 48.6 fL (35.1-46.3); Red Blood Cell Count 3.96 M/mm3 (4.30-5.90); White Blood Cell Count 11.15 K/mm3 (4.00-11.30)
--- NOTE | 2019-12-09 15:37 | NUR ---
Spiritual care visit conducted. Patient immediately tells me that his jaw and neck hurt so he can not do much talking. He briefly speaks about his frustration about having medical issue, one after the other. I recite inspirational Bible verses according to patient's belief system and provide prayer. Patient responds well and shows signs of improved peace. Patient voices appreciation for the visit.
--- NOTE | 2019-12-09 16:43 | NUR ---
pt seen in dialysis. respirations labored but tolerating treatment. Review of care with dialysis staff. will again suggest team meeting for review of care.
--- NOTE | 2019-12-09 18:18 | NUR ---
SHIFT SUMMARY: PT HAD DIALYSIS TODAY, PT WAS ON AIRVO ALL DAY 65% FIO2, 25L OF O2, SATS ABOVE 94%. SOB WITH EXERTION, PT AMBULATED WITH THERAPY TODAY VIA WALKER, ABLE TO WALK FORM BED TO THE BATHROOM. PT C/O 8/10 PAIN ON THE LEFT JAW NEW ORDER FOR FENTANYL Q 4HRS RECEIVED, 25 MCG GIVEN AND WAS EFFECTIVE. ALSO PT TRIED WARM PAD AND SOME LEMON SWAB TO STIMULATE SALIVARY GLAND DUE TO BLOCKAGE. PT SITS UP ON THE SIDE OF THE BED FOR MEALS, STILL ON ASPIRATION PRECAUTION. PT CURRENTLY NOW RESTING IN BED CALL LIGHTS WITHIN REACH WILL MONITOR
--- NOTE | 2019-12-09 21:55 | NUR ---
ASSUMED CARE OF PATIENT AT APPROXIMATELY 1905 FROM CHRISTOS Quiroga RN. PATIENT ALERT AND ORIENTED TO SELF, AND LOCATION. PATIENT FLAT; SPEAKS SOFTELY; ABLE TO RECALL EVENTS FROM TODAY. PATIENT REPORTS PAIN IN HIS LEFT JAW "I AM SUPPOSE TO GET IV PAIN MEDICATION AT 2030"; PATIENT REPORTS JAW PAIN AT AN 8; REFUSES WARM COMPRESS. PATIENT DENIES NUMBNESS, TINGLING, DIZZINESS AND NAUSEA. BEDREST; TURNS SELF IN BED. MEDS [facility]. AFLUTTER ON TELE; OXYGEN SATURATION ABOVE 90% ON 50LPM VIA AIRVO 65% FIO2. PIV S/L. PATIENT CURRENTLY RESTING IN BED; CALL LIGHT IN REACH; BED IN LOWEST POSISTION; BED ALARM ON; WILL CONTINUE TO MONITOR AND ASSESS UNTIL END OF SHIFT.
--- NOTE | 2019-12-10 00:30 | NUR ---
PATIENT AGITATED AND CONFUSED; PULLING ON LEE CATHETER; PULLING AIRVO MASK OFF, PULSE OXIMETRY AND TELE MONITOR; BIPAP PLACED; PATIENT TRIED TO AMBULATE INDEPENDENTLY. MEDICATED PER EMAR FOR AGITATION. PATIENT AGREED THAT HE IS MORE AGITATED TONIGHT.
[2019-12-10 04:06] LABS: Hematocrit 33.9 % (37.0-53.0); Hemoglobin 10.8 g/dL (13.5-17.5)
[2019-12-10 04:21] LABS: Albumin, Blood 2.4 g/dL (3.4-5.0); Anion Gap 10 mmol/L (6-16); Blood Urea Nitrogen 63 mg/dL (8-24); Bun/Creatinine Ratio 20.2 (12.0-20.0); CO2, Blood 25 mmol/L (21-32); Calcium, Blood 9.8 mg/dL (8.5-10.1); Chloride, Blood 99 mmol/L (98-108); Creatinine, Blood 3.12 mg/dL (0.60-1.20); Glomerular Filtration Rate 21 (60-); Glucose, Blood 177 mg/dL (70-99); Magnesium, Blood 2.3 mg/dL (1.6-2.4); Phosphorus, Blood 4.3 mg/dL (2.5-4.9); Potassium, Blood 5.1 mmol/L (3.5-5.5); Sodium, Blood 134 mmol/L (136-145)
--- NOTE | 2019-12-10 06:08 | NUR ---
PATIENT SLEPT ABOUT FIVE HOURS; FOUR HOURS WITH BIPAP; PATIENT OXYGEN SATURATION WAS ABOVE 90% ON AIRVO ALL NIGHT BUT PATIENT WOULD ATTEMPT TO GRAB THE BIPAP MASK HIMSELF; FALL RISK; EDUCATED ON CALLING BEFORE ATTEMPTING TO GET OUT OF BED. DR. CHAN BEDSIDE; UPDATED ON PATIENT'S CONFUSION THROUGH THE NIGHT AND HEART RATE IN THE 120'S AT TIME AFLUTTER. NO DIALYSIS TODAY. WILL CONTINUE TO MONITOR AND ASSESS UNTIL END OF SHIFT.
[2019-12-10 15:08] LABS: BASOPHILS ABSOLUTE AUTO 0.05 K/mm3 (0.00-0.23); BASOPHILS PERCENT AUTO 0 % (0-2); EOSINOPHILS ABSOLUTE AUTO 0.15 K/mm3 (0.00-0.68); EOSINOPHILS PERCENT AUTO 1 % (0-6); Hematocrit 33.7 % (37.0-53.0); Hemoglobin 10.4 g/dL (13.5-17.5); IMMATURE GRAN ABSOLUTE AUTO 0.08 K/mm3 (0.00-0.10); IMMATURE GRAN PERCENT AUTO 1 % (0-1); LYMPHOCYTES PERCENT AUTO 10 % (21-46); MONOCYTES ABSOLUTE AUTO 0.75 K/mm3 (0.16-1.47); MONOCYTES PERCENT AUTO 5 % (4-13); Mean Corpuscular HGB 28.4 pg (26.0-34.0); Mean Corpuscular HGB Conc 30.9 g/dL (31.5-36.5); Mean Corpuscular Volume 92 fL (80-100); Mean Platelet Volume 9.6 fL (9.1-12.4); NEUTROPHILS PERCENT AUTO 83 % (41-73); Platelet Count 260 K/mm3 (150-400); RDW Coefficient Variation 14.7 % (11.7-14.2); RDW Standard Deviation 49.5 fL (35.1-46.3); Red Blood Cell Count 3.66 M/mm3 (4.30-5.90); White Blood Cell Count 14.73 K/mm3 (4.00-11.30)
--- NOTE | 2019-12-10 19:25 | NUR ---
SHIFT NOTE PT HAS REMAINED ON AIRVO T/O THE ENTIRE SHIFT. PT [facility]. PT ALERT, ANSWERS MOST QUESTIONS APPROPRIATELY. PT IRRITABLE WITH STAFF T/O THE DAY. VSS. RT HAS BEEN IN WITH PT NUMEROUS TIMES TODAY.
[2019-12-11 03:41] LABS: Hematocrit 32.9 % (37.0-53.0); Hemoglobin 10.3 g/dL (13.5-17.5)
[2019-12-11 04:02] LABS: Albumin, Blood 2.3 g/dL (3.4-5.0); Anion Gap 11 mmol/L (6-16); Blood Urea Nitrogen 73 mg/dL (8-24); Bun/Creatinine Ratio 20.1 (12.0-20.0); CO2, Blood 24 mmol/L (21-32); Calcium, Blood 9.8 mg/dL (8.5-10.1); Chloride, Blood 97 mmol/L (98-108); Creatinine, Blood 3.64 mg/dL (0.60-1.20); Glomerular Filtration Rate 18 (60-); Glucose, Blood 168 mg/dL (70-99); Magnesium, Blood 2.3 mg/dL (1.6-2.4); Phosphorus, Blood 5.1 mg/dL (2.5-4.9); Potassium, Blood 5.6 mmol/L (3.5-5.5); Sodium, Blood 132 mmol/L (136-145)
--- NOTE | 2019-12-11 05:51 | NUR ---
SHIFT SUMMARY PATIENT SLEPT OFF AND ON THROUGH NIGHT. VERY RESTLESS, HAD TO CONTINUOUSLY REMIND TO NOT TAKE OFF AIRVO, MONITORING EQUIPMENT. DID NOT PLACE ON BIPAP ALL NIGHT. NO OTHER CHANGES. ASSESSMENT IS CHARTED. VSS. NO C/O PAIN. WILL CONTINUE TO MONITOR.
[2019-12-11 06:32] LABS: BASOPHILS ABSOLUTE AUTO 0.05 K/mm3 (0.00-0.23); BASOPHILS PERCENT AUTO 0 % (0-2); EOSINOPHILS ABSOLUTE AUTO 0.03 K/mm3 (0.00-0.68); EOSINOPHILS PERCENT AUTO 0 % (0-6); Hematocrit 33.3 % (37.0-53.0); Hemoglobin 10.4 g/dL (13.5-17.5); IMMATURE GRAN ABSOLUTE AUTO 0.14 K/mm3 (0.00-0.10); IMMATURE GRAN PERCENT AUTO 1 % (0-1); LYMPHOCYTES ABSOLUTE AUTO 1.42 K/mm3 (0.84-5.20); LYMPHOCYTES PERCENT AUTO 7 % (21-46); MONOCYTES ABSOLUTE AUTO 0.87 K/mm3 (0.16-1.47); MONOCYTES PERCENT AUTO 5 % (4-13); Mean Corpuscular HGB 28.5 pg (26.0-34.0); Mean Corpuscular HGB Conc 31.2 g/dL (31.5-36.5); Mean Corpuscular Volume 91 fL (80-100); NEUTROPHILS ABSOLUTE AUTO 16.59 K/mm3 (1.96-9.15); NEUTROPHILS PERCENT AUTO 87 % (41-73); Platelet Count 278 K/mm3 (150-400); RDW Coefficient Variation 14.6 % (11.7-14.2); RDW Standard Deviation 48.9 fL (35.1-46.3); Red Blood Cell Count 3.65 M/mm3 (4.30-5.90)
--- NOTE | 2019-12-11 14:55 | NUR ---
review of pt changes with staff. pt pps score is 30%.
--- NOTE | 2019-12-11 18:00 | NUR ---
PCU DAYSHIFT SUMMARY PATIENT REMAINS ALERT AND ORIENTED TO SELF - VERY SELF FOCUSED IN MENTATION AND CARE. REMINDED PATIENT TO USE CALL LIGHT DUE TO INCREASED WEAKNESS AND DECONDITIONING NOTED. PATIENT HAS PERMA CATH IN RIGHT UPPER CHEST FOR DIALYSIS. DIALYSIS COMPLETED TODAY. PATIENT REMAINED IN AFLUTTER T/O SHIFT WITH RATE 90-120'S. VSS. PATIENT REMAINED ON AIRVO T/O SHIFT WITH FIO2 AT 65%; LARGE AMOUNT OF THRUSH NOTED IN PATIENTS MOUTH - NEW ORDERS GIVEN FOR ORAL NYSTATIN. PATIENTS LEFT CHECK/FACE REMAINS SWOLLEN AND RED - MD VERDUZCO CONSULTED - SUGGESTED WARM COMPRESSES AND MASSAGING OF AREA. PATIENT ASSISTED TO BEDSIDE COMMODE WITH 1 ASSIST X2 THIS SHIFT - NO BOWEL MOVEMENT NOTED. PATIENT DROWSY T/O SHIFT - SLEEPING MAJORITY OF SHIFT AND REFUSED TO EAT LUNCH AND DINNER. PATIENT ENCOURAGED TO EAT, PROVIDE SELFCARE AND EXERCISE IN BED. NO ACUTE CHANGES NOTED T/O SHIFT. WILL CONTINUE TO MONITOR AND REPORT TO NOC SHIFT RN.
[2019-12-12 04:39] LABS: Hematocrit 33.3 % (37.0-53.0); Hemoglobin 10.4 g/dL (13.5-17.5)
[2019-12-12 04:58] LABS: Albumin, Blood 2.2 g/dL (3.4-5.0); Anion Gap 9 mmol/L (6-16); Blood Urea Nitrogen 51 mg/dL (8-24); Bun/Creatinine Ratio 16.5 (12.0-20.0); CO2, Blood 29 mmol/L (21-32); Calcium, Blood 9.7 mg/dL (8.5-10.1); Chloride, Blood 99 mmol/L (98-108); Creatinine, Blood 3.09 mg/dL (0.60-1.20); Glomerular Filtration Rate 22 (60-); Glucose, Blood 204 mg/dL (70-99); Magnesium, Blood 2.3 mg/dL (1.6-2.4); Phosphorus, Blood 5.2 mg/dL (2.5-4.9); Potassium, Blood 4.4 mmol/L (3.5-5.5); Sodium, Blood 137 mmol/L (136-145)
--- NOTE | 2019-12-12 06:12 | NUR ---
SHIFT SUMMARY PT ALERT & ORIENTED TO SELF; VSS; DENIES CHEST PAIN; O2 SATS >92 ON AIRVO; AIRVO TITRATED TO 50% PER RT; PT REMAINED ON AIRVO ENTIRE SHIFT; PT ENCOURAGED TO SNACK AND DRINK; PT GIVEN APPLESAUCE, JELLO & ENSURE CLEAR; PO MEDS GIVEN IN APPLESAUCE W/ NO DIFFICULTY; PT SLEPT SEVERAL HOURS; CALL LIGHT IN REACH; BED IN LOWEST POSITION; WILL CONTINUE TO MONITOR CLOSELY UNTIL HAND OFF TO DAY SHIFT RN.
--- NOTE | 2019-12-12 08:04 | NUR ---
DAYSHIFT - AM ASSESSMENT PATIENT ALERT AND ORIENTED TO SELF AND LOCATION. EDUCATED ON RESPIRTORY STATUS AND DECONDITIONING - PATIENT REFUSED TO STAND AND TRANSFER TO CHAIR FOR BREAKFAST - ENCOURAGED PATIENT - PATIENT BECAME ANGRY. PATIENT NOW SITTING UP AT 90 DEGREES WITH SUPERVISION FOR BREAKFAST. BEDALARM ON AND CALL LIGHT W/I REACH. WILL CONTINUE TO MONITOR, EDUCATE AND ENCOURAGE MOBILITY.
[2019-12-12 08:10] LABS: HBSAG SCREEN Negative (Negative); HEP A AB, IGM Negative (Negative); HEP B CORE AB, IGM Negative (Negative); HEP C VIRUS AB <0.1 (0.0-0.9)
--- NOTE | 2019-12-12 17:25 | NUR ---
PCU DAYSHIFT SUMMARY PATIENT ALERT AND ORIENTED TO SELF, LOCATION, TIME/DATE AND SITUATION. PATIENT REPORTS ONGOING PAIN TO LEFT CHEEK AND NECK DUE TO 'CLOGGED' SALVITORY GLAND - RELIEVED WITH TYLENOL. PATIENT IS RESTFUL WHEN THEIR IS NO STIMULATION AND SLEPT MAJORITY OF DAY. PATIENT REFUSED ADL'S MAJORITY OF DAY - WHEN ENCOURAGED THERIPUTICALLY PATIENT CALLED THIS RN AND OTHER STAFF MEMBERS 'SATIN' AND STATED WE WOULD ALL 'BURN FOR ETERNITY'. PATIENT EDUCATED NOT TO SPEAK TO STAFF IN THAT MANOR BUT WAS NOT DIRECTABLE. PATIENT REMAINED IN A FLUTTER T/O SHIFT WITH RATE DOWN IN THE 70'S FROM THE 130'S THIS SHIFT WITH CHANGE OF HOLDING PERAMETERS IN EMAR ON METOPROLOL. PATIENT IS SLEEPING NOW WITH AIRVO IN PLACE - AIRVO TITRATED DOWN TO 60 LPM WITH FIO2 OF 50%. PATIENT DID NOT USE BIPAP T/O SHIFT. WILL CONTINUE TO MONITOR AND REPORT TO NOC SHIFT RN. CALL LIGHT W/I REACH AND BED ALARM ON.
--- NOTE | 2019-12-13 02:40 | NUR ---
SHIFT SUMMARY PT ALERT & ORIENTED TO SELF; PT WAS PARANOID AND AGITATED FIRST HALF OF SHIFT; CALLING OUT; CALLED STAFF "SATAN"; VSS; DENIES CHEST PAIN; O2 SATS >92 ON AIRVO; RT AT BEDSIDE FOR TITRATION; FIO2 CURRENTLY @ 45; PO MEDS GIVEN IN APPLESAUCE W/OUT DIFFICULTY; FENTANYL GIVEN 1X FOR PAIN; PT C/O OF JAW PAIN 8 OF 10; HOT COMPRESS BROUGHT TO PT; PT ENCOURAGED TO MASSAGE L JAW; PO FLUIDS ENCOURAGED; LEE DRAINING DK RIDDHI; PT EDUCATED TO USE CALL LIGHT FOR NEEDS; CALL LIGHT IN REACH; BED IN LOWEST POSITION; BED ALARM ON; HAND OFF GIVEN TO NOC RN.
--- NOTE | 2019-12-13 03:19 | NUR ---
ASSUMPTION OF CARE CARE ASSUMED OF PATIENT AT THIS TIME. WILL CONTINUE TO MONTIOR.
[2019-12-13 05:39] LABS: Hematocrit 30.1 % (37.0-53.0); Hemoglobin 9.3 g/dL (13.5-17.5); Mean Corpuscular HGB 28.6 pg (26.0-34.0); Mean Corpuscular HGB Conc 30.9 g/dL (31.5-36.5); Mean Corpuscular Volume 93 fL (80-100); Mean Platelet Volume 9.8 fL (9.1-12.4); Platelet Count 248 K/mm3 (150-400); RDW Coefficient Variation 14.9 % (11.7-14.2); RDW Standard Deviation 50.8 fL (35.1-46.3); Red Blood Cell Count 3.25 M/mm3 (4.30-5.90)
--- NOTE | 2019-12-13 05:42 | NUR ---
UPDATE PATIENT RESTING IN BED AT THIS TIME. HOWEVER, PATIENT CURRENTLY AGITATED AND YELLING OUT ABOUT THE RAPTURE AND ABOUT READING THE SYBIL BONNIE VERSION OF THE BIBLE. PATIENT HAS REMAINED ON THE AIRVO, WHICH NEEDED TO BE TITRATED UP TO 50% FIO2 AT THIS TIME TO MAINTAIN O2 SATURATION. CALL LIGHT WITHIN REACH, WILL CONTINUE TO MONITOR PATIENT AND REPORT TO ONCOMING RN.
[2019-12-13 05:51] LABS: Anion Gap 10 mmol/L (6-16); Blood Urea Nitrogen 79 mg/dL (8-24); Bun/Creatinine Ratio 19.8 (12.0-20.0); CO2, Blood 27 mmol/L (21-32); Calcium, Blood 9.5 mg/dL (8.5-10.1); Chloride, Blood 98 mmol/L (98-108); Glomerular Filtration Rate 16 (60-); Glucose, Blood 203 mg/dL (70-99); Magnesium, Blood 2.6 mg/dL (1.6-2.4); Sodium, Blood 135 mmol/L (136-145)
--- NOTE | 2019-12-13 10:58 | NUR ---
OXYGEN REQUIREMENTS GREATLY DECREASE PATIENT NOW TOLERATING OXYMIZER AT 8 LPM - NOTIFIED RESPIRTORY THERAPIST SAULO Quiroga SPO2 98%.
--- NOTE | 2019-12-13 17:26 | NUR ---
PCU DAYSHIFT SUMMARY PATIENT REMAINS ALERT AND ORIENTED TO SELF, LOCATION AND TIME/DATE. PATIENT MORE COOPERATIVE WITH CARE THIS SHIFT THAN NOTED YESTERDAY. RESPIRTORY STATUS IMPROVED WITH OXYGEN NEEDS DECREASED TO OXYMIZER 7 LPM. PATIENT REMAINS IN A FLUTTER IN THE 70'S - NO ACUTE CHANGES NOTED. DIALYSIS TODAY WITH 1 LITER REMOVED. CALL LIGHT W/I REACH. VSS.
[2019-12-14 04:53] LABS: Hematocrit 30.5 % (37.0-53.0); Hemoglobin 9.2 g/dL (13.5-17.5)
[2019-12-14 05:09] LABS: Anion Gap 9 mmol/L (6-16); Blood Urea Nitrogen 60 mg/dL (8-24); Bun/Creatinine Ratio 18.2 (12.0-20.0); CO2, Blood 28 mmol/L (21-32); Calcium, Blood 9.3 mg/dL (8.5-10.1); Chloride, Blood 100 mmol/L (98-108); Glomerular Filtration Rate 20 (60-); Glucose, Blood 119 mg/dL (70-99); Magnesium, Blood 2.5 mg/dL (1.6-2.4); Phosphorus, Blood 6.4 mg/dL (2.5-4.9); Potassium, Blood 4.9 mmol/L (3.5-5.5); Sodium, Blood 137 mmol/L (136-145)
--- NOTE | 2019-12-14 05:43 | NUR ---
SHIFT SUMMARY PT ALERT & ORIENTED TO SELF; VSS; DENIES CHEST PAIN; O2 SATS >93 ON 7L OXYMIZER; PT SLEPT SEVERAL HOURS MAINTAINING OXYMIZER T/O SHIFT; NO ACUTE CHANGES NOTED; LABS DRAWN FROM PICC; DRAWS & FLUSHES APPROPRIATELY; CALL LIGHT IN REACH; BED IN LOWEST POSITION; WILL CONTINUE TO MONITOR CLOSELY UNTIL HAND OFF TO DAY SHIFT RN.
--- NOTE | 2019-12-14 17:45 | NUR ---
SHIFT SUMMARY: A/A/OX4 THROUGHOUT SHIFT. REMAINS ON 7L O2 VIA OXYMIZER. LEE IN PLACE DRAINING CLEAR YELLOW URINE. VSS DURING SHIFT. NO ACUTE CHANGES. WILL CONTINUE TO MONITOR UNTIL SHIFT CHANGE.
--- NOTE | 2019-12-15 02:01 | NUR ---
ASSUMED CARE AT 1900. EASILY AGGITATED ALL EVENING.CONSTANTLY CRITICAL IN ALL STATEMENTS AND CONSTANT REQ TO EAT . NO ACUTE PAIN REPORTED. OXIMIZER RANGES FROM 8-11 L. A FLUTTER AT 60-90 RANGE. SUPERVISED EATING NO SKIN BREAK DOWN NOTED. REPORTS HE WILL TURN HIMSELF AND NO NEED FOE STAFF TO TURN HIM THRU NOC.
[2019-12-15 04:16] LABS: Hematocrit 31.5 % (37.0-53.0); Hemoglobin 9.7 g/dL (13.5-17.5)
[2019-12-15 04:32] LABS: Albumin, Blood 2.1 g/dL (3.4-5.0); Anion Gap 9 mmol/L (6-16); Blood Urea Nitrogen 69 mg/dL (8-24); Bun/Creatinine Ratio 17.5 (12.0-20.0); CO2, Blood 28 mmol/L (21-32); Calcium, Blood 9.4 mg/dL (8.5-10.1); Chloride, Blood 98 mmol/L (98-108); Creatinine, Blood 3.94 mg/dL (0.60-1.20); Glomerular Filtration Rate 16 (60-); Glucose, Blood 265 mg/dL (70-99); Magnesium, Blood 2.7 mg/dL (1.6-2.4); Phosphorus, Blood 6.3 mg/dL (2.5-4.9); Potassium, Blood 5.5 mmol/L (3.5-5.5); Sodium, Blood 135 mmol/L (136-145)
--- NOTE | 2019-12-15 06:37 | NUR ---
SHIFT SUMMARY SLEPT AT SHORT INTERVALS AND WNL SAT WHEN OXIMIZER LEFT AT 9 L. DEMANDS ROOT BEER AND UNABLE TO GET SUGAR FREE. AWARE HIS CBG WILL BE HIGH HE EATS ALL NOC AND SOME FOOOD ITEMS NOT SUGAR FREE. DR CHAN HERE. PAIN AT LT JAW MEDICATED AT 0400 AND PAIN FREE NOW. AWAKE MOST OF NOC..
[2019-12-15] MEDS ORDERED: ALBU2.5V5 INH (12:27)
[2019-12-15] MEDS ORDERED: Aranesp40 MCG/11 SC (12:31)
[2019-12-15] MEDS ORDERED: LANOXIN125 MCG PO (12:32)
[2019-12-15] MEDS ORDERED: DOCU100 PO (12:32)
[2019-12-15] MEDS ORDERED: AIRDUO RESPICL1 EAC2 INH (12:33)
[2019-12-15] MEDS ORDERED: Norco 5-325 Ta1 EACH PO (12:38)
[2019-12-15] MEDS ORDERED: Humalog Mi100 UNIT/4 SC (12:43)
[2019-12-15] MEDS ORDERED: Duoneb 2.5-0.5 M3 ML INH (12:44)
[2019-12-15] MEDS ORDERED: METO100ER PO (12:45)
[2019-12-15] MEDS ORDERED: MIDO5 PO (12:47)
[2019-12-15] MEDS ORDERED: Pedi-Dri 100,0060 GM TOP (12:48)
[2019-12-15] MEDS ORDERED: NYST100000 PO (12:51)
[2019-12-15] MEDS ORDERED: OLAN5 PO (12:53)
[2019-12-15] MEDS ORDERED: OLAN5A MM (12:54)
[2019-12-15] MEDS ORDERED: MIRALAX17 GM PO (12:55)
[2019-12-15] MEDS ORDERED: PANT40 PO (12:55)
[2019-12-15] MEDS ORDERED: SENN187 PO (12:56)
[2019-12-15] MEDS ORDERED: SEVEC800 PO (12:56)
[2019-12-15] MEDS ORDERED: Florastor250 MG PO (12:59)
[2019-12-15] MEDS ORDERED: AMOCLA875 PO (13:00)
--- NOTE | 2019-12-15 16:24 | NUR ---
PCU DISCHARGE/TRANSFER SUMMARY PATIENT ALERT AND ORIENTED TO SELF, LOCATION AND SITUATION. PATIENT HAS PICC LINE SINGLE LUMEN IN PLACE IN L UPPER ARM - SITE SECURED AND REENFORCED PRIOR TO TRANSFER FROM [facility] TO [facility]. MEDIPORT IN RIGHT UPPER CHEST ALSO SECURED AND REINFORCED PRIOR TO TRANSFER. LEE CATH LEFT IN PLACE DUE TO CHRONIC RETENTION. PATIENT REMAINED ON OXYMIZER AT 7 LPM NC SATURATION AT 95%. DIALYSIS THIS SHIFT REMOVING 2 LITERS. NO ACUTE CHANGES. VSS. PATIENT IN NO ACUTE DISTRESS. EDUCATED TO TRANSFER COORDINATION PER MANAGER OF SALESNADEGE. PATIENT LEFT UNIT VIA GURNEY WITH EMS TO [facility] IN [place]. REPORT CALLED TO BRAIN CARCAMO AT [facility].
== END 2019-12-15 14:49 | DRG 207 ==
LOC: ER 18:50 → PCU 18:51 → ICUW 22:49 → PCU 22:49 → ICUW 10-20 13:49 → PCU 11-06 17:54 → ICUE 11-25 15:47 → PCU 11-27 00:01
PROVIDERS: Emergency Medicine; Internal Medicine; Internal Medicine Critical Care Medicine; Internal Medicine Nephrology; Internal Medicine Pulmonary Disease; Pharmacist; ADMIT Internal Medicine
PROC: 02HV33Z Insertion of Infusion Device into Superior Vena Cava, Percutaneous Approach (ICD-10-PCS; 2019-10-20)
PROC: 0JH63XZ Insertion of Tunneled Vascular Access Device into Chest Subcutaneous Tissue and Fascia, Percutaneous Approach (ICD-10-PCS; 2019-10-20)
PROC: 02HV33Z Insertion of Infusion Device into Superior Vena Cava, Percutaneous Approach (ICD-10-PCS; 2019-10-20)
PROC: 5A1D70Z Performance of Urinary Filtration, Intermittent, Less than 6 Hours Per Day (ICD-10-PCS; 2019-10-20)
PROC: 5A1D70Z Performance of Urinary Filtration, Intermittent, Less than 6 Hours Per Day (ICD-10-PCS; 2019-10-24)
PROC: 5A09557 Assistance with Respiratory Ventilation, Greater than 96 Consecutive Hours, Continuous Positive Airway Pressure (ICD-10-PCS; principal; 2019-10-27)
PROC: 5A1955Z Respiratory Ventilation, Greater than 96 Consecutive Hours (ICD-10-PCS; 2019-10-27)
PROC: 0BH17EZ Insertion of Endotracheal Airway into Trachea, Via Natural or Artificial Opening (ICD-10-PCS; 2019-10-27)
PROC: 0W993ZX Drainage of Right Pleural Cavity, Percutaneous Approach, Diagnostic (ICD-10-PCS; 2019-10-28)
PROC: 0W9B30Z Drainage of Left Pleural Cavity with Drainage Device, Percutaneous Approach (ICD-10-PCS; 2019-10-29)
PROC: 5A1D70Z Performance of Urinary Filtration, Intermittent, Less than 6 Hours Per Day (ICD-10-PCS; 2019-10-29)
PROC: 5A1D70Z Performance of Urinary Filtration, Intermittent, Less than 6 Hours Per Day (ICD-10-PCS; 2019-11-02)
PROC: 5A1D70Z Performance of Urinary Filtration, Intermittent, Less than 6 Hours Per Day (ICD-10-PCS; 2019-11-06)
DX: J18.9 Pneumonia, unspecified organism (principal); J96.01 Acute respiratory failure with hypoxia; I50.43 Acute on chronic combined systolic (congestive) and diastolic (congestive) heart failure; N18.6 End stage renal disease; I13.0 Hypertensive heart and chronic kidney disease with heart failure and stage 1 through stage 4 chronic kidney disease, or unspecified chronic kidney disease; N18.4 Chronic kidney disease, stage 4 (severe); N17.9 Acute kidney failure, unspecified; J90 Pleural effusion, not elsewhere classified; I48.20 Chronic atrial fibrillation, unspecified; J44.0 Chronic obstructive pulmonary disease with (acute) lower respiratory infection; J44.1 Chronic obstructive pulmonary disease with (acute) exacerbation; I13.2 Hypertensive heart and chronic kidney disease with heart failure and with stage 5 chronic kidney disease, or end stage renal disease; E11.22 Type 2 diabetes mellitus with diabetic chronic kidney disease; D63.1 Anemia in chronic kidney disease; Z79.01 Long term (current) use of anticoagulants; F31.9 Bipolar disorder, unspecified; R13.11 Dysphagia, oral phase; F20.9 Schizophrenia, unspecified; E11.40 Type 2 diabetes mellitus with diabetic neuropathy, unspecified
CPT/HCPCS: 0099U; 31500; 31720; 32554; 32555; 36415; 36430; 36556; 36558; 36569; 36600; 51701; 51702; 51703; 71045; 71046; 71250; 76770; 80048; 80053; 80069; 80074; 80162; 80202; 81001; 81050; 82042; 82728; 82784; 82803; 82945; 82947; 83036; 83516; 83520; 83540; 83550; 83605; 83615; 83690; 83735; 83880; 83986; 84100; 84132; 84145; 84156; 84157; 84165; 84300; 84484; 84550; 85014; 85018; 85025; 85027; 85045; 85049; 85610; 85651; 85730; 86038; 86256; 86301; 86317; 86334; 86850; 86900; 86901; 86923; 87015; 87040; 87070; 87077; 87081; 87086; 87102; 87116; 87147; 87186; 87205; 87206; 88108; 88305; 89051; 92526; 92610; 93005; 93010; 93306; 94002; 94003; 94640; 94660; 94664; 94762; 96365; 96366; 96375; 96376; 97110; 97112; 97116; 97162; 97166; 97530; 97535; 99152; 99153; 99285-25; A9270; A9270-GY; C1750; C1751; C1752; C1769; C1894; C9113; G0103; J0282; J0456; J0610; J0692; J0696; J0881; J1160; J1644; J1650; J1815; J1956; J2250; J2543; J2704; J2930; J3010; J3370; J7030; J7040; J7042; J7050; J7060; J7799; P9016; P9046; U0002

== ENCOUNTER 2020-04-29 05:37 | Inpatient (IN) | payer OTHER ==
[~2020-04-29] VITALS: Ht 180.3 cm; Wt 85.8 kg
[~2020-04-29 05:37] MED LIST changes: +AIRDUO RESPICL1 EAC2 INH; +ALBU2.5V5 INH; +AMOCLA875 PO; +Aranesp40 MCG/11 SC; +DOCU100 PO; +Duoneb 2.5-0.5 M3 ML INH; +Florastor250 MG PO; +Humalog Mi100 UNIT/4 SC; +LANOXIN125 MCG PO; +METO100ER PO; +MIDO5 PO; +MIRALAX17 GM PO; +NYST100000 PO; +Norco 5-325 Ta1 EACH PO; +OLAN5 PO; +OLAN5A MM; +PANT40 PO; +Pedi-Dri 100,0060 GM TOP; +SENN187 PO; +SEVEC800 PO
[2020-04-29 06:09] LABS: PCO2 Arterial 30.6 mmHg (35-45); PO2 Arterial 81.1 mmHg (80-100); pH Blood Arterial 6.93 (7.35-7.45)
[2020-04-29 06:15] LABS: BASOPHILS ABSOLUTE AUTO 0.03 K/mm3 (0.00-0.23); BASOPHILS PERCENT AUTO 0 % (0-2); EOSINOPHILS ABSOLUTE AUTO 0.04 K/mm3 (0.00-0.68); EOSINOPHILS PERCENT AUTO 0 % (0-6); Hemoglobin 8.2 g/dL (13.5-17.5); IMMATURE GRAN ABSOLUTE AUTO 0.53 K/mm3 (0.00-0.10); IMMATURE GRAN PERCENT AUTO 4 % (0-1); LYMPHOCYTES ABSOLUTE AUTO 1.28 K/mm3 (0.84-5.20); LYMPHOCYTES PERCENT AUTO 9 % (21-46); MONOCYTES ABSOLUTE AUTO 0.73 K/mm3 (0.16-1.47); MONOCYTES PERCENT AUTO 5 % (4-13); Mean Corpuscular HGB 30.1 pg (26.0-34.0); Mean Corpuscular HGB Conc 31.5 g/dL (31.5-36.5); Mean Corpuscular Volume 96 fL (80-100); Mean Platelet Volume 9.3 fL (9.1-12.4); NEUTROPHILS ABSOLUTE AUTO 12.49 K/mm3 (1.96-9.15); NEUTROPHILS PERCENT AUTO 83 % (41-73); Platelet Count 273 K/mm3 (150-400); RDW Coefficient Variation 15.6 % (11.7-14.2); RDW Standard Deviation 54.8 fL (35.1-46.3); Red Blood Cell Count 2.72 M/mm3 (4.30-5.90)
[2020-04-29 06:48] LABS: Troponin I 0.033 ng/mL (0.000-0.040)
[2020-04-29 06:57] LABS: Alanine Aminotransfer (ALT/SGP 38 U/L (12-78); Albumin, Blood 3.3 g/dL (3.4-5.0); Albumin/Globulin Ratio 0.7 (0.8-1.8); Alk Phos 269 U/L (50-136); Anion Gap 17 mmol/L (6-16); Aspartate Aminotrans (AST/SGOT 15 U/L (12-37); Bilirubin, Total 0.4 mg/dL (0.1-1.0); Blood Urea Nitrogen 140 mg/dL (8-24); Bun/Creatinine Ratio 14.1 (12.0-20.0); CO2, Blood 8 mmol/L (21-32); Calcium, Blood 10.1 mg/dL (8.5-10.1); Chloride, Blood 109 mmol/L (98-108); Creatinine, Blood 9.93 mg/dL (0.60-1.20); Globulin, Blood 4.5 g/dL (2.2-4.0); Glomerular Filtration Rate 6 (60-); Glucose, Blood 134 mg/dL (70-99); Potassium, Blood 5.9 mmol/L (3.5-5.5); Sodium, Blood 134 mmol/L (136-145); Total Protein, Blood 7.8 g/dL (6.4-8.2)
[2020-04-29 09:15] LABS: Source, Urine Catheter
[2020-04-29 09:17] LABS: Bilirubin, Urine Neg (Neg); Blood, Urine Neg (Neg); Glucose Qualitative, Urine 2+ (Neg); Ketones, Urine Neg (Neg); Leukocyte Esterase, Urine Neg (Neg); Nitrite, Urine Neg (Neg); Protein, Urine 3+ (Neg); Specific Gravity, Urine 1.015 (1.003-1.022); Urobilinogen, Urine NORM (Normal)
[2020-04-29 09:27] LABS: International Normalized Ratio 1.2; Prothrombin Time Results 12.7 Sec (9.7-11.5)
[2020-04-29 09:32] LABS: Appearance, Urine Clear (Clear); Bacteria Not Seen /hpf; Color, Urine Yellow (P-Yellow); Red Blood Cells, Urine Not Seen /hpf (0-2); Squamous Epithelial Cells Not Seen /hpf (Few); White Blood Cells, Urine Not Seen /hpf (0-5)
--- NOTE | 2020-04-29 10:35 | NUR ---
PT ADMITTED TO ICU FROM ER AT 0844 FOR ANALI ON CKD. PT ARRIVES ON 7L O2 VIA NC. PT A&OX 3. IRRITABLE BUT ABLE TO ANSWER QUESTIONS APPROPRIATELY. DENIES NEEDS. SPEAKING IN FULL SENTANCES. LUNGS DIMINISHED IN BASES. PT P/W/D. DENIES HOME O2 USE. O2 SATS >90%. PT HAS PERMACATH TO RIGHT CHEST. PT STATES LAST DIALYSIS IN NOVEMBER. PT STATES HE MAKES URINE, BLADDER SCAN >800. LEE CATH PLACED, CLEAR YELLOW URINE OUT, SENT TO LAB. COVID AND MRSA CLEARANCE SWABS SENT TO LAB. ABD ROUND, SOFT, NON TENDER. BT X 4. ST ON MONITOR, RATE 110'S. BP STABLE. PENDING DIALYSIS AND PARACENTESIS. WILL CONTINUE TO MONITOR.
[2020-04-29 14:54] LABS: U Amphetamine Screen Not Detected; U Barbituate Screen Not Detected; U Benzodiazapine Screen Not Detected; U Cocaine Screen Not Detected; U Methadone Screen Not Detected; U Methamphetamine Screen Not Detected
[2020-04-29 14:55] LABS: U Buprenorphine Screen Not Detected; U Cannabinoids Screen Not Detected; U Opiates Screen Not Detected; U Oxycodone Screen Not Detected; U Phencyclidine Screen Not Detected; U Propoxyphene Screen Not Detected
[2020-04-29 15:58] LABS: Bun/Creatinine Ratio 13.8 (12.0-20.0); Calcium, Blood 9.1 mg/dL (8.5-10.1); Creatinine, Blood 5.96 mg/dL (0.60-1.20); Potassium, Blood 3.4 mmol/L (3.5-5.5)
--- NOTE | 2020-04-29 16:59 | NUR ---
SHIFT SUMMARY PT ADMITTED TO ICU THIS SHIFT. DIALYSIS COMPLETE AND THORACENTESIS COMPLETED THIS SHIFT. PT STATUS CHANGED TO MED c TELE. PT OCCASIONALLY IMPULSIVE, IRRITABLE, NEEDING REDIRECTION. TWO PERSON ASSIST TO BSC. BP STABLE, ST 120-130'S. PT ON 5L VIA NC. LEE PATENT, DRAINING TO GRAVITY. WILL CONTINUE TO MONITOR UNTIL REPORT TO ONCOMING NURSE.
--- NOTE | 2020-04-29 20:00 | NUR ---
ASSUMED CARE OF PT AT 1915. REPORT RECEIVED. PT PRESENTS IN BED MILDLY ANXIOUS. HAS SOME TREMOROUS MOVEMENTS. PT STATES THAT HE IS FEELING COLD. NOTED HEART RATE REMAINS SINUS TACH WITH RATES REMAINING IN 130'S. WILL REVIEW CHART AND PLAN OF CARE FOR THIS PT.
[2020-04-29 20:54] LABS: Magnesium, Blood 2.9 mg/dL (1.6-2.4)
[2020-04-29 20:55] LABS: Potassium, Blood 3.6 mmol/L (3.5-5.5); Thyroid Stimulating Hormone 0.939 uIU/mL (0.360-4.800)
--- NOTE | 2020-04-29 22:00 | NUR ---
CALL MADE TO DR CHAN CONCERNING CONTINUATION OF TACHYCARDIA. ORDERS RECEIVED FOR LABS AND RESULTS CALLED BACK TO DR CHAN. ORDER RECEIVED FOR SALINE AT 50 ML/HR. PLACED 20 G BY 10CM POWER GLIDE IN LEFT UPPER ARM. PT TOLERATES THIS WELL. HAVE NOTED, PT HAS BEEN MORE ANXIOUS AND PULLING AT LINES AND EQUIPMENT. INSTRUCTED TO NOT PULL AT LINES. PT STATES AGREEMENT. CURTAINS TO ROOM LEFT OPEN WITH LOW LIGHT TO ALLOW FOR DIRECT OBSERVATION OF PT.
--- NOTE | 2020-04-30 03:00 | NUR ---
PT CONTINUES TO ESCALATE IN ANXIOUSNESS AND RESTLESSNESS. PT HAS BEEN MEDICATED ONCE WITH ZYPREXA WITH VERY LITTLE IMPROVEMENT. PT REMOVES HIS BLANKETS AND THEN YELLS FOR SOMEONE TO PLACE HIS BLANKETS ON HIM AGAIN. PT HAS DECREASE IN MENTAL STATUS PROGRESSIVELY THROUGHOUT THE NIGHT. HAS PULLED APART HIS STATLOCK FOR HIS CATHETER. WILL CONTINUE TO CLOSELY MONITOR PT.
[2020-04-30 04:51] LABS: Hemoglobin 6.6 g/dL (13.5-17.5)
[2020-04-30 05:16] LABS: Albumin, Blood 2.4 g/dL (3.4-5.0); Anion Gap 12 mmol/L (6-16); Blood Urea Nitrogen 99 mg/dL (8-24); Bun/Creatinine Ratio 14.4 (12.0-20.0); CO2, Blood 19 mmol/L (21-32); Calcium, Blood 8.4 mg/dL (8.5-10.1); Chloride, Blood 109 mmol/L (98-108); Creatinine, Blood 6.88 mg/dL (0.60-1.20); Glomerular Filtration Rate 9 (60-); Glucose, Blood 92 mg/dL (70-99); Magnesium, Blood 2.9 mg/dL (1.6-2.4); Potassium, Blood 3.5 mmol/L (3.5-5.5); Sodium, Blood 140 mmol/L (136-145)
[2020-04-30 05:30] LABS: Phosphorus, Blood 8.2 mg/dL (2.5-4.9)
--- NOTE | 2020-04-30 05:56 | NUR ---
PT HAS INCREASED IN BEING VERY DEMANDING AND RUDE TO STAFF. HAS PULLED OFF HIS OXYIMETER MULTIPLE TIMES. NEEDS TO BE REDIRECTED AND REORIENTED OFTEN. CALL MADE TO DR DAVISON CONCERNING PT HAVING POSSITIVE BLOOD CULTURES. ORDER RECEIVED FOR ROCEPHIN. CALL MADE TO DR CHAN CONCERNING AM HGB. ORDER RECEIVED FOR 2 UNITS PRBC'S TO BE GIVEN WITH DIALYSIS THIS DAY. WILL CONTINUE TO MONITOR PT, AND WILL REPORT OFF TO ONCOMING RN.
[2020-04-30 07:09] LABS: HBSAG SCREEN Negative (Negative); HEP A AB, IGM Negative (Negative); HEP B CORE AB, IGM Negative (Negative); HEP C VIRUS AB <0.1 (0.0-0.9)
--- NOTE | 2020-04-30 08:30 | NUR ---
ASSUMED CARE OF PT AT 0700. REPORT FROM OSBALDO SHEARER. PT AWAKE IN ROOM. PT ORIENTED TO SELF ONLY. THINKS HE IS AT [employer]. REORIENTED PT TO PLACE. PT COOPERATIVE c CARE AT THIS TIME. FOLLOWS SIMPLE DIRECTIONS. SLURRED SPEECH, SPEAKING IN SHORT SENTANCES. LUNGS DIMINISHED IN BASES. PT ON 4L VIA NC. THORACENTESIS COMPLETE YESTERDAY. ABD ROUND, SOFT, NON TENDER. BT X 4. PT c GOOD APPETITE. LEE PATENT AND DRAINING TO GRAVITY. ST, RATE 130'S. BP STABLE. POWERGLIDE TO LUE, DRESSING C/D/I. IVF D/C'D PER DR CHAN. FELIPE. PLAN FOR DIALYSIS c 2 UNITS PRBC TRANSFUSION AT 0900. WILL CONTINUE TO MONITOR.
--- NOTE | 2020-04-30 17:20 | NUR ---
SHIFT SUMMARY/TRANSFER TO PCU PT'S MENTATION VARIED THROUGHOUT SHIFT. OCCASIONALLY NEEDED REORIENTED TO PLACE AND TIME. PT ABLE COMMUNICATE NEEDS. YELLED FOR NURSE IN ROOM. FOLLOWS SIMPLE COMMANDS. DIALYSIS COMPLETE TODAY. HR REMAINED 130'S, DR NETTLES AND DUSTIN AWARE. MEDICATED ONCE c ZYPREXA FOR AGITATION. WORKED c PHYSICAL THERAPY TODAY. ONE PERSON ASSIST TO BSC. PT IMPULSIVE BUT ABLE TO FOLLOW DIRECTIONS c FREQUENT REMINDERS. REMAINED ON 4L O2 ENTIRE SHIFT. C/O SOB ONE TIME. REPORT TO LISA SHEARER. PT TRANSFERRED TO PCU. ALL BELONGINGS c PT.
[2020-05-01 04:03] LABS: Hematocrit 24.7 % (37.0-53.0); Hemoglobin 8.3 g/dL (13.5-17.5)
--- NOTE | 2020-05-01 04:15 | NUR ---
ISOLATION STATUS PT HAD BEEN ADMITTED WITHOUT AN ACTIVE INFECTION AND SCREENING DETERMINED NO ISOLATION NEEDED. PT CURRENTLY HAS AN ELEVATED WBC AND WAS STARTED ON ROCEPHIN ON 04/30/20, PLACED IN DROPLET CONTACT ISOLATION AT THIS TIME FOR HX OF MRSA NARES/THROAT/SPUTUM.
[2020-05-01 04:23] LABS: Albumin, Blood 2.3 g/dL (3.4-5.0); Anion Gap 12 mmol/L (6-16); Blood Urea Nitrogen 83 mg/dL (8-24); Bun/Creatinine Ratio 15.1 (12.0-20.0); CO2, Blood 20 mmol/L (21-32); Calcium, Blood 8.3 mg/dL (8.5-10.1); Chloride, Blood 105 mmol/L (98-108); Glomerular Filtration Rate 11 (60-); Glucose, Blood 187 mg/dL (70-99); Magnesium, Blood 2.5 mg/dL (1.6-2.4); Phosphorus, Blood 6.4 mg/dL (2.5-4.9); Potassium, Blood 3.5 mmol/L (3.5-5.5); Sodium, Blood 137 mmol/L (136-145)
--- NOTE | 2020-05-01 06:31 | NUR ---
SHIFT SUMMARY PT AGGITATED T/O SHIFT. PT REFUSES CARE AT TIMES. PT CONFUSED AT TIMES AND CALLS OUT NAMES T/O SHIFT. BED ALARM IN PLACE. PT REPORTS NO CP OR PRESSURE. HR REMAINS TACHYCARDIC IN THE 130'S-140'S, CN NOTIFIED. BP REMAINS HYPOTENSIVE BUT STABLE. MAP ABOVE 65. OXYGEN SATURATION MAINTAINED ABOVE 92% ON 4 L OF OXYGEN VIA NC. WILL CONTINUE TO MONITOR UNTIL REPORT GIVEN TO DAYSHIFT RN.
--- NOTE | 2020-05-01 09:40 | NUR ---
PT TO DIALYSIS AT THIS TIME. ATTEMPTED TO GIVE PT ZYPREXA PRIOR TO TRANSPORTING PT TO DIALYSIS, BUT PT REFUSED. PT STATES "I KNOW THE LAW AND I ONLY TAKE 3 MEDICATIONS" THEN PROCEDED TO LIST THEM OFF, CONTINUES TO STATE "SO I DON'T WANT TO HEAR ANOTHER THING ABOUT IT". EDUCATED PT ON IT BEING ORDERED BY THE DR AND IF HE WANTS TO REFUSE THAT IS FINE, BUT THIS RN DOES NOT APPRECIATE HIS DISRESPECTFUL TONE AND WILL NOT ALLOW HIM TO TALK TO THIS RN THAT WAY.
--- NOTE | 2020-05-01 09:44 | NUR ---
REVIEWED MRSA DIAGNOSIS AND LABS AND DETERMINED PT DOES NEED TO BE IN DROPPLET AT THIS TIME UNTIL INFECTION CONTROL CAN REASSESS.
--- NOTE | 2020-05-01 12:00 | NUR ---
PT RETURNED FROM DIALYSIS
--- NOTE | 2020-05-01 13:00 | NUR ---
PT STATED HE WAS SORRY FOR HIS "UGLY BEHAVIOR" EARILER THIS MORNING
--- NOTE | 2020-05-01 21:00 | NUR ---
PT REFUSAL PT REFUSED ACCESS TO IV IN RIGHT AC.
--- NOTE | 2020-05-01 23:00 | NUR ---
PT REFUSED PT REFUSES TO HAVE IV FLUIDS RUNNING.
[2020-05-02 03:33] LABS: Hematocrit 25.7 % (37.0-53.0); Hemoglobin 8.5 g/dL (13.5-17.5)
[2020-05-02 03:48] LABS: Albumin, Blood 2.3 g/dL (3.4-5.0); Anion Gap 7 mmol/L (6-16); Blood Urea Nitrogen 61 mg/dL (8-24); CO2, Blood 28 mmol/L (21-32); Calcium, Blood 8.9 mg/dL (8.5-10.1); Chloride, Blood 105 mmol/L (98-108); Creatinine, Blood 4.37 mg/dL (0.60-1.20); Glomerular Filtration Rate 14 (60-); Glucose, Blood 174 mg/dL (70-99); Magnesium, Blood 2.3 mg/dL (1.6-2.4); Phosphorus, Blood 5.9 mg/dL (2.5-4.9); Potassium, Blood 3.8 mmol/L (3.5-5.5); Sodium, Blood 140 mmol/L (136-145)
--- NOTE | 2020-05-02 04:28 | NUR ---
PT REFUSED PT REFUSED TO HAVE 0400 VS TAKEN.
--- NOTE | 2020-05-02 05:52 | NUR ---
SHIFT SUMMARY PT SLEPT T/O SHIFT. PT IS ALERT TO SELF AND YEAR, NOT ALERT TO LOCATION. PT HAS REFUSED CARE T/O SHIFT. BP REMAINS STABLE. HR TACHYCARDIC T/O SHIFT. MEDICATION GIVEN PER EMAR. PT REPORTS NO CP OR PRESSURE. PT ON 3.4 L OF OXYGEN, OXYGEN SATURATION MAINTAINED ABOVE 92%. WILL CONTINUE TO MONITOR UNTIL REPORT GIVEN TO DAYSHIFT RN.
--- NOTE | 2020-05-02 06:38 | NUR ---
PT REFUSAL PT REFUSES TO ALLOW NEW TELEMETRY PATCHES TO BE PLACED.
--- NOTE | 2020-05-02 10:46 | NUR ---
ASSUMED CARE OF PT FROM KEON SHEARER.
[2020-05-02 15:58] LABS: Vancomycin, Random 11.3 ug/mL
--- NOTE | 2020-05-02 17:33 | NUR ---
SHIFT SUMMARY PT ALERT AND ORIENTED. PT ANSWERING QUESTIONS APPROPRIATELY AND FOLLOWING DIRECTIONS. VS STABLE. O2 SATS REMAIN ABOVE 90% ON 2L NC. BP STABLE. HR AFLUTTER RANGING FROM 80-140'S. NS INFUSING PER ORDERS. PT REPOSITIONING HIMSELF IN BED. BED ALARM ON FOR SAFETY. PT DENIES ANY PAIN. WILL CONTINUE TO MONITOR AND REPORT TO ONCOMING RN. CALL LIGHT IN REACH.
[2020-05-03 05:23] LABS: Hematocrit 27.4 % (37.0-53.0); Hemoglobin 8.7 g/dL (13.5-17.5)
[2020-05-03 05:58] LABS: Albumin, Blood 2.4 g/dL (3.4-5.0); Anion Gap 9 mmol/L (6-16); Blood Urea Nitrogen 81 mg/dL (8-24); CO2, Blood 25 mmol/L (21-32); Calcium, Blood 9.1 mg/dL (8.5-10.1); Chloride, Blood 102 mmol/L (98-108); Glomerular Filtration Rate 11 (60-); Glucose, Blood 181 mg/dL (70-99); Magnesium, Blood 2.4 mg/dL (1.6-2.4); Phosphorus, Blood 7.4 mg/dL (2.5-4.9); Potassium, Blood 4.8 mmol/L (3.5-5.5); Sodium, Blood 136 mmol/L (136-145)
[2020-05-03 12:16] LABS: Vancomycin, Random 13.2 ug/mL
--- NOTE | 2020-05-03 12:49 | NUR ---
Pt returned from dialysis and is sitting on side of bed, eating lunch at this time. No c/o pain or discomfort. NO voiced needs at this time.
[2020-05-04 04:10] LABS: Hematocrit 27.5 % (37.0-53.0); Hemoglobin 8.4 g/dL (13.5-17.5)
[2020-05-04 04:32] LABS: Albumin, Blood 2.2 g/dL (3.4-5.0); Anion Gap 7 mmol/L (6-16); Blood Urea Nitrogen 59 mg/dL (8-24); Bun/Creatinine Ratio 14.1 (12.0-20.0); CO2, Blood 26 mmol/L (21-32); Calcium, Blood 8.9 mg/dL (8.5-10.1); Chloride, Blood 101 mmol/L (98-108); Creatinine, Blood 4.18 mg/dL (0.60-1.20); Glomerular Filtration Rate 15 (60-); Glucose, Blood 217 mg/dL (70-99); Magnesium, Blood 2.2 mg/dL (1.6-2.4); Phosphorus, Blood 6.6 mg/dL (2.5-4.9); Potassium, Blood 4.9 mmol/L (3.5-5.5); Sodium, Blood 134 mmol/L (136-145)
--- NOTE | 2020-05-04 05:25 | NUR ---
SHIFT SUMMARY RESTED THROUGH NIGHT AO AFLUTTER TO 130'S WITH EXERTION RA-2LNC LEE IN PLACE NO BM NO C/O PAIN VSS CALL LIGHT WITHIN REACH, WILL CONTINUE TO MONITOR.
--- NOTE | 2020-05-04 09:30 | NUR ---
PATIENT DOWN TO DIALYSIS. METOPROLOL GIVEN, ADJUNCT INSTRUCTOR IN ECONOMICS STATES PATIENT'S HEART RATE TENDS TO INCREASE DURING DIALYSIS. MIDODRINE HELD PER PARAMTERS. PATIENT REFUSED FLOMAX AND AMPHOJEL, STATES "I JUST DON'T WANT THEM". TYLENOL GIVEN FOR GENERALIZED PAIN AND HEADACHE PAIN, STATES THIS IS CHRONIC FOR HIM. DR. DIEGO CALLED, STATES OK TO DC LEE IF PATIENT AGREEABLE, STATES PATIENT REFUSED YESTERDAY. DR. DIEGO WAS CONSIDERING THE NEED TO CHANGE IV LINES D/T BLOOD RESULTS BUT STATES THEY ARE OK TO LEAVE IN AT THIS TIME.
--- NOTE | 2020-05-04 10:33 | NUR ---
Call from Geraldine reporting pt's heart rate improved to 90-100 /minute from the elevated rate this morning. Pt is presently in dialysis.
[2020-05-04 12:17] LABS: Vancomycin, Random 19.3 ug/mL
--- NOTE | 2020-05-04 16:48 | NUR ---
The pt was shouting while lying in his bed, "ON A SCALE OF 1-10, WITH 10 BEING THE GREATEST, WHAT IS YOUR LEVEL OF ETERNAL FIRE?" Stepped into the room to see the patient, who was alone in the room, and he had pulled his oxygen off of his nose. He was able to replace it independently with a simple redirection, and then he shot a rubber band at me and appeared a bit agitated. I asked if there was anything that I could bring him, and he appeared thoughtful, less agitated, and asked quietly if he could have a Bible. This and his reading glasses were provided to him.
--- NOTE | 2020-05-04 17:04 | NUR ---
ZYPREXA GIVEN FOR AGITATION. He is ranting about Covid 19 destroying the economy and it all being a big scam.
--- NOTE | 2020-05-04 17:51 | NUR ---
CALLED DR. DIEGO AND NOTIFIED HIM THAT PATIENT'S HEART RATE WAS IN THE 70'S - 80'S BUT SINCE 1630 HAS BEEN IN THE 140'S. PATIENT WAS AGITATED THIS AFTERNOON BUT IS NOW RESTING IN BED AT THIS TIME. HE WILL RECEIVE LOPRESSOR [address] DIEGO STATES THAT IS OK, NO NEW ORDERS RECEIVED AT THIS TIME.
--- NOTE | 2020-05-04 18:26 | NUR ---
SHIFT SUMMARY: PATIENT A/OX3. MEDICATED FOR PAIN WITH TYLENOL. DIALYSIS THIS AM. LEE D/C'D, NO VOID YET (5.5 HOURS LATER), BLADDER SCAN SHOWED 324. HR DOWN IN THE 70'S-80'S TODAY UNTIL 1630 WHEN IT WAS BACK UP INTO THE 140'S. WORKED WITH THERAPY AND ALSO HAD A BEDBATH. HELPED HIM CALL HIS LANDLORD. WAS AGITATED THIS AFTERNOON, ZYPREXA GIVEN WITH GOOD EFFECT. WILL CONT TO MONITOR AND REPORT TO ONCOMING RN.
--- NOTE | 2020-05-05 00:45 | NUR ---
UPDATE PATIENT HAS NOT VOIDED SINCE LEE WAS REMOVED. PATIENT LAYING ON SIDE AND REFUSED TO LAY ON HIS BACK FOR A BLADDER SCAN. PATIENT DENIED THE NEED TO VOID AT THIS TIME. STATED "I MAY NEED TO IN A LITTLE WHILE."
--- NOTE | 2020-05-05 01:34 | NUR ---
UPDATE BLADDER SCAN ATTEMPTED ONCE AGAIN AND PATIENT REFUSED TO HAVE BLADDER SCAN DONE.
--- NOTE | 2020-05-05 05:03 | NUR ---
REFUSING CARE PT REFUSES TO HAVE NS RUNNING. PT REFUSES TO ALLOW A LINE DRAW FOR AM LABS. PT PULLED OUT IV UPON ENTERANCE INTO ROOM.
--- NOTE | 2020-05-05 05:24 | NUR ---
SHIFT SUMMARY PT SLEPT T/O SHIFT. PT REFUSES CARE AT TIMES. PT REPORTS PAIN IN RIGHT HIP. MEDICATED PER EMAR. PT REPORTS PAIN RELIEF WITH THESE MEASURES. PT ALERT AND ORIENTED. HR REMAINED IN THE 90'S T/O MOST OF SHIFT. BP STABLE. PT REPORTS NO CP OR PRESSURE. OXYGEN SATURATION MAINTAINED ABOVE 92% ON 3.5 L OF OXYGEN VIA NC. PT UNABLE TO VOID T/O SHIFT. PHYSICIAN NOTIFIED. BLADDER SCAN PERFORMED AND STRAIGHT CATHETER INSERTED. PT TOLERATED WELL. WILL CONTINUE TO MONITOR UNTIL REPORT GIVEN TO WILLIAM SHEARER.
--- NOTE | 2020-05-05 08:15 | NUR ---
DR. DIEGO AT BEDSIDE. DISCUSSED POC. DISCUSSED PATIENT'S HEARTRATE IN THE 130'S-140'S, HE WILL RECEIVE DIGOXIN AND METOPROLOL THIS AM. HR DID RESPOND TO MEDICATION YESTERDAY, DOWN IN THE 70'S - 80'S DURING THE NIGHT. SHOWED HIM WOUND TO PATIENT'S R AC. NOTIFIED HIM OF NEED FOR STRAIGHT CATH LAST NIGHT, WILL HAVE BLADDER SCAN THIS AM. DR. DIEGO STATES PLAN IS TO CONSULT DR. HUNTER, MAY NEED LINES MOVED. ORDERS RECEIVED TO DC IV FLUIDS.
[2020-05-05 09:13] LABS: Hemoglobin 8.6 g/dL (13.5-17.5)
[2020-05-05 09:30] LABS: Albumin, Blood 2.3 g/dL (3.4-5.0); Anion Gap 8 mmol/L (6-16); Blood Urea Nitrogen 52 mg/dL (8-24); Bun/Creatinine Ratio 12.3 (12.0-20.0); CO2, Blood 30 mmol/L (21-32); Calcium, Blood 9.4 mg/dL (8.5-10.1); Chloride, Blood 102 mmol/L (98-108); Creatinine, Blood 4.24 mg/dL (0.60-1.20); Glomerular Filtration Rate 15 (60-); Glucose, Blood 161 mg/dL (70-99); Magnesium, Blood 2.2 mg/dL (1.6-2.4); Potassium, Blood 5.1 mmol/L (3.5-5.5); Sodium, Blood 140 mmol/L (136-145)
--- NOTE | 2020-05-05 11:06 | NUR ---
Rl requested his breakfast tray, which he had declined this morning. Requested assistance to the bedside commode to void, which he was able to do with minimal assistance. He is having shortness of breath with minimal activity. Seems exhausted this morning.
--- NOTE | 2020-05-05 12:45 | NUR ---
DR. HUNTER AT BEDSIDE. DISCUSSED POC. HE VISUALIZED PATIENT'S POWERGLICE, PERMACATH, AND WOUND TO R AC. NOTIFIED HIM LEE WAS D/C'D. STATES HE WILL PUT IN ORDERS.
--- NOTE | 2020-05-05 14:02 | NUR ---
CALLED [employer] SUPERVISOR AND NOTIFIED HER THAT DR. HUNTER ORDERED VANCO IN PATIENT'S PERMACATH. SHE STATES SHE WILL COME IN AND ADMINISTER IT.
--- NOTE | 2020-05-05 14:02 | NUR ---
Assisted to bedside commode. Passing very hard formed stools. Requested miralax; called Dr. Sinha to request order.
--- NOTE | 2020-05-05 14:30 | NUR ---
MOST RECENT BLADDER SCAN SHOWED 341. PATIENT DENIES NEED TO VOID AT THIS TIME. DENIES DISCOMFORT OR PAIN IN BLADDER AREA. HE DID VOID 200 AT 1100. WILL CONTINUE TO MONITOR.
--- NOTE | 2020-05-05 15:56 | NUR ---
DIALYSIS CALLED IN TO INSTILL VANCOMYCIN/SOD CITRATE IN BOTH PORTS OF PT'S PERMACATH. DONE PER PROTOCAL. PT SITTING UP IN CHAIR EATING POPCYCLE. HE WAS VERY PLEASANT AND THANKED ME. .
--- NOTE | 2020-05-05 18:41 | NUR ---
CALLED DR. DIEGO. NOTIFIED HIM PATIENT VOIDED 200 AT 1100 TODAY AND BLADDER SCAN JUST SHOWED 376. HE ORDERED TO STRAIGHT CATH FOR >400.
--- NOTE | 2020-05-05 19:42 | NUR ---
SHIFT SUMMARY: PATIENT A/OX3. HAS DENIED PAIN THROUGHOUT THE SHIFT. HAS BEEN COOPERATIVE WITH CARE. NO DIALYSIS TODAY. HR MOSTLY IN THE 90'S WITH SPIKES UP INTO THE 130'S-140'S AT TIMES. HE TAKES OFF HIS OXYGEN AT TIMES AND IS IN THE LOW 80'S ON ROOM AIR. SPO2 IN 90'S ON 3L O2 VIA NC. HAD BM TODAY. VOIDED 200 MLS THIS SHIFT. MOST RECENT BLADDER SCAN SHOWED 376. PATIENT NOT UNCOMFORTABLE AND STATES HE DOES NOT FEEL LIKE HE NEEDS TO VOID. DR. DIEGO STATES TO STRAIGHT CATH IF BLADDER SCAN SHOWS >400. UP IN CHAIR SEVERAL TIMES, WORKED WITH THERAPY. DR. HUNTER SAW PATIENT AND ORDERED [facility] IN [facility], IMPROVEMENT LEAD PLACED TODAY. PICTURES TAKEN OF WOUND TO R AC AND WOUND DRESSED. REPORT GIVEN TO ONCOMING RN.
[2020-05-06 03:56] LABS: Hematocrit 27.6 % (37.0-53.0); Hemoglobin 8.5 g/dL (13.5-17.5)
[2020-05-06 04:17] LABS: Albumin, Blood 2.3 g/dL (3.4-5.0); Anion Gap 10 mmol/L (6-16); Blood Urea Nitrogen 66 mg/dL (8-24); Bun/Creatinine Ratio 13.6 (12.0-20.0); CO2, Blood 24 mmol/L (21-32); Calcium, Blood 9.7 mg/dL (8.5-10.1); Chloride, Blood 102 mmol/L (98-108); Creatinine, Blood 4.84 mg/dL (0.60-1.20); Glomerular Filtration Rate 13 (60-); Glucose, Blood 147 mg/dL (70-99); Magnesium, Blood 2.2 mg/dL (1.6-2.4); Phosphorus, Blood 7.9 mg/dL (2.5-4.9); Potassium, Blood 5.2 mmol/L (3.5-5.5); Sodium, Blood 136 mmol/L (136-145)
--- NOTE | 2020-05-06 06:50 | NUR ---
SHIFT SUMMARY PT RESTLESS T/O SHIFT. PT FREQUENTLY MOVED FROM BED TO CHAIR, SETTING OFF SAFETY ALARMS. CHARGE NURSE RECOMENDED PLACING CAMERA ON PT D/T PT BEING ABLE TO SAFELY MOVE FROM BED TO CHAIR. PT ALLOWED. PT ALERT AND ORIENTED T/O SHIFT. NO CHEST PAIN OR PRESSURE REPORTED. HR STABLE. BP STABLE. OXYGEN SATURATION MAINTAINED ABOVE 92% ON 3.5 L OF OXYGEN VIA NC. WILL CONTINUE TO MONITOR UNTIL REPORT GIVEN TO [facility] SHEARER.
--- NOTE | 2020-05-06 08:25 | NUR ---
Dr. Sinha at bedside. Discussed POC. States plan is for medical status without tele. May order f/u chest x ray to monitor fluid to r side d/t oxygen needs. Pt on 3l o2 via nc, did not previously wear o2 at home. He saw Dr. Osei's orders.
--- NOTE | 2020-05-06 09:30 | NUR ---
PATIENT DOWN TO DIALYSIS VIA BED.
[2020-05-06 12:38] LABS: Vancomycin, Random 13.5 ug/mL
--- NOTE | 2020-05-06 13:15 | NUR ---
REPORT CALLED TO JANKI DAY ON MEDICAL FLOOR. NO FURTHER QUESTIONS.
--- NOTE | 2020-05-06 14:15 | NUR ---
DR. DIEGO AT BEDSIDE. STATES TO CANCEL DISCHARGE AT THIS TIME. PLAN IS FOR THORACENTESIS TODAY. CONTINUE WITH TRANSFER TO MEDICAL FLOOR.
[2020-05-06 16:02] LABS: Automated BF RBC Count 0.002 M/mm3 (0-0); Automated BF WBC Count 0.439 K/mm3 (0-999); Body Fluid WBC Count 439 /mm3 (0-999)
[2020-05-06 16:16] LABS: Albumin, Body Fluid 1.5 g/dL; Lactate Dehydrogenase, Body Fl 115 U/L
[2020-05-06 16:17] LABS: Protein, Body Fluid 3.3 g/dL
[2020-05-06 16:23] LABS: Appearance, Body Fluid Clear (Clear); Color, Body Fluid Yellow (None-Yellow); Total Cell Count, Body Fluid 100
[2020-05-06 17:04] LABS: pH, Body Fluid 7.9
--- NOTE | 2020-05-06 18:16 | NUR ---
SHIFT SUMMARY RECEIVED PT TO RM 350 FROM PCU 8. PT JUST RECENTLY RETURNED FROM DIALYSIS. PT WAS TO D/C, BUT ORDERS CHANGED. PT TO RM 350 WHEN IMAGING CALLED TO TAKE PT DOWN FOR THORACENTESIS. RADIOLGY LATER CALLED TO REPORT 1.5 L TAKEN OFF DURING THORA, WITH POST THORA CXR DONE. PT HAS BEEN AWAKE, CALLING OUT FOR A WHILE. PRESENTLY QUIET AND EATING DINNER. IV VANCO FINALLY OBTAINED FROM PHARMACY; CURRENTLY INFUSING. TYLENOL GIVEN FOR C/O PAIN ALL OVER. BSC PLACED AT BS PER PT REQUEST. PT INSTRUCTED TO CALL FOR ASSIST. CALL LT IN REACH.
--- NOTE | 2020-05-06 19:00 | NUR ---
CALLED DR. COOPER. NOTIFIED HIM TELETECH JUST REPORTED A 5 BEAT RUN OF VTACH AT 1829 AND ALSO THAT THERE WAS A 14 BEAT RUN OF VTACH AT 1725. DR. COOPER ORDERED STAT BMP AND NOTIFY HIDE STRETCHER HAND ATTENDING.
--- NOTE | 2020-05-06 19:37 | NUR ---
YarraaTECH STATES THAT RUNS OF "VTACH" WERE ACTUALLY SVT. REVIEWED STRIPS WITH MERCHANDISE SUPPORT ASSOCIATE AND CONFIRMED THAT THE 14 BEAT RUN AND 5 BEAT RUN WERE ACTUALLY SVT.
[2020-05-07 05:26] LABS: Hematocrit 25.9 % (37.0-53.0); Hemoglobin 7.9 g/dL (13.5-17.5); Mean Corpuscular HGB 29.8 pg (26.0-34.0); Mean Corpuscular HGB Conc 30.5 g/dL (31.5-36.5); Mean Corpuscular Volume 98 fL (80-100); Mean Platelet Volume 10.3 fL (9.1-12.4); Platelet Count 159 K/mm3 (150-400); RDW Coefficient Variation 14.2 % (11.7-14.2); RDW Standard Deviation 50.1 fL (35.1-46.3); Red Blood Cell Count 2.65 M/mm3 (4.30-5.90); White Blood Cell Count 8.22 K/mm3 (4.00-11.30)
--- NOTE | 2020-05-07 05:36 | NUR ---
SHIFT SUMMARY- PT. A&O WITH INTERMITTENT CONFUSION. IRRITABLE LAST NIGHT. ON DIALYSIS, PERMACATH TO RT CW. NO COMPLAINTS THIS SHIFT. 1 ASSIST TO BSC. RESTED QUIETLY DURING THE NIGHT. BED ALARM ON FOR SAFETY, PT. IMPULSIVE AT TIMES. NO ACUTE CHANGES TO CONDITION. CALL LIGHT WITIN REACH AND SIDE RAILS UPX2. WILL CONT TO MONITOR.
[2020-05-07 06:00] LABS: Anion Gap 7 mmol/L (6-16); Blood Urea Nitrogen 60 mg/dL (8-24); Bun/Creatinine Ratio 13.3 (12.0-20.0); CO2, Blood 30 mmol/L (21-32); Calcium, Blood 8.9 mg/dL (8.5-10.1); Chloride, Blood 99 mmol/L (98-108); Glomerular Filtration Rate 14 (60-); Glucose, Blood 172 mg/dL (70-99); Magnesium, Blood 2.2 mg/dL (1.6-2.4); Phosphorus, Blood 6.8 mg/dL (2.5-4.9); Sodium, Blood 136 mmol/L (136-145)
--- NOTE | 2020-05-07 07:00 | NUR ---
CAMERA VERIFIED VERIFIED WITH REMOTE MONTORING THAT CAMERA IS ON.
--- NOTE | 2020-05-07 10:51 | NUR ---
HR >130'S DR. MCFARLAND INFORMED THIS MORNING RE HR GREATER THAN 130'S. TELEMETRY ORDER RECEIVED VIA TELEPHONE FROM DR. MCFARLAND. MORNING DIGOXIN AND METOPROLOL GIVEN. RECHECKED VITALS, HR IN 90'S. PER TELEMETRY REPORT, AFLUTTER @ 90. WILL CONTINUE TO MONITOR.
--- NOTE | 2020-05-07 15:45 | NUR ---
ADVANCED DIET TOLERATED RECEIVED VERBAL ORDER FROM DR. MCFARLAND TO ADVANCE DIET TOLERATED.
--- NOTE | 2020-05-07 17:11 | NUR ---
Shift Summary A/Ox3 to self, date, hospital. Unaware of situation. Cooperative with care, calls for needs most of the time. Follows directions well, flat affect, quiet, and sometimes can be irritable. Appetite is good. SBA to chair and back to bed. Patient has been using chair for exercises. Tele: Aflutter 90 per tele monitor. Camera remains on. 3L per NC with sats @ >90%. Diminished R lung sounds, otherwise, no other acute concerns. Will continue to monitor.
[2020-05-08 05:56] LABS: Hematocrit 25.2 % (37.0-53.0); Hemoglobin 7.7 g/dL (13.5-17.5)
[2020-05-08 06:14] LABS: Albumin, Blood 2.1 g/dL (3.4-5.0); Anion Gap 8 mmol/L (6-16); Blood Urea Nitrogen 74 mg/dL (8-24); Bun/Creatinine Ratio 13.5 (12.0-20.0); CO2, Blood 28 mmol/L (21-32); Calcium, Blood 9.2 mg/dL (8.5-10.1); Chloride, Blood 101 mmol/L (98-108); Creatinine, Blood 5.48 mg/dL (0.60-1.20); Glomerular Filtration Rate 11 (60-); Glucose, Blood 141 mg/dL (70-99); Magnesium, Blood 2.2 mg/dL (1.6-2.4); Phosphorus, Blood 7.4 mg/dL (2.5-4.9); Potassium, Blood 5.4 mmol/L (3.5-5.5); Sodium, Blood 137 mmol/L (136-145)
--- NOTE | 2020-05-08 06:20 | NUR ---
SHIFT SUMMARY- PT. COOPERATIVE WITH CARE, OCCASIONALLY IRRITABLE. PT. CALLS APPROPRIATELY. UP TO BSC W/SBA AND AT TIMES INDEPENDENTLY TRANSFERRED SELF. ON CAMERA T/O THE SHIFT. REQUESTED MANY SNACKS DURING THE NIGHT, BS STABLE. NO COMPLAINTS OF PAIN OR ACUTE CHANGES TO CONDITION. RESTING QUIETLY IN BED, NO APPARENT DISTRESS NOTED. CALL LIGHT WITHIN REACH, SIDE RAILS UPX2, AND BED ALARM ON FOR SAFETY. WILL CONT TO MONITOR.
--- NOTE | 2020-05-08 07:20 | NUR ---
Camera On Verified with remote monitoring that camera is on and patient is visible.
[2020-05-08 12:16] LABS: Vancomycin, Random 13.2 ug/mL
--- NOTE | 2020-05-08 15:18 | NUR ---
HR 130-140'S CALLED DR. MCFARLAND RE HR SUSTAINING 130-140'S PER TELE MONITOR SINCE DIALYSIS AND EVEN A COUPLE OF HOURS AFTER METOPROLOL PO GIVEN. RECEIVED TELEPHONE ORDER FOR 2.5 MG IV METOPROLOL NOW AND CONTINUE TO MONITOR.
--- NOTE | 2020-05-08 16:35 | NUR ---
Shift Summary Patient had dialysis today. During dialysis, patient was tachycardia but metoprolol was held for dialysis and given after patient returned. Remained tachycardia and Dr. Tovar was notified for which labetalol was given with improvements. Tele: 90's per energy technician. Patient is frustrated and concerned that he does not have transportation to go to dialysis after he is discharged from hospital and that it will be a " sentence" if that occurs. Will pass this on to receiving RN so that CMs can discuss options with patient.Appetite is good and patient is requesting several snacks throughout the day. Lung sounds remain diminished on R side and 3L oxygen supplemented. Otherwise, no respiratory distress noted at this time, will continue to monitor.
--- NOTE | 2020-05-09 04:57 | NUR ---
SHIFT SUMMARY- PT. C/O GENERALIZED PAIN 5/10 LAST NIGHT. MEDICATED WITH TYLENOL PER EMAR WITH GOOD EFFECT. A&O, RESTED QUIETLY IN BED T/O THE SHIFT. NO DISTRESS NOTED. VSS, NO OTHER NEEDS DURING THE NIGHT. POSSIBLE D/C TODAY. CALL LIGHT WITHIN REACH AND SIDE RAILS UPX2. WILL CONT TO MONITOR.
[2020-05-09 05:23] LABS: Hematocrit 23.5 % (37.0-53.0); Hemoglobin 7.3 g/dL (13.5-17.5)
[2020-05-09 05:42] LABS: Anion Gap 8 mmol/L (6-16); Blood Urea Nitrogen 61 mg/dL (8-24); Bun/Creatinine Ratio 12.8 (12.0-20.0); CO2, Blood 28 mmol/L (21-32); Calcium, Blood 9.2 mg/dL (8.5-10.1); Chloride, Blood 101 mmol/L (98-108); Creatinine, Blood 4.78 mg/dL (0.60-1.20); Glomerular Filtration Rate 13 (60-); Glucose, Blood 201 mg/dL (70-99); Magnesium, Blood 2.2 mg/dL (1.6-2.4); Potassium, Blood 5.4 mmol/L (3.5-5.5); Sodium, Blood 137 mmol/L (136-145)
--- NOTE | 2020-05-09 15:36 | NUR ---
ALERT. ORIENTED. DRESSING TO POWERGLIDE CHANGED ON CARDIAC CARE NURSE. ON 3 LPM VIA N/C AND WHEN NOT WEARING OXYGEN SATS DECREASE TO 80'S. NO DIALYSIS TODAY. PER CAP CUTTER HAS BEEN IN AFIB TODAY <100 HEART RATE. PER TECH WHEN HE IS OVER 100 IT LOOKS LIKE AFLUTTER WHICH IS WHAT HE WAS IN LAST NIGHT. ACTIVITY COORDINATOR NOTIFED ABOUT PATIENT CONCERNS WITH TRANSPORTATION TO DIALYSIS. DENIES PAIN. COOPERATIVE. GOOD APPETITE. WCTM
--- NOTE | 2020-05-09 20:41 | NUR ---
VERIFIED VIDEO MONITORING CALLED SCU PICTURE COPYIST TO VERIFY CAMERA MONITORING
--- NOTE | 2020-05-10 04:53 | NUR ---
SHIFT SUMMARY ADMITTED FOR ANALI & SEPSIS. FULL CODE. DROPLET CONTACT PRECAUTIONS FOR MRSA IN SPUT[place], ALSO HAS STAPH BACTEREMIA. PLAN IS FOR DC BACK TO [facility]. REGISTERED RESPIRATORY TECHNICIAN AND CARE MANAGEMENT ARE MAKING ARRANGEMENTS FOR THE PT TO BE TRANSPORTED FROM THERE TO DIALYSIS APPOINTMENTS. TELEMETRY: AFLUTTER, AVERAGE IS 94 BPM. THE PT HAS TELEPHONE APPOINTMENTS SCHEDULED FOR SATURDAY THAT HE NEEDS TO ANSWER.
[2020-05-10 05:05] LABS: Hematocrit 24.6 % (37.0-53.0); Hemoglobin 7.5 g/dL (13.5-17.5)
[2020-05-10 05:25] LABS: Albumin, Blood 2.1 g/dL (3.4-5.0); Anion Gap 9 mmol/L (6-16); Blood Urea Nitrogen 77 mg/dL (8-24); Bun/Creatinine Ratio 13.7 (12.0-20.0); CO2, Blood 26 mmol/L (21-32); Calcium, Blood 9.3 mg/dL (8.5-10.1); Chloride, Blood 101 mmol/L (98-108); Creatinine, Blood 5.63 mg/dL (0.60-1.20); Glomerular Filtration Rate 11 (60-); Glucose, Blood 181 mg/dL (70-99); Magnesium, Blood 2.3 mg/dL (1.6-2.4); Phosphorus, Blood 7.8 mg/dL (2.5-4.9); Potassium, Blood 5.8 mmol/L (3.5-5.5); Sodium, Blood 136 mmol/L (136-145)
[2020-05-10 11:53] LABS: Vancomycin, Random 18.7 ug/mL
--- NOTE | 2020-05-10 12:32 | NUR ---
ATTEMPT TO GIVE REPORT TO GLENN RASHEED AND JANE ST PATIENT IS INDEPENDENT AND THEY DO NOT NEED REPORT.
[2020-05-10] MEDS ORDERED: ACET325 PO (13:13)
[2020-05-10] MEDS ORDERED: ALUMINUM H320 MG/5 M PO (13:14)
[2020-05-10] MEDS ORDERED: LANOXIN125 MCG PO (13:16)
[2020-05-10] MEDS ORDERED: AMIT10 PO (13:16)
[2020-05-10] MEDS ORDERED: BASAGLAR K100 UNIT/1 SC (13:17)
[2020-05-10] MEDS ORDERED: HUMALOG KW100 UNIT/1 (13:18)
[2020-05-10] MEDS ORDERED: METO100 PO (13:19)
[2020-05-10] MEDS ORDERED: MELA3 PO (13:19)
[2020-05-10] MEDS ORDERED: NICO21TP TOP (13:20)
[2020-05-10] MEDS ORDERED: VANCOMYCIN1.25 GM/23 (13:21)
--- NOTE | 2020-05-10 14:29 | NUR ---
REVIEW D'C W/PATIENT. AWARE HAS RIDE TO [facility] ON SATURDAY AND SATURDAY AT 0815 AND WILL PICK HIM UP AT 3PM TO TAKE BACK HOME. AWARE MED DOSES HAVE CHANGED AND RX'S HAVE BEEN SENT TO [facility]. REVIEW ALL MEDS. STS DOES NOT NEED ANY OXYGEN AND DOES NOT USE OXYGEN AT HOME. POWERGLIDE D'C W/NO SIGNS OF INFECTIONS. WRAPPED W/COBAN. AWARE WILL GET VANCO THRU DIALYSIS CATHETER WHEN AT [facility]. ANSWER ALL QUESTIONS. AWAITING RIDE AT 1600.
== END 2020-05-10 15:59 | disposition home health service (06) | DRG 314 ==
LOC: ER 05:37 → ICUW 07:20 → ICUE 07:20 → PCU 07:20 → MEDS 07:20 → ICUE 08:48 → PCU 04-30 17:13 → MEDS 05-06 14:30
PROVIDERS: Emergency Medicine; Hospitalist; Internal Medicine; Internal Medicine Nephrology; Nurse Practitioner Acute Care; Pharmacist; ADMIT Internal Medicine
PROC: 0W9B3ZZ Drainage of Left Pleural Cavity, Percutaneous Approach (ICD-10-PCS; principal; 2020-04-29)
PROC: 5A1D70Z Performance of Urinary Filtration, Intermittent, Less than 6 Hours Per Day (ICD-10-PCS; 2020-04-29)
PROC: 05HC33Z Insertion of Infusion Device into Left Basilic Vein, Percutaneous Approach (ICD-10-PCS; 2020-04-29)
PROC: 8E0ZXY6 Isolation (ICD-10-PCS; 2020-04-29)
PROC: 30233N1 Transfusion of Nonautologous Red Blood Cells into Peripheral Vein, Percutaneous Approach (ICD-10-PCS; 2020-04-29)
PROC: 5A1D70Z Performance of Urinary Filtration, Intermittent, Less than 6 Hours Per Day (ICD-10-PCS; 2020-05-02)
PROC: 0W9B3ZZ Drainage of Left Pleural Cavity, Percutaneous Approach (ICD-10-PCS; 2020-05-03)
PROC: 5A1D70Z Performance of Urinary Filtration, Intermittent, Less than 6 Hours Per Day (ICD-10-PCS; 2020-05-07)
DX: T82.7XXA Infection and inflammatory reaction due to other cardiac and vascular devices, implants and grafts, initial encounter (principal); A41.01 Sepsis due to Methicillin susceptible Staphylococcus aureus; J96.21 Acute and chronic respiratory failure with hypoxia; N18.6 End stage renal disease; N17.9 Acute kidney failure, unspecified; I13.2 Hypertensive heart and chronic kidney disease with heart failure and with stage 5 chronic kidney disease, or end stage renal disease; I50.42 Chronic combined systolic (congestive) and diastolic (congestive) heart failure; J90 Pleural effusion, not elsewhere classified; E87.1 Hypo-osmolality and hyponatremia; E87.2 Acidosis; E87.70 Fluid overload, unspecified; Z20.828 Contact with and (suspected) exposure to other viral communicable diseases; E11.22 Type 2 diabetes mellitus with diabetic chronic kidney disease; Z99.2 Dependence on renal dialysis; Z91.15 Patient's noncompliance with renal dialysis; D63.1 Anemia in chronic kidney disease; F20.9 Schizophrenia, unspecified; J44.9 Chronic obstructive pulmonary disease, unspecified; I48.0 Paroxysmal atrial fibrillation; F31.9 Bipolar disorder, unspecified; N40.0 Benign prostatic hyperplasia without lower urinary tract symptoms; Z99.81 Dependence on supplemental oxygen; E87.5 Hyperkalemia; K21.9 Gastro-esophageal reflux disease without esophagitis; Z79.4 Long term (current) use of insulin; E83.39 Other disorders of phosphorus metabolism
CPT/HCPCS: 32555; 36415; 36430; 36600; 51702; 71045; 80048; 80053; 80069; 80074; 80162; 80202; 81001; 82042; 82803; 82947; 83605; 83615; 83735; 83880; 83986; 84100; 84132; 84157; 84443; 84484; 85014; 85018; 85025; 85027; 85610; 85730; 86317; 86850; 86900; 86901; 86923; 87040; 87070; 87077; 87081; 87147; 87186; 87205; 88108; 89051; 93005; 93010; 93306; 94640; 94660; 94760; 96374; 97110; 97116; 97162; 97165; 99285-25; A9270; A9270-GY; C1751; J0696; J2997; J3370; J7030; J7050; P9016; U0003

== ENCOUNTER 2020-06-04 02:23 | Inpatient (IN) | payer OTHER ==
[~2020-06-04] VITALS: Ht 177.8 cm; Wt 80.0 kg
[~2020-06-04 02:23] MED LIST changes: +ALUMINUM H320 MG/5 M PO; +BASAGLAR K100 UNIT/1 SC; +HUMALOG KW100 UNIT/1; +MELA3 PO; +METO100 PO; +NICO21TP TOP; +VANCOMYCIN1.25 GM/23
[2020-06-04 02:38] LABS: BASOPHILS ABSOLUTE AUTO 0.01 K/mm3 (0.00-0.23); BASOPHILS PERCENT AUTO 0 % (0-2); EOSINOPHILS ABSOLUTE AUTO 0.01 K/mm3 (0.00-0.68); EOSINOPHILS PERCENT AUTO 0 % (0-6); Hematocrit 22.2 % (37.0-53.0); Hemoglobin 6.7 g/dL (13.5-17.5); IMMATURE GRAN ABSOLUTE AUTO 0.36 K/mm3 (0.00-0.10); IMMATURE GRAN PERCENT AUTO 5 % (0-1); LYMPHOCYTES ABSOLUTE AUTO 0.64 K/mm3 (0.84-5.20); LYMPHOCYTES PERCENT AUTO 8 % (21-46); MONOCYTES ABSOLUTE AUTO 0.39 K/mm3 (0.16-1.47); MONOCYTES PERCENT AUTO 5 % (4-13); Mean Corpuscular HGB 30.2 pg (26.0-34.0); Mean Corpuscular HGB Conc 30.2 g/dL (31.5-36.5); Mean Corpuscular Volume 100 fL (80-100); Mean Platelet Volume 9.6 fL (9.1-12.4); NEUTROPHILS PERCENT AUTO 82 % (41-73); Platelet Count 157 K/mm3 (150-400); RDW Standard Deviation 54.7 fL (35.1-46.3); Red Blood Cell Count 2.22 M/mm3 (4.30-5.90); White Blood Cell Count 7.71 K/mm3 (4.00-11.30)
[2020-06-04 02:51] LABS: International Normalized Ratio 1.42; Prothrombin Time Results 14.9 Sec (9.7-11.5)
[2020-06-04 03:05] LABS: Ethanol (Alcohol), Blood, Med <3 mg/dL; Troponin I 0.079 ng/mL (0.000-0.040)
[2020-06-04 03:07] LABS: Alanine Aminotransfer (ALT/SGP 27 U/L (12-78); Albumin, Blood 2.9 g/dL (3.4-5.0); Albumin/Globulin Ratio 0.5 (0.8-1.8); Alk Phos 301 U/L (50-136); Anion Gap 17 mmol/L (6-16); Aspartate Aminotrans (AST/SGOT 15 U/L (12-37); Bilirubin, Total 0.6 mg/dL (0.1-1.0); Blood Urea Nitrogen 157 mg/dL (8-24); Bun/Creatinine Ratio 15.8 (12.0-20.0); CO2, Blood 8 mmol/L (21-32); Calcium, Blood 10.1 mg/dL (8.5-10.1); Chloride, Blood 111 mmol/L (98-108); Creatinine, Blood 9.91 mg/dL (0.60-1.20); Globulin, Blood 5.3 g/dL (2.2-4.0); Glomerular Filtration Rate 6 (60-); Glucose, Blood 180 mg/dL (70-99); Potassium, Blood 7.8 mmol/L (3.5-5.5); Sodium, Blood 136 mmol/L (136-145); Total Protein, Blood 8.2 g/dL (6.4-8.2)
[2020-06-04 03:20] LABS: PCO2 Arterial 30.5 mmHg (35-45); PO2 Arterial 69.5 mmHg (80-100); pH Blood Arterial 6.95 (7.35-7.45)
[2020-06-04 03:25] LABS: Source, Urine Catheter
[2020-06-04 03:32] LABS: Bilirubin, Urine Neg (Neg); Blood, Urine 1+ (Neg); Glucose Qualitative, Urine 1+ (Neg); Ketones, Urine Neg (Neg); Leukocyte Esterase, Urine 1+ (Neg); Nitrite, Urine Neg (Neg); Protein, Urine 4+ (Neg); Specific Gravity, Urine 1.015 (1.003-1.022); Urobilinogen, Urine NORM (Normal)
[2020-06-04 03:38] LABS: Appearance, Urine Hazy (Clear); Bacteria Few /hpf; Calcium Oxalate Crystals Few /hpf; Color, Urine Yellow (P-Yellow); Squamous Epithelial Cells Not Seen /hpf (Few)
[2020-06-04 03:39] LABS: Amorphous Mod (0-Heavy)
[2020-06-04 03:45] LABS: U Amphetamine Screen Not Detected; U Barbituate Screen Not Detected; U Benzodiazapine Screen Not Detected; U Buprenorphine Screen Not Detected; U Cannabinoids Screen Not Detected; U Cocaine Screen Not Detected; U Methadone Screen Not Detected; U Methamphetamine Screen Not Detected; U Opiates Screen Not Detected; U Oxycodone Screen Not Detected; U Phencyclidine Screen Not Detected; U Propoxyphene Screen Not Detected
--- NOTE | 2020-06-04 05:45 | NUR ---
ADMIT: PT ADMITTED TO ICU 15 VIA GURNEY WITH RN AT BEDSIDE AND HEART MONITOR ATTACHED. PT DIFFICULT TO AROUSE; STIRS TO VERBAL STIMULI BUT DRIFTS BACK TO SLEEP QUICKLY. LS DIMINISHED T/O MORSESO IN THE BASES. BIOX 97% ON 6L N/C. PLACED ON 15L NRB. HEART SOUNDS DISTANT WITH MONIOTR SHOWING ST WITH HR 105. SKIN COOL AND DRY. WOUND TO L GREAT TOE. 20G R HAND S/L. 20G L AC WITH BICARB AT 125CC/HR. PPP BILAT WITH 1+ PITTING EDEMA IN LE'S. ABD R/D WITH HYPO BTX4. PT C/O NEEDING TO URINATE WITHOUT SUCCESS IN THE URINAL. ATTENDS PLACED.
[2020-06-04 06:36] LABS: Bun/Creatinine Ratio 16.2 (12.0-20.0); Calcium, Blood 10.3 mg/dL (8.5-10.1); Creatinine, Blood 9.9 mg/dL (0.60-1.20); Potassium, Blood 6.7 mmol/L (3.5-5.5)
[2020-06-04 07:23] LABS: CPK Creatine Kinase 115 U/L (39-308); Troponin I 0.082 ng/mL (0.000-0.040)
[2020-06-04 07:28] LABS: PCO2 Arterial 36.7 mmHg (35-45); PO2 Arterial 89.1 mmHg (80-100); pH Blood Arterial 7.01 (7.35-7.45)
--- NOTE | 2020-06-04 08:00 | NUR ---
ASSUMED CARE BEDSIDE REPORT RECIEVED. PT IS LAYING IN BED, LETHARGIC, MINIMALLY AROUSEABLE TO VERBAL STIMULI. PT MOANS OUT, THEN QUICKLY RETURNS TO RESTING QUIETLY. PT WILL SQUEEZE HANDS UPON COMMAND. PT WITH TREMORS NOTED WITH UPPER EXTREMITY MOVEMENT. VITAL SIGNS STABLE. PT ON 11L VIA NONREBREATHER MASK. BICARB INFUSING AT 125 ML/HR. ATTENDS IN PLACE. DIALYSIS CATHETER TO RIGHT UPPER CHEST NOTED. DRESSING IS CRUSTED AND DATE SHOWS LAST CHANGED 05/08/2020. JANKI CORRAL FROM DIALYSIS HERE TO ASSESS PORT PATENCY AND DO DIAYSIS IF ABLE. WILL CONTINUE TO MONITOR.
[2020-06-04 08:51] LABS: BASOPHILS ABSOLUTE AUTO 0.01 K/mm3 (0.00-0.23); BASOPHILS PERCENT AUTO 0 % (0-2); EOSINOPHILS ABSOLUTE AUTO 0.01 K/mm3 (0.00-0.68); EOSINOPHILS PERCENT AUTO 0 % (0-6); Hematocrit 19.9 % (37.0-53.0); IMMATURE GRAN ABSOLUTE AUTO 0.28 K/mm3 (0.00-0.10); IMMATURE GRAN PERCENT AUTO 6 % (0-1); LYMPHOCYTES ABSOLUTE AUTO 0.58 K/mm3 (0.84-5.20); LYMPHOCYTES PERCENT AUTO 11 % (21-46); MONOCYTES ABSOLUTE AUTO 0.16 K/mm3 (0.16-1.47); MONOCYTES PERCENT AUTO 3 % (4-13); Mean Corpuscular HGB 29.7 pg (26.0-34.0); Mean Corpuscular HGB Conc 30.2 g/dL (31.5-36.5); Mean Corpuscular Volume 99 fL (80-100); Mean Platelet Volume 9.3 fL (9.1-12.4); NEUTROPHILS ABSOLUTE AUTO 4.06 K/mm3 (1.96-9.15); NEUTROPHILS PERCENT AUTO 80 % (41-73); Platelet Count 160 K/mm3 (150-400); RDW Coefficient Variation 14.9 % (11.7-14.2); RDW Standard Deviation 53.3 fL (35.1-46.3); Red Blood Cell Count 2.02 M/mm3 (4.30-5.90)
[2020-06-04 09:41] LABS: Albumin, Blood 2.7 g/dL (3.4-5.0); Albumin/Globulin Ratio 0.6 (0.8-1.8); Bilirubin, Total 0.5 mg/dL (0.1-1.0); Bun/Creatinine Ratio 16.5 (12.0-20.0); Calcium, Blood 9.5 mg/dL (8.5-10.1); Creatinine, Blood 8.63 mg/dL (0.60-1.20); Globulin, Blood 4.5 g/dL (2.2-4.0); Potassium, Blood 6.2 mmol/L (3.5-5.5); Total Protein, Blood 7.2 g/dL (6.4-8.2)
[2020-06-04] MEDS ORDERED: TAMS.4ER PO (11:44)
[2020-06-04] MEDS ORDERED: TRAM50 PO (11:45)
[2020-06-04] MEDS ORDERED: AMIT50 PO (11:48)
[2020-06-04 16:25] LABS: Troponin I 0.102 ng/mL (0.000-0.040)
[2020-06-04 17:23] LABS: Albumin, Blood 2.4 g/dL (3.4-5.0); Anion Gap 13 mmol/L (6-16); Blood Urea Nitrogen 95 mg/dL (8-24); CO2, Blood 22 mmol/L (21-32); Calcium, Blood 8.9 mg/dL (8.5-10.1); Chloride, Blood 111 mmol/L (98-108); Creatinine, Blood 6.35 mg/dL (0.60-1.20); Glomerular Filtration Rate 9 (60-); Glucose, Blood 73 mg/dL (70-99); Phosphorus, Blood 7.8 mg/dL (2.5-4.9); Sodium, Blood 146 mmol/L (136-145)
--- NOTE | 2020-06-04 17:24 | NUR ---
SHIFT SUMMARY NO ACUTE CHANGES THIS SHIFT. PT REMAINS LETHARGIC/SOMNOLENT. PT MINIMALLY RESPONSIVE TO VERBAL STIMULI. PT MOANS OUT WITH MOVEMENT AND CARE ACTIVITIES. PT DOES NOT SPEAK ANY MEANINGFUL WORDS AT THIS TIME. PT TITRATED OFF NON REBREATHER TO OXYMIZER AT 8L AT THIS TIME. PT RECIEVED DIALYSIS THIS SHIFT. DIALYSIS CATH TO RIGHT UPPER CHEST C/D/I WITH NEW DRESSING AND CAPS IN PLACE. PT WITH BICARB GTT INFUSING AT 125 ML/HR. PT WITH ATTENDS IN PLACE, NO VOIDS NOTED THIS SHIFT. VITAL SIGNS HAVE REMAINED STABLE. NO FAMILY PRESENT. WILL CONTINUE TO MONITOR AND REPORT OFF TO ONCOMING RN.
[2020-06-04 17:29] LABS: Potassium, Blood 3.9 mmol/L (3.5-5.5)
--- NOTE | 2020-06-04 22:47 | NUR ---
ASSUMPTION OF CARE PT RESTING IN BED, MOVING ALL EXTREMETIES INDEPENDENTLY BUT MOVEMENT DOES NOT APPEAR TO BE PURPOSEFUL, PT WITHDRAWS FROM NOXIOUS STIMULI. PT ON 10L PER OXYMIZER WITH O2 SATUARATIONS>90%, MONITOR SHOWS HR OF 130'S, BP STABLE. PRN LABETALOL ADMINISTERED WITH NO IMPROVEMENT IN HR. CALL PLACED TO DR NETTLES, NEW ORDER FOR DILTIAZEM GTT. PTS TEMPERATURE MILDLY ELEVATED AT 100.1, BLANKETS REMOVED AND ROOM THERMOSTAT TURNED DOWN.
--- NOTE | 2020-06-04 23:21 | NUR ---
PT TRANSFERED TO [facility] 4 @ 1659
--- NOTE | 2020-06-04 23:53 | NUR ---
started dilt gtt at 10mg/hr, bumped up to 15mg/hr. bp holding, and hr maintaining 130's. will continue to monitr.
--- NOTE | 2020-06-05 01:03 | NUR ---
bumped dilt gtt to 20mg/hr. hr and bp remain the same. will continue to monitor.
--- NOTE | 2020-06-05 02:25 | NUR ---
GAVE LABETALOL X1, SHORTLY AFTER ADMINISTRATION TELE NOTIFIED RN THAT HR DROPPED TO 90'S-100'S. BP HOLDING APPROPRIATELY. WILL CONTINUE TO MONITOR. HAD TO INCREASE TO 12L ON OXYMIZER
--- NOTE | 2020-06-05 02:45 | NUR ---
PLACED PT ON NON REBREATHER. PT SATS WERE ONLY 87% ON 15L ON OXYMIZER. WILL TRY NON REBREATHER AND SEE IF WE CAN PUT OXYMIZER BACK ON AFTER RECOVERY.
[2020-06-05 03:52] LABS: BASOPHILS ABSOLUTE AUTO 0.01 K/mm3 (0.00-0.23); BASOPHILS PERCENT AUTO 0 % (0-2); EOSINOPHILS ABSOLUTE AUTO 0.01 K/mm3 (0.00-0.68); EOSINOPHILS PERCENT AUTO 0 % (0-6); IMMATURE GRAN ABSOLUTE AUTO 0.07 K/mm3 (0.00-0.10); IMMATURE GRAN PERCENT AUTO 1 % (0-1); LYMPHOCYTES ABSOLUTE AUTO 0.53 K/mm3 (0.84-5.20); LYMPHOCYTES PERCENT AUTO 8 % (21-46); MONOCYTES ABSOLUTE AUTO 0.42 K/mm3 (0.16-1.47); MONOCYTES PERCENT AUTO 6 % (4-13); Mean Corpuscular HGB 30.2 pg (26.0-34.0); Mean Corpuscular HGB Conc 31.8 g/dL (31.5-36.5); Mean Corpuscular Volume 95 fL (80-100); Mean Platelet Volume 9.4 fL (9.1-12.4); NEUTROPHILS PERCENT AUTO 84 % (41-73); Platelet Count 167 K/mm3 (150-400); RDW Coefficient Variation 15.3 % (11.7-14.2); RDW Standard Deviation 52.1 fL (35.1-46.3); Red Blood Cell Count 2.32 M/mm3 (4.30-5.90); White Blood Cell Count 6.64 K/mm3 (4.00-11.30)
[2020-06-05 04:19] LABS: Alanine Aminotransfer (ALT/SGP 22 U/L (12-78); Albumin, Blood 2.4 g/dL (3.4-5.0); Albumin/Globulin Ratio 0.5 (0.8-1.8); Alk Phos 247 U/L (50-136); Anion Gap 12 mmol/L (6-16); Aspartate Aminotrans (AST/SGOT 14 U/L (12-37); Bilirubin, Total 0.5 mg/dL (0.1-1.0); Blood Urea Nitrogen 91 mg/dL (8-24); Bun/Creatinine Ratio 13.1 (12.0-20.0); CO2, Blood 23 mmol/L (21-32); Calcium, Blood 8.8 mg/dL (8.5-10.1); Chloride, Blood 108 mmol/L (98-108); Creatinine, Blood 6.97 mg/dL (0.60-1.20); Globulin, Blood 4.4 g/dL (2.2-4.0); Glomerular Filtration Rate 8 (60-); Glucose, Blood 105 mg/dL (70-99); Magnesium, Blood 2.4 mg/dL (1.6-2.4); Potassium, Blood 4.5 mmol/L (3.5-5.5); Sodium, Blood 143 mmol/L (136-145); Total Protein, Blood 6.8 g/dL (6.4-8.2)
[2020-06-05 04:43] LABS: Phosphorus, Blood 8.7 mg/dL (2.5-4.9)
--- NOTE | 2020-06-05 05:10 | NUR ---
SHIFT SUMMARY AO X1 - DISORIENTED. MUMBLING SENTENCES WHEN CAME FROM ICU. NOW PT IS MUCH MORE AWAKE. PT YELLING FROM ROOM ASKING FOR FOOD AND WATER. MOUTH SWABS GIVEN FOR NOW, AND ORAL CARE DONE. PT CAME FROM ICU ON 10L OXYMIZER AT 2300. THROUGHOUT NIGHT, RN TO INCREASE TO 15L OXYMIZER. FROM [id number] PT WAS ON NON REBREATHER. NOW PT ABLE TO TOLERATE 15L OXYMIZER AGAIN. - NOTING CXR SHOWED MOD R SIDED PLEURAL EFFUSION AND PULM EDEMA. TELE - SINUS TACH TURNED TO A FLUTTER. CARDIZEM GTT STARTED AND IS NOW RUNNING AT 20MG/HR. LABETALOL GIVEN X1 THAT CONTROLLED RATE AND DROPPED TO 90'S FOR ABOUT AN HOUR/HOUR AND A HALF. THEN HR BACK UP TO 130'S. BP HOLDING. APPROPRIATELY. INCONTINENT OF BOWEL AND BLADDER - ATTENDS CHANGED - OLIGURIC PT HAD ONE BOUT OF EMESIS - ZOFRAN X1 DIALYSIS LINE FLUSHED AND CAPS CHANGED - DRESSING IS DATED 06/04 LAB CALLED RN FOR CRITICAL PHOS OF 8.7 - NOTIFIED MD CHAN. MEDS ORDERED ACCORDINGLY. NO C/O PAIN VSS CALL LIGHT WITHIN REACH, BED IN LOWEST POSITION. BED ALARM ON. WILL CONTINUE TO MONITOR.
--- NOTE | 2020-06-05 06:44 | NUR ---
PLACED PT BACK ON 15L OXYMIZER - TOLERARING WELL. MAINTAINING SATS >90%.
[2020-06-05 09:08] LABS: HBSAG SCREEN Negative (Negative)
--- NOTE | 2020-06-05 12:02 | NUR ---
ASSUME CARE: PT WAS MORE ALERT THIS MORNING WAS ABLE TO ASK FOR WATER BUT REPEATS HIMSELF ABLE TO FOLLOW SIMPLE COMMANDS. VITALS HRR REMAINED AFLUTTER ON THE 130'S, PT STARTED ON THE CARDIZEM GTT AT 15MG/HR, WAS GIVEN IV LABETALOL PRN AFTER DIALYSIS HR WENT DOWN TO 70'S STILL AFLUTTER. BP SYSTOLIC 115'S, SATS ABOVE 90% ON 10-12L OF OXYMIZER, AFEBRILE. DIET ADVANCE TO CLEAR LIQUID, PT CURRENTLY SLEEPING AT THIS TIME LUNCH TRAY AT BEDSIDE. DR CHAN WENT SAW PT TODAY NO NEW ORDERS YET. RESUMED HOME MEDS. WILL MONITOR PT UNTIL END OF SHIFT.
[2020-06-05 16:11] LABS: Source, Urine Catheter
[2020-06-05 16:14] LABS: Appearance, Urine Hazy (Clear); Bilirubin, Urine Neg (Neg); Blood, Urine 3+ (Neg); Color, Urine Yellow (P-Yellow); Glucose Qualitative, Urine 1+ (Neg); Ketones, Urine 1+ (Neg); Leukocyte Esterase, Urine 1+ (Neg); Nitrite, Urine Neg (Neg); Protein, Urine 4+ (Neg); Specific Gravity, Urine 1.015 (1.003-1.022); Urobilinogen, Urine NORM (Normal)
[2020-06-05 16:22] LABS: Amorphous Mod (0-Heavy); Bacteria Few /hpf; Squamous Epithelial Cells Rare /hpf (Few)
--- NOTE | 2020-06-05 17:06 | NUR ---
PT SUMMARY: LEE CATHETER WAS PLACED PT WAS RETAINING URINE DIDNT HAVE ANY URINE OUTPUT FOR THE SHIFT BLADDER SCAN SHOWED >900MLS URINE RETAINED, LEE DRAINED ABOUT 800MLS OF THIS TIME, UA SAMPLE SENT TO LAB. PT REMAINED CONFUSED WAKES UP FOR SECONDS EASILY FALLS BACK TO SLEEP, REPEATS HIMSELF. DIET WAS ADVANCES TO CLEAR LIQUID PT HAD COUGHING EPISODE WITH ONE SIP OF JUICE. PT ALSO WAS SWITCHED TO NON REBREATHER MASK SATS REMAINED ABOVE 90%, PT DESATS TO 87% ON OXIMYZER 15L. PALLIATIVE CARE NURSE DISCUSSED PT'S POLST WITH DR FRYE THAT SAYS DNR, PROVIDER AGREED TO SWITCH PT TO DNR STATUS, ETHICS CONSULT IN AM SINCE PT DOESN'T HAVE ANY POA TO MAKE DECISIONS FOR THE PT. PT REMAINED IN BED ALL SHIFT, SLEPT MOST OF THE SHIFT, CALL LIGHTS IN REACH WILL REPORT TO ONCOMING SHIFT
--- NOTE | 2020-06-05 21:39 | NUR ---
PHYSICIAN NOTIFIED PHYSICIAN NOTIFIED OF PT'S OXYGEN SATURATION MAINTAINING IN LOW 90'S WITH NON-REBREATHER AT 15 L OF OXYGEN. PHYSICIAN ORDERED CPAP. PHYSICIAN ALSO NOTIFIED OF PO MEDICATIONS NOT GIVEN D/T ASPIRATION RISK. NO ORDERS GIVEN.
--- NOTE | 2020-06-06 02:46 | NUR ---
UPDATE PRIOR TO LUNCH PT ON 15 L OF OXYGEN VIA NON-REBREATHER MASK. PT OXYGEN SATURATION MAINTAINED ABOVE 92% AT THIS TIME. ONCE RETURNED FROM LUNCH PT HAD REMOVED TUBING FROM NON-REBREATHER AND OXGEN SATURATION WAS 78%. CPAP WAS PUT BACK ON WITH SETTINGS IMPLEMENTED BY RESPIRATORY CARE. PT RECOVERED WITH CPAP IN PLACE. OXYGEN SATURATION CURRENLTY ABOVE 95% WITH CPAP. CHARGE NURSE NOTIFIED.
[2020-06-06 05:00] LABS: Hematocrit 21.5 % (37.0-53.0); Hemoglobin 6.9 g/dL (13.5-17.5)
[2020-06-06 05:28] LABS: Albumin, Blood 2.3 g/dL (3.4-5.0); Anion Gap 10 mmol/L (6-16); Blood Urea Nitrogen 66 mg/dL (8-24); Bun/Creatinine Ratio 11.7 (12.0-20.0); CO2, Blood 29 mmol/L (21-32); Calcium, Blood 8.7 mg/dL (8.5-10.1); Chloride, Blood 104 mmol/L (98-108); Creatinine, Blood 5.66 mg/dL (0.60-1.20); Glomerular Filtration Rate 11 (60-); Glucose, Blood 113 mg/dL (70-99); Magnesium, Blood 2.4 mg/dL (1.6-2.4); Potassium, Blood 4.3 mmol/L (3.5-5.5); Sodium, Blood 143 mmol/L (136-145)
[2020-06-06 05:32] LABS: Phosphorus, Blood 8.2 mg/dL (2.5-4.9)
--- NOTE | 2020-06-06 05:47 | NUR ---
PHYSICIAN NOTIFIED PHYSICIAN NOTIFIED OF PT'S CRITICAL LAB VALUE OF PHOSPHOROUS AT 8.2 AND HGB AT 6.9. NO ORDERS AT THIS TIME.
--- NOTE | 2020-06-06 05:57 | NUR ---
SHIFT SUMMARY PT ALERT TO SELF ONLY. BEDREST AT THIS TIME. PT ABLE TO TURN SELF IN BED. PT AGGITATED AT TIMES, PULLING AT CPAP OR NON-REBREATHER MASK. MEDICATION GIVEN PER EMAR. OXYGEN SATURATION MAINTAINED ABOVE 92% WITH NON-REBREATHER AT 15 L OF CPAP AT 70%-50% FIO2. BP STABLE. PHYSICIAN NOTIFIED OF HGB AT 6.9 AND PHOSPHORUS AT 8.2. CARDIZEM GTT AT 15 ML/HR AND 15 MG/HR, HR REMAINED IN LOW 100'S. WILL CONTINUE TO MONITOR UNTIL REPORT GIVEN TO WILLIAM SHEARER.
--- NOTE | 2020-06-06 06:50 | NUR ---
PHYSICIAN NOTIFIED PHYSICIAN NOTIFIED OF PT'S NPO STATUS AND LOW URINE OUTPUT. PHYSICIAN ORDERED CLINIMIX.
--- NOTE | 2020-06-06 09:56 | NUR ---
ASSUME CARE: PT IS ALERT SOMEWHAT LETHARGIC FALLS ASLEEP QUICK DURING CONVERSATIONS, DENIES ANY PAIN, REMAINED NPO BUT IS WANTING SOMETHING TO EAT, SPEECH THERAPY CONSULTED. ALSO ORDERED AIRVO SINCE PT HAS BEEN ON NON REBREATHER MASK AND IS UNABLE TO TOLERATE OXYMIZER AND HIFLO DESATS TO HI 80'S, PER RT AIRVO IS CURRENTLY NOT AVAILABLE WILL UPDATE IF THERE IS ONE AVAILABLE. PT WAS STARTED ON CLINIMIX AT 50MLS/HR. PT REMAINS ON CARDIZE, GTT AT 15MG/HR HRR REMAINED AFLUTTER 90-110'S, BP SYSTOLIC 115'S, SATS ABOVE 90% ON 15L VIA NONREBREATHER MASK. PT IN BED RESTING AT THIS TIME, CALL LIGHTS IN REACH WILL MONITOR
--- NOTE | 2020-06-06 12:55 | NUR ---
Spoke with Dr. Machado in hospitalist meeting this morning. A POLST form from 2012 is on file that states DNR and comfort care as Rl's choices. His code status was changed to match his POLST form over the weekend. Dr. Machado is requesting an ethics consult for continued decision making as Rl is unable to make decisions for himself at this time. Spoke with Osmin North who is reviewing Rl's chart. Osmin did ask if Rl has an [employer]D case packer. LM for Jaciel Kevin CM RN, to see if Rl does have a [employer]D case packer assigned to him. Reviewed his chart from the April admission and it appears that Rl never followed through with contacting [employer] after his [facility] admission and that Arielle from [employer] was planning to reach out and contact Rl to start the process back in April. Spoke with Mamta, Rl's RN today, and received an update. Mamta reports that there is a big change/decline in Rl this admission from the previous two other admissions that Mamta took care of him. Will plan to meet with Osmin North at 2 pm today to move forward with ethics consult. Rl was sleeping with a NRB mask in place this morning. Left undisturbed at this time.
--- NOTE | 2020-06-06 14:59 | NUR ---
late entry 06/05 reveiw of polst and plan of care with danna Machado. will request ethics consult on saturday. ater update with apd and car managers.
--- NOTE | 2020-06-06 17:08 | NUR ---
Ethics consult order received and processed. Chart notes and relevant statutory material reviewed, [employer] consulted, and case details discussed with the palliative care team. Additionally, PC contacted [facility]'s Central Admissions Office to ascertain whether or not the principal was compliant with outpatient therapy. They confirmed that he refused dialysis. This was apparently evidenced by a chronic failure to attend scheduled appointments. The hospitalist would like for me to comment on the legal and moral permissibilty of discontinuing life sustaining treatment, given the bleak outlook of the principal, his unfortunate but continuous decline, his non-conformity with outpatient renal interventions, and the supporting status of his advance care planning instrument (POLST). In accordance with hospital policy, POLST convention, and ORS 127.635, forgoing aggressive therapy, with two provider attestation, would be licit in this instance. Thank you for this consult. Osmin North Th.D.
--- NOTE | 2020-06-06 18:11 | NUR ---
PT SUMMARY: PT REMAINS LETHARGIC, ALERT AT TIMES BUT STILL FALLS ASLEEP EASILY. PT WAS SEEN BY SPEECH THERAPIST TODAY DIET ADVANCED TO PUREE NECTAR THICK. PT WAS ABLE TO EAT LUNCH HAD 50% OF NEPRO WELL, CLINIMIX DISCONTINUED. CARDIZEM GTT WAS STOPPED HRR REMAINED ON THE 60-90'S AFLUTTER, BP WENT LO ON THE 90'S SYSTOLIC WENT UP TO 120'S AFTER CARDIZEM WAS STOPPED. PT REMAINS ON NON REBREATHER MASK SATS ABOVE 90%, AFEBRILE. PT WITH MINIMAL URINE OUTPUT FOR THE SHIFT 200MLS, BLADDER SCAN SHOWED 70MLS RETAINED, LEE DRAINING PATENT VIA GRAVITY. PT REFUSED DINNER AND IS RESTING IN BED, CALL LIGHTS IN REACH BED IN LOWEST POSITION BED ALARM ON FOR SAFETY. WILL REPORT TO ONCOMING SHIFT
--- NOTE | 2020-06-06 22:32 | NUR ---
PT TACHYCARDIC PT GIVEN 5 MG OF LABETOLOL D/T TACHYCARDIA OF 140'S. PT HR NOW 70'S-90'S.
--- NOTE | 2020-06-07 05:17 | NUR ---
PHYSICIAN NOTIFIED PHYSICIAN NOTIFIED OF HR SUSTAINING BETWEEN 130-145 BMP AND HYPOTENSIVE STATE OF 101/68. PHYSICIAN ORDERED LOPRESSOR 5 MG ONE TIME AND INSTRUCTED TO RESTART THE CARDIZEM DRIP IF HR DOES NOT LOWER.
--- NOTE | 2020-06-07 06:15 | NUR ---
RESPIRATORY CARE NOTIFIED PT'S OXYGEN SATURATION DECREASED FROM 90% ON 15 L OF OXYGEN VIA NON-REBREATHER TO 85%. RESPIRATORY CARE ASSISTED IN PUTTING PT ON BIPAP AT 14/8, FIO2 AT 80% AND A BACKUP OF 14. PT OXYGEN NOW ABOVE 92%. PHYSICIAN NOTIFIED.
[2020-06-07 06:17] LABS: PCO2 Arterial 55.9 mmHg (35-45); PO2 Arterial 51.5 mmHg (80-100)
[2020-06-07 06:32] LABS: BASOPHILS ABSOLUTE AUTO 0.03 K/mm3 (0.00-0.23); BASOPHILS PERCENT AUTO 0 % (0-2); EOSINOPHILS ABSOLUTE AUTO 0.26 K/mm3 (0.00-0.68); EOSINOPHILS PERCENT AUTO 4 % (0-6); Hematocrit 22.9 % (37.0-53.0); IMMATURE GRAN ABSOLUTE AUTO 0.05 K/mm3 (0.00-0.10); IMMATURE GRAN PERCENT AUTO 1 % (0-1); LYMPHOCYTES ABSOLUTE AUTO 1.09 K/mm3 (0.84-5.20); LYMPHOCYTES PERCENT AUTO 15 % (21-46); MONOCYTES ABSOLUTE AUTO 0.54 K/mm3 (0.16-1.47); MONOCYTES PERCENT AUTO 7 % (4-13); Mean Corpuscular HGB 30.2 pg (26.0-34.0); Mean Corpuscular HGB Conc 30.6 g/dL (31.5-36.5); Mean Corpuscular Volume 99 fL (80-100); Mean Platelet Volume 9.5 fL (9.1-12.4); NEUTROPHILS ABSOLUTE AUTO 5.54 K/mm3 (1.96-9.15); NEUTROPHILS PERCENT AUTO 74 % (41-73); Platelet Count 174 K/mm3 (150-400); RDW Coefficient Variation 14.5 % (11.7-14.2); RDW Standard Deviation 51.3 fL (35.1-46.3); Red Blood Cell Count 2.32 M/mm3 (4.30-5.90); White Blood Cell Count 7.51 K/mm3 (4.00-11.30)
--- NOTE | 2020-06-07 06:45 | NUR ---
SHIFT SUMMARY PT LETHARGIC T/O SHIFT. PT TACHYCARDIC. PHYSICIAN NOTIFIED AND MEDICATION PRESCRIBED PER MEAR. PT AWARE OF SELF AND LOCATION. PT REPOSITIONED Q 2 HRS AND ORAL CARE PROVIDED Q 4 HRS. PT BEDREST AT THIS TIME. LEE DRAINING TO GRAVITY. PT ON NONREBREATHER AT 15 L OF OXYGEN T/O SHIFT. AT END OF SHIFT PT ON BIPAP AT 50% FIO2. OXYGEN ABOVE 90%. WILL CONTINUE TO MONITOR UNTIL REPORT GIVEN TO DAYSUTFT RN.
[2020-06-07 07:03] LABS: Albumin, Blood 2.3 g/dL (3.4-5.0); Albumin/Globulin Ratio 0.5 (0.8-1.8); Bilirubin, Total 0.3 mg/dL (0.1-1.0); Bun/Creatinine Ratio 10.5 (12.0-20.0); Calcium, Blood 9.3 mg/dL (8.5-10.1); Creatinine, Blood 7.33 mg/dL (0.60-1.20); Globulin, Blood 4.4 g/dL (2.2-4.0); Potassium, Blood 4.7 mmol/L (3.5-5.5); Total Protein, Blood 6.7 g/dL (6.4-8.2)
[2020-06-07 09:31] LABS: PCO2 Arterial 51.8 mmHg (35-45); PO2 Arterial 78.8 mmHg (80-100); pH Blood Arterial 7.31 (7.35-7.45)
--- NOTE | 2020-06-07 14:48 | NUR ---
Pt visit earlier this afternoon. Pt just finished dialysis treatment. Pt resting in bed with his eyes closed and is on 15 L O2 via non rebreather. Reviewed Osmin North's note from ethics and discussed case with Osmin. Osmin reports the importance of complying with Pt's POLST which states DNR and Comfort Measures Only. Pt has demonstrated in the out patient setting that he does not want dialyis and has been non compliant. Spoke with Dr Salgado and discussed case. Placed order for comfort care, and comfort care order set per V/O from Dr Salgado. Spoke with Bedside RN Batsheva and discussed case. Palliative Care will remain available for symptom management and supportive visits.
--- NOTE | 2020-06-07 16:48 | NUR ---
SHIFT SUMMARY PT TRANSITIONED TO COMFORT CARE. APPEARS TO BE RESTINGI COMFORTABLY IN BED. ALERT AT TIMES, APPEARS TO BE SLEEPING. DIALYSIS THIS AM. VSS THIS AM. NO OTHER ACUTE CHANGES NOTED DURING SHIFT. WILL CONTINUE TO MONITOR UNITL REPORT GIVEN TO ONCOMING RN.
--- NOTE | 2020-06-07 17:02 | NUR ---
SHIFT SUMMARY PT RESPONDING TO VERBAL STIMILI FOR MAJORITY OF SHIFT, ALERT THIS AFTERNOON FOR A SHORT WHILE; LETHARGIC FOR MAJOIRTY OF SHIFT. NO S/SX OF DISTRESS NOTED. PT HR 130'S THIS AM STARTED CARDIZEM GTT; TITRATED PER ORDERS; DR HOWE NOTIFED. DIALYSIS THIS AM WITH 2 UNITS PRBC. PT TRANSITIONED TO COMFORT CARE THIS EVENING. NO DISTRESS NOTED. WILL CONTINUE TO MONITOR UNTIL REPORT GIVEN TO ONCOMING RN.
--- NOTE | 2020-06-07 18:33 | NUR ---
Spiritual care note: Rl appeared to be sleeping peacefully. He awakend minimally to presence. He denied pain. Per EMR, Rl is Cheondoism. Prayer said quietly at bedside for peaceful transition. Horse Trekking Guide services will remain available.
--- NOTE | 2020-06-07 20:22 | NUR ---
CARE ASSUMPTION PT ALERT, CONFUSED. PT ON COMFORT CARE, STATES NO PAIN. ASKING FOR WATER. DENIES SOB. Q2H TURNS. BED ALARM ON, CALL LIGHT IN REACH . WILL CONTINUE TO MONITOR.
--- NOTE | 2020-06-08 05:14 | NUR ---
SHIFT SUMMARY NO ACUTE CHANGES THIS SHIFT. PT COMFORT CARE STATUS. PT A&O, IRRITABLE. SLEPT OFF AND ON T/O THE NIGHT. DENIES PAIN. PT REFUSED REPOSITIONING BUT DID ALLOW RN TO DO ORAL CARE. PT STATED HE DID NOT WANT THICKENED FLUIDS, GAVE PT ICE CHIPS AND SPOON. LEE CATHETER DRAINING CLEAR YELLOW URINE TO GRAVITY. PT CONTINUES TO BE ON 11L HIGH FLOW. CALL LIGHT IN REACH. BED ALARM ON. WILL CONTINUE TO MONITOR UNTIL END OF SHIFT.
--- NOTE | 2020-06-08 15:45 | NUR ---
PT TRANSFERRED TO ROOM 301 REPORT GIVEN TO SAUL SHEARER. PT REFUSED LUNCH, HAS BEEN SLEEPING MOST OF THE SHIFT, SOMETIMES DIFFICULT TO AROUSE. ROXANOL X1FOR SOB/AIR HUNGER. PT REMAINS ON HI CAROLIN 11L VIA NASAL CANNULA. PT REPOSITIONED IN BED IF PT ALLOWS. ORAL CARE PROVIDED WELL, REMAINS ON PUREE DIET. ALL BELONGINGS SENT WITH PT, CALL LIGHTS IN REACH.
--- NOTE | 2020-06-08 15:53 | NUR ---
PT TRANSFERED PT TRANSFERED FROM PCU. PT REMAINED SLEEPING T/O TRANSFER INTO NEW ROOM. CALL LIGHT PLACED IN REACH. BED IN LOWEST POSITION. PT APPEARS COMFORTABLE. WILL CONTINUE TO MONITOR.
--- NOTE | 2020-06-08 16:48 | NUR ---
SHIFT SUMMARY PT UNRESPONSIVE AT THIS TIME AND T/O PERSONAL CARE/REPOSITION. PT APPEARS COMFORTABLE AND HAS NON-LABORED BREATHING. WILL CONTINUE TO MONITOR FOR COMFORT UNTIL TURNOVER IS COMPLETE.
--- NOTE | 2020-06-08 17:18 | NUR ---
pt resting comfortably. will continue to monitor symptoms.
--- NOTE | 2020-06-08 21:45 | NUR ---
ASSUMED CARE AT 1915 PT RESTING IN BED, NOT RESPONDING TO VERBAL STIMULI. RESPIRATIONS EVEN AND APPEAR UNLABORED; ON HIGH-FLOW 02 FOR COMFORT. PT BEING REPOSITIONED Q2. LEE IN PLACE, ATTENS ON FOR INCONTIENT BM'S.
--- NOTE | 2020-06-09 06:41 | NUR ---
SHIFT SUMMARY PT ON COMFORT CARE, HAS BEEN REPOSITIONED Q2/PRN T/O SHIFT. FROM START OF SHIFT TO ABOUT 0200, PT WAS NOT RESPONDING TO VERBAL STIMULI OR OPENING EYES. RESTING WITH UNLABORED BREATHING. AROUND 0200 PT AWAKENED, ASKED FOR WATER. PT SAT UP IN BED AND SPOON FED THICKENED WATER AND JUICE. PT RESTING IN BED SINCE. CALL LIGHT IN REACH.
--- NOTE | 2020-06-09 10:14 | NUR ---
Comfort care visit Spoke with nursing and rec'd an update on Rl. Nursing reports he has been c/o thirst. Nursing also reports that he has a flat affect. Attempted to visit with Rl this morning. He is sleeping sitting up in the bed with his resp even and unlabored at this time. He appears to be comfortable. Will attempt to revisit with him when he is awake.
--- NOTE | 2020-06-09 19:10 | NUR ---
Shift Summary Patient denies any pain today. Frequently requests for fluids because patient is "thirsty." [place] thick liquids given with supervision. TQ2 with 2 max assist. Feeder, appetite is okay. No acute changes. Report given to oncoming RN.
--- NOTE | 2020-06-10 04:27 | NUR ---
SHIFT SUMMARY PT HAS RESTED MOST OF THE NIGHT. MEDICATED FOR NECK PAIN WITH ROXANOL X1. PT IS ABLE TO COMMUNICATE NEEDS, AND LETS US KNOW IF HE NEEDS TO BE REPOSITIONED WHEN ASKED. COMFORT ASSESSED T/O SHIFT. LEE DRAINING WITH LITTLE OUTPUT. SMALL BM THIS SHIFT. BED IN LOWEST POSITION, CALL LIGHT WITHIN REACH.
--- NOTE | 2020-06-10 12:01 | NUR ---
ASSISTED PT WITH DRINKING, CALL LIGHT IN REACH.
--- NOTE | 2020-06-10 16:57 | NUR ---
Shift Summary Patient c/o neck, rectal, and penile pain. Patient does have a wynn that is patent and continues to drain. Patient also had a couple of loose bowel movements today. Abdomen is mildly tender to palpate. Medicated with pain meds and anxiety per EMAR as patient requested, this provided some relief. Patient states pain in rectum "comes and goes in waves". Offered fluids throughout shift and assisted with this. O2 turned down from 10L to 2L per Dr. Salgado. No signs of air hunger or respiratory distress. Will continue to monitor.
--- NOTE | 2020-06-11 03:38 | NUR ---
SUMMARY NO ISSUES NOTED. PT RESTED COMFORTABLY T/O SHIFT. PT CURRENTLY SLEEPING AND BREATHING EASY. CALL LIGHT IN REACH.
--- NOTE | 2020-06-11 09:57 | NUR ---
Comfort care visit Rl was sleeping when this advertising copy writer entered his room to check in on him. His resp are even and unlabored at this time. Will allow him to rest undisturbed as he appears to be comfortable at this time. PC will continue to follow.
--- NOTE | 2020-06-11 23:40 | NUR ---
PATIENT AT 22:32. HOSPITALIST DR DAVISON NOTIFIED.
== END 2020-06-11 22:32 | DRG 682 ==
LOC: ER 02:23 → ICUW 03:48 → PCU 03:48 → ICUW 05:25 → PCU 23:19 → MEDS 06-08 15:48
PROVIDERS: Internal Medicine; Internal Medicine Nephrology; Student in an Organized Health Care Education/Training Program; ADMIT Internal Medicine
PROC: 5A1D70Z Performance of Urinary Filtration, Intermittent, Less than 6 Hours Per Day (ICD-10-PCS; principal; 2020-06-04)
PROC: 30233N1 Transfusion of Nonautologous Red Blood Cells into Peripheral Vein, Percutaneous Approach (ICD-10-PCS; 2020-06-04)
DX: N17.9 Acute kidney failure, unspecified (principal); I50.43 Acute on chronic combined systolic (congestive) and diastolic (congestive) heart failure; J96.21 Acute and chronic respiratory failure with hypoxia; G92 Toxic encephalopathy; I13.2 Hypertensive heart and chronic kidney disease with heart failure and with stage 5 chronic kidney disease, or end stage renal disease; E87.2 Acidosis; E87.3 Alkalosis; E87.70 Fluid overload, unspecified; N18.6 End stage renal disease; Z66 Do not resuscitate; I48.0 Paroxysmal atrial fibrillation; Z51.5 Encounter for palliative care; E11.22 Type 2 diabetes mellitus with diabetic chronic kidney disease; Z99.2 Dependence on renal dialysis; Z91.15 Patient's noncompliance with renal dialysis; D63.1 Anemia in chronic kidney disease; E21.3 Hyperparathyroidism, unspecified; E86.0 Dehydration; E87.5 Hyperkalemia; F20.9 Schizophrenia, unspecified; F31.9 Bipolar disorder, unspecified; G62.9 Polyneuropathy, unspecified; J44.9 Chronic obstructive pulmonary disease, unspecified; N40.0 Benign prostatic hyperplasia without lower urinary tract symptoms; Z87.891 Personal history of nicotine dependence; Z86.14 Personal history of Methicillin resistant Staphylococcus aureus infection; Z99.81 Dependence on supplemental oxygen
CPT/HCPCS: 36415; 36430; 36600; 51701; 70450; 71045; 80048; 80053; 80069; 80162; 81001; 82550; 82803; 82947; 83605; 83690; 83735; 83880; 84100; 84484; 85014; 85018; 85025; 85610; 86317; 86850; 86900; 86901; 86923; 87040; 87086; 87340; 92610; 93005; 93010; 94640; 94660; 94762; 96365-59; 96367-59; 96375-59; 96376-59; 99285-25; A9270-GY; G0480; J0610; J0696; J0881; J1815; J1940; J2060; J2405; J7050; P9016; Q2038